=== PATIENT | male | born 2000 | race Caucasian/White ===

== ENCOUNTER 2023-05-03 16:41 | Emergency (ER) | payer SELFPAY ==
[2023-05-03 16:48] VITALS: BP 138/76; PULSE 70; RESP 18; TEMP 37.1; O2SAT 97; BMI 35.7
--- NOTE | 2023-05-03 17:02 | ED.SOB1 ---
HPI - SOB/Dyspnea General Chief Complaint: Shortness of Breath/Dyspnea Stated Complaint: SHORTNESS OF BREATH Time Seen by Provider: 05/03/23 16:45 Source: patient Mode of arrival: walk-in History of Present Illness HPI Narrative: last night the patient was taking a big bong hit at his house when he suddenly felt pain in the central anterior chest. He felt like he could not catch his breath. This sensation continued throughout the night. He was able to vape and smoke a couple of cigarettes but still felt that same set of symptoms. Nothing taken at home for the pain. He is concerned that something bad might have happened. He has not taken any bong hits since last night when the symptoms started. No recent URI symptoms. He has a slight cough. Related Data Previous Rx's Medication Instructions Recorded nabumetone 750 mg tablet 750 mg PO BID PRN pain #20 tabs 05/03/23 Allergies Allergy/AdvReac Type Severity Reaction Status Date / Time No Known Drug Allergies Allergy Verified 05/03/23 16:51 Exam Narrative Exam Narrative: Nurses notes and vital signs reviewed and patient is not hypoxic. afebrile General: Well-appearing and in no apparent distress. Skin: Warm, dry, no pallor noted. No rash. Head: Normocephalic, atraumatic. Neck: Supple, non-tender. no crepitus or subcutaneous emphysema Eye: Pupils are equal, round and EOMI. No scleral icterus. Ears, Nose, Mouth, and Throat: TM are clear, no nasal mucosal hypertrophy. Oral mucosa is moist, no posterior oropharynx erythema, uvula is mid-line Cardiovascular: Regular Rate and Rhythm without murmur, gallop or rub. Respiratory: No accessory muscle use or respiratory distress. Lungs are clear to auscultation, no wheezing, rales or rhonchi Chest Wall: no tenderness, or crepitus or subcutaneous emphysema Back: No midline thoracic or vertebral tenderness. Neurological: A&O x4. No cranial nerve dysfunction observed. No truncal ataxia. Moves all extremities. Sensation intact. Psychiatric: Cooperative and interactive. Normal mood and affect. Constitutional Vital Signs, click to edit/add: Last Vital Signs Temp 98.7 F 05/03/23 16:48 Pulse 70 05/03/23 16:48 Resp 18 05/03/23 16:48 BP 138/76 05/03/23 16:48 Pulse Ox 97 05/03/23 16:48 O2 Del Method Room Air 05/03/23 16:48 Course Vital Signs Vital signs: Vital Signs Temperature 98.7 F 05/03/23 16:48 Pulse Rate 70 05/03/23 16:48 Respiratory Rate 18 05/03/23 16:48 Blood Pressure 138/76 05/03/23 16:48 Pulse Oximetry 97 05/03/23 16:48 Oxygen Delivery Method Room Air 05/03/23 16:48 Temperature 98.7 F 05/03/23 16:48 Pulse Rate 70 05/03/23 16:48 Respiratory Rate 18 05/03/23 16:48 Blood Pressure 138/76 05/03/23 16:48 Pulse Oximetry 97 05/03/23 16:48 Oxygen Delivery Method Room Air 05/03/23 16:48 MDM - SOB/Dyspnea MDM Narrative Medical decision making narrative: patient developed pleuritic pain after using a bomb. I will signs are normal including ninety-seven percent on room air O2 sat He was sent for x-rays of the chest, which were normal. He was informed of results, given prescription for Relafen, cautioned regarding vaping and bong use and discharged home. Imaging Data Chest x-ray: Radiologist's impression: Patient Name: ESMER MUNOZ MRN: [id number] date: 2000 Sex: M Assigned Patient Location: ER Current Patient Location: Accession/Order Number: [id number] Exam Date: 05/03/2023 17:10 Report Date: 05/03/2023 17:27 At the request of: ROSANNA OCTA Procedure: XR chest 2V EXAM: XR chest 2V HISTORY: pleurisy . Acute shortness of breath. Symptoms for 2 days. COMPARISON: None. TECHNIQUE: Upright PA and lateral chest x-ray FINDINGS: The heart is not enlarged and the vasculature is not distended. No acute infiltrate, effusion or pneumothorax is identified. The osseous structures are intact. IMPRESSION: No acute infiltrate or evidence of cardiac decompensation. Direct comparison with a previous study would be helpful in determining the chronicity of these findings. Electronically authenticated by: OBDULIA WALLS Date: 05/03/2023 17:27 Discharge Plan Discharge Chief Complaint: Shortness of Breath/Dyspnea Clinical Impression: Pleurisy Patient Disposition: Home, Self-Care Time of Disposition Decision: 17:37 Prescriptions / Home Meds: New nabumetone 750 mg tablet 750 mg PO BID PRN (Reason: pain) Qty: 20 0RF Instructions: Pleurisy (ED) Stand Alone Forms: Portal Instructions Referrals: Physician,Non-Staff, MD [Primary Care Provider] - 1 week
--- NOTE | 2023-05-03 17:13 | XR_ITS ---
The [address] [address] Patient Name: ESMER MUNOZ MRN: [id number] date: 2000 Sex: M Assigned Patient Location: ER Current Patient Location: ER Accession/Order Number: [id number] Exam Date: 05/03/2023 17:10 Report Date: 05/03/2023 17:27 At the request of: ROSANNA COTA Procedure: XR chest 2V EXAM: XR chest 2V HISTORY: pleurisy . Acute shortness of breath. Symptoms for 2 days. COMPARISON: None. TECHNIQUE: Upright PA and lateral chest x-ray FINDINGS: The heart is not enlarged and the vasculature is not distended. No acute infiltrate, effusion or pneumothorax is identified. The osseous structures are intact. XR/XR chest 2V IMPRESSION: No acute infiltrate or evidence of cardiac decompensation. Direct comparison with a previous study would be helpful in determining the chronicity of these findings. Electronically authenticated by: OBDULIA WALLS Date: 05/03/2023 17:27
== END 2023-05-03 17:55 | disposition home or self-care (01) ==
PROVIDERS: Emergency Provider Emergency Medicine
DX: R09.1 Pleurisy (principal)
CPT/HCPCS: 71046; 99283

== ENCOUNTER 2023-12-21 06:16 | Inpatient (IN) | payer SELFPAY ==
[2023-12-21] VITALS (8 sets, daily range): BP systolic 114–153; BP diastolic 71–94; PULSE 74–107; TEMP 36.5–39; O2SAT 91–98; BMI 34.4; BMI 31.8
[2023-12-21 06:51] LABS: Basophils Absolute Auto 0.1 10^3/uL (0.0-0.1); Basophils Percent Auto 0.4 % (0.2-2.0); Eosinophils Absolute Auto 0.2 10^3/uL (0.0-0.7); Eosinophils Percent Auto 0.9 % (0.9-7.0); Hematocrit 55.6 % (42.0-54.0); Hemoglobin 18.9 g/dL (14.0-18.0); Immature Granulocytes Abs Auto 0.07 10^3/uL (0.00-0.03); Immature Granulocytes Pct Auto 0.4 % (0.0-0.5); Lymphocytes Percent Auto 17.6 % (20.5-60.0); Mean Corpuscular Hemoglobin 31.9 pg (25.9-34.0); Mean Corpuscular Volume 93.9 fL (80.0-94.0); Mean Platelet Volume 11.5 fL (9.5-13.5); Monocytes Absolute Auto 1.5 10^3/uL (0.3-0.8); Monocytes Percent Auto 8.9 % (1.7-12.0); Neutrophils Absolute Auto 12.1 10^3/uL (1.4-6.5); Neutrophils Percent Auto 71.8 % (43.0-75.0); Platelet Count 195 10^3/uL (150-450); Red Blood Count 5.92 10^6/uL (4.70-6.10); Red Cell Distribution Width 11.5 % (11.0-15.0); White Blood Count 16.9 10^3/uL (4.0-11.0)
--- NOTE | 2023-12-21 07:03 | CT_ITS ---
[address] [address] Patient Name: ESMER MUNOZ MRN: [id number] date: 2000 Sex: M Assigned Patient Location: ER Current Patient Location: Accession/Order Number: [id number] Exam Date: 12/21/2023 07:44 Report Date: 12/21/2023 08:19 At the request of: LAWRENCE MARKER Procedure: CT abdomen pelvis w con EXAMINATION: CT abdomen pelvis w con HISTORY: LLQ abd pain ; acute abdominal pain after coughing; diarrhea COMPARISON: No relevant comparison available. TECHNIQUE: Axial, Coronal, and Sagittal images were obtained without and/or with IV contrast as indicated by examination type. Dose reduction techniques were achieved by using automated exposure control and/or adjustment of mA and/or kV according to patient size and/or use of iterative reconstruction technique. FINDINGS: LUNG BASES: No visible pulmonary or pleural disease. LIVER: No enlargement, atrophy, suspicious density, or significant focal lesion. BILIARY: No dilatation or calcification. PANCREAS: No lesion, fluid collection, or abnormal duct dilatation. SPLEEN: No enlargement or focal lesion. ADRENALS: No mass or enlargement. KIDNEYS: No mass, obstruction, or calcification. BOWEL/MESENTERY: Prominent inflammatory changes and small amount of free air within mesentery of low midline pelvis adjacent to appear to be inflamed diverticula of the sigmoid colon. Abnormal wall thickening and inflamed appearance of the distal descending through sigmoid colon suggestive of colitis. Fluid-filled proximal: With borderline wall thickening and slightly edematous appearance of distal small bowel cecum, and proximal ascending colon. No bowel obstruction. No visible mass, obstruction, or bowel wall thickening. AORTA/VASCULAR: No aneurysm or dissection. RETROPERITONEUM: No mass or adenopathy. LYMPH NODES: No adenopathy. URINARY BLADDER: No visible focal wall thickening, lesion, or calculus. PELVIC ORGANS: No visible mass. Pelvic organs appropriate for patient age. ABDOMINAL WALL: No mass or hernia. BONES: No bony lesion or fracture. OTHER: Negative. CT/CT abdomen pelvis w con IMPRESSION: 1. Acute diverticulitis with perforation and prominent inflammatory changes within the pelvis. 2. Abnormal wall thickening and edematous appearance of descending and sigmoid colon, with more mild changes involving the distal small bowel and ascending colon; nonspecific but suggestive of inflammatory bowel disease. No bowel obstruction. Electronically authenticated by: OMER BOSTON Date: 12/21/2023 08:19
--- NOTE | 2023-12-21 07:05 | ED.ABDPAIN1 ---
HPI - Abdominal Pain General Chief Complaint: Abdominal Pain Stated Complaint: abd pelvis pain Time Seen by Provider: 12/21/23 06:43 Source: patient Mode of arrival: Wheelchair History of Present Illness HPI narrative: This 23-year-old male who is status post appendectomy presents for evaluation of left lower quadrant abdominal pain with nausea. The patient has had gastrointestinal symptoms for the past several days with constipation. He has taken some stool softeners and laxatives and has had some diarrhea. He is feeling okay last night and this morning woke up with severe pain in his left lower quadrant. The patient told his sister he felt like something tore in his abdomen. He has not had any urinary symptoms. He has mild low back pain. He has epigastric pain as well. He has not had a fever or chills. He has not had any bloody stools. Related Data Previous Rx's ?Medication ?Instructions ?Recorded nabumetone 750 mg tablet 750 mg PO BID PRN pain #20 tabs 05/03/23 Allergies Allergy/AdvReac Type Severity Reaction Status Date / Time No Known Drug Allergies Allergy Verified 05/03/23 16:51 Review of Systems ROS Status of ROS 10 or more systems reviewed and unremarkable except as noted in history and below Exam Narrative Exam Narrative: Nurses note and vital signs reviewed and patient is not hypoxic. General: Pale overweight uncomfortable appearing male, he is grimacing in pain, no respiratory distress Skin: Warm, dry, no pallor noted. There is no rash noted. Head: Normocephalic, atraumatic Eye: Normal conjunctiva, no drainage, EOMI. PERRL Ears, Nose, Mouth, and Throat: oral mucosa is moist. Nares patent. Mouth without vesicles. Ear canals patent. Tm's without Erythema Cardiovascular: Regular Rate and Rhythm s1S2, no murmurs, rubs or gallops Respiratory: Patient is in no distress, no accessory muscle use, lungs are clear to auscultation, no wheezing, rales or rhonchi Back: non-tender, no CVA tenderness bilaterally to percussion. GI: Decreased bowel sounds, diffusely tender, abdomen is firm with generalized guarding, tenderness is more localized in the left lower quadrant and epigastrium. Musculoskeletal: The patient has no evidence of calf tenderness, no pitting edema, symmetrical pulses noted bilaterally Neurological: A&O x4, normal speech Psychiatric: Cooperative, Anxious, tearful Constitutional Vital Signs, click to edit/add: Last Vital Signs Temp 97.7 F 12/21/23 06:20 Pulse 87 12/21/23 06:20 Resp 22 H 12/21/23 06:20 BP 129/94 H 12/21/23 06:20 Pulse Ox 98 12/21/23 06:20 O2 Del Method Room Air 12/21/23 06:20 Course Vital Signs Vital signs: Vital Signs Temperature 97.7 F 12/21/23 06:20 Pulse Rate 87 12/21/23 06:20 Respiratory Rate 22 H 12/21/23 06:20 Blood Pressure 129/94 H 12/21/23 06:20 Pulse Oximetry 98 12/21/23 06:20 Oxygen Delivery Method Room Air 12/21/23 06:20 Temperature 97.7 F 12/21/23 06:20 Pulse Rate 87 12/21/23 06:20 Respiratory Rate 22 H 12/21/23 06:20 Blood Pressure 129/94 H 12/21/23 06:20 Pulse Oximetry 98 12/21/23 06:20 Oxygen Delivery Method Room Air 12/21/23 06:20 MDM - Abdominal Pain MDM Narrative Medical decision making narrative: Patient signed out to incoming physician at 7 AM Lab Data Labs: Lab Results 12/21/23 Range/Units 06:28 WBC 16.9 H (4.0-11.0) 10^3/uL RBC 5.92 (4.70-6.10) 10^6/uL Hgb 18.9 H (14.0-18.0) g/dL Hct 55.6 H (42.0-54.0) % MCV 93.9 (80.0-94.0) fL MCH 31.9 (25.9-34.0) pg MCHC 34.0 (29.9-35.2) g/dL RDW 11.5 (11.0-15.0) % Plt Count 195 (150-450) 10^3/uL MPV 11.5 (9.5-13.5) fL Neut % (Auto) 71.8 (43.0-75.0) % Lymph % (Auto) 17.6 L (20.5-60.0) % [place] % (Auto) 8.9 (1.7-12.0) % Eos % (Auto) 0.9 (0.9-7.0) % Baso % (Auto) 0.4 (0.2-2.0) % Neut # (Auto) 12.1 H (1.4-6.5) 10^3/uL Lymph # (Auto) 3.0 (1.2-3.8) 10^3/uL [place] # (Auto) 1.5 H (0.3-0.8) 10^3/uL Eos # (Auto) 0.2 (0.0-0.7) 10^3/uL Baso # (Auto) 0.1 (0.0-0.1) 10^3/uL Abs Immat Gran (auto) 0.07 H (0.00-0.03) 10^3/uL Imm/Tot Granulo (auto) 0.4 (0.0-0.5) % Discharge Plan Discharge Chief Complaint: Abdominal Pain Patient Disposition: Still a Patient Time of Disposition Decision: 07:08 Prescriptions / Home Meds: No Action nabumetone 750 mg tablet 750 mg PO BID PRN (Reason: pain) Qty: 20 0RF Print Language: Thai Referrals: Physician,Non-Staff, MD [Primary Care Provider] - 1 week
[2023-12-21 07:06] LABS: Alanine Aminotransferase 18 U/L (16-63); Albumin Globulin Ratio 0.8; Alkaline Phosphatase 92 U/L (46-116); Anion Gap 22.3; Aspartate Amino Transferase 14 U/L (15-37); BUN Creatinine Ratio 9.3; Bilirubin Total 1.9 mg/dL (0.2-1.0); Calcium 10.1 mg/dL (8.5-10.1); Carbon Dioxide 21.9 mmol/L (21.0-32.0); Chloride 96 mmol/L (98-107); Estimated GFR (African America >60 (>=60); Estimated GFR (Non-African Ame >60 (>=60); Globulin 4.8 g/dL; Glucose 144 mg/dL (74-106); Potassium 3.2 mmol/L (3.5-5.1); Sodium 137 mmol/L (136-145); Total Protein 8.8 g/dL (6.4-8.2)
[2023-12-21] MEDS: FAMOTIDINE/PF 20 MG/2 ML VIAL IV (07:06)
[2023-12-21] MEDS: ONDANSETRON PF 4 MG/2 ML VIAL IV (07:06)
[2023-12-21] MEDS: HYDROMORPHONE HCL 1 MG/ML CARTRIDGE IV (07:07)
[2023-12-21] MEDS: 0.9 % SODIUM CHLORIDE 1,000 ML 1000 ML IV (07:07)
[2023-12-21 07:09] LABS: Lactate/Lactic Acid 1.6 mmol/L (0.4-2.0)
[2023-12-21 07:27] LABS: Influenza Virus A Antigen Negative; Influenza Virus B Antigen Negative; Internal Control Within Normal Limits
[2023-12-21] MEDS: CEFTRIAXONE 2,000 MG in 0.9 % SODIUM CHLORIDE 100 ML 200 MG IV (08:57)
--- NOTE | 2023-12-21 09:08 | ED_ITS ---
HPI - Abdominal Pain General Chief Complaint: Abdominal Pain Stated Complaint: abd pelvis pain Time Seen by Provider: 12/21/23 06:43 Source: patient Mode of arrival: Wheelchair History of Present Illness HPI narrative: The patient was initially seen by Dr Greer. Please see her full H&P. Related Data Allergies Allergy/AdvReac Type Severity Reaction Status Date / Time No Known Drug Allergies Allergy Verified 05/03/23 16:51 Exam Constitutional Vital Signs, click to edit/add: Last Vital Signs Temp 97.7 F 12/21/23 06:20 Pulse 87 12/21/23 06:20 Resp 22 H 12/21/23 06:20 BP 129/94 H 12/21/23 06:20 Pulse Ox 98 12/21/23 06:20 O2 Del Method Room Air 12/21/23 06:20 Course Vital Signs Vital signs: Vital Signs Temperature 97.7 F 12/21/23 06:20 Pulse Rate 87 12/21/23 06:20 Respiratory Rate 22 H 12/21/23 06:20 Blood Pressure 129/94 H 12/21/23 06:20 Pulse Oximetry 98 12/21/23 06:20 Oxygen Delivery Method Room Air 12/21/23 06:20 Temperature 97.7 F 12/21/23 06:20 Pulse Rate 87 12/21/23 06:20 Respiratory Rate 22 H 12/21/23 06:20 Blood Pressure 129/94 H 12/21/23 06:20 Pulse Oximetry 98 12/21/23 06:20 Oxygen Delivery Method Room Air 12/21/23 06:20 MDM - Abdominal Pain MDM Narrative Medical decision making narrative: Diverticulitis with perforation is found on CT. Discussed with Dr Flores. We will admit for IV antibiotics. Findings discussed with patient. Differential Diagnosis Differential diagnosis: Likely abdominal pain, constipation, diverticulitis and small bowel obstruction Lab Data Attestation: I reviewed the patient's lab results. Labs: Lab Results 12/21/23 12/21/23 Range/Units 06:28 07:10 WBC 16.9 H (4.0-11.0) 10^3/uL RBC 5.92 (4.70-6.10) 10^6/uL Hgb 18.9 H (14.0-18.0) g/dL Hct 55.6 H (42.0-54.0) % MCV 93.9 (80.0-94.0) fL MCH 31.9 (25.9-34.0) pg MCHC 34.0 (29.9-35.2) g/dL RDW 11.5 (11.0-15.0) % Plt Count 195 (150-450) 10^3/uL MPV 11.5 (9.5-13.5) fL Neut % (Auto) 71.8 (43.0-75.0) % Lymph % (Auto) 17.6 L (20.5-60.0) % [place] % (Auto) 8.9 (1.7-12.0) % Eos % (Auto) 0.9 (0.9-7.0) % Baso % (Auto) 0.4 (0.2-2.0) % Neut # (Auto) 12.1 H (1.4-6.5) 10^3/uL Lymph # (Auto) 3.0 (1.2-3.8) 10^3/uL [place] # (Auto) 1.5 H (0.3-0.8) 10^3/uL Eos # (Auto) 0.2 (0.0-0.7) 10^3/uL Baso # (Auto) 0.1 (0.0-0.1) 10^3/uL Abs Immat Gran (auto) 0.07 H (0.00-0.03) 10^3/uL Imm/Tot Granulo (auto) 0.4 (0.0-0.5) % Sodium 137 (136-145) mmol/L Potassium 3.2 L (3.5-5.1) mmol/L Chloride 96 L (98-107) mmol/L Carbon Dioxide 21.9 (21.0-32.0) mmol/L Anion Gap 22.3 BUN 13.0 (7.0-18.0) mg/dL Creatinine 1.40 H (0.70-1.30) mg/dL Est GFR ( Amer) >60 (>=60) Est GFR (Non-Af Amer) >60 (>=60) BUN/Creatinine Ratio 9.3 Glucose 144 H (74-106) mg/dL Lactate 1.6 (0.4-2.0) mmol/L Calcium 10.1 (8.5-10.1) mg/dL Total Bilirubin 1.9 H (0.2-1.0) mg/dL AST 14 L (15-37) U/L ALT 18 (16-63) U/L Alkaline Phosphatase 92 (46-116) U/L Total Protein 8.8 H (6.4-8.2) g/dL Albumin 4.0 (3.4-5.0) g/dL Globulin 4.8 g/dL Albumin/Globulin Ratio 0.8 Influenza Type A Ag Negative Influenza Type B Ag Negative Imaging Data CT scan - abdomen: Radiologist's impression: ITS Impressions Abdomen/Pelvis CT 12/21/23 07:03 IMPRESSION: 1. Acute diverticulitis with perforation and prominent inflammatory changes within the pelvis. 2. Abnormal wall thickening and edematous appearance of descending and sigmoid colon, with more mild changes involving the distal small bowel and ascending colon; nonspecific but suggestive of inflammatory bowel disease. No bowel obstruction. Electronically authenticated by: OMER BOSTON Date: 12/21/2023 08:19 Discharge Plan Discharge Chief Complaint: Abdominal Pain Clinical Impression: Diverticulitis of colon with perforation Patient Disposition: Admitted As Inpatient Time of Disposition Decision: 08:45 Condition: Good
[2023-12-21] MEDS: METRONIDAZOLE/SODIUM CHLORIDE 500 MG/100 ML PREMIX 100 MG IV ×3 (09:24→21:22)
[2023-12-21] MEDS: MORPHINE SULFATE 4 MG/ML VIAL IV (09:24)
--- NOTE | 2023-12-21 09:57 | PM.GSCN ---
History of Present Illness Consult details Consult date: 12/21/23 Reason for consult: abdominal pain Requesting physician: Marcus Carvajal Narrative: Mr. Corbin is a 23m with hx of alcohol use disorder, HTN, and current smoker with a 2 day hx of abdominal pain. Surgery consulted from ED for diverticulitis with perforation. He is examined in ED with sister at bedside. He states the pain became significantly worse at 5am this morning with a ripping sensation and burning pain that spread through his abdomen. He initially thought he must be very constipated. Became nauseated and vomited before presenting to ED. Pain is currently not well controlled, and he endorses localization to several spots--left and right lateral abdomen and low pain along the waistband of his pants. No pain centrally. Pt has never been told in the past he has diverticula. He hasn't seen a PCP in several years due to lack of insurance. Denies chronic constipation or straining. Endorses poor diet with processed foods and few fibers, which he has been trying to improve recently. Has not had solid food in 2 days. Last liquid intake was water and nate veronika at 5am today. Pt has had surgery in the last year for his wrist and tolerated general anesthesia well. Denies chronic lung conditions besides smoker's cough. Denies cardiac conditions aside from hx of HTN. Pt expresses desire to avoid colostomy if possible. Social Hx: Current every day smoker 4-6 cigarettes plus 1-2 bowls of marijuana daily. Former daily drinker of a fifth of vodka daily. 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[place] [address] CT Scan Report Signed Patient: ESMER CORBIN MR#: [id number] : 2000 Acct:[id number] Age/Sex: 23 / M ADM Date: 12/21/23 Loc: ER Attending Dr: Ordering Physician: Flor Greer Date of Service: 12/21/23 Procedure(s): CT abdomen pelvis w con Accession Number(s): [id number] cc: Physician,Non-Staff M.D.~ The [address] [address] Patient Name: ESMER CORBIN MRN: [id number] date: 2000 Sex: M Assigned Patient Location: ER Current Patient Location: ER Accession/Order Number: [id number] Exam Date: 12/21/2023 07:44 Report Date: 12/21/2023 08:19 At the request of: FLOR MARKER Procedure: CT abdomen pelvis w con EXAMINATION: CT abdomen pelvis w con HISTORY: LLQ abd pain ; acute abdominal pain after coughing; diarrhea COMPARISON: No relevant comparison available. TECHNIQUE: Axial, Coronal, and Sagittal images were obtained without and/or with IV contrast as indicated by examination type. Dose reduction techniques were achieved by using automated exposure control and/or adjustment of mA and/or kV according to patient size and/or use of iterative reconstruction technique. FINDINGS: LUNG BASES: No visible pulmonary or pleural disease. LIVER: No enlargement, atrophy, suspicious density, or significant focal lesion. BILIARY: No dilatation or calcification. PANCREAS: No lesion, fluid collection, or abnormal duct dilatation. SPLEEN: No enlargement or focal lesion. ADRENALS: No mass or enlargement. KIDNEYS: No mass, obstruction, or calcification. BOWEL/MESENTERY: Prominent inflammatory changes and small amount of free air within mesentery of low midline pelvis adjacent to appear to be inflamed diverticula of the sigmoid colon. Abnormal wall thickening and inflamed appearance of the distal descending through sigmoid colon suggestive of colitis. Fluid-filled proximal: With borderline wall thickening and slightly edematous appearance of distal small bowel cecum, and proximal ascending colon. No bowel obstruction. No visible mass, obstruction, or bowel wall thickening. AORTA/VASCULAR: No aneurysm or dissection. RETROPERITONEUM: No mass or adenopathy. LYMPH NODES: No adenopathy. URINARY BLADDER: No visible focal wall thickening, lesion, or calculus. PELVIC ORGANS: No visible mass. Pelvic organs appropriate for patient age. ABDOMINAL WALL: No mass or hernia. BONES: No bony lesion or fracture. OTHER: Negative. CT/CT abdomen pelvis w con IMPRESSION: 1. Acute diverticulitis with perforation and prominent inflammatory changes within the pelvis. 2. Abnormal wall thickening and edematous appearance of descending and sigmoid colon, with more mild changes involving the distal small bowel and ascending colon; nonspecific but suggestive of inflammatory bowel disease. No bowel obstruction. Electronically authenticated by: JIM GAMING Date: 12/21/2023 08:19 Dictated By: Jim Gaming M.D. Signed By: 12/21/23821 DD/ 8 TD/TT: Pantomimist: Review of Systems ROS Status of ROS 10 or more systems reviewed and unremarkable except as noted in history and below [facility] Medical History (Updated 12/21/23 @ 13:26 by Xavier Flores MD) Pleurisy ?R09.1 - Pleurisy (ICD-10) Alcohol use disorder, mild, in early remission ?F10.11 - Alcohol abuse, in remission (ICD-10) HTN (hypertension) ?I10 - Essential (primary) hypertension (ICD-10) Herpes simplex ?B00.9 - Herpesviral infection, unspecified (ICD-10) Surgical History History of surgery on arm ?Z98.890 - Other specified postprocedural states (ICD-10) History of appendectomy ?Z90.49 - Acquired absence of other specified parts of digestive tract (ICD-10) Family History Mother Family history of COPD (chronic obstructive pulmonary disease) Family history of cancer Family history of hypertension Father Family history of hypertension Social History Within the past year, how often did you have a drink containing alcohol: 2-3 times a week Within the past year, how many standard drinks containing alcohol did you have on a typical day: 1 or 2 Within the past year, how often did you have six or more drinks on one occasion: less than monthly Total score: 1 Score interpretation: A score of 4 or more indicates drinking is likely to affect patient's safety. Smoking status: Current every day smoker Non-prescribed substance use: cannabis (any form) Previous occupational history: unemployed Highest level of school completed/degree received: high school graduate Are you now , , , , never or living with a partner: never Little interest or pleasure in doing things: not at all Feeling down, depressed, or hopeless: not at all Feel stressed/tense/nervous/anxious/difficulty sleeping: not at all Meds Home Medications and Allergies Allergies Allergy/AdvReac Type Severity Reaction Status Date / Time No Known Drug Allergies Allergy Verified 05/03/23 16:51 Exam Narrative Exam Narrative: General:appears ill, mild distress from pain, obese HEENT:NC/AT CV:RRR, no rub/gallop/murmur Pulm:CTA Abd:soft, nondistended, obese, normoactive bowel sounds, exquisitely tender to light palpation in LLQ, RUQ, and midline low abdomen, +guarding Ext:normal ROM Neuro:no focal deficits Psych: anxious mood, congruent affect, normal speech Constitutional Vital Signs, click to edit/add: Last Vital Signs Temp 97.7 F 12/21/23 06:20 Pulse 74 12/21/23 09:30 Resp 16 12/21/23 09:30 BP 114/78 12/21/23 09:30 Pulse Ox 98 12/21/23 09:31 O2 Del Method Room Air 12/21/23 09:31 Documenting provider has reviewed patient's vital signs: yes Common normals: average body habitus, oriented x3, healthy appearing, alert and well nourished Results Labs Labs: Abnormal lab results 12/21/23 Range/Units 06:28 WBC 16.9 H (4.0-11.0) 10^3/uL Hgb 18.9 H (14.0-18.0) g/dL Hct 55.6 H (42.0-54.0) % Lymph % (Auto) 17.6 L (20.5-60.0) % Neut # (Auto) 12.1 H (1.4-6.5) 10^3/uL [place] # (Auto) 1.5 H (0.3-0.8) 10^3/uL Abs Immat Gran (auto) 0.07 H (0.00-0.03) 10^3/uL Potassium 3.2 L (3.5-5.1) mmol/L Chloride 96 L (98-107) mmol/L Creatinine 1.40 H (0.70-1.30) mg/dL Glucose 144 H (74-106) mg/dL Total Bilirubin 1.9 H (0.2-1.0) mg/dL AST 14 L (15-37) U/L Total Protein 8.8 H (6.4-8.2) g/dL Diabetes panel 12/21/23 Range/Units 06:28 Sodium 137 (136-145) mmol/L Potassium 3.2 L (3.5-5.1) mmol/L Chloride 96 L (98-107) mmol/L Carbon Dioxide 21.9 (21.0-32.0) mmol/L BUN 13.0 (7.0-18.0) mg/dL Creatinine 1.40 H (0.70-1.30) mg/dL Glucose 144 H (74-106) mg/dL Calcium 10.1 (8.5-10.1) mg/dL AST 14 L (15-37) U/L ALT 18 (16-63) U/L Alkaline Phosphatase 92 (46-116) U/L Total Protein 8.8 H (6.4-8.2) g/dL Albumin 4.0 (3.4-5.0) g/dL Calcium panel 12/21/23 Range/Units 06:28 Calcium 10.1 (8.5-10.1) mg/dL Albumin 4.0 (3.4-5.0) g/dL Pituitary panel 12/21/23 Range/Units 06:28 Sodium 137 (136-145) mmol/L Potassium 3.2 L (3.5-5.1) mmol/L Chloride 96 L (98-107) mmol/L Carbon Dioxide 21.9 (21.0-32.0) mmol/L BUN 13.0 (7.0-18.0) mg/dL Creatinine 1.40 H (0.70-1.30) mg/dL Glucose 144 H (74-106) mg/dL Calcium 10.1 (8.5-10.1) mg/dL Adrenal panel 12/21/23 Range/Units 06:28 Sodium 137 (136-145) mmol/L Potassium 3.2 L (3.5-5.1) mmol/L Chloride 96 L (98-107) mmol/L Carbon Dioxide 21.9 (21.0-32.0) mmol/L BUN 13.0 (7.0-18.0) mg/dL Creatinine 1.40 H (0.70-1.30) mg/dL Glucose 144 H (74-106) mg/dL Calcium 10.1 (8.5-10.1) mg/dL Total Bilirubin 1.9 H (0.2-1.0) mg/dL AST 14 L (15-37) U/L ALT 18 (16-63) U/L Alkaline Phosphatase 92 (46-116) U/L Total Protein 8.8 H (6.4-8.2) g/dL Albumin 4.0 (3.4-5.0) g/dL All other labs normal. Imaging Abdomen CT scan report/results: report reviewed and image reviewed Assessment and Plan Assessment and Plan (1) Diverticulitis of colon with perforation: (2) Smoker: (3) Marijuana smoker: (4) Smokers' cough: (5) Obesity (BMI 35.0-39.9 without comorbidity): Plan Mr. Corbin is a 23[address] evidence of diverticulitis with small free air suggestive of perforation. Will monitor with conservative management before consideration of surgical intervention. Plan - Daily Rocephin and Flagyl - Monitor vitals, CBC for minimum 48 hrs - Blood cultures - Continue dilaudid, morphine PRN pain control - Continue Zofran PRN nausea/vomiting keep npo except for ice chips 1 cup/shift
[2023-12-21] MEDS: LACTATED RINGER'S SOLUTION 1,000 ML 125 ML IV ×2 (11:09→19:22)
--- NOTE | 2023-12-21 11:14 | CM.NOTE ---
Rounds made with Dr. Gerard. CT and labs reviewed with Nile by Dr. Gerard. Verbalizes understanding.
--- NOTE | 2023-12-21 11:42 | P.HP_ITS ---
HPI H&P: HPI History of Present Illness Chief complaint: abd pain, DIVERTICULITIS OF COLON WITH PERFORATION Narrative: 23 y/o male to ER with abdominal pain. No significant PMH and no daily medication. Reports abdominal pain for few days. Started new job and increased lifting, initially thought related to job. Pain diffusely across lower abdomen. Developed nausea and emesis. Started dry heaving and felt like something tore in LLQ. Severe pain after and to ER. WBC elevated at 16.[address] abdomen showed acute diverticulitis with evidence of perforation. Admitted for treatment. Opioid HPI Opioid Management Most Recent Opioid Data: Last Pain Scale 8 12/21/23 09:31 Last Pain Assessment 12/21/23 10:49 Last ED Pain Assessment 12/21/23 09:31 Last MAR Pain Assessment 12/21/23 09:24 Last ORT Total Score 4 12/21/23 09:21 Last ORT Risk Category Moderate Risk 12/21/23 09:21 Review of Systems ROS Constitutional Denies: fever, chills or fatigue Cardiovascular Denies: chest pain, palpitations or edema Respiratory Denies: shortness of breath, cough or wheezing Gastrointestinal Reports: abdominal pain, nausea and vomiting; Denies: diarrhea Genitourinary Denies: painful urination PFSH PFSH Medical History (Updated 12/21/23 @ 11:46 by Bk Gerard MD) Pleurisy ?R09.1 - Pleurisy (ICD-10) Alcohol use disorder, mild, in early remission ?F10.11 - Alcohol abuse, in remission (ICD-10) HTN (hypertension) ?I10 - Essential (primary) hypertension (ICD-10) Herpes simplex ?B00.9 - Herpesviral infection, unspecified (ICD-10) Surgical History (Updated 12/21/23 @ 10:16 by Xavier Flores MD) History of surgery on arm ?Z98.890 - Other specified postprocedural states (ICD-10) History of appendectomy ?Z90.49 - Acquired absence of other specified parts of digestive tract (ICD- 10) Family History (Updated 12/21/23 @ 10:06 by Talisha Polanco) Mother Family history of COPD (chronic obstructive pulmonary disease) Family history of cancer Family history of hypertension Father Family history of hypertension Social History (Updated 12/21/23 @ 10:07 by Talisha Polanco) Within the past year, how often did you have a drink containing alcohol: 2-3 times a week Within the past year, how many standard drinks containing alcohol did you have on a typical day: 1 or 2 Within the past year, how often did you have six or more drinks on one occasion: less than monthly Total score: 1 Score interpretation: A score of 4 or more indicates drinking is likely to affect patient's safety. Smoking status: Current every day smoker Non-prescribed substance use: cannabis (any form) Previous occupational history: unemployed Highest level of school completed/degree received: high school graduate Are you now , , , , never or living with a partner: never Little interest or pleasure in doing things: not at all Feeling down, depressed, or hopeless: not at all Feel stressed/tense/nervous/anxious/difficulty sleeping: not at all Meds Home Medications and Allergies Allergies Allergy/AdvReac Type Severity Reaction Status Date / Time No Known Drug Allergies Allergy Verified 05/03/23 16:51 Exam Constitutional Vital Signs, click to edit/add: Last Vital Signs Temp 99.4 F 12/21/23 09:21 Pulse 74 12/21/23 09:30 Resp 16 12/21/23 09:30 BP 114/78 12/21/23 09:30 Pulse Ox 98 12/21/23 09:31 O2 Del Method Room Air 12/21/23 09:31 Documenting provider has reviewed patient's vital signs: yes Common normals: oriented x3 and alert HENMT Common normals: normocephalic Eye Common normals: PERRL and EOMs intact bilaterally Respiratory Common normals: normal respiratory effort and clear to auscultation bilaterally Cardio Common normals: regular rate, regular rhythm, no gallops, no murmurs and no rub GI Auscultation: normoactive bowel sounds Palpation: soft and tender (Diffuse TTP across lower abdomen, worse LLQ); no guarding Extremity Common normals: no pedal edema Results Labs Labs: Short CBC 12/21/23 Range/Units 06:28 WBC 16.9 H (4.0-11.0) 10^3/uL Hgb 18.9 H (14.0-18.0) g/dL Hct 55.6 H (42.0-54.0) % Plt Count 195 (150-450) 10^3/uL BMP 12/21/23 06:28 Sodium 137 Potassium 3.2 L Chloride 96 L Carbon Dioxide 21.9 BUN 13.0 Creatinine 1.40 H Glucose 144 H Calcium 10.1 Liver Function 12/21/23 Range/Units 06:28 Total Bilirubin 1.9 H (0.2-1.0) mg/dL AST 14 L (15-37) U/L ALT 18 (16-63) U/L Alkaline Phosphatase 92 (46-116) U/L Albumin 4.0 (3.4-5.0) g/dL Imaging CT scan - abdomen: Attestation: I have reviewed the pertinent imaging results. Assessment and Plan Assessment and Plan (1) Diverticulitis of colon with perforation: (2) Smoker: (3) Obesity (BMI 30-39.9): Plan Presented with pain and found acute diverticulitis with perforation. Consult surgery. Start rocephin and flagyl. Give IV fluids. Use morphine PRN for pain and zofran for nausea. Keep NPO until evaluated by surgery.
--- NOTE | 2023-12-21 11:54 | CM.NOTE ---
Financial counselors informed of self pay status.
[2023-12-21] MEDS: MORPHINE SULFATE 2 MG/ML SYRINGE IV ×2 (16:15→20:07)
[2023-12-21] MEDS: ACETAMINOPHEN 325 MG TABLET 650 MG PO (21:22)
[2023-12-22] VITALS (13 sets, daily range): BP systolic 127–146; BP diastolic 81–94; PULSE 82–100; TEMP 36.4–36.8; O2SAT 91–98
[2023-12-22] MEDS: MORPHINE SULFATE 2 MG/ML SYRINGE IV ×2 (00:44→05:00)
[2023-12-22] MEDS: METRONIDAZOLE/SODIUM CHLORIDE 500 MG/100 ML PREMIX 100 MG IV (03:05)
[2023-12-22] MEDS: ONDANSETRON PF 4 MG/2 ML VIAL IV ×2 (03:05→07:20)
[2023-12-22] MEDS: LACTATED RINGER'S SOLUTION 1,000 ML 125 ML IV ×3 (05:13→20:56)
[2023-12-22 05:44] LABS: Basophils Percent Auto 0.3 % (0.2-2.0); Eosinophils Percent Auto 0.3 % (0.9-7.0); Hematocrit 50.6 % (42.0-54.0); Hemoglobin 16.8 g/dL (14.0-18.0); Immature Granulocytes Abs Auto 0.06 10^3/uL (0.00-0.03); Immature Granulocytes Pct Auto 0.4 % (0.0-0.5); Lymphocytes Absolute Auto 0.9 10^3/uL (1.2-3.8); Lymphocytes Percent Auto 6.3 % (20.5-60.0); Mean Corpuscular HGB Conc 33.2 g/dL (29.9-35.2); Mean Corpuscular Hemoglobin 31.6 pg (25.9-34.0); Mean Corpuscular Volume 95.3 fL (80.0-94.0); Mean Platelet Volume 12.3 fL (9.5-13.5); Monocytes Absolute Auto 1.3 10^3/uL (0.3-0.8); Monocytes Percent Auto 8.8 % (1.7-12.0); Neutrophils Absolute Auto 12.4 10^3/uL (1.4-6.5); Neutrophils Percent Auto 83.9 % (43.0-75.0); Platelet Count 174 10^3/uL (150-450); Red Blood Count 5.31 10^6/uL (4.70-6.10); Red Cell Distribution Width 11.9 % (11.0-15.0); White Blood Count 14.7 10^3/uL (4.0-11.0)
[2023-12-22 06:10] LABS: Alanine Aminotransferase 11 U/L (16-63); Albumin Globulin Ratio 0.7; Albumin Level 2.8 g/dL (3.4-5.0); Alkaline Phosphatase 60 U/L (46-116); Anion Gap 16.5; Aspartate Amino Transferase 12 U/L (15-37); BUN Creatinine Ratio 11.2; Bilirubin Total 1.3 mg/dL (0.2-1.0); Calcium 9.3 mg/dL (8.5-10.1); Carbon Dioxide 22.1 mmol/L (21.0-32.0); Chloride 103 mmol/L (98-107); Estimated GFR (African America >60 (>=60); Estimated GFR (Non-African Ame >60 (>=60); Globulin 4.2 g/dL; Glucose 109 mg/dL (74-106); Potassium 3.6 mmol/L (3.5-5.1); Sodium 138 mmol/L (136-145)
[2023-12-22] MEDS: CEFTRIAXONE 1,000 MG in 0.9 % SODIUM CHLORIDE 50 ML 100 MG IV (08:37)
[2023-12-22] MEDS: PROMETHAZINE HCL 12.5 MG in 0.9 % SODIUM CHLORIDE 50 ML 202 MG IV (08:38)
[2023-12-22] MEDS: MORPHINE SULFATE 4 MG/ML VIAL IV (08:38)
[2023-12-22] MEDS: PANTOPRAZOLE SODIUM 40 MG VIAL IV (10:14)
[2023-12-22] MEDS: PIPERACILLIN SODIUM/TAZOBACTAM 3.375 GM in 0.9 % SODIUM CHLORIDE 50 ML IV ×2 (10:18→17:40)
--- NOTE | 2023-12-22 11:23 | P.IMPN_ITS ---
Progress Note: A&P Assessment and Plan (1) Diverticulitis of colon with perforation: Assessment and Plan: Poorly controlled pain. Changed to IV dilauded. IV abx changed to Zosyn so that he has pseudomonal coverage also. Blood cultures were not ordered on admission - ordered blood cultures. Conservative care for now. C/w Bowel rest, IVF, IVF abx and pain/nausea control Surgery on consult, follow their recs. (2) Sepsis: Assessment and Plan: Patient met criteria for sepsis on admission. Fever 102, WBC 16k, HR 107, source of infection is diverticulitis. Patient on IV zosyn now. Switched from Rocephin/flagyl. His hemodynamics are stable now. He is not in sepsis anymore. Leukocytosis is improving, he is afebrile. C/w IVF, IV abx. Blood cultures ordered as they were not done on admission. Qualifiers: Sepsis type: sepsis due to unspecified organism Sepsis acute organ dysfunction status: without acute organ dysfunction Qualified Code(s): A41.9 - Sepsis, unspecified organism (3) HTN (hypertension): Assessment and Plan: Above goal likely due to pain. Monitor for now. Qualifiers: Hypertension type: primary hypertension Qualified Code(s): I10 - Essential (primary) hypertension (4) Nausea and vomiting: Assessment and Plan: Due to diverticulitis. Added promethazine as needed as zofran alone was not quite working for him. He is not retching anymore and feels better than earlier today. Qualifiers: Vomiting type: unspecified Qualified Code(s): R11.2 - Nausea with vomiting, unspecified (5) Smoker: Assessment and Plan: Discussed smoking cessation. Will defer to PCP to discuss treatment for it. (6) Marijuana smoker: Assessment and Plan: Discussed Marijuana use and potential adverse effects of it. (7) Obesity (BMI 35.0-39.9 without comorbidity): Assessment and Plan: Patient would benefit from weight loss, with lifestyle measures and increasing physical activity. Plan C/w bowel rest, conservative management of his diverticulitis. Pain is poorly controlled, however nausea is better. He is anticipated to require inpatient care for > 3 MN to closely monitor his progress as he is at high risk of poor outcome if not treated appropriately. Follow up surgery recommendations on advancing diet. C/w IVF, IV abx. Monitor closely and continue to reassess for clinical progress. Internal Medicine - PN: Subj Subjective Interval history: Seen and examined. Patient reports poorly controlled abdominal pain. He was very nauseous in the morning and dry heaving. Pain is persistent, generalized but worse in left upper quadrant now. No diarrhea or blood in stool. Afebrile. Exam Constitutional Vital Signs, click to edit/add: Last Vital Signs Temp 98.1 F 12/22/23 08:09 Pulse 88 12/22/23 10:24 Resp 18 12/22/23 08:09 BP 146/85 H 12/22/23 08:09 Pulse Ox 98 12/22/23 10:24 O2 Del Method Room Air 12/22/23 08:09 Documenting provider has reviewed patient's vital signs: yes Common normals: oriented x3 Nutritional appearance: obese Other: Appears to be in pain Respiratory Common normals: normal respiratory effort and clear to auscultation bilaterally Effort & inspection: able to speak in complete sentences Auscultation: clear to auscultation bilaterally Cardio Common normals: regular rate, S1 normal heart sound and S2 normal heart sound Rate: regular rate Heart sounds: S1 normal and S2 normal GI Common normals: Normal to inspection, nondistended, normoactive bowel sounds present, soft to palpation and no hepatosplenomegaly Palpation: tender Details: LUQ Internal Medicine - PN: Obj Da Labs Labs: Laboratory Results - last 24 hr 12/22/23 04:14 WBC 14.7 H RBC 5.31 Hgb 16.8 Hct 50.6 MCV 95.3 H MCH 31.6 MCHC 33.2 RDW 11.9 Plt Count 174 MPV 12.3 Neut % (Auto) 83.9 H Lymph % (Auto) 6.3 L [place] % (Auto) 8.8 Eos % (Auto) 0.3 L Baso % (Auto) 0.3 Neut # (Auto) 12.4 H Lymph # (Auto) 0.9 L [place] # (Auto) 1.3 H Eos # (Auto) 0.0 Baso # (Auto) 0.0 Abs Immat Gran (auto) 0.06 H Imm/Tot Granulo (auto) 0.4 Sodium 138 Potassium 3.6 Chloride 103 Carbon Dioxide 22.1 Anion Gap 16.5 BUN 9.0 Creatinine 0.80 Est GFR ( Amer) >60 Est GFR (Non-Af Amer) >60 BUN/Creatinine Ratio 11.2 Glucose 109 H Calcium 9.3 Total Bilirubin 1.3 H AST 12 L ALT 11 L Alkaline Phosphatase 60 Total Protein 7.0 Albumin 2.8 L Globulin 4.2 Albumin/Globulin Ratio 0.7
[2023-12-22] MEDS: HYDROMORPHONE HCL 1 MG/ML CARTRIDGE IV ×3 (12:30→20:56)
--- NOTE | 2023-12-22 20:00 | P.GSPN_ITS ---
Progress Note: A&P Assessment and Plan (1) Diverticulitis of colon with perforation: (2) Sepsis: Qualifiers: Sepsis acute organ dysfunction status: without acute organ dysfunction Sepsis type: sepsis due to unspecified organism Qualified Code(s): A41.9 - Sepsis, unspecified organism (3) HTN (hypertension): Qualifiers: Hypertension type: primary hypertension Qualified Code(s): I10 - Essential (primary) hypertension (4) Nausea and vomiting: Qualifiers: Vomiting type: unspecified Qualified Code(s): R11.2 - Nausea with vomiting, unspecified (5) Smoker: (6) Marijuana smoker: (7) Obesity (BMI 35.0-39.9 without comorbidity): Plan #1. Continue nothing by mouth #2. Continue IV antibiotics which were changed by hospitalist for pseudomonal c overage; white blood count trending downward and patient is afebrile #3. Encourage ambulation #4. Continue conservative care. Subjective Subjective Patient reports: still having pain, pain is less, no flatus and afebrile Interval history: patient able to move without pain and sit up today. Continues to have pain in the right lower quadrant and is having burping with no passage of flatus. Exam Constitutional Vital Signs, click to edit/add: Last Vital Signs Temp 98.3 F 12/22/23 15:14 Pulse 96 H 12/22/23 19:57 Resp 16 12/22/23 15:14 BP 145/94 H 12/22/23 15:14 Pulse Ox 93 L 12/22/23 15:14 O2 Del Method Room Air 12/22/23 15:14 GI Common normals: soft to palpation Palpation: tender Details: RLQ and guarding (obese)
[2023-12-23] VITALS (19 sets, daily range): BP systolic 125–147; BP diastolic 78–86; PULSE 77–104; TEMP 36.7–37; O2SAT 91–95
[2023-12-23] MEDS: PIPERACILLIN SODIUM/TAZOBACTAM 3.375 GM in 0.9 % SODIUM CHLORIDE 50 ML IV ×3 (01:14→16:59)
[2023-12-23] MEDS: HYDROMORPHONE HCL 1 MG/ML CARTRIDGE IV ×3 (01:14→09:26)
[2023-12-23 05:11] LABS: Basophils Absolute Auto 0.1 10^3/uL (0.0-0.1); Basophils Percent Auto 0.3 % (0.2-2.0); Eosinophils Absolute Auto 0.1 10^3/uL (0.0-0.7); Eosinophils Percent Auto 0.6 % (0.9-7.0); Hematocrit 46.8 % (42.0-54.0); Hemoglobin 15.7 g/dL (14.0-18.0); Immature Granulocytes Pct Auto 0.6 % (0.0-0.5); Lymphocytes Absolute Auto 1.2 10^3/uL (1.2-3.8); Lymphocytes Percent Auto 6.7 % (20.5-60.0); Mean Corpuscular HGB Conc 33.5 g/dL (29.9-35.2); Mean Corpuscular Hemoglobin 31.8 pg (25.9-34.0); Mean Corpuscular Volume 94.7 fL (80.0-94.0); Mean Platelet Volume 11.5 fL (9.5-13.5); Monocytes Absolute Auto 1.6 10^3/uL (0.3-0.8); Monocytes Percent Auto 9.2 % (1.7-12.0); Neutrophils Absolute Auto 14.2 10^3/uL (1.4-6.5); Neutrophils Percent Auto 82.6 % (43.0-75.0); Platelet Count 209 10^3/uL (150-450); Red Blood Count 4.94 10^6/uL (4.70-6.10); Red Cell Distribution Width 11.9 % (11.0-15.0); White Blood Count 17.2 10^3/uL (4.0-11.0)
[2023-12-23] MEDS: LACTATED RINGER'S SOLUTION 1,000 ML 125 ML IV ×3 (05:19→21:17)
[2023-12-23 05:34] LABS: Alanine Aminotransferase 8 U/L (16-63); Albumin Globulin Ratio 0.6; Albumin Level 2.5 g/dL (3.4-5.0); Alkaline Phosphatase 54 U/L (46-116); Aspartate Amino Transferase 6 U/L (15-37); BUN Creatinine Ratio 12.2; Bilirubin Total 0.8 mg/dL (0.2-1.0); Calcium 8.8 mg/dL (8.5-10.1); Carbon Dioxide 25.6 mmol/L (21.0-32.0); Chloride 104 mmol/L (98-107); Estimated GFR (African America >60 (>=60); Estimated GFR (Non-African Ame >60 (>=60); Globulin 3.9 g/dL; Glucose 93 mg/dL (74-106); Potassium 3.6 mmol/L (3.5-5.1); Sodium 139 mmol/L (136-145); Total Protein 6.4 g/dL (6.4-8.2)
[2023-12-23] MEDS: PANTOPRAZOLE SODIUM 40 MG VIAL IV (09:26)
--- NOTE | 2023-12-23 10:27 | PM.IMPN1 ---
Progress Note: A&P Assessment and Plan (1) Diverticulitis of colon with perforation: Assessment and Plan: Pain is better with IV dilauded. On IV zosyn. Blood cultures pending. Conservative care for now. C/w Bowel rest, IVF, IVF abx and pain/nausea control Surgery on consult, follow up their recs. Clinically patient is better but his leukocytosis worsened on morning labs. Will reach out to Surgery for their recs. (2) Sepsis: Assessment and Plan: Stable hemodynamics. Leukocytosis worsened but clinically patient is feeling better. C/w IVF, IV abx. Blood cultures pending Qualifiers: Sepsis type: sepsis due to unspecified organism Sepsis acute organ dysfunction status: without acute organ dysfunction Qualified Code(s): A41.9 - Sepsis, unspecified organism (3) HTN (hypertension): Assessment and Plan: Better now. Monitor. Qualifiers: Hypertension type: primary hypertension Qualified Code(s): I10 - Essential (primary) hypertension (4) Nausea and vomiting: Assessment and Plan: Due to diverticulitis. Improved. Denies nausea/vomiting. Qualifiers: Vomiting type: unspecified Qualified Code(s): R11.2 - Nausea with vomiting, unspecified (5) Smoker: Assessment and Plan: Discussed smoking cessation. Will defer to PCP to discuss treatment for it. (6) Marijuana smoker: Assessment and Plan: Discussed Marijuana use and potential adverse effects of it. (7) Obesity (BMI 35.0-39.9 without comorbidity): Assessment and Plan: Patient would benefit from weight loss, with lifestyle measures and increasing physical activity. Plan C/w bowel rest, conservative management of his diverticulitis. Pain and nausea is better. He moved his bowels today and passing gas now. Leukocytosis worsened. Still strict NPO. Follow up Surgery recs. Internal Medicine - PN: Subj Subjective Interval history: Seen and examined. No overnight events. Pain is better with IV dilaudid but now more in RUQ region. Had a BM and now passing gas. Denies nausea/vomiting. leukocytosis worsened from before. Exam Constitutional Vital Signs, click to edit/add: Last Vital Signs Temp 98.5 F 12/23/23 07:53 Pulse 90 12/23/23 09:53 Resp 18 12/23/23 07:53 BP 125/84 12/23/23 07:53 Pulse Ox 94 L 12/23/23 09:53 O2 Del Method Room Air 12/23/23 07:53 Documenting provider has reviewed patient's vital signs: yes Common normals: oriented x3 Nutritional appearance: obese Respiratory Common normals: normal respiratory effort and clear to auscultation bilaterally Effort & inspection: able to speak in complete sentences Auscultation: clear to auscultation bilaterally Cardio Common normals: regular rate, S1 normal heart sound and S2 normal heart sound Rate: regular rate Heart sounds: S1 normal and S2 normal GI Common normals: Normal to inspection, nondistended, normoactive bowel sounds present, soft to palpation and no hepatosplenomegaly Palpation: tender Details: RUQ Internal Medicine - PN: Obj Da Labs Labs: Laboratory Results - last 24 hr 12/23/23 04:23 WBC 17.2 H RBC 4.94 Hgb 15.7 Hct 46.8 MCV 94.7 H MCH 31.8 MCHC 33.5 RDW 11.9 Plt Count 209 MPV 11.5 Neut % (Auto) 82.6 H Lymph % (Auto) 6.7 L [place] % (Auto) 9.2 Eos % (Auto) 0.6 L Baso % (Auto) 0.3 Neut # (Auto) 14.2 H Lymph # (Auto) 1.2 [place] # (Auto) 1.6 H Eos # (Auto) 0.1 Baso # (Auto) 0.1 Abs Immat Gran (auto) 0.10 H Imm/Tot Granulo (auto) 0.6 H Sodium 139 Potassium 3.6 Chloride 104 Carbon Dioxide 25.6 Anion Gap 13.0 BUN 9.0 Creatinine 0.74 Est GFR ( Amer) >60 Est GFR (Non-Af Amer) >60 BUN/Creatinine Ratio 12.2 Glucose 93 Calcium 8.8 Total Bilirubin 0.8 AST 6 L ALT 8 L Alkaline Phosphatase 54 Total Protein 6.4 Albumin 2.5 L Globulin 3.9 Albumin/Globulin Ratio 0.6
--- NOTE | 2023-12-23 10:59 | PM.GSPN ---
Progress Note: A&P Assessment and Plan (1) Diverticulitis of colon with perforation: (2) Sepsis: Qualifiers: Sepsis type: sepsis due to unspecified organism Sepsis acute organ dysfunction status: without acute organ dysfunction Qualified Code(s): A41.9 - Sepsis, unspecified organism (3) HTN (hypertension): Qualifiers: Hypertension type: primary hypertension Qualified Code(s): I10 - Essential (primary) hypertension (4) Nausea and vomiting: Qualifiers: Vomiting type: unspecified Qualified Code(s): R11.2 - Nausea with vomiting, unspecified (5) Smoker: (6) Marijuana smoker: (7) Obesity (BMI 35.0-39.9 without comorbidity): Plan decreased Dilaudid dosage and ibuprofen eight hundred 3 times a day and start clear liquids; patient told not to overdo it and if he feels nauseated or bloated quit drinking. Subjective Subjective Patient reports: no new complaints, feels better, pain is less, flatus and bowel movement Interval history: patient passing flatus and had small bowel movement. Denies as much pain as last evening.taking Dilaudid 1 mg every four hours. We will decrease to Dilaudid dosage in place on ibuprofen eight hundred 3 times a day. Exam Constitutional Vital Signs, click to edit/add: Last Vital Signs Temp 98.5 F 12/23/23 07:53 Pulse 90 12/23/23 09:53 Resp 18 12/23/23 07:53 BP 125/84 12/23/23 07:53 Pulse Ox 94 L 12/23/23 09:53 O2 Del Method Room Air 12/23/23 07:53 GI Common normals: Normal to inspection, nondistended, normoactive bowel sounds present, soft to palpation and non-tender
[2023-12-23] MEDS: IBUPROFEN 400 MG TABLET 800 MG PO ×2 (12:54→21:51)
[2023-12-24] VITALS (18 sets, daily range): BP systolic 119–146; BP diastolic 73–93; PULSE 63–96; TEMP 36.5–37.1; O2SAT 95–97
[2023-12-24] MEDS: PIPERACILLIN SODIUM/TAZOBACTAM 3.375 GM in 0.9 % SODIUM CHLORIDE 50 ML IV ×3 (01:24→17:49)
[2023-12-24] MEDS: IBUPROFEN 400 MG TABLET 800 MG PO ×3 (05:17→20:56)
[2023-12-24] MEDS: LACTATED RINGER'S SOLUTION 1,000 ML 125 ML IV (05:17)
[2023-12-24 05:20] LABS: Basophils Absolute Auto 0.1 10^3/uL (0.0-0.1); Basophils Percent Auto 0.4 % (0.2-2.0); Eosinophils Absolute Auto 0.2 10^3/uL (0.0-0.7); Eosinophils Percent Auto 1.8 % (0.9-7.0); Hematocrit 45.2 % (42.0-54.0); Hemoglobin 15.1 g/dL (14.0-18.0); Immature Granulocytes Abs Auto 0.06 10^3/uL (0.00-0.03); Immature Granulocytes Pct Auto 0.4 % (0.0-0.5); Lymphocytes Absolute Auto 1.4 10^3/uL (1.2-3.8); Lymphocytes Percent Auto 10.2 % (20.5-60.0); Mean Corpuscular HGB Conc 33.4 g/dL (29.9-35.2); Mean Corpuscular Volume 95.8 fL (80.0-94.0); Mean Platelet Volume 11.9 fL (9.5-13.5); Monocytes Absolute Auto 1.3 10^3/uL (0.3-0.8); Monocytes Percent Auto 9.6 % (1.7-12.0); Neutrophils Absolute Auto 10.3 10^3/uL (1.4-6.5); Neutrophils Percent Auto 77.6 % (43.0-75.0); Platelet Count 184 10^3/uL (150-450); Red Blood Count 4.72 10^6/uL (4.70-6.10); Red Cell Distribution Width 11.9 % (11.0-15.0); White Blood Count 13.3 10^3/uL (4.0-11.0)
[2023-12-24 05:43] LABS: Alanine Aminotransferase 9 U/L (16-63); Albumin Globulin Ratio 0.6; Albumin Level 2.4 g/dL (3.4-5.0); Alkaline Phosphatase 54 U/L (46-116); Anion Gap 13.5; Aspartate Amino Transferase 10 U/L (15-37); BUN Creatinine Ratio 11.4; Bilirubin Total 1.1 mg/dL (0.2-1.0); Calcium 8.8 mg/dL (8.5-10.1); Carbon Dioxide 25.6 mmol/L (21.0-32.0); Chloride 102 mmol/L (98-107); Estimated GFR (African America >60 (>=60); Estimated GFR (Non-African Ame >60 (>=60); Globulin 3.8 g/dL; Glucose 77 mg/dL (74-106); Potassium 3.1 mmol/L (3.5-5.1); Sodium 138 mmol/L (136-145); Total Protein 6.2 g/dL (6.4-8.2)
[2023-12-24] MEDS: ACETAMINOPHEN 325 MG TABLET 650 MG PO (07:58)
[2023-12-24] MEDS: ONDANSETRON PF 4 MG/2 ML VIAL IV (07:58)
[2023-12-24] MEDS: POTASSIUM CHLORIDE 40 MEQ in 0.9 % SODIUM CHLORIDE 250 ML 67.5 MEQ IV (08:21)
[2023-12-24] MEDS: PANTOPRAZOLE SODIUM 40 MG VIAL IV (08:21)
--- NOTE | 2023-12-24 08:46 | P.GSPN_ITS ---
Progress Note: A&P Assessment and Plan (1) Diverticulitis of colon with perforation: (2) Sepsis: Qualifiers: Sepsis acute organ dysfunction status: without acute organ dysfunction Sepsis type: sepsis due to unspecified organism Qualified Code(s): A41.9 - Sepsis, unspecified organism (3) HTN (hypertension): Qualifiers: Hypertension type: primary hypertension Qualified Code(s): I10 - Essential (primary) hypertension (4) Nausea and vomiting: Qualifiers: Vomiting type: unspecified Qualified Code(s): R11.2 - Nausea with vomiting, unspecified (5) Smoker: (6) Marijuana smoker: (7) Obesity (BMI 35.0-39.9 without comorbidity): Plan Mr. Corbin is a 23M with diverticulitis with perforation. Overall, he is improving with conservative management on IV antibiotics and antiemetics. His leukocytosis is downtrending. Anticipating homegoing as labs continue to improve. Plan -Continue IV Zosyn (day 1: 12/21) -Continue Motrin, Tylenol for pain -Discontinue Dilaudid Disposition: Remain inpatient Subjective Subjective Patient reports: no new complaints and feels better Interval history: Pt states his abdominal pain is much improved this morning. No pain at rest, some RUQ pain with stretching or standing. Tolerating clear diet without pain or nausea. No N/V. Has had several BMs since admission. Pt is anxious to return home. Exam Narrative Exam Narrative: General:comfortable, no acute distress HENT:NC/AT, EOM CV:RRR, no murmur Pulm:CTA Abd:abdomen is soft, nondistended, normoactive bowel sounds, RUQ pain not rep roducible with palpation Ext:moving all extremities well, normal ROM Neuro:no focal deficit Constitutional Vital Signs, click to edit/add: Last Vital Signs Temp 98.1 F 12/24/23 07:40 Pulse 90 12/24/23 07:59 Resp 16 12/24/23 07:40 BP 144/93 H 12/24/23 07:40 Pulse Ox 96 12/24/23 07:40 O2 Del Method Room Air 12/24/23 07:40
--- NOTE | 2023-12-24 10:36 | PM.IMPN1 ---
Progress Note: A&P Assessment and Plan (1) Diverticulitis of colon with perforation: Assessment and Plan: Tolerating Liquid diet. Advance to full liquid diet. D/c IV narcotics. C/w supportive care, bowel rest, IVF and IV abx. D/w Surgery and if patient does well on full liquid diet, plan on discharging him tomorrow. (2) Sepsis: Assessment and Plan: Stable hemodynamics. Leukocytosis improved. Negative blood cx Qualifiers: Sepsis type: sepsis due to unspecified organism Sepsis acute organ dysfunction status: without acute organ dysfunction Qualified Code(s): A41.9 - Sepsis, unspecified organism (3) HTN (hypertension): Assessment and Plan: Better now. Monitor. Qualifiers: Hypertension type: primary hypertension Qualified Code(s): I10 - Essential (primary) hypertension (4) Nausea and vomiting: Assessment and Plan: Due to diverticulitis. Improved. Qualifiers: Vomiting type: unspecified Qualified Code(s): R11.2 - Nausea with vomiting, unspecified (5) Smoker: Assessment and Plan: Discussed smoking cessation. Will defer to PCP to discuss treatment for it. (6) Marijuana smoker: Assessment and Plan: Discussed Marijuana use and potential adverse effects of it. (7) Obesity (BMI 35.0-39.9 without comorbidity): Assessment and Plan: Patient would benefit from weight loss, with lifestyle measures and increasing physical activity. Plan Advance diet to full liquid. If continues to do better, can possibly discharge him tomorrow. D/c IV narcotics. Decrease IVF to 75/hr, started on PO oxycodone as needed for pain. Case discussed with RN and General Surgery. Patient updated and educated on treatment plan. Internal Medicine - PN: Subj Subjective Interval history: Seen and examined. No overnight events. Patient reports he was doing well except for a few hours where he experienced retching that aggravated his abdominal pain. He is tolerating liquid diet without any complaints or problems otherwise. Exam Constitutional Vital Signs, click to edit/add: Last Vital Signs Temp 98.1 F 12/24/23 07:40 Pulse 89 12/24/23 09:00 Resp 16 12/24/23 07:40 BP 144/93 H 12/24/23 07:40 Pulse Ox 96 12/24/23 07:40 O2 Del Method Room Air 12/24/23 07:40 Documenting provider has reviewed patient's vital signs: yes Common normals: oriented x3 Nutritional appearance: obese Respiratory Common normals: normal respiratory effort and clear to auscultation bilaterally Effort & inspection: able to speak in complete sentences Auscultation: clear to auscultation bilaterally Cardio Common normals: regular rate, S1 normal heart sound and S2 normal heart sound Rate: regular rate Heart sounds: S1 normal and S2 normal GI Common normals: Normal to inspection, nondistended, normoactive bowel sounds present, soft to palpation and no hepatosplenomegaly Palpation: tender (mild/generalized) Internal Medicine - PN: Obj Da Labs Labs: Laboratory Results - last 24 hr 12/24/23 04:28 WBC 13.3 H RBC 4.72 Hgb 15.1 Hct 45.2 MCV 95.8 H MCH 32.0 MCHC 33.4 RDW 11.9 Plt Count 184 MPV 11.9 Neut % (Auto) 77.6 H Lymph % (Auto) 10.2 L [place] % (Auto) 9.6 Eos % (Auto) 1.8 Baso % (Auto) 0.4 Neut # (Auto) 10.3 H Lymph # (Auto) 1.4 [place] # (Auto) 1.3 H Eos # (Auto) 0.2 Baso # (Auto) 0.1 Abs Immat Gran (auto) 0.06 H Imm/Tot Granulo (auto) 0.4 Sodium 138 Potassium 3.1 L Chloride 102 Carbon Dioxide 25.6 Anion Gap 13.5 BUN 8.0 Creatinine 0.70 Est GFR ( Amer) >60 Est GFR (Non-Af Amer) >60 BUN/Creatinine Ratio 11.4 Glucose 77 Calcium 8.8 Total Bilirubin 1.1 H AST 10 L ALT 9 L Alkaline Phosphatase 54 Total Protein 6.2 L Albumin 2.4 L Globulin 3.8 Albumin/Globulin Ratio 0.6
--- NOTE | 2023-12-24 10:55 | CM.NOTE ---
Rounds made with Dr. Glover, discussed with pt about advancing diet to Full liquid today. Pt continues to have some upper abdominal pain and occasional nausea.
[2023-12-24] MEDS: PROMETHAZINE HCL 12.5 MG in 0.9 % SODIUM CHLORIDE 50 ML 202 MG IV (11:49)
[2023-12-24] MEDS: LACTATED RINGER'S SOLUTION 1,000 ML 75 ML IV (13:04)
[2023-12-25] MEDS: PIPERACILLIN SODIUM/TAZOBACTAM 3.375 GM in 0.9 % SODIUM CHLORIDE 50 ML IV (01:20)
[2023-12-25] MEDS: LACTATED RINGER'S SOLUTION 1,000 ML 75 ML IV (01:21)
[2023-12-25 01:45] VITALS: PULSE 90
[2023-12-25 03:58] VITALS: PULSE 81
[2023-12-25] MEDS: IBUPROFEN 400 MG TABLET 800 MG PO (04:07)
[2023-12-25 04:11] VITALS: BP 136/88; PULSE 83; TEMP 36.6; O2SAT 98
[2023-12-25 05:08] LABS: Basophils Absolute Auto 0.1 10^3/uL (0.0-0.1); Basophils Percent Auto 0.5 % (0.2-2.0); Eosinophils Absolute Auto 0.3 10^3/uL (0.0-0.7); Eosinophils Percent Auto 2.9 % (0.9-7.0); Hematocrit 42.7 % (42.0-54.0); Hemoglobin 14.2 g/dL (14.0-18.0); Immature Granulocytes Abs Auto 0.04 10^3/uL (0.00-0.03); Immature Granulocytes Pct Auto 0.4 % (0.0-0.5); Lymphocytes Absolute Auto 1.3 10^3/uL (1.2-3.8); Lymphocytes Percent Auto 13.3 % (20.5-60.0); Mean Corpuscular HGB Conc 33.3 g/dL (29.9-35.2); Mean Corpuscular Hemoglobin 31.8 pg (25.9-34.0); Mean Corpuscular Volume 95.5 fL (80.0-94.0); Mean Platelet Volume 11.5 fL (9.5-13.5); Monocytes Absolute Auto 1.1 10^3/uL (0.3-0.8); Monocytes Percent Auto 11.1 % (1.7-12.0); Neutrophils Absolute Auto 6.9 10^3/uL (1.4-6.5); Neutrophils Percent Auto 71.8 % (43.0-75.0); Platelet Count 198 10^3/uL (150-450); Red Blood Count 4.47 10^6/uL (4.70-6.10); Red Cell Distribution Width 11.9 % (11.0-15.0); White Blood Count 9.6 10^3/uL (4.0-11.0)
[2023-12-25 05:37] LABS: Alanine Aminotransferase 8 U/L (16-63); Albumin Globulin Ratio 0.7; Albumin Level 2.4 g/dL (3.4-5.0); Alkaline Phosphatase 53 U/L (46-116); Anion Gap 15.1; Aspartate Amino Transferase 11 U/L (15-37); BUN Creatinine Ratio 11.1; Calcium 8.7 mg/dL (8.5-10.1); Carbon Dioxide 23.8 mmol/L (21.0-32.0); Chloride 102 mmol/L (98-107); Estimated GFR (African America >60 (>=60); Estimated GFR (Non-African Ame >60 (>=60); Globulin 3.6 g/dL; Glucose 83 mg/dL (74-106); Sodium 138 mmol/L (136-145)
[2023-12-25 06:00] VITALS: PULSE 60
[2023-12-25 06:02] LABS: Potassium 2.9 mmol/L (3.5-5.1)
[2023-12-25 08:00] VITALS: PULSE 89
--- NOTE | 2023-12-25 08:57 | PM.GSPN ---
Progress Note: A&P Assessment and Plan (1) Diverticulitis of colon with perforation: (2) Sepsis: Qualifiers: Sepsis acute organ dysfunction status: without acute organ dysfunction Sepsis type: sepsis due to unspecified organism Qualified Code(s): A41.9 - Sepsis, unspecified organism (3) HTN (hypertension): Qualifiers: Hypertension type: primary hypertension Qualified Code(s): I10 - Essential (primary) hypertension (4) Nausea and vomiting: Qualifiers: Vomiting type: unspecified Qualified Code(s): R11.2 - Nausea with vomiting, unspecified (5) Smoker: (6) Marijuana smoker: (7) Obesity (BMI 35.0-39.9 without comorbidity): Plan Mr. Corbin is a 23M with diverticulitis with perforation. Sepsis risk resolved. Overall, he is improving with conservative management on IV antibiotics and antiemetics. His leukocytosis is resolved today with WBC 9. Blood cultues negative. Appropriate for discharge from surgery perspective. Plan -IV Zosyn today (day 1: 12/21); transition to PO antibiotics for home -Continue Motrin, Tylenol for pain PRN -Resume full diet as tolerated Disposition: Stable for discharge home Subjective Subjective Patient reports: no new complaints, feels better, voiding w/o difficulty and bowel movement Interval history: Pt states he is free from abdominal pain today. Denies nausea with full liquid diet, had several BM overnight without difficulty or pain. Exam Narrative Exam Narrative: Constitutional: awake, alert, no acute distress Abd: soft, nontender to palpation, nondistended Extrem: normal ROM, normal strength Neuro: A&Ox3, no focal deficits Constitutional Vital Signs, click to edit/add: Last Vital Signs Temp 97.8 F 12/25/23 04:11 Pulse 60 12/25/23 06:00 Resp 18 12/25/23 04:11 BP 136/88 12/25/23 04:11 Pulse Ox 98 12/25/23 04:11 O2 Del Method Room Air 12/25/23 04:11
[2023-12-25] MEDS: POTASSIUM CHLORIDE 10 MEQ ER TABLET 40 MEQ PO (09:56)
[2023-12-25] MEDS: POTASSIUM CHLORIDE 40 MEQ in 0.9 % SODIUM CHLORIDE 250 ML 67.5 MEQ IV (09:56)
[2023-12-25] MEDS: PANTOPRAZOLE SODIUM 40 MG VIAL IV (09:56)
--- NOTE | 2023-12-25 10:11 | PM.DS1 ---
DS: Providers Provider Date of admission: 12/21/23 08:49 Primary care physician: Non-Staff Physician, Consults: 12/21/23 10:50 Consult to General Surgeon Routine Consulting Provider: Xavier Flores Reason for consultation: Perforated diverticulitis Has provider been notified: Yes Attending physician on discharge: Shaikh Adalberto Discharging clinician: Shaikh Adalberto Anticipated date of discharge: 12/25/23 DS: Diagnosis Discharge Diagnosis (1) Diverticulitis of colon with perforation: Assessment and plan: Improved. Denies abdominal pain. Managed conservatively with bowel rest. Stable for dc/ on oral abx. Follow up with Surgery in 2 weeks as outpatient. (2) Sepsis: Assessment and plan: Resolved. Qualifiers: Sepsis type: sepsis due to unspecified organism Sepsis acute organ dysfunction status: without acute organ dysfunction Qualified Code(s): A41.9 - Sepsis, unspecified organism (3) HTN (hypertension): Assessment and plan: Monitor. Lifestyle measures for now Qualifiers: Hypertension type: primary hypertension Qualified Code(s): I10 - Essential (primary) hypertension (4) Nausea and vomiting: Assessment and plan: Resolved. Will order zofran as needed Qualifiers: Vomiting type: unspecified Qualified Code(s): R11.2 - Nausea with vomiting, unspecified (5) Smoker: Assessment and plan: Counseled on smoking cessation (6) Marijuana smoker: Assessment and plan: Provided counseling on marijuana abuse. (7) Obesity (BMI 35.0-39.9 without comorbidity): Assessment and plan: Recommended lifestyle measures, improved diet and increased physical activity. DS: Summary Hospital Course Hospital Course: Patient presented with nausea, vomiting, abdominal pain. Work up in ED revealed sepsis sec to diverticulitis with microperforation. Patient was admitted for IV Abx, IVF and close monitoring. Surgery was consulted for diverticulitis with perforation. Patient's symptoms were managed conservatively, with bowel rest, IV abx. His symptoms slowly improved and his diet was gradually advanced. Patient tolerated full liquid diet day before discharge and currently has no symptoms to offer and denies nausea, vomiting and abdominal pain. Discussed with General surgery. Stable for d/c on oral abx. Patient does not have health insurance and a PCP. He was given information on local PCPs accepting new patients and was encouraged to find a PCP for chronic care. He will need to follow up with PCP in 1 week and Surgery in 2 weeks. He was also educated on worrisome signs and symptoms that should prompt him to seek care and was instructed to come to ED if he develops intractable nausea, vomiting, abdominal pain or fever. Status at Discharge Functional status at discharge: independent ambulation Overall status at discharge: patient is back to baseline Time Spent with Patient Time attestation: Total time spent providing and/or coordinating discharge services: Time spent: greater than 30 minutes Exam Constitutional Vital Signs, click to edit/add: Last Vital Signs Temp 97.8 F 12/25/23 04:11 Pulse 89 12/25/23 08:00 Resp 18 12/25/23 04:11 BP 136/88 12/25/23 04:11 Pulse Ox 98 12/25/23 04:11 O2 Del Method Room Air 12/25/23 04:11 Documenting provider has reviewed patient's vital signs: yes Common normals: oriented x3 Nutritional appearance: obese Respiratory Common normals: normal respiratory effort and clear to auscultation bilaterally Effort & inspection: able to speak in complete sentences Auscultation: clear to auscultation bilaterally Cardio Common normals: regular rate, S1 normal heart sound and S2 normal heart sound Rate: regular rate Heart sounds: S1 normal and S2 normal GI Common normals: Normal to inspection, nondistended, normoactive bowel sounds present, soft to palpation, non-tender and no hepatosplenomegaly DS: Data Data Completed and Pending Labs on day of discharge: Labs from last 24 hours 12/25/23 04:34 WBC 9.6 RBC 4.47 L Hgb 14.2 Hct 42.7 MCV 95.5 H MCH 31.8 MCHC 33.3 RDW 11.9 Plt Count 198 MPV 11.5 Neut % (Auto) 71.8 Lymph % (Auto) 13.3 L [place] % (Auto) 11.1 Eos % (Auto) 2.9 Baso % (Auto) 0.5 Neut # (Auto) 6.9 H Lymph # (Auto) 1.3 [place] # (Auto) 1.1 H Eos # (Auto) 0.3 Baso # (Auto) 0.1 Abs Immat Gran (auto) 0.04 H Imm/Tot Granulo (auto) 0.4 Sodium 138 Potassium 2.9 L* Chloride 102 Carbon Dioxide 23.8 Anion Gap 15.1 BUN 7.0 Creatinine 0.63 L Est GFR ( Amer) >60 Est GFR (Non-Af Amer) >60 BUN/Creatinine Ratio 11.1 Glucose 83 Calcium 8.7 Total Bilirubin 1.0 AST 11 L ALT 8 L Alkaline Phosphatase 53 Total Protein 6.0 L Albumin 2.4 L Globulin 3.6 Albumin/Globulin Ratio 0.7 Preliminary micro results at discharge 12/22/23 09:55 - Preliminary Blood NO GROWTH AT 36-48 HOURS. FINAL TO FOLLOW. 12/22/23 09:47 Blood Culture Result 1 - Preliminary Blood NO GROWTH AT 36-48 HOURS. FINAL TO FOLLOW. Discharge Plan Discharge Disposition: Home, Self-Care Condition: Good Discharge Medications: New ciprofloxacin HCl 500 mg tablet 500 mg PO Q12H Qty: 20 0RF metronidazole 500 mg tablet 500 mg PO Q8H 7 Days Qty: 21 0RF ondansetron 4 mg tablet,disintegrating 4 mg PO Q8H 3 Days Qty: 9 0RF Activity: increase activity as tolerated Diet: advance to your usual diet Print Language: [place] Forms: Portal Instructions Follow Up Appointments: Follow up with PCP in 1-2 weeks Follow up with Dr Flores in 2 weeks
[2023-12-25 10:18] VITALS: PULSE 72
--- NOTE | 2023-12-25 10:26 | CM.NOTE ---
Rounds made with Dr. Glover. Plan for discharge today. Follow up with Dr. Flores in the next 1-2 weeks and PCP in 1-2 weeks. List given of Physicians accepting new patients. Nile verbalizes understanding.
--- NOTE | 2023-12-25 11:34 | SWNOTE1 ---
Pt is discharged. Pt does not have a ride home, pt was going to walk. Nursing reached out to SW to see if trips is able to transport. SW called trips and they can transport pt home, they will be here between 12 &12:30. NATHALIA let nursing know.
--- NOTE | 2023-12-25 11:53 | SWNOTE1 ---
Pt called out to med/surge floor and he has a friend coming to pick him up now. SW called and cancelled trips.
--- NOTE | 2023-12-25 12:16 | PC.NURSE ---
pt informed staff that he did not have a ride home and that he was going to walk home. emery wheel worker was notified. She was able to set trips up for 12-12:30 and patient was agreeable. Patient then informed staff that a friend was going to pick him up. RN gave him his dc instructions and told him to let us know when his ride was there. He walked out to the nurses station and informed me that his ride was here and parked at the ER entrance. RN escorted patient to the ER entrance and patient was walking towards the parking lot
--- NOTE | 2023-12-26 13:30 | CM.DCFOLLOWU ---
1st attempt, no answer 12/26/23
--- NOTE | 2023-12-27 14:15 | CM.DCFOLLOWU ---
Person spoke with: patient How are you feeling? making a good recovery How is your pain? none Did you understand your discharge instructions? yes Do you have any questions about your discharge instructions? no Were you given any prescriptions at discharge? yes Were you able to get your prescriptions filled? yes Do you understand how to take your medications as ordered? yes Do you have any questions about your follow up appointment and do you plan to keep your follow up appointment? has f/u with Dr. Flores on January 08, patient is aware. Still reviewing PCP list to make an apt with one Is there anything else that you would like to discuss? no Questions/Comments/Concerns/Other: N/A
== END 2023-12-25 12:24 | disposition home or self-care (01) | DRG 872 ==
LOC: ER 08:45 → MS 09:08
PROVIDERS: Emergency Medicine; Admitting Provider Family Medicine; Emergency Provider Emergency Medicine; Visit Provider Internal Medicine
DX: A41.9 Sepsis, unspecified organism (principal); K57.20 Diverticulitis of large intestine with perforation and abscess without bleeding; I10 Essential (primary) hypertension; R11.2 Nausea with vomiting, unspecified; F17.210 Nicotine dependence, cigarettes, uncomplicated; J41.0 Simple chronic bronchitis; E66.9 Obesity, unspecified; F12.90 Cannabis use, unspecified, uncomplicated; F10.11 Alcohol abuse, in remission; Z98.890 Other specified postprocedural states; Z90.49 Acquired absence of other specified parts of digestive tract; Z68.35 Body mass index [BMI] 35.0-35.9, adult
CPT/HCPCS: 36415; 74177; 80053; 83605; 85025; 87040; 87804; 96361; 96365; 96366; 96367; 96368; 96375; 96376; 99285; J1170; J3480; Q9967

== ENCOUNTER 2024-01-15 16:54 | Emergency (ER) | payer SELFPAY ==
[2024-01-15] VITALS (11 sets, daily range): BP systolic 96–130; BP diastolic 64–83; PULSE 70–93; TEMP 36.8; O2SAT 96–100; BMI 35.2
--- NOTE | 2024-01-15 17:27 | ED.GENADUL1 ---
Documented by User: ABBIE Landrum 01/15/24 21:12 HPI HPI - General Adult General Chief complaint: Abdominal Pain Stated complaint: Abdominal Pain Time Seen by Provider: 01/15/24 17:16 Source: patient Mode of arrival: walk-in History of Present Illness HPI narrative: Patient is a 23-year-old male who presents to the emergency department with concern for right lower quadrant abdominal pain and diarrhea that began yesterday. He reports approximately 6 episodes of dark stool. Patient was seen in this emergency department 3 weeks ago, admitted for perforated diverticulitis and treated with IV antibiotics in the hospital. He was seen by general surgery, there was a microperforation associated with the diverticulitis. He did not have surgery for this. He went home on Cipro and Flagyl, he states he finished the antibiotics 5 days ago. He has had no fevers, chills, nausea, vomiting. He denies urinary symptoms, flank or back pain. He reports point tenderness in the right lower quadrant. He had an appendectomy when he was in high school. He denies any other previous abdominal surgeries or procedures. He has no other major medical problems. Related Data Home Medications ?Medication ?Instructions ?Recorded ?Confirmed No Known Home Medications 01/15/24 01/15/24 Allergies Allergy/AdvReac Type Severity Reaction Status Date / Time No Known Drug Allergies Allergy Verified 05/03/23 16:51 Opioid HPI Opioid Management Most Recent Opioid Data: Last Pain Scale 8 12/25/23 04:11 Last ED Pain Assessment 01/15/24 20:21 Last ORT Total Score 4 12/21/23 09:21 Last ORT Risk Category Moderate Risk 12/21/23 09:21 Review of Systems ROS Constitutional Denies: fever or chills Ears, nose, mouth, and throat Denies: throat pain or nasal congestion Cardiovascular Denies: chest pain Respiratory Denies: shortness of breath or cough Gastrointestinal Reports: abdominal pain and diarrhea; Denies: nausea or vomiting Musculoskeletal Denies: back pain Integumentary/Breast Denies: rash Neurological Denies: headache Hematologic/Lymphatic Denies: easy bruising or easy bleeding [facility] Medical History (Updated 01/15/24 @ 21:12 by ABBIE Landrum) Obesity (BMI 30-39.9) ?E66.9 - Obesity, unspecified (ICD-10) Marijuana smoker ?F12.90 - Cannabis use, unspecified, uncomplicated (ICD-10) Smoker ?F17.200 - Nicotine dependence, unspecified, uncomplicated (ICD-10) Diverticulitis of colon with perforation ?K57.20 - Diverticulitis of large intestine with perforation and abscess without bleeding (ICD-10) Smokers' cough ?J41.0 - Simple chronic bronchitis (ICD-10) Obesity (BMI 35.0-39.9 without comorbidity) ?E66.9 - Obesity, unspecified (ICD-10) Pleurisy ?R09.1 - Pleurisy (ICD-10) Alcohol use disorder, mild, in early remission ?F10.11 - Alcohol abuse, in remission (ICD-10) HTN (hypertension) ?I10 - Essential (primary) hypertension (ICD-10) Herpes simplex ?B00.9 - Herpesviral infection, unspecified (ICD-10) Surgical History History of surgery on arm ?Z98.890 - Other specified postprocedural states (ICD-10) History of appendectomy ?Z90.49 - Acquired absence of other specified parts of digestive tract (ICD-10) Family History Mother Family history of COPD (chronic obstructive pulmonary disease) Family history of cancer Family history of hypertension Father Family history of hypertension Social History Within the past year, how often did you have a drink containing alcohol: 2-3 times a week Within the past year, how many standard drinks containing alcohol did you have on a typical day: 1 or 2 Within the past year, how often did you have six or more drinks on one occasion: less than monthly Total score: 1 Score interpretation: A score of 4 or more indicates drinking is likely to affect patient's safety. Smoking status: Current every day smoker Non-prescribed substance use: cannabis (any form) Previous occupational history: unemployed Highest level of school completed/degree received: high school graduate Are you now , , , , never or living with a partner: never Little interest or pleasure in doing things: not at all Feeling down, depressed, or hopeless: not at all Feel stressed/tense/nervous/anxious/difficulty sleeping: not at all Exam Narrative Exam Narrative: Gen.: Awake, alert, in no distress Head: Normocephalic, atraumatic ENT: Moist mucous membranes Respiratory: No respiratory distress, lungs clear bilaterally Cardio: Regular rate and rhythm Gastrointestinal: Abdomen is soft, nondistended and Tender to palpation in the right lower quadrant with voluntary guarding, no rebound Extremities: Moves extremities equally, no injuries noted Psych: Normal mood and affect Neuro: No focal neuro deficit Skin: Warm, dry, intact Constitutional Vital Signs, click to edit/add: Last Vital Signs Temp 98.3 F 01/15/24 17:14 Pulse 70 01/15/24 19:24 Resp 16 01/15/24 19:24 BP 118/77 01/16/24 00:59 Pulse Ox 100 01/15/24 19:24 O2 Del Method Room Air 01/15/24 19:24 Course Vital Signs Vital signs: Vital Signs Temperature 98.3 F 01/15/24 17:14 Pulse Rate 93 H 01/15/24 17:14 Respiratory Rate 15 01/15/24 17:14 Blood Pressure 129/81 01/15/24 17:14 Pulse Oximetry 96 01/15/24 17:14 Oxygen Delivery Method Room Air 01/15/24 17:14 Temperature 98.3 F 01/15/24 17:14 Pulse Rate 70 01/15/24 19:24 Respiratory Rate 16 01/15/24 19:24 Blood Pressure 118/77 01/16/24 00:59 Pulse Oximetry 100 01/15/24 19:24 Oxygen Delivery Method Room Air 01/15/24 19:24 Medical Decision Making [facility] Narrative Medical decision making narrative: Patient was noted to have improved lab studies, stable vital signs. He was treated with IV fluids, Levsin and Zofran with improvement. He has no pain complaints on reevaluation. CT shows the patient has an abscess of the sigmoid colon measuring 3.1 cm with posterior 2.7 cm phlegmon and questionable colocolonic fistula. I discussed these results with on-call general surgery at this facility, Dr. Ng, And he recommended that the patient be transferred to a tertiary care facility with interventional radiology services. I discussed with the patient the need for transfer to a tertiary care facility with interventional radiology And potentially colorectal/GI services. He is comfortable with tertiary care transfer. IV Zosyn was given in the ER. Patient was accepted at [facility] in [place], I did discuss the case with the on-call colorectal surgeon as well who recommends admission to the hospitalist service for interventional radiology procedure. Patient was accepted by [facility]y nurse practitioner for the hospitalist service. Stable at time of transfer to [facility]. Critical care time 35 minutes. Medical Records Medical records reviewed: Yes I reviewed the patient's medical records Lab Data Lab results reviewed: Yes I reviewed the patient's lab results Labs: Lab Results 01/15/24 01/15/24 Range/Units 17:38 17:40 WBC 9.2 (4.0-11.0) 10^3/uL RBC 5.35 (4.70-6.10) 10^6/uL Hgb 16.6 (14.0-18.0) g/dL Hct 49.1 (42.0-54.0) % MCV 91.8 (80.0-94.0) fL MCH 31.0 (25.9-34.0) pg MCHC 33.8 (29.9-35.2) g/dL RDW 11.9 (11.0-15.0) % Plt Count 225 (150-450) 10^3/uL MPV 11.6 (9.5-13.5) fL Neut % (Auto) 67.4 (43.0-75.0) % Lymph % (Auto) 22.0 (20.5-60.0) % [place] % (Auto) 8.3 (1.7-12.0) % Eos % (Auto) 1.3 (0.9-7.0) % Baso % (Auto) 0.8 (0.2-2.0) % Neut # (Auto) 6.2 (1.4-6.5) 10^3/uL Lymph # (Auto) 2.0 (1.2-3.8) 10^3/uL [place] # (Auto) 0.8 (0.3-0.8) 10^3/uL Eos # (Auto) 0.1 (0.0-0.7) 10^3/uL Baso # (Auto) 0.1 (0.0-0.1) 10^3/uL Abs Immat Gran (auto) 0.02 (0.00-0.03) 10^3/uL Imm/Tot Granulo (auto) 0.2 (0.0-0.5) % Sodium 139 (136-145) mmol/L Potassium 4.0 (3.5-5.1) mmol/L Chloride 104 (98-107) mmol/L Carbon Dioxide 23.0 (21.0-32.0) mmol/L Anion Gap 16.0 BUN 9.0 (7.0-18.0) mg/dL Creatinine 0.72 (0.70-1.30) mg/dL Est GFR ( Amer) >60 (>=60) Est GFR (Non-Af Amer) >60 (>=60) BUN/Creatinine Ratio 12.5 Glucose 97 (74-106) mg/dL Lactate 0.8 (0.4-2.0) mmol/L Calcium 9.6 (8.5-10.1) mg/dL Total Bilirubin 0.5 (0.2-1.0) mg/dL AST 15 (15-37) U/L ALT 17 (16-63) U/L Alkaline Phosphatase 77 (46-116) U/L Total Protein 8.2 (6.4-8.2) g/dL Albumin 3.8 (3.4-5.0) g/dL Globulin 4.4 g/dL Albumin/Globulin Ratio 0.9 Urine Color Yellow (YELLOW) Urine Clarity Clear (CLEAR) Urine pH 5.5 (5.0-9.0) Ur Specific [place] >=1.030 A (1.005-1.025) Urine Protein Trace (NEG/TRACE) mg/dL Urine Glucose (UA) Negative (NEGATIVE) mg/dL Urine Ketones Negative (NEGATIVE) mg/dL Urine Occult Blood Trace-l (NEGATIVE) Urine Nitrite Negative (NEGATIVE) Urine Bilirubin Small A (NEGATIVE) Urine Urobilinogen 0.2 (0.2-1.0) EU/dL Ur Leukocyte Esterase Negative (NEGATIVE) Urine RBC 0-2 (0-2) #/HPF Urine WBC None seen (NONE SEEN) #/HPF Ur Squamous Epith Cells None seen (NONE/RARE) #/LPF Urine Crystals None seen (None Seen) #/HPF Urine Bacteria None seen (NONE SEEN) #/HPF Urine Casts None seen (NONE SEEN) #/LPF Urine Mucus None seen (NONE SEEN) Imaging Data CT scan - abdomen: Attestation: I have reviewed the pertinent imaging results. Radiologist's impression: ITS Impressions Abdomen/Pelvis CT 01/15/24 18:00 IMPRESSION: 1. Extraluminal air and fluid collection adjacent to the sigmoid colon measuring 3.1 x 2.8 x 2.9 cm compatible with an abscess. Phlegmonous change noted posterior to this collection measuring 2.7 x 1.9 cm which appears to communicate with the distal sigmoid colon. Colocolonic fistula is not excluded. 2. Mild to moderate diffuse colitis. 3. No free air noted on this study. Electronically authenticated by: TATA RITCHIE Date: 01/15/2024 19:05 Discharge Plan Discharge Chief Complaint: Abdominal Pain Clinical Impression: Colitis with abscess, Abdominal pain Patient Disposition: [facility] Time of Disposition Decision: 21:12 Discharge Location: [facility] Condition: Good Mode of Transportation: EMS Documented by User: Flor Greer MD 01/16/24 03:44 HPI HPI - General Adult General Chief complaint: Abdominal Pain Stated complaint: Abdominal Pain Time Seen by Provider: 01/15/24 17:16 Related Data Home Medications ?Medication ?Instructions ?Recorded ?Confirmed No Known Home Medications 01/15/24 01/15/24 Allergies Allergy/AdvReac Type Severity Reaction Status Date / Time No Known Drug Allergies Allergy Verified 05/03/23 16:51 Opioid HPI Opioid Management Most Recent Opioid Data: Last Pain Scale 8 12/25/23 04:11 Last ED Pain Assessment 01/15/24 20:21 Last ORT Total Score 4 12/21/23 09:21 Last ORT Risk Category Moderate Risk 12/21/23 09:21 [facility] Medical History (Updated 01/15/24 @ 21:12 by ABBIE Landrum) Obesity (BMI 30-39.9) ?E66.9 - Obesity, unspecified (ICD-10) Marijuana smoker ?F12.90 - Cannabis use, unspecified, uncomplicated (ICD-10) Smoker ?F17.200 - Nicotine dependence, unspecified, uncomplicated (ICD-10) Diverticulitis of colon with perforation ?K57.20 - Diverticulitis of large intestine with perforation and abscess without bleeding (ICD-10) Smokers' cough ?J41.0 - Simple chronic bronchitis (ICD-10) Obesity (BMI 35.0-39.9 without comorbidity) ?E66.9 - Obesity, unspecified (ICD-10) Pleurisy ?R09.1 - Pleurisy (ICD-10) Alcohol use disorder, mild, in early remission ?F10.11 - Alcohol abuse, in remission (ICD-10) HTN (hypertension) ?I10 - Essential (primary) hypertension (ICD-10) Herpes simplex ?B00.9 - Herpesviral infection, unspecified (ICD-10) Surgical History History of surgery on arm ?Z98.890 - Other specified postprocedural states (ICD-10) History of appendectomy ?Z90.49 - Acquired absence of other specified parts of digestive tract (ICD-10) Family History Mother Family history of COPD (chronic obstructive pulmonary disease) Family history of cancer Family history of hypertension Father Family history of hypertension Social History Within the past year, how often did you have a drink containing alcohol: 2-3 times a week Within the past year, how many standard drinks containing alcohol did you have on a typical day: 1 or 2 Within the past year, how often did you have six or more drinks on one occasion: less than monthly Total score: 1 Score interpretation: A score of 4 or more indicates drinking is likely to affect patient's safety. Smoking status: Current every day smoker Non-prescribed substance use: cannabis (any form) Previous occupational history: unemployed Highest level of school completed/degree received: high school graduate Are you now , , , , never or living with a partner: never Little interest or pleasure in doing things: not at all Feeling down, depressed, or hopeless: not at all Feel stressed/tense/nervous/anxious/difficulty sleeping: not at all Exam Constitutional Vital Signs, click to edit/add: Last Vital Signs Temp 98.3 F 01/15/24 17:14 Pulse 70 01/15/24 19:24 Resp 16 01/15/24 19:24 BP 118/77 01/16/24 00:59 Pulse Ox 100 01/15/24 19:24 O2 Del Method Room Air 01/15/24 19:24 Course Vital Signs Vital signs: Vital Signs Temperature 98.3 F 01/15/24 17:14 Pulse Rate 93 H 01/15/24 17:14 Respiratory Rate 15 01/15/24 17:14 Blood Pressure 129/81 01/15/24 17:14 Pulse Oximetry 96 01/15/24 17:14 Oxygen Delivery Method Room Air 01/15/24 17:14 Temperature 98.3 F 01/15/24 17:14 Pulse Rate 70 01/15/24 19:24 Respiratory Rate 16 01/15/24 19:24 Blood Pressure 118/77 01/16/24 00:59 Pulse Oximetry 100 01/15/24 19:24 Oxygen Delivery Method Room Air 01/15/24 19:24 Medical Decision Making MDM Narrative Medical decision making narrative: Patient was noted to have improved lab studies, stable vital signs. He was treated with IV fluids, Levsin and Zofran with improvement. He has no pain complaints on reevaluation. CT shows the patient has an abscess of the sigmoid colon measuring 3.1 cm with posterior 2.7 cm phlegmon and questionable colocolonic fistula. I discussed these results with on-call general surgery at this facility, Dr. Ng, And he recommended that the patient be transferred to a tertiary care facility with interventional radiology services. I discussed with the patient the need for transfer to a tertiary care facility with interventional radiology And potentially colorectal/GI services. He is comfortable with tertiary care transfer. IV Zosyn was given in the ER. Patient was accepted at [facility] in [place], I did discuss the case with the on-call colorectal surgeon as well who recommends admission to the hospitalist service for interventional radiology procedure. Patient was accepted by [facility] nurse practitioner for the hospitalist service. Stable at time of transfer to [facility]. Critical care time 35 minutes. There was a prolonged wait for a bed at [facility] in [place]. He was given a hospital bed for comfort and maintained on IVF and given additional IV Zosyn at the 8 hour vinicio. He has not had any requests for pain medication. Lab Data Labs: Lab Results 01/15/24 01/15/24 Range/Units 17:38 17:40 WBC 9.2 (4.0-11.0) 10^3/uL RBC 5.35 (4.70-6.10) 10^6/uL Hgb 16.6 (14.0-18.0) g/dL Hct 49.1 (42.0-54.0) % MCV 91.8 (80.0-94.0) fL MCH 31.0 (25.9-34.0) pg MCHC 33.8 (29.9-35.2) g/dL RDW 11.9 (11.0-15.0) % Plt Count 225 (150-450) 10^3/uL MPV 11.6 (9.5-13.5) fL Neut % (Auto) 67.4 (43.0-75.0) % Lymph % (Auto) 22.0 (20.5-60.0) % [place] % (Auto) 8.3 (1.7-12.0) % Eos % (Auto) 1.3 (0.9-7.0) % Baso % (Auto) 0.8 (0.2-2.0) % Neut # (Auto) 6.2 (1.4-6.5) 10^3/uL Lymph # (Auto) 2.0 (1.2-3.8) 10^3/uL [place] # (Auto) 0.8 (0.3-0.8) 10^3/uL Eos # (Auto) 0.1 (0.0-0.7) 10^3/uL Baso # (Auto) 0.1 (0.0-0.1) 10^3/uL Abs Immat Gran (auto) 0.02 (0.00-0.03) 10^3/uL Imm/Tot Granulo (auto) 0.2 (0.0-0.5) % Sodium 139 (136-145) mmol/L Potassium 4.0 (3.5-5.1) mmol/L Chloride 104 (98-107) mmol/L Carbon Dioxide 23.0 (21.0-32.0) mmol/L Anion Gap 16.0 BUN 9.0 (7.0-18.0) mg/dL Creatinine 0.72 (0.70-1.30) mg/dL Est GFR ( Amer) >60 (>=60) Est GFR (Non-Af Amer) >60 (>=60) BUN/Creatinine Ratio 12.5 Glucose 97 (74-106) mg/dL Lactate 0.8 (0.4-2.0) mmol/L Calcium 9.6 (8.5-10.1) mg/dL Total Bilirubin 0.5 (0.2-1.0) mg/dL AST 15 (15-37) U/L ALT 17 (16-63) U/L Alkaline Phosphatase 77 (46-116) U/L Total Protein 8.2 (6.4-8.2) g/dL Albumin 3.8 (3.4-5.0) g/dL Globulin 4.4 g/dL Albumin/Globulin Ratio 0.9 Urine Color Yellow (YELLOW) Urine Clarity Clear (CLEAR) Urine pH 5.5 (5.0-9.0) Ur Specific [place] >=1.030 A (1.005-1.025) Urine Protein Trace (NEG/TRACE) mg/dL Urine Glucose (UA) Negative (NEGATIVE) mg/dL Urine Ketones Negative (NEGATIVE) mg/dL Urine Occult Blood Trace-l (NEGATIVE) Urine Nitrite Negative (NEGATIVE) Urine Bilirubin Small A (NEGATIVE) Urine Urobilinogen 0.2 (0.2-1.0) EU/dL Ur Leukocyte Esterase Negative (NEGATIVE) Urine RBC 0-2 (0-2) #/HPF Urine WBC None seen (NONE SEEN) #/HPF Ur Squamous Epith Cells None seen (NONE/RARE) #/LPF Urine Crystals None seen (None Seen) #/HPF Urine Bacteria None seen (NONE SEEN) #/HPF Urine Casts None seen (NONE SEEN) #/LPF Urine Mucus None seen (NONE SEEN) Imaging Data CT scan - abdomen: Radiologist's impression: ITS Impressions Abdomen/Pelvis CT 01/15/24 18:00 IMPRESSION: 1. Extraluminal air and fluid collection adjacent to the sigmoid colon measuring 3.1 x 2.8 x 2.9 cm compatible with an abscess. Phlegmonous change noted posterior to this collection measuring 2.7 x 1.9 cm which appears to communicate with the distal sigmoid colon. Colocolonic fistula is not excluded. 2. Mild to moderate diffuse colitis. 3. No free air noted on this study. Electronically authenticated by: TATA RITCHIE Date: 01/15/2024 19:05 Discharge Plan Discharge Chief Complaint: Abdominal Pain Clinical Impression: Colitis with abscess, Abdominal pain Patient Disposition: [facility] Time of Disposition Decision: 21:12 Discharge Location: [facility] Condition: Good Mode of Transportation: EMS
[2024-01-15] MEDS: HYOSCYAMINE SULFATE 0.125 MG TAB.SUBL SL (17:45)
[2024-01-15] MEDS: 0.9 % SODIUM CHLORIDE 1,000 ML 999 ML IV (17:45)
[2024-01-15] MEDS: ONDANSETRON PF 4 MG/2 ML VIAL IV (17:45)
--- NOTE | 2024-01-15 18:00 | CT_ITS ---
[address] [address] Patient Name: ESMER MUNOZ MRN: [id number] date: 2000 Sex: M Assigned Patient Location: ER Current Patient Location: ER Accession/Order Number: [id number] Exam Date: 01/15/2024 17:50 Report Date: 01/15/2024 19:05 At the request of: ROSAURA CUEVAS Procedure: CT abdomen pelvis w con CT ABDOMEN AND PELVIS WITH CONTRAST: INDICATION: Abdominal pain, right lower quad, hx appendectomy. COMPARISON: 12/21/2023. TECHNIQUE: Helical CT images of the abdomen and pelvis were obtained after the administration of intravenous contrast. Dose reduction techniques were achieved by using automated exposure control and/or adjustment of mA and/or kV according to patient size and/or use of iterative reconstruction technique. FINDINGS: LOWER CHEST: The visualized lung bases are clear. LIVER: Unremarkable. GALLBLADDER AND BILIARY SYSTEM: Unremarkable. SPLEEN: Unremarkable. PANCREAS: Unremarkable. ADRENAL GLANDS: Unremarkable. KIDNEYS AND URETERS: The kidneys enhance symmetrically. There is no hydronephrosis. No focal renal lesions. BLADDER: Unremarkable. GASTROINTESTINAL TRACT: There is an extraluminal air-fluid collection adjacent to the sigmoid colon measuring 3.1 x 2.8 x 2.9 cm likely representing a sequela of recently seen acute diverticulitis. There is an additional area of phlegmonous change posterior to this collection measuring 2.7 x 1.9 cm (series 3, image 108). This appears to communicate with the distal sigmoid colon. The possibility of a colocolonic fistula is not excluded. There is mild to moderate diffuse colonic wall thickening compatible with colitis. Status post appendectomy. VASCULATURE: Unremarkable. RETROPERITONEUM AND LYMPH NODES: No lymphadenopathy or mass. PERITONEUM/MESENTERY: No abdominal ascites. No free air. PELVIS: No pelvic ascites or lymphadenopathy. BODY WALL: Tiny fat-containing umbilical hernia. BONES: No acute abnormality. CT/CT abdomen pelvis w con IMPRESSION: 1. Extraluminal air and fluid collection adjacent to the sigmoid colon measuring 3.1 x 2.8 x 2.9 cm compatible with an abscess. Phlegmonous change noted posterior to this collection measuring 2.7 x 1.9 cm which appears to communicate with the distal sigmoid colon. Colocolonic fistula is not excluded. 2. Mild to moderate diffuse colitis. 3. No free air noted on this study. Electronically authenticated by: TATA RITCHIE Date: 01/15/2024 19:05
[2024-01-15 18:13] LABS: Basophils Absolute Auto 0.1 10^3/uL (0.0-0.1); Basophils Percent Auto 0.8 % (0.2-2.0); Eosinophils Absolute Auto 0.1 10^3/uL (0.0-0.7); Eosinophils Percent Auto 1.3 % (0.9-7.0); Hematocrit 49.1 % (42.0-54.0); Hemoglobin 16.6 g/dL (14.0-18.0); Immature Granulocytes Abs Auto 0.02 10^3/uL (0.00-0.03); Immature Granulocytes Pct Auto 0.2 % (0.0-0.5); Mean Corpuscular HGB Conc 33.8 g/dL (29.9-35.2); Mean Corpuscular Volume 91.8 fL (80.0-94.0); Mean Platelet Volume 11.6 fL (9.5-13.5); Monocytes Absolute Auto 0.8 10^3/uL (0.3-0.8); Monocytes Percent Auto 8.3 % (1.7-12.0); Neutrophils Absolute Auto 6.2 10^3/uL (1.4-6.5); Neutrophils Percent Auto 67.4 % (43.0-75.0); Platelet Count 225 10^3/uL (150-450); Red Blood Count 5.35 10^6/uL (4.70-6.10); Red Cell Distribution Width 11.9 % (11.0-15.0); White Blood Count 9.2 10^3/uL (4.0-11.0)
[2024-01-15 18:21] LABS: Bilirubin Urine SMALL (NEGATIVE); Blood Urine TRACE-L (NEGATIVE); Clarity Urine CLEAR (CLEAR); Color Urine YELLOW (YELLOW); Glucose Urine UA NEGATIVE (NEGATIVE); Ketones Urine NEGATIVE (NEGATIVE); Leukocyte Esterase Urine NEGATIVE (NEGATIVE); Nitrite Urine NEGATIVE (NEGATIVE); Protein Urine TRACE mg/dL (NEG/TRACE); Specific Gravity Urine >=1.030 (1.005-1.025); Urobilinogen Urine 0.2 EU/dL (0.2-1.0); pH Urine 5.5 (5.0-9.0)
[2024-01-15 18:30] LABS: Urine Microscopic Indicated YES
[2024-01-15 18:34] LABS: Bacteria Urine NONE SEEN #/HPF (NONE SEEN); Cast Seen? NONE SEEN #/LPF (NONE SEEN); Crystals Seen? None Seen #/HPF (None Seen); Mucus Urine NONE SEEN (NONE SEEN); RBC Urine 0-2 #/HPF (0-2); Squamous Epithelial Cell Urine NONE SEEN #/LPF (NONE/RARE); WBC Urine NONE SEEN #/HPF (NONE SEEN)
[2024-01-15 18:43] LABS: Lactate/Lactic Acid 0.8 mmol/L (0.4-2.0)
[2024-01-15 18:50] LABS: Alanine Aminotransferase 17 U/L (16-63); Albumin Globulin Ratio 0.9; Albumin Level 3.8 g/dL (3.4-5.0); Alkaline Phosphatase 77 U/L (46-116); Aspartate Amino Transferase 15 U/L (15-37); BUN Creatinine Ratio 12.5; Bilirubin Total 0.5 mg/dL (0.2-1.0); Calcium 9.6 mg/dL (8.5-10.1); Chloride 104 mmol/L (98-107); Estimated GFR (African America >60 (>=60); Estimated GFR (Non-African Ame >60 (>=60); Globulin 4.4 g/dL; Glucose 97 mg/dL (74-106); Sodium 139 mmol/L (136-145); Total Protein 8.2 g/dL (6.4-8.2)
[2024-01-15] MEDS: PIPERACILLIN SODIUM/TAZOBACTAM 3.375 GM in 0.9 % SODIUM CHLORIDE 50 ML IV (20:04)
[2024-01-16] VITALS (10 sets, daily range): BP systolic 98–127; BP diastolic 54–83; PULSE 66–97; TEMP 36.4; O2SAT 98–100
[2024-01-16] MEDS: PIPERACILLIN SODIUM/TAZOBACTAM 3.375 GM in 0.9 % SODIUM CHLORIDE 50 ML IV (03:35)
[2024-01-16] MEDS: 0.9 % SODIUM CHLORIDE 1,000 ML 125 ML IV (03:35)
== END 2024-01-16 10:01 | disposition short-term general hospital (02) ==
PROVIDERS: Physician Assistant; Emergency Provider Emergency Medicine
DX: K63.0 Abscess of intestine (principal); K52.9 Noninfective gastroenteritis and colitis, unspecified; R10.9 Unspecified abdominal pain; Z90.49 Acquired absence of other specified parts of digestive tract; E66.9 Obesity, unspecified; F12.90 Cannabis use, unspecified, uncomplicated; F17.210 Nicotine dependence, cigarettes, uncomplicated; F10.11 Alcohol abuse, in remission; I10 Essential (primary) hypertension; Z98.890 Other specified postprocedural states; Z68.35 Body mass index [BMI] 35.0-35.9, adult
CPT/HCPCS: 36415; 74177; 80053; 81001; 83605; 85025; 96361; 96365; 96366; 96375; 99285; Q9967

== ENCOUNTER 2024-06-19 16:04 | Emergency (ER) | payer OTHER, SELFPAY ==
--- OUTSIDE RECORDS SUMMARY | 2024-06-19 16:11 | XMS_ITS | CCD ---
Author Organization [facility] Team Providers Care Quick Print Operator Name Role Phone Tereso VERONICACandice Primary Care Provider Unavailable Primary Care Provider Federicoabl FLOR Shepherd Attending Unavailable GUANACO, EVAN E Referring Unavailable GUANACO, EVAN E Referring Unavailable GUANACO, EVAN E Admitting Unavailable GUANACO, EVAN E Attending Unavailable MISC, DR LUNA Primary Care Unavailable CHAMP, DR AGUILA Shipley Admitting Unavailabl e QUOCECK, DR AGUILA Shipley Attending Unavailabl e QUOCECK, DR AGUILA Shipley Consulting Unavailabl e Unavailable Primary Care Provider UnavailROSAURA Puri Referring Unavailable LOUKA, CORAZON Admitting Unavailable RADHA, ABED E Consulting Unavailable CONRADO GILL Attending Unavail able BOBO MAS Consulting Unavailable CONRADO GILL Consulting Unavail able Medications Current Medications Medication Drug Class(es) Dates Sig (Normalized) Sig (Original) Acetaminophen (1 source) Start: 01-16-2024 acetaminophen (TYLENOL) tablet 650 mg acetaminophen 325 mg / HYDROcodone bitartrate 5 mg oral tablet (9 sources) Opioid Agonist Start: 04-03-2022 End: 04-10-2022 take 1-2 tablets by mouth every four hours as needed for pain HYDROcodone-acetami nophen (NORCO) 5-325 MG per tablet Indications: Status post open reduction and internal fixation (ORIF) of fracture Take 1-2 tablets by mouth every 4 hours as needed for Pain for up to 7 days. 20 tablet 0 04/03/2022 04/10/2022 Active Start: 03-30-2022 End: 03-30-2022 HYDROcodone-acetaminophen (N ORCO) 5-325 MG per tablet 2 tablet Start: 03-30-2022 hydrocodone-ac etaminophen (NORCO) tablet 5-325 mg (STARTER PACK) Start: 03-30-2022 End: 04-02-2022 HYDROcodone-acetaminophen (N ORCO) 5-325 MG per tablet Indications: Closed fracture of distal end of left radius, unspecified fracture morphology, initial encounter Take 1 tablet by mouth every 6 hours as needed for Pain for up to 3 days. Intended supply: 3 days. Take lowest dose possible to manage pain 12 tablet 0 03/30/2022 04/02/2022 Active ciprofloxacin 500 mg oral tablet (3 sources) Quinolone Antimicrobial Start: 01-18-2024 End: 01-25-2024 take 1 tablet by mouth twice daily ciprofloxacin (CIPRO) 500 MG tablet Take 1 tablet by mouth 2 times daily for 7 days 14 tablet 0 01/18/2024 01/25/2024 Active Start: 01-18-2024 End: 01-25-2024 take 1 tablet by mouth every twelve hours ciprofloxacin (CIPRO) 500 MG tablet Take 1 tablet by mouth every 12 hours for 14 doses 14 tablet 0 01/18/2024 01/18/2024 Discontinued (Stop Taking at Discharge) 0.3 ml enoxaparin sodium 100 mg/ml prefilled syringe (1 source) Low Molecular Weight Heparin Start: 01-17-2024 enoxaparin Sodium (LOVENOX) injection 30 mg 2 ml metoclopramide 5 mg/ml prefilled syringe (1 source) Dopamine-2 Receptor Antagonist Start: 04-03-2022 End: 04-03-2022 10 mg, IntraVENous, ONCE PRN, 1 dose, Starting on Sun04/03/22 at 1124, Until Sun04/03/22 at 2359, Nausea Secondary antiemetic therapy. PACU only metroNIDAZOLE 500 mg oral tablet (3 sources) Nitroimidazole Antimicrobial Start: 01-18-2024 End: 01-25-2024 take 1 tablet by mouth three times daily metroNIDAZOLE (FLAGYL) 500 MG tablet Take 1 tablet by mouth 3 times daily for 7 days 21 tablet 0 01/18/2024 01/25/2024 Active Start: 01-18-2024 End: 01-25-2024 take 1 tablet by mouth every eight hours metroNIDAZOLE (FLAGYL) 500 MG tablet Take 1 tablet by mouth every 8 hours for 21 doses 21 tablet 0 01/18/2024 01/18/2024 Discontinued (Stop Taking at Discharge) 2 ml ondansetron 2 mg/ml injection (2 sources) Serotonin-3 Receptor Antagonist Start: 04-03-2022 End: 04-03-2022 4 mg, IntraVENous, ONCE PRN, 1 dose, Starting on Sun04/03/22 at 1124, Until Sun04/03/22 at 2359, Nausea Initial antiemetic therapy. PACU only Start: 03-30-2022 End: 03-30-2022 ondansetron (ZOFRAN) injecti on 4 mg ondansetron (ZOFRAN-ODT) disintegrating tablet 4 mg (1 source) Start: 01-16-2024 ondansetron (Z OFRAN-ODT) disintegrating tablet 4 mg oxyCODONE (1 source) Opioid Agonist Start: 04-03-2022 End: 04-03-2022 oxyCODONE (ROXICODONE) immediate release tablet 5 mg Potassium Chloride (1 source) Start: 01-16-2024 potassium chlo ride (KLOR-CON M) extended release tablet 40 mEq 1000 ml sodium chloride 9 mg/ml injection (5 sources) Start: 01-16-2024 IntraVENous, a t 5-250 mL/hr, PRN, if patient receiving piggyback infusions and maintenance fluids are not ordered OR KVO fluids to protect IV site / prevent frequent line interruptions/ long duration, Starting on Sun01/16/24 at 1104 For piggyback infusion, administer at same rate as piggyback for a total of 25 mL. Enter 25 mL into dose field and piggyback rate into rate field of order. If piggyback is infusing at a rate less than 100 mL/hr, enter 25 mL into dose field and 100 mL/hr into rate field of order. For KVO fluids, enter rate of 20 mL/hr or less into rate field of order. Start: 01-16-2024 take 5-40 mL intrave nously once as needed 5-40 mL, IntraVENous, PRN, Starting on Sun01/16/24 at 1104, Until Discontinued, Line Care, After every IV line use For Line Patency: Peripheral IV = 5 mL; Midline or Central Line = 10 mL/lumen. If following IV push medication, administer flush at same rate as the IV push. Flush volume is determined by type of infusion therapy being given. For non-viscous solutions use: Peripheral IV = 5 mL Midline or Central Line = 10 mL/lumen For viscous solutions (i.e. blood components, parenteral nutrition, contrast media, or after obtaining blood sample) use: Peripheral IV = 10 mL Midline or Central Line = 20 mL/lumen Start: 04-03-2022 IntraVENous, a t 5-250 mL/hr, PRN, if patient receiving piggyback infusions and maintenance fluids are not ordered OR KVO fluids to protect IV site / prevent frequent line interruptions/ long duration, Starting on Sun04/03/22 at 1124 For piggyback infusion, administer at same rate as piggyback for a total of 25 mL. Enter 25 mL into dose field and piggyback rate into rate field of order. If piggyback is infusing at a rate less than 100 mL/hr, enter 25 mL into dose field and 100 mL/hr into rate field of order. For KVO fluids, enter rate of 20 mL/hr or less into rate field of order. PACU only Start: 04-03-2022 take 1 dose intraven ously twice daily 5-40 mL, IntraVENous, EVERY 12 HOURS SCHEDULED (2 times per day), First dose on Sun04/03/22 at 1145, Until Discontinued For Line Patency: Peripheral IV = 5 mL; Midline or Central Line = 10 mL/lumen. If following IV push medication, administer flush at same rate as the IV push. Flush volume is determined by type of infusion therapy being given. For non-viscous solutions use: Peripheral IV = 5 mL Midline or Central Line = 10 mL/lumen For viscous solutions (i.e. blood components, parenteral nutrition, contrast media, or after obtaining blood sample) use: Peripheral IV = 10 mL Midline or Central Line = 20 mL/lumen PACU only Start: 04-03-2022 take 5-40 mL intrave nously once as needed 5-40 mL, IntraVENous, PRN, Starting on Sun04/03/22 at 1124, Until Discontinued, Line Care, After every IV line use For Line Patency: Peripheral IV = 5 mL; Midline or Central Line = 10 mL/lumen. If following IV push medication, administer flush at same rate as the IV push. Flush volume is determined by type of infusion therapy being given. For non-viscous solutions use: Peripheral IV = 5 mL Midline or Central Line = 10 mL/lumen For viscous solutions (i.e. blood components, parenteral nutrition, contrast media, or after obtaining blood sample) use: Peripheral IV = 10 mL Midline or Central Line = 20 mL/lumen PACU only Completed/Discontinued Medications Medication Drug Class(es) Dates Sig (Normalized) Sig (Original) amoxicillin 500 mg oral tablet (5 sources) Penicillin-class Antibacterial Start: 03-10-2022 End: 07-27-2022 Amoxicillin 500 MG Oral Tablet 03/10/2022 - 07/27/2022 Provider: Candice Rider CNP bisacodyl 10 mg rectal suppository (1 source) Stimulant Laxative Start: 01-16-2024 take 10 mg rectal route once daily as needed 10 mg, Rectal, DAILY PRN, Starting on Sun01/16/24 at 1104, Until Discontinued, Constipation Second line therapy for constipation, After 24 hours, if no result from first line PRN therapy, give second line therapy in combination with first line therapy. calcium chloride 0.0014 meq/ml / potassium chloride 0.004 meq/ml / sodium chloride 0.103 meq/ml / sodium lactate 0.028 meq/ml injectable solution (2 sources) Start: 01-16-2024 End: 01-18-2024 IntraVENous, at 75 mL/hr, CONTINUOUS, Starting on Sun01/16/24 at 1130, For 48 hours Start: 04-03-2022 lactated ringe rs infusion ceFAZolin (ANCEF) 2000 mg in dextrose 5 % 100 mL IVPB (1 source) Start: 04-03-2022 End: 04-03-2022 ceFAZolin (ANCEF) 2000 mg in dextrose 5 % 100 mL IVPB chlorhexidine gluconate 1.2 mg/ml mouthwash (5 sources) Start: 03-10-2022 End: 07-27-2022 Chlorhexidine Gluconate 0.12% Mouth/Throat Solution 03/10/2022 - 07/27/2022 Provider: Candice Rider CNP 2 ml fentaNYL 0.05 mg/ml injection (2 sources) Opioid Agonist Start: 01-17-2024 End: 01-17-2024 fentaNYL (SUBLIMAZE) injection Start: 04-03-2022 50 mcg, IntraV ENous, EVERY 5 MIN PRN, 2 doses, Starting on Sun04/03/22 at 1124, Until Discontinued, Pain Severe (7-10) For Phase I. If Phase II oral narcotics have been administered in the last 60 minutes, do not administer IV narcotics unless specifically approved by provider. PACU only hydroCHLOROthiazide 12.5 mg / lisinopril 20 mg oral tablet (5 sources) Thiazide Diuretic, Angiotensin Converting Enzyme Inhibitor Start: 03-10-2022 End: 07-27-2022 Lisinopril-hydroCHLOROthiazi de 20-12.5 MG Oral Tablet 03/10/2022 - 07/27/2022 Provider: Candice Rider [employer] 1 ml ketorolac tromethamine 15 mg/ml cartridge (1 source) Nonsteroidal Anti-inflammatory Drug, Cyclooxygenase Inhibitor Start: 01-16-2024 15 mg, IntraVENous, EVERY 6 HOURS PRN, 4 doses, Starting on Sun01/16/24 at 1104, Until Discontinued, Pain Moderate (4-6), Pain Severe (7-10) Do not administer for more than 5 days 2 ml midazolam 1 mg/ml injection (1 source) Benzodiazepine Start: 01-17-2024 End: 01-17-2024 midazolam PF (VERSED) inject ion 1 ml morphine sulfate 4 mg/ml cartridge (1 source) Opioid Agonist Start: 03-30-2022 End: 03-30-2022 morphine injection 4 mg Start: 03-30-2022 End: 03-30-2022 morphine injection 4 mg pantoprazole (PROTONIX) 40 mg in sodium chloride (PF) 0.9 % 10 mL injection (1 source) Start: 01-16-2024 End: 01-18-2024 pantoprazole (PROTONIX) 40 mg in sodium chloride (PF) 0.9 % 10 mL injection polyethylene glycol 3350 54615 mg powder for oral solution (1 source) Osmotic Laxative Start: 01-16-2024 17 g, Oral, D AILY PRN, Starting on Sun01/16/24 at 1104, Until Discontinued, Constipation First line therapy for constipation Problems Active Problems Problem Classification Problem Date Documented Date Episodic/Chronic Adjustment disorders (3 sources) Adjustment disorder; Translations: [Adjustment disorder, unspecified] Onset: 07-27-2022 07-29-2022 Chronic Diverticulosis and diverticulitis (2 sources) Abscess of sigmoid colon co-occurrent and due to diverticulitis; Translations: [Diverticulitis of large intestine with perforation and abscess without bleeding] Onset: 01-15-2024 01-15-2024 Chronic Essential hypertension (14 sources) Hypertensive disorder; Translations: [Essential (primary) hypertension] Onset: 03-10-2022 Chronic Fracture of upper limb (1 source) Closed fracture of distal end of left radius; Translations: [Unspecified fracture of the lower end of left radius, initial encounter for closed fracture] Episodic Mood disorders (4 sources) Mood disorders; Translations: [DEPRESSION UNSPECIFIED] Onset: 09-23-2022 Noninfectious gastroenteritis (2 sources) Colitis; Translations: [Noninfective gastroenteritis and colitis, unspecified] Onset: 01-17-2024 01-17-2024 Episodic Other nutritional; endocrine; and metabolic disorders (8 sources) Finding of body mass index; Translations: [Body mass index (observable entity)] Onset: 03-10-2022 Chronic Peritonitis and intestinal abscess (4 sources) Infection causing abscess of colon; Translations: [Abscess of intestine] Onset: 01-16-2024 01-16-2024 Episodic Residual codes; unclassified (1 source) H/O: fracture; Translations: [Other specified postprocedural states] Episodic Residual codes; unclassified (2 sources) History of abdominal abscess; Translations: [Personal history of other specified conditions] Onset: 01-17-2024 01-17-2024 Episodic Substance-related disorders (3 sources) Nicotine dependence; Translations: [Tobacco use disorder] Onset: 07-27-2022 Chronic Substance-related disorders (1 source) Cannabis use, unspecified, uncomplicated; Translations: [CANNABIS USE UNS UNCOMPLICATED] Onset: 09-25-2022 Episodic Past or Other Problems Problem Classification Problem Date Documented Da te Episodic/Chronic Disorders of teeth and jaw (5 sources) Infection of tooth; Translations: [Other specific diseases of hard tissues of teeth] Onset: 03-10-2022 Episodic Immunizations and screening for infectious disease (5 sources) HIV screening; Translations: [Special screening examination for other specified viral diseases] Onset: 03-10-2022 Episodic Other screening for suspected conditions (not mental disorders or infectious disease) (9 sources) Encounter for screening for diabetes mellitus; Translations: [Diabetes Risk Test Score] Onset: 03-10-2022 Episodic Residual codes; unclassified (5 sources) Tobacco dependence syndrome; Translations: [Tobacco use] Onset: 03-10-2022 Episodic Unclassified (8 sources) Intervention & Counseling Cessation of Tobacco Use 3-10 Min.; Translations: [Intervention & Counseling Cessation of Tobacco Use 3-10 Min.] Onset: 03-10-2022 Results Test Name Value Interpretation Reference Range Facil ity IBD sgi Diagnosticon 024 IBD sgi Diagnostic SEE SEPARATE REPORT Normal [facility] Comment on above: Result Comment: (NOT E) Pattern not consistent with IBD Performed By: #### I BDSGI #### [facility] [address] [place] [id number] Guard Entrance Registrar: Willian Dudley MD Basic Metab w/rfx MGon 01-17 Anion gap [Moles/Vol] 18 mmol/L High 05-26 [facility] Comment on above: Performed By: #### C DP, BMPX #### [employer] [address] [place] [address] Guard Entrance Registrar: Willian Dudley MD Calcium [Mass/Vol] 9.5 mg/dL Normal 8.6-10.4 [facility] Comment on above: Performed By: #### C DP, BMPX #### [employer] [facility] [place] [address] Guard Entrance Registrar: Willian Dudley MD Chloride [Moles/Vol] 102 mmol/L Normal 98-107 [facility] Comment on above: Performed By: #### C DP, BMPX #### [facility] [address] [place] [id number] Guard Entrance Registrar: Willian Dudley MD CO2 [Moles/Vol] 19 mmol/L Low 20-31 [facility] Comment on above: Performed By: #### C DP, BMPX #### [facility] [employer] [address] [place] [id number] Guard Entrance Registrar: Willian Dudley MD Creatinine [Mass/Vol] 0.7 mg/dL Normal 0.70-1.20 [facility] Comment on above: Performed By: #### C DP, BMPX #### [address] [address] Guard Entrance Registrar: Willian Dudley MD GFR/1.73 sq M.predicted among non-blacks MDRD (S/P/Bld) [Vol rate/Area] mL/min/{1.73_m2} Normal >60 [facility] Comment on above: Result Comment: These results are not intended for use in patients <18 years of age. eGFR results are calculated without a race factor using the 2020 CKD-EPI equation. Careful clinical correlation is recommended, particularly when comparing to results calculated using previous equations. The CKD-EPI equation is less accurate in patients with extremes of muscle mass, extra-renal metabolism of creatine, excessive creatine ingestion, or following therapy that affects renal tubular secretion. Performed By: #### C DP, BMPX #### [facility] [employer] [address] [place] [id number] Guard Entrance Registrar: Willian Dudley MD Glucose [Mass/Vol] 66 mg/dL Low 74-99 [facility] Comment on above: Performed By: #### C DP, BMPX #### [facility] [employer] [address] [place] [id number] Guard Entrance Registrar: Willian Dudley MD Potassium [Moles/Vol] 3.9 mmol/L Normal 3.7-5.3 [facility] Comment on above: Performed By: #### C DP, BMPX #### [facility] [address] [place], [place] [id number] Guard Entrance Registrar: Willian Dudley MD Sodium [Moles/Vol] 139 mmol/L Normal 136-145 [facility] Comment on above: Performed By: #### C DP, BMPX #### [facility] [address] [place], [place] [id number] Guard Entrance Registrar: Willian Dudley MD Urea nitrogen [Mass/Vol] 5 mg/dL Low 6-20 [facility] Comment on above: Performed By: #### C DP, BMPX #### [employer] [address] [place] [address] [id number] Guard Entrance Registrar: Willian Dudley MD Basic Metabolic Panel w/ Ref fausto to MGon 01-18-2024 Anion gap [Moles/Vol] 18 mmol/L High 9 - 16 mmol/L [facility] [employer] Calcium [Mass/Vol] 9.5 mg/dL 8.6 - 10. 4 mg/dL [facility] [employer] Chloride [Moles/Vol] 102 mmol/L 98 - 107 mmol/L [facility] [employer] CO2 [Moles/Vol] 19 mmol/L Low 20 - 31 mmol/L [facility] Creatinine [Mass/Vol] 0.7 mg/dL 0.70 - 1.20 mg/dL [facility], Glom Filt Rate - PINF [facility] Comment on above: These results are not intended for use in patients <18 years of age. eGFR results are calculated without a race factor using the 2020 CKD-EPI equation. Careful clinical correlation is recommended, particularly when comparing to results calculated using previous equations. The CKD-EPI equation is less accurate in patients with extremes of muscle mass, extra-renal metabolism of creatine, excessive creatine ingestion, or following therapy that affects renal tubular secretion. Glucose [Mass/Vol] 66 mg/dL Low 74 - 99 mg/dL [facility] [employer] Interpretation and review of laboratory results Abnormal [facility] Potassium [Moles/Vol] 3.9 mmol/L 3.7 - 5.3 mmol/L [facility] Sodium [Moles/Vol] 139 mmol/L 136 - 145 mmol/L [facility] Urea nitrogen [Mass/Vol] 5 mg/dL Low 6 - 20 mg/dL [facility] CBC with Auto Differentialon 01-18-2024 Basophils (Bld) [#/Vol] 0.07 10*3/uL [facility] Basophils/100 WBC (Bld) 1 % 0 - 2 % [facility] Eosinophils (Bld) [#/Vol] 0.19 10*3/uL [facility] Eosinophils/100 WBC (Bld) 2 % 1 - 4 % [facility] Erythrocyte distribution width (RBC) [Ratio] 11.9 % 11.8 - 14.4 % [facility] Hematocrit (Bld) [Volume fraction] 51.2 % High 40.7 - 50.3 % [facility] Hemoglobin (Bld) [Mass/Vol] 17.2 g/dL High 13.0 - 17.0 g/dL [facility] Immature granulocytes (Bld) [#/Vol] [facility] Immature granulocytes/100 WBC (Bld) 0 % 0 [facility] Interpretation and review of laboratory results Abnormal [facility] Lymphocytes/100 WBC (Bld) 32 % 24 - 43 % [facility] Lymphocytes/100 WBC (Bld) 2.52 % [facility] MCH (RBC) [Entitic mass] 31.5 pg 25.2 - 33.5 pg [facility] MCHC (RBC) [Mass/Vol] 33.6 g/dL 28.4 - 34.8 g/dL [facility] MCV (RBC) [Entitic vol] 93.8 fL 82.6 - 102.9 fL [facility] Monocytes/100 WBC (Bld) 9 % 3 - 12 % [facility] Monocytes/100 WBC (Bld) 0.75 % [facility] Neutrophils/100 WBC (Bld) 55 % 36 - 65 % [facility] Nucleated RBC/100 WBC (Bld) [Ratio] 0.0 % 0.0 per 100 WBC [facility] Platelet mean volume (Bld) [Entitic vol] 11.2 fL 8.1 - 13.5 fL [facility] Platelets (Bld) [#/Vol] 181 10*3/uL [facility] RBC (Bld) [#/Vol] 5.46 10*6/uL 4.21 - 5.7 7 m/uL [facility] Segmented neutrophils/100 WBC (Bld) 4.40 % [facility] WBC other (Bld) [#/Vol] 8.0 [facility] CBC with Diffon 01-18-2024 Abs. Basophil 0.07 k/uL Normal 0.00-0.20 [facility] Comment on above: Performed By: #### C DP, BMPX #### [place] [address] Guard Entrance Registrar: Willian Dudley MD Abs.Imm.Granulocyte <0.03 Normal 0.00-0.30 [facility] Comment on above: Performed By: #### C DP, BMPX #### [place] [address] Guard Entrance Registrar: Willian Dudley MD Abs.Neutrophil (Seg) 4.40 k/uL Normal 1.50-8.10 [facility] Comment on above: Performed By: #### C DP, BMPX #### [facility] [employer] [address] [place] [address] Guard Entrance Registrar: Willian Dudley MD Basophils/100 WBC (Bld) 1 % Normal 0-2 [facility] Comment on above: Performed By: #### C DP, BMPX #### [facility] [employer] [address] [place] [address] Guard Entrance Registrar: Willian Dudley MD Eosinophils (Bld) [#/Vol] 0.19 10*3/uL Normal 0.00-0.44 [facility] Comment on above: Performed By: #### C DP, BMPX #### [place] [address] Guard Entrance Registrar: iWllian Dudley MD Eosinophils/100 WBC (Bld) 2 % Normal 1-4 [facility] Comment on above: Performed By: #### C DP, BMPX #### [place] [address] Guard Entrance Registrar: Willian Dudley MD Erythrocyte distribution width (RBC) [Ratio] 11.9 % Normal 11.8-14.4 [facility] Comment on above: Performed By: #### C DP, BMPX #### [place] [address] Guard Entrance Registrar: Willian Dudley MD Hematocrit (Bld) [Volume fraction] 51.2 % High 40.7-50.3 [facility] Comment on above: Performed By: #### C DP, BMPX #### [place] [address] Guard Entrance Registrar: Willian Dudley MD Hemoglobin (Bld) [Mass/Vol] 17.2 g/dL High 13.0-17.0 [facility] Comment on above: Performed By: #### C DP, BMPX #### [place] [address] Guard Entrance Registrar: Willian Dudley MD Immature granulocytes/100 WBC (Bld) 0 % Normal 0 [facility] Comment on above: Performed By: #### C DP, BMPX #### [place] [address] Guard Entrance Registrar: Willian Dudley MD Lymphocytes (Bld) [#/Vol] 2.52 10*3/uL Normal 1.10-3.70 [facility] Comment on above: Performed By: #### C DP, BMPX #### [address] [address] Guard Entrance Registrar: Willian Dudley MD Lymphocytes/100 WBC (Bld) 32 % Normal 24-43 [facility] Comment on above: Performed By: #### C DP, BMPX #### [place] [address] Guard Entrance Registrar: Willian Dudley MD MCH (RBC) [Entitic mass] 31.5 pg Normal 25.2-33.5 [facility] Comment on above: Performed By: #### C DP, BMPX #### [place] [address] Guard Entrance Registrar: Willian Dudley MD MCHC (RBC) [Mass/Vol] 33.6 g/dL Normal 28.4-34.8 [facility] Comment on above: Performed By: #### C DP, BMPX #### [place] [address] Guard Entrance Registrar: Willian Dudley MD MCV (RBC) [Entitic vol] 93.8 fL Normal 82.6-102.9 [facility] Comment on above: Performed By: #### C DP, BMPX #### [place] [address] Guard Entrance Registrar: Willian Dudley MD Monocytes (Bld) [#/Vol] 0.75 10*3/uL Normal 0.10-1.20 [facility] Comment on above: Performed By: #### C DP, BMPX #### [address] [address] Guard Entrance Registrar: Willian Dudley MD Monocytes/100 WBC (Bld) 9 % Normal 3-12 [facility] Comment on above: Performed By: #### C DP, BMPX #### [address] [address] Guard Entrance Registrar: Willian Dudley MD Neutrophil (Seg) 55 % Normal 36-65 [facility] Comment on above: Performed By: #### C DP, BMPX #### [address] [address] Guard Entrance Registrar: Willian Dudley MD NRBC Automated 0.0 per 100 WBC Normal 0.0 [facility] Comment on above: Performed By: #### C DP, BMPX #### [address] [address] Guard Entrance Registrar: Willian Dudley MD Platelet mean volume (Bld) [Entitic vol] 11.2 fL Normal 8.1-13.5 [facility] Comment on above: Performed By: #### C DP, BMPX #### [address] [address] Guard Entrance Registrar: Willian Dudley MD Platelets (Bld) [#/Vol] 181 10*3/uL Normal 138-453 [facility] Comment on above: Performed By: #### C DP, BMPX #### [address] [address] Guard Entrance Registrar: Willian Dudley MD RBC (Bld) [#/Vol] 5.46 10*6/uL Normal 4.21-5.77 [facility] Comment on above: Performed By: #### C DP, BMPX #### [address] [address] Guard Entrance Registrar: Willian Dudley MD WBC (Bld) [#/Vol] 8.0 10*3/uL Normal 3.5-11.3 [facility] Comment on above: Performed By: #### C DP, BMPX #### [address] [address] Guard Entrance Registrar: Willian Dudley MD Hepatic Function Panel Albumin [Mass/Vol] 4.1 g/dL 3.5 - 5.2 g/dL [facility] Albumin/Globulin [Mass ratio] 2.0 {ratio} 1.0 - 2.5 [facility] ALP [Catalytic activity/Vol] 64 U/L 40 - 129 U/L [facility] ALT [Catalytic activity/Vol] 5 U/L Low 10 - 50 U/L [facility] AST [Catalytic activity/Vol] 17 U/L 10 - 50 U/L [facility] Bilirubin [Mass/Vol] 0.8 mg/dL 0.00 - 1.20 mg/dL [facility] Bilirubin.direct [Mass/Vol] 0.2 mg/dL 0.00 - 0.30 mg/dL [facility] Bilirubin.indirect [Mass/Vol] 0.6 mg/dL 0.0 - 1.0 mg/dL [facility] Globulin (S) [Mass/Vol] 2.7 g/dL [facility] Interpretation and review of laboratory results Abnormal [facility] Protein [Mass/Vol] 6.8 g/dL 6.6 - 8.7 g/dL [facility] Hepatitis Acute Basil 01-17 Hep A Ab,IgM Non-Reactive Normal [facility] Comment on above: Performed By: #### P HEP, LIVP, PT #### [employer] [address] [place], [place] [phone] Guard Entrance Registrar: Willian Dudley MD Hep B Core Ab,IgM Non-Reactive Normal [facility] Comment on above: Performed By: #### P HEP, LIVP, PT #### [employer] [address] [place] [address] [phone] Guard Entrance Registrar: Willian Dudley MD Hep B Surf Ag Non-Reactive Normal [facility] Comment on above: Performed By: #### P HEP, LIVP, PT #### [employer] [address] [place] [phone] Guard Entrance Registrar: Willian Dudley MD Hep C Ab Non-Reactive Normal NR [facility] Comment on above: Result Comment: The hepatitis C procedure used in our laboratory is a Chemiluminescent test specific for three recombinant HCV antigens. A negative anti-HCV result indicates that the antibodies to hepatitis C virus are not present at this time. Individuals with reactive anti-HCV should be considered infected and infectious until proven otherwise. Confirmation of all equivocal or reactive results is recommended by ordering HCV RNA by PCR. Performed By: #### P HEP, LIVP, PT #### [employer] [address] [place] [id number] Guard Entrance Registrar: Willian Dudley MD Hepatitis Panel, Acuteon HAV IgM IA Ql Non-Reactive NONREACTIVE [facility] HBV core IgM IA Ql Non-Reactive NONREACTIVE [facility] HBV surface Ag IA Ql Non-Reactive NONREACTIVE [facility] HCV Ab IA Ql Non-Reactive NONREACTIVE [facility] Comment on above: The hepatitis C procedure used in our laboratory is a Chemiluminescent test specific for three recombinant HCV antigens. A negative anti-HCV result indicates that the antibodies to hepatitis C virus are not present at this time. Individuals with reactive anti-HCV should be considered infected and infectious until proven otherwise. Confirmation of all equivocal or reactive results is recommended by ordering HCV RNA by PCR. [facility] Liver Profileon 01-18-2024 Albumin [Mass/Vol] 4.1 g/dL Normal 3.5-5.2 [facility] Comment on above: Performed By: #### P HEP, LIVP, PT #### [employer] [address] [place] [phone] Guard Entrance Registrar: Willian Dudley MD Albumin/Glob Ratio 2.0 Normal 1.0-2.5 [facility] Comment on above: Performed By: #### P HEP, LIVP, PT #### [employer] [address] [place] [phone] Guard Entrance Registrar: Willian Dudley MD Alkaline Phos 64 U/L Normal 40-129 [facility] Comment on above: Performed By: #### P HEP, LIVP, PT #### [address] [address] Guard Entrance Registrar: Willian Dudley MD ALT [Catalytic activity/Vol] 5 U/L Low 10-50 [facility] Comment on above: Performed By: #### P HEP, LIVP, PT #### [address] [address] Guard Entrance Registrar: Willian Dudley MD AST [Catalytic activity/Vol] 17 U/L Normal 10-50 [facility] Comment on above: Performed By: #### P HEP, LIVP, PT #### [address] [address] Guard Entrance Registrar: Willian Dudley MD Bilirubin [Mass/Vol] 0.8 mg/dL Normal 0.00-1.20 [facility] Comment on above: Performed By: #### P HEP, LIVP, PT #### [address] [address] Guard Entrance Registrar: Willian Dudley MD Bilirubin, Indirect 0.6 mg/dL Normal 0.0-1.0 [facility] Comment on above: Performed By: #### P HEP, LIVP, PT #### [facility] [employer] [address] [place] [phone] Guard Entrance Registrar: Willian Dudley MD Bilirubin.indirect [Mass/Vol] 0.2 mg/dL Normal 0.00-0.30 [facility] Comment on above: Performed By: #### P HEP, LIVP, PT #### [facility] [employer] [address] [place] [address] Guard Entrance Registrar: Willian Dudley MD Globulin (S) [Mass/Vol] 2.7 g/dL Normal [facility] Comment on above: Performed By: #### P HEP, LIVP, PT #### [facility] [employer] [address] [place] [address] [phone] Guard Entrance Registrar: Willian Dudley MD Protein [Mass/Vol] 6.8 g/dL Normal 6.6-8.7 [facility] Comment on above: Performed By: #### P HEP, LIVP, PT #### [facility] [employer] [address] [place] [address] [phone] Guard Entrance Registrar: Willian Dudley MD PTon 01-18-2024 INR Coag (PPP) [Relative time] 1.2 {INR} Normal [facility] Comment on above: Result Comment: Therapeutic Range: Moderate Anticoagulant Intensity: INR = 2.0-3.0 High Anticoagulant Intensity: INR = 2.5-3.5 Performed By: #### P HEP, LIVP, PT #### [address] [phone] Guard Entrance Registrar: Willian Dudley MD PT Coag (PPP) [Time] 15.2 s High 11.7-14.9 [facility] Comment on above: Performed By: #### P HEP, LIVP, PT #### [address] [phone] Guard Entrance Registrar: Willian Dudley MD Protime-INRon 01-18-2024 INR Coag (PPP) [Relative time] 1.2 {INR} [facility] [employer] Comment on above: Therapeutic Range: Moderate Anticoagulant Intensity: INR = 2.0-3.0 High Anticoagulant Intensity: INR = 2.5-3.5 Interpretation and review of laboratory results Abnormal [employer] [facility] [employer] PT Coag (PPP) [Time] 15.2 s High [employer] [facility] [employer] Basic Metab w/rfx MGon 01-16 Anion gap [Moles/Vol] 14 mmol/L Normal 9-16 [facility] Comment on above: Performed By: #### C DP, BMPX, PT #### [employer] [address] [place] [phone] Guard Entrance Registrar: Willian Dudley MD Calcium [Mass/Vol] 8.9 mg/dL Normal 8.6-10.4 [facility] Comment on above: Performed By: #### C DP, BMPX, PT #### [facility] [employer] [address] [place] [phone] Guard Entrance Registrar: Willian Dudley MD Chloride [Moles/Vol] 105 mmol/L Normal 98-107 [facility] Comment on above: Performed By: #### C DP, BMPX, PT #### [facility] [employer] [address] [place] [phone] Guard Entrance Registrar: Willian Dudley MD CO2 [Moles/Vol] 20 mmol/L Normal 20-31 [facility] Comment on above: Performed By: #### C DP, BMPX, PT #### [facility] [employer] [address] [place] [phone] Guard Entrance Registrar: Willian Dudley MD Creatinine [Mass/Vol] 0.7 mg/dL Normal 0.70-1.20 [facility] Comment on above: Performed By: #### C DP, BMPX, PT #### [facility] [employer] [address] [place] [phone] Guard Entrance Registrar: Willian Dudley MD GFR/1.73 sq M.predicted among non-blacks MDRD (S/P/Bld) [Vol rate/Area] mL/min/{1.73_m2} Normal >60 [facility] Comment on above: Result Comment: These results are not intended for use in patients <18 years of age. eGFR results are calculated without a race factor using the 2020 CKD-EPI equation. Careful clinical correlation is recommended, particularly when comparing to results calculated using previous equations. The CKD-EPI equation is less accurate in patients with extremes of muscle mass, extra-renal metabolism of creatine, excessive creatine ingestion, or following therapy that affects renal tubular secretion. Performed By: #### C DP, BMPX, PT #### [employer] [address] [place] [address] Guard Entrance Registrar: Willian Dudley MD Glucose [Mass/Vol] 80 mg/dL Normal 74-99 [facility] Comment on above: Performed By: #### C ISATU BMPX, PT #### [facility] [employer] [facility] [address] [place] [phone] Guard Entrance Registrar: Willian Dudley MD Potassium [Moles/Vol] 3.7 mmol/L Normal 3.7-5.3 [facility] Comment on above: Performed By: #### C ISATU BMPX, PT #### [employer] [address] [place] [phone] Guard Entrance Registrar: Willian Dudley MD Sodium [Moles/Vol] 139 mmol/L Normal 136-145 [facility] Comment on above: Performed By: #### C ISATU BMPX, PT #### [employer] [address] [place] [address] [phone] Guard Entrance Registrar: Willian Dudley MD Urea nitrogen [Mass/Vol] 5 mg/dL Low 6-20 [facility] Comment on above: Performed By: #### C ISATU BMPX, PT #### [employer] [address] [place] [phone] Guard Entrance Registrar: Willian Dudley MD Basic Metabolic Panel w/ Ref fausto to MGon 01-17-2024 Anion gap [Moles/Vol] 14 mmol/L 9 - 16 mmol/L [facility] Calcium [Mass/Vol] 8.9 mg/dL 8.6 - 10. 4 mg/dL [facility] Chloride [Moles/Vol] 105 mmol/L 98 - 107 mmol/L [facility] CO2 [Moles/Vol] 20 mmol/L 20 - 31 mmol/L [facility] Creatinine [Mass/Vol] 0.7 mg/dL 0.70 - 1.20 mg/dL [facility] Est, Glom Filt Rate - PINF [facility] Comment on above: These results are not intended for use in patients <18 years of age. eGFR results are calculated without a race factor using the 2020 CKD-EPI equation. Careful clinical correlation is recommended, particularly when comparing to results calculated using previous equations. The CKD-EPI equation is less accurate in patients with extremes of muscle mass, extra-renal metabolism of creatine, excessive creatine ingestion, or following therapy that affects renal tubular secretion. Glucose [Mass/Vol] 80 mg/dL 74 - 99 mg/dL [facility] Interpretation and review of laboratory results Abnormal [facility] Potassium [Moles/Vol] 3.7 mmol/L 3.7 - 5.3 mmol/L [facility] Sodium [Moles/Vol] 139 mmol/L 136 - 145 mmol/L [facility] Urea nitrogen [Mass/Vol] 5 mg/dL Low 6 - 20 mg/dL [facility] CBC with Auto Differentialon 01-17-2024 Basophils (Bld) [#/Vol] 0.06 10*3/uL [facility] Basophils/100 WBC (Bld) 1 % 0 - 2 % [facility] Eosinophils (Bld) [#/Vol] 0.21 10*3/uL [facility] Eosinophils/100 WBC (Bld) 3 % 1 - 4 % [facility] Erythrocyte distribution width (RBC) [Ratio] 11.9 % 11.8 - 14.4 % [facility] Hematocrit (Bld) [Volume fraction] 43.1 % 40.7 - 50.3 % [facility] Hemoglobin (Bld) [Mass/Vol] 14.8 g/dL 13.0 - 17.0 g/dL [facility] Immature granulocytes (Bld) [#/Vol] [facility] Immature granulocytes/100 WBC (Bld) 0 % 0 [facility] Lymphocytes/100 WBC (Bld) 33 % 24 - 43 % [facility] Lymphocytes/100 WBC (Bld) 2.42 % [facility] MCH (RBC) [Entitic mass] 31.7 pg 25.2 - 33.5 pg [facility] MCHC (RBC) [Mass/Vol] 34.3 g/dL 28.4 - 34.8 g/dL [facility] MCV (RBC) [Entitic vol] 92.3 fL 82.6 - 102.9 fL [facility] Monocytes/100 WBC (Bld) 10 % 3 - 12 % [facility] Monocytes/100 WBC (Bld) 0.74 % [facility] Neutrophils/100 WBC (Bld) 53 % 36 - 65 % [facility] Nucleated RBC/100 WBC (Bld) [Ratio] 0.0 % 0.0 per 100 WBC [facility] Platelet mean volume (Bld) [Entitic vol] 11.3 fL 8.1 - 13.5 fL [facility] Platelets (Bld) [#/Vol] 173 10*3/uL [facility] RBC (Bld) [#/Vol] 4.67 10*6/uL 4.21 - 5.7 7 m/uL [facility] Segmented neutrophils/100 WBC (Bld) 3.89 % [facility] WBC other (Bld) [#/Vol] 7.3 [facility] CBC with Diffon 01-17-2024 Abs. Basophil 0.06 k/uL Normal 0.00-0.20 [facility] Comment on above: Performed By: #### C DP, BMPX, PT #### [employer] [address] [place], [place] [phone] Guard Entrance Registrar: Willian Dudley MD Abs.Imm.Granulocyte <0.03 Normal 0.00-0.30 [facility] Comment on above: Performed By: #### C DP, BMPX, PT #### [employer] [address] [place], [place] [phone] Guard Entrance Registrar: Willian Dudley MD Abs.Neutrophil (Seg) 3.89 k/uL Normal 1.50-8.10 [facility] Comment on above: Performed By: #### C DP, BMPX, PT #### [address] [phone] Guard Entrance Registrar: Willian Dudley MD Basophils/100 WBC (Bld) 1 % Normal 0-2 [facility] Comment on above: Performed By: #### C DP, BMPX, PT #### [facility] [employer] [address] [place] [phone] Guard Entrance Registrar: Willian Dudley MD Eosinophils (Bld) [#/Vol] 0.21 10*3/uL Normal 0.00-0.44 [facility] Comment on above: Performed By: #### C DP, BMPX, PT #### [facility] [employer] [address] [place] [phone] Guard Entrance Registrar: Willian Dudley MD Eosinophils/100 WBC (Bld) 3 % Normal 1-4 [facility] Comment on above: Performed By: #### C DP, BMPX, PT #### [facility] [employer] [address] [place] [address] Guard Entrance Registrar: Willian Dudley MD Erythrocyte distribution width (RBC) [Ratio] 11.9 % Normal 11.8-14.4 [facility] Comment on above: Performed By: #### C DP, BMPX, PT #### [facility] [employer] [address] [place] [address] Guard Entrance Registrar: Willian Dudley MD Hematocrit (Bld) [Volume fraction] 43.1 % Normal 40.7-50.3 [facility] Comment on above: Performed By: #### C DP, BMPX, PT #### [facility] [employer] [address] [place] [phone] Guard Entrance Registrar: Willian Dudley MD Hemoglobin (Bld) [Mass/Vol] 14.8 g/dL Normal 13.0-17.0 [facility] Comment on above: Performed By: #### C DP, BMPX, PT #### [facility] [employer] [address] [place] [phone] Guard Entrance Registrar: Willian Dudley MD Immature granulocytes/100 WBC (Bld) 0 % Normal 0 [facility] Comment on above: Performed By: #### C DP, BMPX, PT #### [facility] [employer] [address] [place] [phone] Guard Entrance Registrar: Willian Dudley MD Lymphocytes (Bld) [#/Vol] 2.42 10*3/uL Normal 1.10-3.70 [facility] Comment on above: Performed By: #### C DP, BMPX, PT #### [facility] [employer] [address] [place] [phone] Guard Entrance Registrar: Willian Dudley MD Lymphocytes/100 WBC (Bld) 33 % Normal 24-43 [facility] Comment on above: Performed By: #### C DP, BMPX, PT #### [facility] [address] [place] [phone] Guard Entrance Registrar: Willian Dudley MD MCH (RBC) [Entitic mass] 31.7 pg Normal 25.2-33.5 [facility] Comment on above: Performed By: #### C DP, BMPX, PT #### [facility] [address] [place] [phone] Guard Entrance Registrar: Willian Dudley MD MCHC (RBC) [Mass/Vol] 34.3 g/dL Normal 28.4-34.8 [facility] Comment on above: Performed By: #### C DP, BMPX, PT #### [facility] [address] [place] [phone] Guard Entrance Registrar: Willian Dudley MD MCV (RBC) [Entitic vol] 92.3 fL Normal 82.6-102.9 [facility] Comment on above: Performed By: #### C DP, BMPX, PT #### [facility] [employer] [address] [place] [phone] Guard Entrance Registrar: Willian Dudley MD Monocytes (Bld) [#/Vol] 0.74 10*3/uL Normal 0.10-1.20 [facility] Comment on above: Performed By: #### C DP, BMPX, PT #### [facility] [employer] [address] [place] [phone] Guard Entrance Registrar: Willian Dudley MD Monocytes/100 WBC (Bld) 10 % Normal 3-12 [facility] Comment on above: Performed By: #### C DP, BMPX, PT #### [facility] [employer] [address] [place] [phone] Guard Entrance Registrar: Willian Dudley MD Neutrophil (Seg) 53 % Normal 36-65 [facility] Comment on above: Performed By: #### C DP, BMPX, PT #### [address] [phone] Guard Entrance Registrar: Willian Dudley MD NRBC Automated 0.0 per 100 WBC Normal 0.0 [facility] Comment on above: Performed By: #### C DP, BMPX, PT #### [facility] [employer] [address] [place] [phone] Guard Entrance Registrar: Willian Dudley MD Platelet mean volume (Bld) [Entitic vol] 11.3 fL Normal 8.1-13.5 [facility] Comment on above: Performed By: #### C DP, BMPX, PT #### [facility] [employer] [address] [place] [phone] Guard Entrance Registrar: Willian Dudley MD Platelets (Bld) [#/Vol] 173 10*3/uL Normal 138-453 [facility] Comment on above: Performed By: #### C DP, BMPX, PT #### [facility] [employer] [address] [place] [phone] Guard Entrance Registrar: Willian Dudley MD RBC (Bld) [#/Vol] 4.67 10*6/uL Normal 4.21-5.77 [facility] Comment on above: Performed By: #### C ALVARO LUNSFORD, PT #### [facility] [address] [place], [place] [phone] Guard Entrance Registrar: Willian Dudley MD WBC (Bld) [#/Vol] 7.3 10*3/uL Normal 3.5-11.3 [facility] Comment on above: Performed By: #### C YODIT LUNSFORDX, PT #### [employer] [address] [place], [place] [phone] Guard Entrance Registrar: Willian Dudley MD CT PELVIS WO CONTRASTon 05-0 CT PELVIS WO CONTRAST EXAMINATION: CT OF THE PELVIS WITHOUT CONTRAST 01/17/2024 10:21 am TECHNIQUE: CT of the pelvis was performed without the administration of intravenous contrast. Multiplanar reformatted images are provided for review. Adjustment of mA and/or kV according to patient size was utilized. Automated exposure control, iterative reconstruction, and/or weight based adjustment of the mA/kV was utilized to reduce the radiation dose to as low as reasonably achievable. COMPARISON: Outside CT scan of the abdomen and pelvis from 01/15/2024 HISTORY ORDERING SYSTEM PROVIDED HISTORY: intraabdominal central pelvic abscess; drainage catheter placement requested. TECHNOLOGIST PROVIDED HISTORY: intraabdominal abscess FINDINGS: AP and oblique images of the pelvis were obtained, again demonstrating localized air containing abscess in the mid-lower central pelvis, contiguous with mid and distal sigmoid with adjacent soft tissue changes. No safe window to access the mostly air containing collection was demonstrated in the supine or oblique positions. No drainage catheter placement attempted. IMPRESSION: No safe window to access known mid-lower central pelvic abscess, as above. No drainage catheter placement attempted. Interpreted by: Brannon Whittaker MD Signed by: Brannon Whittaker MD 01/17/24 Final result Normal [facility] CT Pelvis WO contraston 05-0 No safe window to access known mid-lower central pelvic abscess, as above. No drainage catheter placement attempted. [facility] RIS CONSOLIDATED EXAMINATION: CT OF THE PELVIS WITHOUT CONTRAST 01/17/2024 10:21 am TECHNIQUE: CT of the pelvis was performed without the administration of intravenous contrast. Multiplanar reformatted images are provided for review. Adjustment of mA and/or kV according to patient size was utilized. Automated exposure control, iterative reconstruction, and/or weight based adjustment of the mA/kV was utilized to reduce the radiation dose to as low as reasonably achievable. COMPARISON: Outside CT scan of the abdomen and pelvis from 01/15/2024 HISTORY ORDERING SYSTEM PROVIDED HISTORY: intraabdominal central pelvic abscess; drainage catheter placement requested. TECHNOLOGIST PROVIDED HISTORY: intraabdominal abscess FINDINGS: AP and oblique images of the pelvis were obtained, again demonstrating localized air containing abscess in the mid-lower central pelvis, contiguous with mid and distal sigmoid with adjacent soft tissue changes. No safe window to access the mostly air containing collection was demonstrated in the supine or oblique positions. No drainage catheter placement attempted. [facility] Brannon Coombs MD - 01/17/2024 EXAMINATION: CT OF THE PELVIS WITHOUT CONTRAST 01/17/2024 10:21 am TECHNIQUE: CT of the pelvis was performed without the administration of intravenous contrast. Multiplanar reformatted images are provided for review. Adjustment of mA and/or kV according to patient size was utilized. Automated exposure control, iterative reconstruction, and/or weight based adjustment of the mA/kV was utilized to reduce the radiation dose to as low as reasonably achievable. COMPARISON: Outside CT scan of the abdomen and pelvis from 01/15/2024 HISTORY ORDERING SYSTEM PROVIDED HISTORY: intraabdominal central pelvic abscess; drainage catheter placement requested. TECHNOLOGIST PROVIDED HISTORY: intraabdominal abscess FINDINGS: AP and oblique images of the pelvis were obtained, again demonstrating localized air containing abscess in the mid-lower central pelvis, contiguous with mid and distal sigmoid with adjacent soft tissue changes. No safe window to access the mostly air containing collection was demonstrated in the supine or oblique positions. No drainage catheter placement attempted. IMPRESSION: No safe window to access known mid-lower central pelvic abscess, as above. No drainage catheter placement attempted. [facility] Radiology Study observation (narrative) [facility] CT Pelvis WO contrastOrdered By: Brannon Whittaker on 01-17-2024 [facility] Work Phone: PTon 01-17-2024 INR Coag (PPP) [Relative time] 1.2 {INR} Normal [facility] Comment on above: Result Comment: Therapeutic Range: Moderate Anticoagulant Intensity: INR = 2.0-3.0 High Anticoagulant Intensity: INR = 2.5-3.5 Performed By: #### C DP, BMPX, PT #### [employer] [facility] [place], [place] [id number] Guard Entrance Registrar: Willian Dudley MD PT Coag (PPP) [Time] 15.3 s High 11.7-14.9 [facility] Comment on above: Performed By: #### C DP, BMPX, PT #### [employer] [address] [place] [id number] Guard Entrance Registrar: Willian Dudley MD Protime-INRon 01-17-2024 INR Coag (PPP) [Relative time] 1.2 {INR} [facility] Comment on above: Therapeutic Range: Moderate Anticoagulant Intensity: INR = 2.0-3.0 High Anticoagulant Intensity: INR = 2.5-3.5 Interpretation and review of laboratory results Abnormal [employer] PT Coag (PPP) [Time] 15.3 s High [employer] [facility] [employer] ACETAMINOPHENon 09-23-2022 Acetaminophen [Mass/Vol] ug/mL Critically low 10.0-30.0 [facility] Comment on above: Result Comment: Prev iously reported as: <2.8 On 09/23/2022 15:54 By [email or web address] Performed By: #### C MPLETICIA, ACET #### [facility] [address] [address] [address] Isabel Hudson CBC AUTO DIFFon 09-23-2022 BASO # 0.1 103/ul Normal 0.0-0.1 [facility] Comment on above: Performed By: #### C BC #### [facility] [address] [address] [address] Isabel Hudson Basophils/100 WBC (Bld) 1.0 % Normal 0.2-2.0 [facility] Comment on above: Performed By: #### C BC #### [facility] [address] [place] [address] Dr. Isabel Hudson EO # 0.2 103/ul Normal 0.0-0.7 [facility] Comment on above: Performed By: #### C BC #### [facility] [address] [place] [address] Dr. Isabel Hudson Eosinophils/100 WBC (Bld) 2.9 % Normal 0.9-7.0 [facility] Comment on above: Performed By: #### C BC #### [facility] [address] [place] [address] Dr. Isabel Hudson Erythrocyte distribution width (RBC) [Ratio] 12.1 % Normal 11.0-15.0 [facility] Comment on above: Performed By: #### C BC #### [facility] [address] [place] [address] Dr. Isabel Hudson Hematocrit (Bld) [Volume fraction] 50.1 % Normal 42.0-54.0 [facility] Comment on above: Performed By: #### C BC #### [facility] [address] [place] [address] Dr. Isabel Hudson Hemoglobin (Bld) [Mass/Vol] 17.6 g/dL Normal 14.0-18.0 [facility] Comment on above: Performed By: #### C BC #### [facility] [address] [place] [address] Dr. Isabel Hudson IG # 0.04 10e3/ul Critically high 0.00-0.03 [facility] Comment on above: Performed By: #### C BC #### [facility] [address] [place] [address] Dr. Isabel Hudson IG % 0.5 % Normal 0.0-0.5 [facility] [place] [facility] Comment on above: Performed By: #### C BC #### [facility] [address] [place] [address] Dr. Isabel Hudson LYMPH # 2.8 103/ul Normal 1.2-3.8 [facility] [place] [facility] Comment on above: Performed By: #### C BC #### [facility] [address] [place] [address] Dr. Isabel Hudson Lymphocytes/100 WBC (Bld) 32.7 % Normal 20.5-60.0 [facility] [place] [facility] Comment on above: Performed By: #### C BC #### [facility] [address] [place] [address] Dr. Isabel Hudson MANUAL DIFF REQ NO Normal [facility] Comment on above: Performed By: #### C BC #### [facility] [address] [place] [address] Dr. Isabel Hudson MCH (RBC) [Entitic mass] 32.3 pg Normal 25.9-34.0 [facility] [place] [facility] Comment on above: Performed By: #### C BC #### [facility] [address] [place] [address] Dr. Isabel Hudson MCHC (RBC) [Mass/Vol] 35.1 g/dL Normal 29.9-35.2 [facility] [place] [facility] Comment on above: Performed By: #### C BC #### [facility] [address] [place] [address] Dr. Isabel Hudson MCV (RBC) [Entitic vol] 91.9 fL Normal 80.0-94.0 [facility] [place] [facility] Comment on above: Performed By: #### C BC #### [facility] [address] [place] [address] Dr. Isabel Hudson MONO # 0.8 103/ul Normal 0.3-0.8 [facility] [place] [facility] Comment on above: Performed By: #### C BC #### [facility] [address] [place] [address] Dr. Isabel Hudson Monocytes/100 WBC (Bld) 9.5 % Normal 1.7-12.0 [facility] [place] [facility] Comment on above: Performed By: #### C BC #### [facility] [address] [place] [address] Dr. Isabel Hudson NEUT # 4.5 103/ul Normal 1.4-6.5 [facility] [place] [facility] Comment on above: Performed By: #### C BC #### [facility] [address] [place] [address] Dr. Isabel Hudson Neutrophils/100 WBC (Bld) 53.4 % Normal 43.0-75.0 [facility] Comment on above: Performed By: #### C BC #### [facility] [address] [place] [address] Dr. Isabel Hudson Platelet mean volume (Bld) [Entitic vol] 10.5 fL Normal 9.5-13.5 [facility] Comment on above: Performed By: #### C BC #### [facility] [address] [place] [address] Dr. Isabel Hudson PLT 202 103/ul Normal 150-450 [facility] Comment on above: Performed By: #### C BC #### [facility] [address] [place] [address] Dr. Isabel Hudson RBC 5.45 106/ul Normal 4.70-6.10 [facility] Comment on above: Performed By: #### C BC #### [facility] [address] [place] [address] Dr. Isabel Hudson WBC 8.4 103/ul Normal 4.0-11.0 [facility] Comment on above: Performed By: #### C BC #### [facility] [address] [place] [address] Dr. Isabel Hudson DRUG SCREEN RAPID (URINE)on 09-23-2022 AMP Negative Normal NEGATIVE [facility] Comment on above: Performed By: #### D RUGRPD #### [facility] [address] [place] [address] Dr. Isabel Hudson BAR Negative Normal NEGATIVE [facility] Comment on above: Performed By: #### D RUGRPD #### [facility] [address] [place] [address] Dr. Isabel Hudson BUP Negative Normal NEGATIVE [facility] Comment on above: Performed By: #### D RUGRPD #### [facility] [address] [place] [address] Dr. Isabel Hudson BZO Negative Normal NEGATIVE [facility] Comment on above: Performed By: #### D RUGRPD #### [facility] [address] [place] [address] Dr. Isabel Hudson RICK Negative Normal NEGATIVE [facility] Comment on above: Performed By: #### D RUGRPD #### [facility] [address] [place] [address] Dr. Isabel Hudson CUT-OFFS SEE BELOW Normal [facility] [place] [facility] Comment on above: Result Comment: AMP (Amphetamine): 500ng/mL, BAR (Barbituates): 200 ng/mL, BZO (Benzodiazepines): 150 ng/mL, BUP (Buprenorphine): 10 ng/mL, RICK (Cocaine): 150 ng/mL, mAMP (Methamphetamine): 500 ng/mL, MTD (Methadone): 200 ng/mL, OPI (Opiates): 100 ng/mL, OXY (Oxycodone): 100 ng/mL, PCP (Phencyclidine): 25 ng/mL, PPX (Propoxyphene): 300 ng/mL, THC (Cannabinoids): 50 ng/mL, TCA (Trycyclic Antidepressants): 300 ng/mL Performed By: #### D RUGRPD #### [facility] [address] [place] [address] Dr. Isabel Hudson DRUG CUT HEADER DRUG CLASS TEST SYSTEM CUT-OFF CONCENTRATIONS ARE FOLLOWS: Normal [facility] Comment on above: Performed By: #### D RUGRPD #### [facility] [address] [place] [address] Dr. Isabel Hudson mAMP Negative Normal NEGATIVE [facility] Comment on above: Performed By: #### D RUGRPD #### [facility] [address] [place] [address] Dr. Isabel Hudson MTD Negative Normal NEGATIVE [facility] Comment on above: Performed By: #### D RUGRPD #### [facility] [address] [place] [address] Dr. Isabel Hudson OPI Negative Normal NEGATIVE [facility] Comment on above: Performed By: #### D RUGRPD #### [facility] [address] [place] [address] Dr. Isabel Hudson OXY Negative Normal NEGATIVE [facility] Comment on above: Performed By: #### D RUGRPD #### [facility] [address] [place] [address] Dr. Isabel Hudson PCP Negative Normal NEGATIVE [facility] Comment on above: Performed By: #### D RUGRPD #### [facility] [address] [place] [address] Dr. Isabel Hudson PPX Negative Normal NEGATIVE [facility] [place] [facility] Comment on above: Performed By: #### D RUGRPD #### [facility] [address] [place] [address] Dr. Isabel Hudson TCA Negative Normal NEGATIVE [facility] Comment on above: Performed By: #### D RUGRPD #### [facility] [address] [place] [address] Dr. Isabel Hudson THC Positive Abnormal NEGATIVE [facility] Comment on above: Performed By: #### D RUGRPD #### [facility] [address] [place] [address] Dr. Isabel Hudson ETHANOL (BLD ALC)on 09-23-19 23 ALC NOTE NOTE: 80 mg/dl is the legal limit for a blood alcohol level Normal [facility] Comment on above: Performed By: #### E TH #### [facility] [address] [place] [address] Dr. Isabel Hudson Ethanol [Mass/Vol] mg/dL Normal [facility] Comment on above: Performed By: #### E TH #### [facility] [address] [place] [address] Dr. Isabel Hudson PROF 14(COMP METB)on 023 Albumin [Mass/Vol] 4.0 g/dL Normal 3.4-5.0 [facility] Comment on above: Performed By: #### C LETICIA YOUNG, ACET #### [facility] [address] [place] [address] Dr. Isabel Hudson Albumin/Globulin [Mass ratio] 1.1 {ratio} Normal [facility] Comment on above: Performed By: #### C LETICIA YOUNG, ACET #### [facility] [address] [place] [address] Dr. Isabel Hudson ALP [Catalytic activity/Vol] 114 U/L Normal 46-116 [facility] Comment on above: Performed By: #### C LETICIA YOUNG, ACET #### [facility] [address] [place] [address] Dr. Isabel Hudson ALT [Catalytic activity/Vol] 34 U/L Normal 16-63 [facility] Comment on above: Performed By: #### C LETICIA YOUNG, ACET #### [facility] [address] [place] [address] Dr. Isabel Hudson Anion gap [Moles/Vol] 12.1 mmol/L Normal [facility] Comment on above: Performed By: #### C LETICIA YOUNG, ACET #### [facility] [address] [place] [address] Dr. Isabel Hudson AST [Catalytic activity/Vol] 22 U/L Normal 15-37 [facility] Comment on above: Performed By: #### C LETICIA YOUNG, ACET #### [facility] [address] [place] [address] Dr. Isabel Hudson Bilirubin [Mass/Vol] 0.3 mg/dL Normal 0.2-1.0 [facility] Comment on above: Performed By: #### C LETICIA YOUNG, ACET #### [facility] [address] [place] [address] Dr. Isabel Hudson Calcium [Mass/Vol] 9.3 mg/dL Normal 8.5-10.1 [facility] Comment on above: Performed By: #### C DANY YOUNGYC, ACET #### [facility] [address] [place] [address] Dr. Isabel Hudson Chloride [Moles/Vol] 103 mmol/L Normal 98-107 [facility] Comment on above: Performed By: #### C DANY YOUNGYC, ACET #### [facility] [address] [place] [address] Dr. Isabel Hudson CO2 [Moles/Vol] 28.0 mmol/L Normal 21.0-32.0 [facility] Comment on above: Performed By: #### C DANY YOUNGYC, ACET #### [facility] [address] [address] [address] Isabel Hudson Creatinine [Mass/Vol] 0.90 mg/dL Normal 0.70-1.30 [facility] Comment on above: Performed By: #### C LETICIA YOUNG, ACET #### [facility] [address] [address] [address] Isabel Hudson EGFR-AF SCOTTISH >60 Normal >=60 [facility] Comment on above: Performed By: #### C LETICIA YOUNG, ACET #### [facility] [address] [address] [address] Isabel Hudson EGFR-NON AF SCOTTISH >60 Normal >=60 [facility] Comment on above: Performed By: #### C LETICIA YOUNG, ACET #### [facility] [address] [address] [address] Isabel Hudson Globulin (S) [Mass/Vol] 3.5 g/dL Normal [facility] Comment on above: Performed By: #### C LETICIA YOUNG, ACET #### [facility] [address] [address] [address] Isabel Hudson Glucose [Mass/Vol] 89 mg/dL Normal 74-106 [facility] Comment on above: Performed By: #### C LETICIA YOUNG, ACET #### [facility] [address] [address] [address] Isabel Hudson Potassium [Moles/Vol] 4.1 mmol/L Normal 3.5-5.1 [facility] Comment on above: Performed By: #### C LETICIA YOUNG, ACET #### [facility] [address] [address] [address] Isabel Hudson Protein [Mass/Vol] 7.5 g/dL Normal 6.4-8.2 [facility] Comment on above: Performed By: #### C LETICIA YOUNG, ACET #### [facility] [address] [address] [address] Isabel Hudson Sodium [Moles/Vol] 139 mmol/L Normal 136-145 [facility] Comment on above: Performed By: #### C LETICIA YOUNG, ACET #### [facility] [address] [place], [place] [address] Dr. Isabel Hudson Urea nitrogen [Mass/Vol] 15.0 mg/dL Normal 7.0-18.0 [facility] Comment on above: Performed By: #### C MP, SALYC, ACET #### [facility] [address] [place], [place] [address] Dr. Isabel Hudson Urea nitrogen/Creatinine [Mass ratio] 16.7 mg/mg Normal [facility] Comment on above: Performed By: #### C MP, SALYC, ACET #### [facility] [address] [address] [address] Isabel Hudson SALICYLATEon 09-23-2022 SALICYLATE <2.8 Normal <=19.9 [facility] Comment on above: Performed By: #### C MP, SALYC, ACET #### [facility] [address] [address] [address] Isabel Hudson FLUORO FOR SURGICAL PROCEDUR ESon 04-03-2022 FLUORO FOR SURGICAL PROCEDURES Radiology exam is complete. No Radiologist dictation. Please follow up with ordering provider. Final result Normal [facility] Radiology exam is complete. No Radiologist dictation. Please follow up with ordering provider. [facility] CONSOLIDATED OPERATIVE REPORTon 2 OPERATIVE REPORT [address] [id number] OPERATIVE REPORT PATIENT NAME: ESMER CORBIN : 2000 MED REC NO: [id number] ROOM: ACCOUNT NO: [id number] ADMIT DATE: 04/03/2022 PROVIDER: Evan Frost DATE OF PROCEDURE: 04/03/2022 PREOPERATIVE DIAGNOSES: 1. Extra-articular fracture, left distal radius and ulnar styloid. 2. Acute left carpal tunnel syndrome. POSTOPERATIVE DIAGNOSES: 1. Extra-articular fracture, left distal radius and ulnar styloid. 2. Acute left carpal tunnel syndrome. PROCEDURE PERFORMED: 1. ORIF of the left distal radius fracture with volar locking plate. 2. Left carpal tunnel release. SURGEON: Dr. Evan Frost. ANESTHESIA: General. DESCRIPTION OF PROCEDURE: The patient was brought into the operating room and placed in the supine position on the operating table. General anesthetic was administered. The patient received Ancef. The left upper extremity was prepped with ChloraPrep and draped in a sterile fashion. The distal radius fracture was first approached. A volar skin incision was made along the radial border of the flexor carpi radialis. This was taken down through the skin and subcutaneous tissue. The radial artery was identified and was safely retracted. Dissection was taken down to bone and the fracture site was noted. Open reduction was obtained and this was verified with the image intensifier. A [employer] volar locking plate was then placed. It was initially K-wired in place and position was checked and found to be satisfactory both in the AP and lateral planes. A cortical screw was then placed in the middle of the plate and then three locking screws were placed distally and an additional locking screw was placed proximally. The fracture was brought through a range of motion visually. It was visualized with the image intensifier both in the AP and lateral planes. Excellent reduction of fracture site and placement of the hardware was noted. The tourniquet was then released, which was up to 250 mmHg and no significant bleeding was noted. The left carpal tunnel was then approached. A 2-cm mini classic carpal tunnel approached incision was made. This was taken down through the skin and subcutaneous tissue. Transverse carpal ligament was identified. This was sharply transected to its distal margin. Blunt dissection was then carried out under the wrist flexion crease and the ligament was transected proximally under direct visualization. The median nerve was inspected. It was contused, but no lacerations were noted and it was not caught in the fracture site. The wound was then irrigated out and it was closed with a 4-0 Monocryl subcuticular stitch followed by whipstitch in the skin. The ORIF incision was closed with the 4-0 Monocryl subcuticular stitch followed by Steri-Strips in the skin. The wounds were dressed with an Adaptic, fluffs, sterile Webril, and a volar fiberglass splint was applied. General anesthetic was discontinued. The patient was transferred to Recovery in stable condition. Estimated blood loss was minimal. Will be discharged home. Prescription for Menard. To be seen in the office in two weeks. EVAN FROST [id number] Doc#: [id number] CC: [facility] Basic Metabolic Panelon 03-11 Anion gap [Moles/Vol] 15 mmol/L 9 - 17 mmol/L [facility] Calcium [Mass/Vol] 9.4 mg/dL 8.6 - 10. 4 mg/dL [facility] Chloride [Moles/Vol] 100 mmol/L 98 - 107 mmol/L [facility] CO2 [Moles/Vol] 23 mmol/L 20 - 31 mmol/L [facility] Creatinine [Mass/Vol] 0.83 mg/dL 0.7 - 1.2 mg/dL [facility] GFR >60 60 - PINF mL/min [facility] GFR Non- >60 60 - PINF mL/min [facility] Glucose [Mass/Vol] 124 mg/dL High 70 - 99 mg/dL [facility] Interpretation and review of laboratory results Abnormal [facility] Potassium [Moles/Vol] 3.7 mmol/L 3.7 - 5.3 mmol/L [facility] Sodium [Moles/Vol] 138 mmol/L 135 - 144 mmol/L [facility] Urea nitrogen (BldV) [Mass/Vol] 7 mg/dL 6 - 20 mg/dL [facility] Urea nitrogen/Creatinine (Bld) [Mass ratio] 8 Low 9 - 20 [facility] Basic Metabolic Profon 03-31 (cont.) [facility] Comment on above: Result Comment: Aver age GFR for 20-29 years old: 116 mL/min/1.73sq m Chronic Kidney Disease: <60 mL/min/1.73sq m Kidney failure: <15 mL/min/1.73sq m eGFR calculated using average adult body mass. Additional eGFR calculator available at: http://www.[employer]/multiple_crcl_2012.htm Performed By: #### C BC, BMP #### [facility] [address] [place], [place] [id number] Guard Entrance Registrar: Jose A Victor MD Anion gap [Moles/Vol] 15 mmol/L Normal 9-17 [facility] Comment on above: Performed By: #### C BC, BMP #### [facility] [address] [place], [place] [id number] Guard Entrance Registrar: Jose A Victor MD BUN/CRE Ratio 8 Low 9-20 [facility] Comment on above: Performed By: #### C BC, BMP #### [facility] [address] [place] [address] Dr. [place], [place] [id number] Guard Entrance Registrar: Jose A Victor MD Calcium [Mass/Vol] 9.4 mg/dL Normal 8.6-10.4 [facility] Comment on above: Performed By: #### C BC, BMP #### [facility] [address] [place] [address] Dr. [place], [place] [id number] Guard Entrance Registrar: Jose A Victor MD Chloride [Moles/Vol] 100 mmol/L Normal 98-107 [facility] Comment on above: Performed By: #### C BC, BMP #### [address] [place], [place] [id number] Guard Entrance Registrar: Jose A Victor MD CO2 [Moles/Vol] 23 mmol/L Normal 20-31 [facility] Comment on above: Performed By: #### C BC, BMP #### [facility] [address] [place] [address] Dr. [place], [place] [id number] Guard Entrance Registrar: Jose A Victor MD Creatinine [Mass/Vol] 0.83 mg/dL Normal 0.70-1.20 [facility] Comment on above: Performed By: #### C BC, BMP #### [facility] [address] [place] [address] Guard Entrance Registrar: Jose A Victor MD GFR, Amer >60 Normal >60 [facility] Comment on above: Performed By: #### C BC, BMP #### [facility] [address] [place], [place] [id number] Guard Entrance Registrar: Jose A Victor MD GFR,non Amer >60 Normal >60 [facility] Comment on above: Performed By: #### C BC, BMP #### [facility] [address] [place], [place] [phone] Guard Entrance Registrar: Jose A Victor MD Glucose [Mass/Vol] 124 mg/dL High 70-99 [facility] Comment on above: Performed By: #### C BC, BMP #### [facility] [address] [place], [place] [phone] Guard Entrance Registrar: Jose A Victor MD Potassium [Moles/Vol] 3.7 mmol/L Normal 3.7-5.3 [facility] Comment on above: Performed By: #### C BC, BMP #### [facility] [address] [place], [place] [phone] Guard Entrance Registrar: Jose A Victor MD Sodium [Moles/Vol] 138 mmol/L Normal 135-144 [facility] Comment on above: Performed By: #### C BC, BMP #### [facility] [address] [place], [place] [phone] Guard Entrance Registrar: Jose A Victor MD Staging: Normal [facility] Comment on above: Result Comment: Stag e 1: Some kidney damage normal GFR Stage 2: Mild kidney damage GFR 60-89 Stage 3: Moderate kidney damage GFR 30-59 Stage 4: Severe kidney damage GFR 15-29 Stage 5: Severe kidney damage GFR <15 ESRD - chronic treatment by dialysis or transplant Performed By: #### C BC, BMP #### [facility] [address] [place], [place] [id number] Guard Entrance Registrar: Jose A Victor MD Urea nitrogen [Mass/Vol] 7 mg/dL Normal 6-20 [facility] Comment on above: Performed By: #### C BC, BMP #### [address] [place] [address] Guard Entrance Registrar: Jose A Victor MD CBCon 03-31-2022 Erythrocyte distribution width (RBC) [Ratio] 11.8 % Normal 11.8-14.4 [facility] Comment on above: Performed By: #### C BC, BMP #### [address] [place], [place] [id number] Guard Entrance Registrar: Jose A Victor MD Hematocrit (Bld) [Volume fraction] 44.9 % Normal 40.7-50.3 [facility] Comment on above: Performed By: #### C BC, BMP #### [address] [place], [place] [id number] Guard Entrance Registrar: Jose A Victor MD Hemoglobin (Bld) [Mass/Vol] 15.7 g/dL Normal 13.0-17.0 [facility] Comment on above: Performed By: #### C BC, BMP #### [address] [place], [place] [id number] Guard Entrance Registrar: Jose A Victor MD MCH (RBC) [Entitic mass] 33.1 pg Normal 25.2-33.5 [facility] Comment on above: Performed By: #### C BC, BMP #### [address] [place], [place] [id number] Guard Entrance Registrar: Jose A Victor MD MCHC (RBC) [Mass/Vol] 35.0 g/dL High 28.4-34.8 [facility] Comment on above: Performed By: #### C BC, BMP #### [address] [place] [address] Guard Entrance Registrar: Jose A Victor MD MCV (RBC) [Entitic vol] 94.5 fL Normal 82.6-102.9 [facility] Comment on above: Performed By: #### C BC, BMP #### [place] [address] [place], [place] [id number] Guard Entrance Registrar: Jose A Victor MD NRBC Automated 0.0 per 100 WBC Normal 0.0 [facility] Comment on above: Performed By: #### C BC, BMP #### [facility] [address] [place], [place] [id number] Guard Entrance Registrar: Jose A Victor MD Platelet mean volume (Bld) [Entitic vol] 10.6 fL Normal 8.1-13.5 [facility] Comment on above: Performed By: #### C BC, BMP #### [facility] [address] [place], [place] [id number] Guard Entrance Registrar: Jose A Victor MD Platelets (Bld) [#/Vol] 233 10*3/uL Normal 138-453 [facility] Comment on above: Performed By: #### C MICHAEL, BMP #### [facility] [address] [place], [facility] Guard Entrance Registrar: Jose A Victor MD RBC (Bld) [#/Vol] 4.75 10*6/uL Normal 4.21-5.77 [facility] Comment on above: Performed By: #### C BC, BMP #### [facility] [address] [place], [place] [id number] Guard Entrance Registrar: Jose A Victor MD WBC (Bld) [#/Vol] 15.3 10*3/uL High 3.5-11.3 [facility] Comment on above: Performed By: #### C BC, BMP #### [facility] [address] [place] [address] Guard Entrance Registrar: Jose A Victor MD Hematocrit (Bld) [Volume fraction] 44.9 % 40.7 - 50.3 % [facility] Hemoglobin (Bld) [Mass/Vol] 15.7 g/dL 13 - 17 g/dL [facility] Interpretation and review of laboratory results Abnormal [facility] MCH (RBC) [Entitic mass] 33.1 pg 25.2 - 33.5 pg [facility] MCHC (RBC) [Mass/Vol] 35.0 g/dL High 28.4 - 34.8 g/dL [facility] [employer] MCV (RBC) [Entitic vol] 94.5 fL 82.6 - 102.9 fL [facility] [employer] NRBC Automated 0.0 0.0 per 100 WBC [facility] Platelet distribution width (Bld) [Ratio] 11.8 % 11.8 - 14.4 % [facility] [employer] Platelet mean volume (Bld) [Entitic vol] 10.6 fL 8.1 - 13.5 fL [facility] Platelets (Bld) [#/Vol] 233 10*3/uL [facility] [employer] RBC (Bld) [#/Vol] 4.75 10*6/uL 4.21 - 5.7 7 m/uL [facility] [employer] WBC (Bld) [#/Vol] 15.3 10*3/uL High [facility] [employer] [facility] [employer] EKG 12 LeadOrdered By: Lex browning on 03-31-2022 Atrial Rate 74 BPM [facility] [employer] Work Phone: P [place] 66 degrees [facility] [employer] Work Phone: P-R Interval 144 ms [facility] [employer] Work Phone: Q-T Interval 376 ms [facility] [employer] Work Phone: QRS Duration 106 ms [facility] [employer] Work Phone: QTc Calculation (Bazett) 417 ms [facility] [employer] Work Phone: R [place] 76 degrees [facility] [employer] Work Phone: T [place] 43 degrees [facility] [employer] Work Phone: Ventricular Rate 74 BPM [facility] [employer] Work Phone: [facility] [employer] Work Phone: EKG 12 Leadon 03-31-2022 Normal sinus rhythm with sinus arrhythmia Normal ECG No previous ECGs available Confirmed by Lex Kwan MD ([id number]) on 03/31/2022 10:09:31 PM [facility] RADIOLOGY Lex Kwan MD - 03/31/2022 Normal sinus rhythm with sinus arrhythmia Normal ECG No previous ECGs available Confirmed by Lex Kwan MD ([id number]) on 03/31/2022 10:09:31 PM [facility] Work Phone: Laboratory - Chemistry and C hemistry - challengeon 03-31-2022 GFR/1.73 sq M.predicted MDRD (S/P/Bld) [Vol rate/Area] [facility] Comment on above: Average GFR for 20-2 9 years old: 116 mL/min/1.73sq m Chronic Kidney Disease: <60 mL/min/1.73sq m Kidney failure: <15 mL/min/1.73sq m eGFR calculated using average adult body mass. Additional eGFR calculator available at: http://www.[employer]/multiple_crcl_2012.htm Stage 1: Some kidney damage normal GFR Stage 2: Mild kidney damage GFR 60-89 Stage 3: Moderate kidney damage GFR 30-59 Stage 4: Severe kidney damage GFR 15-29 Stage 5: Severe kidney damage GFR <15 ESRD - chronic treatment by dialysis or transplant XR RADIUS ULNA LEFT (2 VIEWS )on 03-30-2022 XR RADIUS ULNA LEFT (2 VIEWS) EXAMINATION: TWO XRAY VIEWS OF THE LEFT FOREARM 03/30/2022 5:38 pm COMPARISON: None. HISTORY: ORDERING SYSTEM PROVIDED HISTORY: pain TECHNOLOGIST PROVIDED HISTORY: pain FINDINGS: There is an acute comminuted, mildly impacted and dorsally angulated fracture of the distal left radius there is an acute nondisplaced fracture of the ulnar styloid. There is artifact from a sheet or clothing. IMPRESSION: Acute comminuted, mildly impacted and dorsally angulated fracture of the distal left radius. Acute nondisplaced ulnar styloid avulsion fracture. Interpreted by: Jean Carlos Odell MD Signed by: Jean Carlos Odell MD 03/30/22 Final result Normal [facility] Acute comminuted, mildly impacted and dorsally angulated fracture of the distal left radius. Acute nondisplaced ulnar styloid avulsion fracture. [facility] EXAMINATION: TWO XRAY VIEWS OF THE LEFT FOREARM 03/30/2022 5:38 pm COMPARISON: None. HISTORY: ORDERING SYSTEM PROVIDED HISTORY: pain TECHNOLOGIST PROVIDED HISTORY: pain FINDINGS: There is an acute comminuted, mildly impacted and dorsally angulated fracture of the distal left radius there is an acute nondisplaced fracture of the ulnar styloid. There is artifact from a sheet or clothing. [facility] Jean Carlos Odell MD - 03/30/2022 EXAMINATION: TWO XRAY VIEWS OF THE LEFT FOREARM 03/30/2022 5:38 pm COMPARISON: None. HISTORY: ORDERING SYSTEM PROVIDED HISTORY: pain TECHNOLOGIST PROVIDED HISTORY: pain FINDINGS: There is an acute comminuted, mildly impacted and dorsally angulated fracture of the distal left radius there is an acute nondisplaced fracture of the ulnar styloid. There is artifact from a sheet or clothing. IMPRESSION: Acute comminuted, mildly impacted and dorsally angulated fracture of the distal left radius. Acute nondisplaced ulnar styloid avulsion fracture. [employer] Phone: Radiology Study observation (narrative) [employer] Phone: XR RADIUS ULNA LEFT (2 VIEWS )Ordered By: Jean Carlos Odell on 03-30-2022 [employer] Phone: Vital Signs Date Time Vital Sign Value Performing Clinician Nikai devorah 01-18-2024 07:45-0400 Body temperature 97.81 [degF] Xavier Negron DO Work Phone: [employer] 01-18-2024 07:45-0400 Respiratory rate 16 /min Xavier Negron DO Work Phone: [employer] 01-18-2024 04:11-0400 Diastolic blood pressure 84 mm[Hg] Xavier Negron DO Work Phone: [employer] 01-18-2024 04:11-0400 Heart rate 54 /min Xavier Negron DO Work Phone: [employer] 01-18-2024 04:11-0400 SaO2% (BldA) [Mass fraction] 99 % Xavier Negron DO Work Phone: [employer] 01-18-2024 04:11-0400 Systolic blood pressure 139 mm[Hg] Xavier Negron DO Work Phone: [employer] 01-16-2024 10:53-0400 Body height 177.8 cm Xavier Negron DO Work Phone: [employer] 01-16-2024 10:53-0400 Body mass index (BMI) [Ratio] 32.83 kg/m2 Xavier Negron DO Work Phone: [employer] 01-16-2024 10:53-0400 Body weight 103.8 kg Xavier Negron DO Work Phone: [employer] 07-27-2022 15:00-0500 Diastolic blood pressure 90 mm[Hg] Candice Rider F[employer] Work Phone: [facility] Work Phone: 07-27-2022 15:00-0500 Systolic blood pressure 140 mm[Hg] Candice Rider FINE ART[employer] CHAIR Work Phone: [facility] Work Phone: 07-27-2022 14:34-0500 Body height 177.8 cm Candice Rider [employer] Work Phone: [facility] Work Phone: 07-27-2022 14:34-0500 Body mass index (BMI) [Ratio] 36.7 kg/m2 Candice Rider CNP Work Phone: [facility] Work Phone: 07-27-2022 14:34-0500 Body surface area Derived from formula 2.3 m2 Candice Rider CNP Work Phone: [facility] Work Phone: 07-27-2022 14:34-0500 Body temperature 96.8 [degF] Candice Tereso [employer]AIR Work Phone: [facility] Work Phone: 07-27-2022 14:34-0500 Body weight 116.12 kg Candice Tereso [employer] Work Phone: [facility] Work Phone: 07-27-2022 14:34-0500 Diastolic blood pressure 94 mm[Hg] Candice Rider [employer]AIR Work Phone: [facility] Work Phone: 07-27-2022 14:34-0500 Heart rate 97 /min Candice Tereso [employer] Work Phone: [facility] Work Phone: 07-27-2022 14:34-0500 Heart Rate Rhythm 1 1 Candice Rider [employer] Work Phone: [facility] Work Phone: 07-27-2022 14:34-0500 SaO2% (BldA) [Mass fraction] 99 % Candice Rider [employer] Work Phone: [facility] Work Phone: 07-27-2022 14:34-0500 Systolic blood pressure 152 mm[Hg] Candice Rider F[employer] CHAIR Work Phone: [facility] Work Phone: 04-03-2022 12:00-0400 Diastolic blood pressure 89 mm[Hg] Evan Frost MD Work Phone: [facility] 04-03-2022 12:00-0400 Heart rate 90 /min Evan Frost MD Work Phone: [facility] [employer] 04-03-2022 12:00-0400 Respiratory rate 16 /min Evan Frost MD Work Phone: [employer] 04-03-2022 12:00-0400 SaO2% (BldA) [Mass fraction] 96 % Evan Frost MD Work Phone: [facility] [employer] 04-03-2022 12:00-0400 Systolic blood pressure 143 mm[Hg] Evan Frost MD Work Phone: [facility] [employer] 04-03-2022 11:00-0400 Body temperature 97.2 [degF] Evan Frost MD Work Phone: [facility] [employer] 04-03-2022 08:43-0400 Body height 180.3 cm Evan Frost MD Work Phone: [facility] [employer] 04-03-2022 08:43-0400 Body mass index (BMI) [Ratio] 32.64 kg/m2 Evan Frost MD Work Phone: [facility] [employer] 04-03-2022 08:43-0400 Body weight 106.14 kg Evan Frost MD Work Phone: [facility] [employer] 03-30-2022 17:28-0400 Body height 180.3 cm Flor Goyal MD Work Phone: [facility] [employer] 03-30-2022 17:28-0400 Body mass index (BMI) [Ratio] 30.68 kg/m2 Flor Goyal MD Work Phone: [facility] [employer] 03-30-2022 17:28-0400 Body weight 99.79 kg Flor Goyal MD Work Phone: [facility] [employer] 03-30-2022 17:13-0400 Body temperature 97.81 [degF] Flor Goyal MD Work Phone: [facility] [employer] 03-30-2022 17:13-0400 Diastolic blood pressure 94 mm[Hg] Flor Goyal MD Work Phone: [employer] 03-30-2022 17:13-0400 Heart rate 93 /min Flor Goyal MD Work Phone: [facility] 03-30-2022 17:13-0400 Respiratory rate 18 /min Flor Goyal MD Work Phone: [facility] [employer] [facility] 03-30-2022 17:13-0400 SaO2% (BldA) [Mass fraction] 99 % Flor Goyal MD Work Phone: [facility] 03-30-2022 17:13-0400 Systolic blood pressure 141 mm[Hg] Flor Goyal MD Work Phone: [facility] 03-10-2022 15:55-0400 Diastolic blood pressure 100 mm[Hg] Candice Rider [employer] Work Phone: [facility] Work Phone: 03-10-2022 15:55-0400 Systolic blood pressure 160 mm[Hg] Candice Rider [employer] CHA[employer] Work Phone: [facility] Work Phone: 03-10-2022 15:06-0400 Body height 177.8 cm Candice Rider [employer] Work Phone: [facility] Work Phone: 03-10-2022 15:06-0400 Body mass index (BMI) [Ratio] 33.7 kg/m2 Candice Rider CNP Work Phone: [facility] Work Phone: 03-10-2022 15:06-0400 Body surface area Derived from formula 2.24 m2 Candice Rider CNP Work Phone: [facility] Work Phone: 03-10-2022 15:06-0400 Body surface area Derived from formula 2.2 m2 Candice Rider CNP Work Phone: [facility] Work Phone: 03-10-2022 15:06-0400 Body temperature 99.3 [degF] Candice Rider F[employer] CHAIR Work Phone: [facility] Work Phone: 03-10-2022 15:06-0400 Body weight 106.6 kg Candice Rider [employer] Work Phone: [facility] Work Phone: 03-10-2022 15:06-0400 Diastolic blood pressure 120 mm[Hg] Candice Rider [employer] CHAIR Work Phone: [facility] Work Phone: 03-10-2022 15:06-0400 Heart rate 123 /min Candice Rider [employer] CHA[employer] Work Phone: [facility] Work Phone: 03-10-2022 15:06-0400 SaO2% (BldA) [Mass fraction] 97 % Candice Rider [employer] CHAIR Work Phone: [facility] Work Phone: 03-10-2022 15:06-0400 Systolic blood pressure 160 mm[Hg] Candice Rider F[employer] CHAIR Work Phone: [facility] Work Phone: 06-20-2021 19:23-0400 Diastolic blood pressure 82 mm[Hg] Candice Tereso [employer] CHAIR Work Phone: [facility] Work Phone: 06-20-2021 19:23-0400 Systolic blood pressure 122 mm[Hg] Candiceoj Rider [employer] CHAIR Work Phone: [facility] Work Phone: Encounters Encounter Date Encounter Type Care Provider Facility Start: 01-16-2024 End: 01-18-2024 Evaluation and management of inpatient ROSAURA CUEVAS [facility] Start: 01-16-2024 End: 01-18-2024 Evaluation and management of inpatient Xavier Angeltz DO Work Phone: [facility] Start: 09-23-2022 End: 09-23-[address] [facility] Facility:[facility] Start: 07-27-2022 End: 07-27-2022 FQHC visit, estab pt Denisha Gupta [facility] Work Phone: [facility] Work Phone: Start: 07-27-2022 End: 07-27-2022 FQHC visit, estab pt Patricia Meza [employer] Work Phone: [facility] Work Phone: Start: 04-03-2022 End: 04-03-2022 ambulatory EVAN FROST [facility] Start: 04-03-2022 End: 04-03-2022 Subsequent hospital visit by physician Evan Frost MD Work Phone: [facility] Comment on above: Status post open red uction and internal fixation (ORIF) of fracture (Primary Dx) Start: 03-31-2022 End: 04-01-2022 ambulatory EVAN FROST [facility] Start: 03-31-2022 End: 03-31-2022 Subsequent hospital visit by physician [facility] Start: 03-30-2022 End: 03-30-2022 Emergency department patient visit FLOR GOYAL [facility] Start: 03-30-2022 End: 03-30-2022 Emergency department patient visit Flor Goyal MD Work Phone: [facility] ED Comment on above: Closed fracture of d istal end of left radius, unspecified fracture morphology, initial encounter (Primary Dx) Start: 03-10-2022 End: 03-10-2022 Adult health examination Candice Rider [employer] Work Phone: [facility] Work Phone: Start: 03-10-2022 End: 03-10-2022 FQ visit new patient Candice Tereso [employer] Work Phone: [facility] Work Phone: Start: 03-09-2022 End: 03-09-2022 Emergency department patient visit FLOR Alfaro [facility] Start: 02-07-2022 End: 02-07-2022 Simple extraction of tooth Mirella Allen DDS Work Phone: [facility] Work Phone: Start: 02-07-2022 limited oral evaluat ion - problem focused Mirella Allen DDS Work Phone: [facility] Start: 06-20-2021 End: 06-20-2021 Emergency department patient visit Mirella Allen DDS Work Phone: [facility] Work Phone: Start: 06-20-2021 limited oral evaluat ion - problem focused Mirella Allen DDS Work Phone: [facility] Work Phone: Procedures Date Procedure Procedure Detail Performing Clinician Start: 01-18-2024 Hepatic function panel Jewel Oj Mas INTERVIEWING CLERK - [employer] Work Phone: Start: 01-18-2024 Prothrombin time Bobo Mas INTERVIEWING CLERK - [employer] Work Phone: Start: 01-18-2024 BASIC METABOLIC PANE L W/ REFLEX TO MG FOR LOW K Anahi Lujna MD Work Phone: Start: 01-18-2024 Blood count complete auto&auto difrntl wbc Anahi Lujan MD Work Phone: Start: 01-17-2024 Ct pelvis w/o contra st material Anahi Lujan MD Work Phone: Start: 01-17-2024 BASIC METABOLIC PANE L W/ REFLEX TO MG FOR LOW K Anahi Lujan MD Work Phone: Start: 01-17-2024 Prothrombin time Anahi Lujan MD Work Phone: Start: 07-27-2022 Current tobacco smoker Patricia Meza [employer] Work Phone: Start: 07-27-2022 Decompression of med sunitha nerve Candice Rider [employer] Work Phone: Start: 07-27-2022 Most recent diastol blood pres >/equal 90 mm hg Patricia Meza [employer] Work Phone: Start: 07-27-2022 Most recent systolic blood pres>/equal 140 mm hg Patricia Meza [employer] Work Phone: Start: 07-27-2022 Psychotherapy w/estela ent 30 minutes Denisha Alonso [facility] Work Phone: Start: 07-27-2022 Surgical procedure Ligia Busby [employer] Work Phone: Start: 04-03-2022 Fluoroscopy during operation Evan Frost MD Work Phone: Start: 03-31-2022 Ecg routine ecg w/le ast 12 lds w/i&r Evan Frost MD Work Phone: Start: 03-31-2022 Basic metabolic pane l calcium total Evan Frost MD Work Phone: Start: 03-30-2022 Radex forearm 2 views M sam Goyal MD Work Phone: Start: 03-10-2022 Antibody hiv-1&hiv-2 single result Candice Rider [employer] Work Phone: Start: 03-10-2022 Appendectomy Candice Law machado [employer] Work Phone: Start: 03-10-2022 Hemoglobin glycosylated a1c Candice Rider [employer] Work Phone: Start: 03-10-2022 Pt scrnd tobacco use rcvd tobacco cessation talk Candice Rider [employer] Work Phone: Start: 03-10-2022 Pt-focused hlth risk assmt score doc stnd instrm Candice Rider [employer] Work Phone: Start: 02-07-2022 intraoral - periapic al first radiographic image Mirella Allen DDS Work Phone: Start: 06-20-2021 bitewing - single radiographic image Mirella Allen DDS Work Phone: Start: 06-20-2021 intraoral - periapic al first radiographic image Mirella Allen DDS Work Phone: Plan of Treatment Date Care Activity Detail Author Start: 04-10-2024 Influenza vaccination Flu vacc ine (Season Ended) [facility] Start: 05-17-2022 Dental Comp Exam [facility] Work Phone: Start: 05-11-2022 Influenza vaccination Flu vaccine (# 1) [facility] Start: 04-03-2022 End: 04-03-2022 Admission to same day surgery center 04/03/2022 Surgery IP Unit Evan Frost MD [address] [place] [id number] RADIUS OPEN REDUCTION INTERNAL FIXATION-DISTAL, CTR [facility] Comment on above: RADIUS OPEN REDUCTIO N INTERNAL FIXATION-DISTAL, CTR Start: 04-03-2022 End: 04-03-2022 Optx dstl radl x-artic fx/epiphysl sep RADIUS OPEN REDUCTION INTERNAL FIXATION Type III open nondisplaced oblique fracture of shaft of radius, unspecified laterality, initial encounter 04/03/2022 11:20 AM [facility] Start: 04-03-2022 Subsequent hospital visit by physician 04/03/2022 Hospital Encounter IP Unit Evan Frost MD [address] [place] [phone] [facility] Start: 04-03-2022 End: 04-03-2022 Optx dstl radl x-artic fx/epiphysl sep RADIUS OPEN REDUCTION INTERNAL FIXATION Type III open nondisplaced oblique fracture of shaft of radius, unspecified laterality, initial encounter 04/03/2022 9:21 AM [facility] Start: 03-24-2022 [facility] Work Phone: Start: 2017 DTaP/Tdap/Td vaccine (1 - Tdap) DTaP/Tdap/Td vaccine (1 - Tdap) [facility] Start: 2016 Hepatitis C screening Hepatitis C sc reen [facility] Start: 2013 HIV screening HIV screen [facility] Start: 2010 Depression Screen Depression Screen [facility] Start: 2009 HPV vaccine (1 - Mal e 2-dose series) HPV vaccine (1 - Male 2-dose series) [facility] Start: 2004 Pneumococcal 0-64 ye ars Vaccine (1 - PCV) Pneumococcal 0-64 years Vaccine (1 - PCV) [facility] Start: 2004 Pneumococcal 0-64 ye ars Vaccine (1 of 2 - PCV) Pneumococcal 0-64 years Vaccine (1 of 2 - PCV) [facility] Start: 1999 Varicella vaccine (1 of 2 - 2-dose childhood series) Varicella vaccine (1 of 2 - 2-dose childhood series) [facility] Start: 1998 COVID-19 Vaccine (#1) COVID-19 Vacci ne (#1) [facility] Start: 1998 Hepatitis B vaccine (1 of 3 - 3-dose series) Hepatitis B vaccine (1 of 3 - 3-dose series) [facility] End: 01-19-2024 Basic Metabolic Panel w/ Reflex to MG Basic Metabolic Panel w/ Reflex to MG Lab Routine Daily for 3 Days starting 01/17/2024 until 01/19/2024, 2 completed [facility] Comment on above: Daily for 3 Days sta rting 01/17/2024 until 01/19/2024, 2 completed End: 01-17-2024 Calprotectin Stool Calprotectin Stool Lab STAT One Time for 1 Occurrences starting 01/17/2024 until 01/17/2024 [facility] Comment on above: One Time for 1 Occur rences starting 01/17/2024 until 01/17/2024 End: 01-19-2024 CBC W Auto Differential panel - Blood CBC with Auto Differential Lab Routine Daily for 3 Days starting 01/17/2024 until 01/19/2024, 2 completed [employer] Comment on above: Daily for 3 Days sta rting 01/17/2024 until 01/19/2024, 2 completed End: 01-16-2024 Culture, Anaerobic and Aerobic Culture, Anaerobic and Aerobic Microbiology Routine One Time for 1 Occurrences starting 01/16/2024 until 01/16/2024 [employer] Comment on above: One Time for 1 Occur rences starting 01/16/2024 until 01/16/2024 End: 01-17-2024 IBD Panel [facility] Phone: Comment on above: One Time for 1 Occur rences starting 01/17/2024 until 01/17/2024 End: 04-03-2022 INITIATE PACU OXYGEN THERAPY PROTOCOL Initiate PACU Oxygen Therapy Protocol Respiratory Care Routine Continuous until discontinued starting 04/03/2022 [employer] Comment on above: Continuous until dis continued starting 04/03/2022 Oxygen therapy [[facility] Data Set] Initiate Oxygen Therapy Protocol Respiratory Care Routine As Needed until discontinued starting 01/16/2024 [employer] Comment on above: As Needed until disc ontinued starting 01/16/2024 End: 03-30-2022 Splint application Splint application Procedures Routine One Time for 1 Occurrences starting 03/30/2022 until 03/30/2022 [employer] Phone: Comment on above: One Time for 1 Occur rences starting 03/30/2022 until 03/30/2022 Payers Date Payer Category Payer Medicaid [id number] 2000 Unknown [id number] 2000 Unknown [id number] 2000 Unknown [id number] [id number] 1998 Unknown [id number] [id number] 2000 Unknown [id number] 2.16. [id number] 1961 Medicaid [id number] Self-pay [id number] Social History Date Type Detail Facility Assertion Social drinker (finding) [facility] Work Phone: Assertion Sexually active (finding) [facility] Work Phone: Assertion [facility] Work Phone: Assertion Cigarette smoker (finding) [facility] Work Phone: Assertion Smoker (finding) [facility] Work Phone: Assertion Gender identity finding (finding) [facility] Work Phone: Assertion Light cigarette smoker (1-9 cigs/day) (finding) [facility] Work Phone: Assertion Finding of sexua l orientation (finding) [facility] Work Phone: Tobacco smoking status Unknown if ever smoked [facility] Work Phone: Start: 03-09-2022 End: 01-16-2024 Tobacco smoking status NHIS Smokes tobacco daily [employer] Work Phone: Start: 03-09-2022 End: 01-16-2024 Cigarettes smoked current (pack per day) - Reported 0.3 [employer] Start: 03-09-2022 End: 01-16-2024 Tobacco use and exposure Smokeless tobacco non-user [employer] Work Phone: Start: 2000 Sex Assigned At Not on file B ON [employer] Work Phone: Start: 03-20-2022 End: 04-03-2022 Exposure to SARS-CoV-2 (event) Not sure [employer] Start: 03-31-2022 End: 04-03-2022 Alcohol intake Current drinker of alcohol (finding) [employer] Work Phone: Start: 03-31-2022 History SDOH Alcohol Comment socially [employer] Work Phone: Assertion Exposure to poll ution (event) [facility] Work Phone: Start: 01-16-2024 Alcohol intake Ex-drinker (finding) [employer] Start: 01-16-2024 [facility] Utilities [facility] [employer] Has the [employer], gas, oil, or water [employer] threatened to shut off services in your home in past 12Mo No Lights[employer]ed [facility] How often to you hav e a drink containing alcohol? Monthly or less [facility] How many standard drinks containing alcohol do you have on a typical day? 3 or 4 [employer] [facility] How often do you hav e 6 or more drinks on 1 occasion? Less than monthly [facility] (I/We) worried whether (my/our) food would run out before (I/we) got money to buy more. Never true [employer] In the past 12 months, was there a time when you were not able to pay the mortgage or rent on time? Yes [employer] Start: 01-16-2024 Alcohol Comment stopped drinki ng 2 months ago- reports h/o ETOH abuse [facility] NEGATED: Highlighted row Assertion Exposure to pollution (event) [facility] Work Phone: NEGATED: Highlighted row Assertion Not using electronic cigarettes/vaping [facility] Work Phone: Medical Equipment Procedure Code Equipment Code Equipment Origin al Text Equipment Identifier Dates Plate Distl Rad Kenia Lt 2.4x54mm - [id number] Start: 04-03-2022 Screw Bne L18mm Dia2.7mm Neymar S Stl St T8 Stardrv Recess - [id number] Start: 04-03-2022 Screw Bne L14mm Dia2.4mm Dst Rad Volar S Stl St Kenia Ang Michelle - [id number] Start: 04-03-2022 Screw Bne L18mm Dia2.4mm Dst Rad Volar S Stl St Kenia Ang Michelle - [id number] Start: 04-03-2022 Screw Bne L22mm Dia2.4mm Dst Rad Volar S Stl St Kenia Ang Michelle - [id number] Start: 04-03-2022 Mental Status Date Assessment Result Facility Cognitive function Oriented to t anabelle, place, and person Oriented to person, time and place (finding) [facility] Work Phone: Clinical Notes 03-10-2022 to 01-18-2024 Conrado Gill MD - 01/18/2024 10:32 AM EDTDischarge InstructionsAttascci hospital limaAl-Conrado Xiong MD - 01/17/2024 11:46 AM EDTGeorge Martinez - 01/16/2024 1:23 PM EDT Note Date & Type Note Facility 01-18-2024 Hospital course Narrative Images from the original note were not included. [facility] Office: [phone] Benigno Negron DO, Teddy Yadav DO, Regulo Cisneros DO, Anam Olmstead DO, Radha Keita MD, Petrona Heath MD, Abhay Kwan MD, Corazon Boykin MD, Hernando Garcia MD, Ko Park MD, Ruy Negrete MD, Mello Phipps DO, Lore Mohr MD, Rd Johnson MD, Xavier Negron DO, Leatha Rae MD, Brent Antony DO, Sakina Bean MD, Flora Fish MD, Dayna Nielsen MD, Dona Chavez MD, Johny Knight MD, Jhoana Talley MD, Gurwinder Thomas MD, Conrado Gill MD, Hugo Castellon MD, Anali Dooley MD, Jack Rai DO, Bravo Nieto DO, Jerome Echeverria MD, Nino Ramos MD, Mai Kate, [employer], Mitali Graham, [employer], Rojelio Bowen, [facility], Cecilia Mcgrath, [place], Dorene Barnhart, [employer], Juli Frederick, [employer], Miryam Lord, [employer], Leslie Bean, [employer], Amirah Delgado PA-C, RORY GreyC, Patricia Johnson, [employer], Marifer Mireles, [facility], Alber Blake, [facility], Samia Reyes, [facility], Lindy Parra, [facility], Willa Nieves, [facility], Paulina Koenig, [facility], Silvia Arguello, [facility], Iliana Hong, [facility] IN-PATIENT SERVICE [facility] Discharge Summary Patient ID: Esmer Corbin : 2000 ACCOUNT: [id number] Patient's PCP: No primary care provider on file. Admit Date: 01/16/2024 Discharge Date: 01/18/2024 Length of Stay: 2 Code Status: Full Code Admitting Physician: No admitting provider for patient encounter. Discharge Physician: Conrado Gill MD Active Discharge Diagnoses: Hospital Problem Lists: Principal Problem: Infection as cause of abscess of colon Active Problems: Abscess of sigmoid colon due to diverticulitis Colitis H/O abdominal abscess Resolved Problems: * No resolved hospital problems. * Admission Condition: fair Discharged Condition: good Hospital Stay: Hospital Course: HPI 23 y.o. male who had a recent 5-day hospitalization for diverticulitis who presented to [facility] ED yesterday with complaints of right-sided lower abdominal pain and decreased appetite. After recent hospitalization, patient discharged on Cipro and Flagyl which were completed approximately 6 days ago . ER work up /abdominal imaging concerning for sigmoid abscess with possible fistula/colitis. [facility] ED provider spoke with Dr. Radha --> MD suggested transfer to [place] for possible IR drainage of abscess. Patient started on Zosyn. During hospital course patient continued to receive IV Zosyn, IR was consulted to drain the abscess however not able to drain due to location, patient was started on diet and was advanced as tolerated and he tolerated his diet very well, his symptom improved, medical technical writer discussed with the GI team today who cleared the patient to be discharged and outpatient follow-up to follow-up lab result and for further evaluation, and patient will be discharged on oral antibiotic for total of 7 days, was advised to continue take his medication as prescribed and follow-up with primary doctor or GI as an outpatient Significant therapeutic interventions: as above Significant Diagnostic Studies: Labs / Micro: CBC: Lab Results Component Value Date/Time WBC 8.0 01/18/2024 07:44 AM RBC 5.46 01/18/2024 07:44 AM HGB 17.2 01/18/2024 07:44 AM HCT 51.2 01/18/2024 07:44 AM MCV 93.8 01/18/2024 07:44 AM MCH 31.5 01/18/2024 07:44 AM MCHC 33.6 01/18/2024 07:44 AM RDW 11.9 01/18/2024 07:44 AM PLT 181 01/18/2024 07:44 AM BMP: Lab Results Component Value Date/Time GLUCOSE 66 01/18/2024 07:44 AM NA 139 01/18/2024 07:44 AM K 3.9 01/18/2024 07:44 AM CL 102 01/18/2024 07:44 AM CO2 19 01/18/2024 07:44 AM ANIONGAP 18 01/18/2024 07:44 AM BUN 5 01/18/2024 07:44 AM CREATININE 0.7 01/18/2024 07:44 AM BUNCRER 8 03/31/2022 01:10 PM CALCIUM 9.5 01/18/2024 07:44 AM LABGLOM >90 01/18/2024 07:44 AM GFRAA >60 03/31/2022 01:10 PM GFR 03/31/2022 01:10 PM GFR 03/31/2022 01:10 PM Radiology: CT PELVIS WO CONTRAST Additional Contrast? None Result Date: 01/17/2024 No safe window to access known mid-lower central pelvic abscess, as above. No drainage catheter placement attempted. Consultations: Consults: Final Specialist Recommendations/Findings: IP CONSULT TO GENERAL SURGERY IP CONSULT TO GI IP CONSULT TO SPIRITUAL SERVICES The patient was seen and examined on day of discharge and this discharge summary is in conjunction with any daily progress note from day of discharge. Discharge plan: Disposition: Home Physician Follow Up: Yarelis Worley MD [facility], [facility] [address] [facility] [address] Schedule an appointment as soon as possible for a visit Francesca Garcia MD [address] [facility] [address] Follow up in 2 week(s) diverticulitis with abscess Requiring Further Evaluation/Follow Up POST HOSPITALIZATION/Incidental Findings: Need to follow-up CT abdomen pelvis finding with the GI and Dr. Garcia after discharge Diet: regular diet Activity: As tolerated Instructions to Patient: Please continue to take your medication as prescribed and follow-up with your primary doctor and nay GARCIA within 1 to 2 weeks of discharge Discharge Medications: Medication List START taking these medications ciprofloxacin 500 MG tablet Commonly known as: CIPRO Take 1 tablet by mouth every 12 hours for 14 doses metroNIDAZOLE 500 MG tablet Commonly known as: FLAGYL Take 1 tablet by mouth every 8 hours for 21 doses CONTINUE taking these medications HYDROcodone-acetaminophen 5-325 MG per tablet Commonly known as: NORCO Where to Get Your Medications These medications were sent to [address] - [phone] - F [phone] [place] [id number] ciprofloxacin 500 MG tablet metroNIDAZOLE 500 MG tablet No discharge procedures on file. Time Spent on discharge is 36 mins in patient examination, evaluation, counseling as well as medication reconciliation, prescriptions for required medications, discharge plan and follow up. Electronically signed by Conrado Gill MD 01/18/2024 10:[address] Perez primary care provider on file. for the opportunity to be involved in this patient's care. documented in this encounter [facility] 01-18-2024 Hospital Discharg e instructions Conrado Gill MD - 01/18/2024 10:32 AM EDT Please continue to take your medication as prescribed and follow-up with your primary doctor and nay GARCIA within 1 to 2 weeks of discharge The following attachments cannot be sent through Care Everywhere.Diverticulitis (Gibraltarian)documented in this encounter [facility] 01-17-2024 History of Presen t illness Narrative Images from the original note were not included. [facility] Office: [phone] Benigno Negron DO, Teddy Yadav DO, Regulo Cisneros DO, Anam Olmstead DO, Radha Keita MD, Petrona Heath MD, Abhay Kwan MD, Corazon Boykin MD, Hernando Garcia MD, Ko Park MD, Ruy Negrete MD, Mello Phipps DO, Lore Mohr MD, Rd Johnson MD, Xavier Negron DO, Leatha Rae MD, Brent Antony DO, Sakina Bean MD, Flora Fish MD, Dayna Nielsen MD, Dona Chavez MD, Johny Knight MD, Jhoana Talley MD, Gurwinder Thomas MD, Conrado Gill MD, Hugo Castellon MD, Anali Dooley MD, Jack Rai DO, Bravo Nieto DO, Jerome Echeverria MD, Nino Ramos MD, Mai Kate CNP, Mitali Graham CNP, Rojelio Bowen CNP, Cecilia Mcgrath DNP, Dorene Barnhart, VERONICA, Juli Frederick CNP, Miryam Lord CNP, Leslie Bean CNP, Amirah Delgado PA-C, Sary Trejo PA-C, Patricia Johnson, VERONICA, Marifer Mireles, [employer], Alber Blake, [employer], Samia Reyes, [employer], Lindy Parra, [employer], Willa Nieves, JAKE, Paulina Koenig, VERONICA, Silvia Arguello, VERONICA, Iliana Hong, [employer] [facility] IN-PATIENT SERVICE [facility] Progress Note 01/17/2024 11:46 AM Name: Esmer Corbin Acct: [id number] Room: [address] [place] [address] Day: 1 Admit Date: 01/16/2024 10:51 AM PCP: No primary care provider on file. Code Status: Full Code Subjective: Interval History Status: improved. Seen and examined reports that his abdominal pain is slightly improved compared with yesterday Denies nausea vomiting IR to drain the abscess today Continue IV antibiotic Discussed with RN at bedside Review of Systems: Review of Systems Constitutional: Negative. Respiratory: Negative. Cardiovascular: Negative. Gastrointestinal: Positive for abdominal pain. Genitourinary: Negative. Musculoskeletal: Negative. Hematological: Negative. Psychiatric/Behavioral: Negative. Medications: Allergies: No Known Allergies Current Meds: Scheduled Meds: piperacillin-tazobactam 3,375 mg IntraVENous Q8H enoxaparin 30 mg SubCUTAneous BID pantoprazole (PROTONIX) 40 mg in sodium chloride (PF) 0.9 % 10 mL injection 40 mg IntraVENous Daily Continuous Infusions: sodium chloride lactated ringers IV soln 75 mL/hr at 01/16/241945 PRN Meds: sodium chloride flush, sodium chloride, potassium chloride OR potassium alternative oral replacement OR potassium chloride, ondansetron OR ondansetron, polyethylene glycol, bisacodyl, acetaminophen OR acetaminophen, ketorolac Data: Past Medical History: has a past medical history of Diverticulitis and Herpes. Social History: reports that he has been smoking cigarettes. He has never used smokeless tobacco. He reports that he does not currently use alcohol. He reports current drug use. Frequency: 12.00 times per week. Drug: Marijuana (Susan). Family History: Family History Problem Relation Age of Onset Alcohol Abuse Father Drug Abuse Brother drug overdose Vitals: BP (!) 128/90 Pulse 97 Temp 98.1 F (36.7 C) (Oral) Resp 26 Ht 1.778 m (5' 10 ) Wt 103.8 kg (228 lb 13.4 oz) SpO2 93% BMI 32.83 kg/m Temp (24hrs), Av.2 F (36.8 C), Min:98.1 F (36.7 C), Max:98.6 F (37 C) No results for input(s): POCGLU in the last 72 hours. I/O (24Hr): Intake/Output Summary (Last 24 hours) at 01/17/2024 1146 Last data filed at 01/16/2024 2330 Gross per 24 hour Intake 0 ml Output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 last modification) on Sun01/17/24 at 0900, Until Discontinued, Indication of Use: Prophylaxis-DVT/PE, Administer by deep subCUTAneous injection with pt lying down. Alternate injection sites on abdominal wall. Do not rub site after injection. Check with provider prior to any invasive procedure. 122 (Not Given - Provider: Gale Petty RN - Reason: Contraindicated - Comment: IR)2128 (Given - Provider: Jesica Naranjo RN - Comment: Patient doesnt want to take it if its not related to his abdominal issues) 1013 (Not Given - Provider: Colin Pretty RN - Reason: Patient/family refused)2100 (Due) metroNIDAZOLE (FLAGYL) tablet 500 mg 500 mg, Oral, EVERY 8 HOURS SCHEDULED (3 times per day), 21 doses, First dose on Sun01/18/24 at 0845, Last dose on Sun01/24/24 at 2200, Antimicrobial Indications: Intra-Abdominal Infection 0922 (Given - Provider: Colin Pretty RN)1400 (Due)2200 (Due) pantoprazole (PROTONIX) 40 mg in sodium chloride (PF) 0.9 % 10 mL injection (CANCELED) 40 mg, IntraVENous, DAILY, First dose on Sun01/16/24 at 1445, Reconstitute each 40 mg vial with 10 mL of 0.9% sodium chloride and administer each 40 mg vial over at least 2 minutes. 1607 (Given - Provider: Gale Petty RN) 1305 (Given - Provider: Gale Petty RN) piperacillin-tazobactam (ZOSYN) 3,375 mg in sodium chloride 0.9 % 50 mL IVPB (mini-bag) (CANCELED)(Linked Group 1) 3,375 mg, IntraVENous, EVERY 8 HOURS, First dose on Sun01/16/24 at 1800, Until Discontinued, Antimicrobial Indications: Intra-Abdominal Infection 1805 (New Bag - Provider: Gale Petty RN)2244 (Stopped - Provider: Jesica Naranjo RN) 0209 (New Bag - Provider: Jesica Naranjo RN)0609 (Stopped - Provider: Jesica Naranjo RN)1008 (New Bag - Provider: Gale Petty RN)1441 (Stopped - Provider: Gale Petty RN)1900 (New Bag - Provider: Gale Petty RN)2308 (Stopped - Provider: Jesica Naranjo RN) 0244 (New Bag - Provider: Jesica Naranjo RN)0752 (Stopped - Provider: Colin Pretty RN) piperacillin-tazobactam (ZOSYN) 4,500 mg in sodium chloride 0.9 % 100 mL IVPB ([id number]) (COMPLETED)(Linked Group 1) 4,500 mg, IntraVENous, ONCE, 1 dose, On Sun01/16/24 at 1200, Antimicrobial Indications: Intra-Abdominal Infection 1238 (New Bag - Provider: Gale Petty RN)1624 (Stopped - Provider: Gale Petty RN) Continuous Medication Order 01/16/2024 01/17/2024 01/18/2024 lactated ringers IV soln infusion (CANCELED) IntraVENous, at 75 mL/hr, CONTINUOUS, Starting on Sun01/16/24 at 1130, For 48 hours 1616 (New Bag - Provider: Gale Petty RN)1946 (Restarted - Provider: Jesica Naranjo RN) 0930 (Stopped - Provider: Gale Petty RN - Comment: bag was completed and stopped at 0930am LR was connected with 0.9 NS / Zosyn at the [facility] from overnight nurse and I called pharmacy to see if it was compatabile it wasn't comptaible at the [facility] patient was schedule to go down to IR for drainage of abscess. Zosyn was due at 1000am so I hung Zosyn.)1445 (Restarted - Provider: Gale Petty RN - Comment: Pt. has one IV left forearm, asked pt. if he would like another IV pt. stated no I had to run the LR at 1445pm after antibotic Zosyn was done at 1441pm. Restarted 1445pm 01/17/2024. DOCK OPERATOR Patricia stated verberlly at bedside 01/16/2024 that it was okay to do it that way.)1850 (Stopped - Provider: Gale Petty RN - Comment: Stopped due to 6pm antibotic Zosyn due. Handoff report to night nurse in regards to stopping LR at 1850 to give Zosyn and night nurse should continue with LR once Zosyn is completed.)230 (Restarted - Provider: Jesica Naranjo RN) 0230 (Stopped - Provider: Jesica Naranjo RN - Comment: IV used for zosyn, incompatible with LR, as per day shift nurse, OK for DOCK OPERATOR to stop LR drip when zosyn is ongoing)0731 (Restarted - Provider: Jesica Naranjo RN) PRN Medication Order 01/16/2024 01/17/2024 01/18/2024 0.9 % sodium chloride infusion IntraVENous, at 5-250 mL/hr, PRN, if patient receiving piggyback infusions and maintenance fluids are not ordered OR KVO fluids to protect IV site / prevent frequent line interruptions/ long duration, Starting on Sun01/16/24 at 1104, For piggyback infusion, administer at same rate as piggyback for a total of 25 mL. Enter 25 mL into dose field and piggyback rate into rate field of order. If piggyback is infusing at a rate less than 100 mL/hr, enter 25 mL into dose field and 100 mL/hr into rate field of order. For KVO fluids, enter rate of 20 mL/hr or less into rate field of order. acetaminophen (TYLENOL) suppository 650 mg(Linked Group 2) 650 mg, Rectal, EVERY 6 HOURS PRN, Starting on Sun01/16/24 at 1104, Until Discontinued, Pain Mild (1-3), Fever, For temp greater than 100.4 F (38 C), Administer if oral route cannot be used. 2157 (See Alternative - Provider: Jesica Naranjo RN) acetaminophen (TYLENOL) tablet 650 mg(Linked Group 2) 650 mg, Oral, EVERY 6 HOURS PRN, Starting on Sun01/16/24 at 1104, Until Discontinued, Pain Mild (1-3), Fever, For temp greater than 100.4 F (38 C), Maximum dose of acetaminophen is 4000 mg from all sources in 24 hours. 2157 (Given - Provider: Yi Naranjo RN) bisacodyl (DULCOLAX) suppository 10 mg 10 mg, Rectal, DAILY PRN, Starting on Sun01/16/24 at 1104, Until Discontinued, Constipation, Second line therapy for constipation, After 24 hours, if no result from first line PRN therapy, give second line therapy in combination with first line therapy. fentaNYL (SUBLIMAZE) injection (COMPLETED) PRN, Starting on Ana Rosa 01/17/24 at 1052, Until Discontinued, Intra-op 1052 (Given - Provider: Scot Fry RN - Comment: for procedural discomfort) ketorolac (TORADOL) injection 15 mg 15 mg, IntraVENous, EVERY 6 HOURS PRN, 4 doses, Starting on Sun01/16/24 at 1104, Until Discontinued, Pain Moderate (4-6), Pain Severe (7-10), Do not administer for more than 5 days midazolam PF (VERSED) injection (COMPLETED) PRN, Starting on Ana Rosa 01/17/24 at 1052, Until Discontinued, Intra-op 1052 (Given - Provider: Scot Fry RN - Comment: for procedural anxiety) ondansetron (ZOFRAN) injection 4 mg(Linked Group 3) 4 mg, IntraVENous, EVERY 6 HOURS PRN, Starting on Sun01/16/24 at 1104, Until Discontinued, Nausea, Vomiting, Administer if oral route cannot be used. ondansetron (ZOFRAN-ODT) disintegrating tablet 4 mg(Linked Group 3) 4 mg, Oral, EVERY 8 HOURS PRN, Starting on Sun01/16/24 at 1104, Until Discontinued, Nausea, Vomiting polyethylene glycol (GLYCOLAX) packet 17 g 17 g, Oral, DAILY PRN, Starting on Sun01/16/24 at 1104, Until Discontinued, Constipation, First line therapy for constipation potassium bicarb-citric acid (EFFER-K) effervescent tablet 40 mEq(Linked Group 4) 40 mEq, Oral, PRN, Starting on Sun01/16/24 at 1104, Until Discontinued, Per Potassium Replacement Protocol, Administer as alternative if patient unable to tolerate oral tablet. K Lab Replacement Action 3.1 to 3.5 40 mEq ORAL x 1 Under 3.1 Refer to IV replacement protocol Recheck K level in AM. Protocol not for use in patients with CrCl less than 30 mL/min. Do not chew or crush. Dissolve flavored tablets completely in 3 to 4 ounces of cold water; unflavored tablets may be dissolved in 3 to 4 ounces of cold juice. Patient to sip slowly over a 5 to 10 minute period. May further dilute if GI adverse effects occur. potassium chloride (KLOR-CON M) extended release tablet 40 mEq(Linked Group 4) 40 mEq, Oral, PRN, Starting on Sun01/16/24 at 1104, Until Discontinued, Potassium Replacement, May give alternative linked oral order (ordered as effervescent, packet, or liquid solution) if patient unable to tolerate tablet. K Lab Replacement Action 3.1 to 3.5 40 mEq ORAL x 1 Under 3.1 Refer to IV replacement protocol Recheck K level in AM. Protocol not for use in patients with CrCl less than 30 mL/min. Do not crush, chew, or suck on tablet. Tablet may also be broken in half and each half swallowed separately. potassium chloride 10 mEq/100 mL IVPB (Peripheral Line)(Linked Group 4) 10 mEq, IntraVENous, PRN, Starting on Sun01/16/24 at 1104, Until Discontinued, at 100 mL/hr, Potassium Replacement, K Lab Replacement Action 2.7 to 3.0 10 mEq IVPB x 6 doses (60 mEq Total) Under 2.7 CALL PROVIDER and administer 10 mEq IVPB x 6 doses (60 mEq Total) Infuse at 10 mEq/hr. Repeat Potassium lab 1 hour after final administration. Protocol not for use in patients with CrCl less than 30 mL/min. sodium chloride flush 0.9 % injection 5-40 mL 5-40 mL, IntraVENous, PRN, Starting on Sun01/16/24 at 1104, Until Discontinued, Line Care, After every IV line use, For Line Patency: Peripheral IV = 5 mL; Midline or Central Line = 10 mL/lumen. If following IV push medication, administer flush at same rate as the IV push. Flush volume is determined by type of infusion therapy being given. For non-viscous solutions use: Peripheral IV = 5 mL Midline or Central Line = 10 mL/lumen For viscous solutions (i.e. blood components, parenteral nutrition, contrast media, or after obtaining blood sample) use: Peripheral IV = 10 mL Midline or Central Line = 20 mL/lumen Linked Groups Order Group 1: piperacillin-tazobactam (ZOSYN) 4,500 mg in sodium chloride 0.9 % 100 mL IVPB ([id number]) (COMPLETED)Jump to med 4,500 mg, IntraVENous, ONCE, 1 dose, On Sun01/16/24 at 1200
Antimicrobial Indications: Intra-Abdominal Infection Followed by piperacillin-tazobactam (ZOSYN) 3,375 mg in sodium chloride 0.9 % 50 mL IVPB (mini-bag) (CANCELED)Jump to med 3,375 mg, IntraVENous, EVERY 8 HOURS, First dose on Sun01/16/24 at 1800, Until Discontinued
Antimicrobial Indications: Intra-Abdominal Infection Group 2: acetaminophen (TYLENOL) tablet 650 mgJump to med 650 mg, Oral, EVERY 6 HOURS PRN, Starting on Sun01/16/24 at 1104, Until Discontinued, Pain Mild (1-3), Fever, For temp greater than 100.4 F (38 C)
Maximum dose of acetaminophen is 4000 mg from all sources in 24 hours.
Or acetaminophen (TYLENOL) suppository 650 mgJump to med 650 mg, Rectal, EVERY 6 HOURS PRN, Starting on Sun01/16/24 at 1104, Until Discontinued, Pain Mild (1-3), Fever, For temp greater than 100.4 F (38 C)
Administer if oral route cannot be used.
Group 3: ondansetron (ZOFRAN-ODT) disintegrating tablet 4 mgJump to med 4 mg, Oral, EVERY 8 HOURS PRN, Starting on Sun01/16/24 at 1104, Until Discontinued, Nausea, Vomiting Or ondansetron (ZOFRAN) injection 4 mgJump to med 4 mg, IntraVENous, EVERY 6 HOURS PRN, Starting on Sun01/16/24 at 1104, Until Discontinued, Nausea, Vomiting
Administer if oral route cannot be used.
Group 4: potassium chloride (KLOR-CON M) extended release tablet 40 mEqJump to med 40 mEq, Oral, PRN, Starting on Sun01/16/24 at 1104, Until Discontinued, Potassium Replacement
May give alternative linked oral order (ordered as effervescent, packet, or liquid solution) if patient unable to tolerate tablet. K Lab Repla cemen t Action 3.1 to 3.5 40 mEq ORAL x 1 Under 3.1 Refer to IV replacement protocol Recheck K level in AM. Protocol not for use in patients with CrCl less than 30 mL/min. Do not crush, chew, or suck on tablet. Tablet may also be broken in half and each half swallowed separately.
Or potassium bicarb-citric acid (EFFER-K) effervescent tablet 40 mEqJump to med 40 mEq, Oral, PRN, Starting on Sun01/16/24 at 1104, Until Discontinued, Per Potassium Replacement Protocol
Administer as alternative if patient unable to tolerate oral tablet. K Lab Repla cemen t Action 3.1 to 3.5 40 mEq ORAL x 1 Under 3.1 Refer to IV replacement protocol Recheck K level in AM. Protocol not for use in patients with CrCl less than 30 mL/min. Do not chew or crush. Dissolve flavored tablets completely in 3 to 4 ounces of cold water; unflavored tablets may be dissolved in 3 to 4 ounces of cold juice. Patient to sip slowly over a 5 to 10 minute period. May further dilute if GI adverse effects occur.
Or potassium chloride 10 mEq/100 mL IVPB (Peripheral Line)Jump to med 10 mEq, IntraVENous, PRN, Starting on Sun01/16/24 at 1104, Until Discontinued, at 100 mL/hr, Potassium Replacement
K Lab Replacement Action 2.7 to 3.0 10 mEq IVPB x 6 doses (60 mEq Total) Under 2.7 CALL PROVIDER and administer 10 mEq IVPB x 6 doses (60 mEq Total) Infuse at 10 mEq/hr. Repeat Potassium lab 1 hour after final administration. Protocol not for use in patients with CrCl less than 30 mL/min.
(unrecognized sect ion and content) No Status Records FoundNo Status Records FoundNo Status Records Found INFORMATION SOURCE (unrecogn ized section and content) DATE CREATED AUTHOR 04/05/2022 [facility] DATE CREATED AUTHOR AUTHOR'S ORGANIZ ATION 09/25/2022 [facility] DATE CREATED AUTHOR AUTHOR'S ORGANIZ ATION 01/28/2024 [facility] FOR RECORDS PERTAINING TO PATIENTS WHO ARE OR HAVE BEEN ENROLLED IN A CHEMICAL DEPENDENCY/SUBSTANCEABUSE PROGRAM, SOME INFORMATION MAY BE OMITTED. This clinical summary was aggregated from multiple sources. Caution should be exercised in using it in the provision of clinical care. This summary normalizes information from multiple sources, and as a consequence, information in this document may materially change the coding, format and clinical context of patient data. In addition, data may be omitted in some cases. CLINICAL DECISIONS SHOULD BE BASED ON THE PRIMARY CLINICAL RECORDS. [employer] provides no warranty or guarantee of the accuracy or completeness of information in this document.
[2024-06-19 16:15] VITALS: BP 128/87; PULSE 89; TEMP 37.1; O2SAT 97; BMI 33.0
--- NOTE | 2024-06-19 16:39 | ED_ITS ---
HPI - Ear Problem General Chief complaint: Ear Stated complaint: EAR INFECTION Time Seen by Provider: 06/19/24 16:28 Source: patient Mode of arrival: walk-in Limitations: no limitations History of Present Illness HPI Narrative: The patient presented to us with a left ear pain that started almost few days ago he mentioned that initially it all started with him feeling that there is a bug in his ear when he was riding his motorcycle, but then after that he put some hydrogen peroxide in his ear and he noticed today that he has been having this muffled voice in his left ear with the pain The patient denies any other complaint of runny nose coughing sneezing or any other concern Related Data Previous Rx's ?Medication ?Instructions ?Recorded amoxicillin 500 mg tablet 500 mg PO TID 10 days #30 tabs 06/19/24 ciprofloxacin HCl 0.2 % ear drops 5 drp otic (ear) BID 7 days #14 ea 06/19/24 in a dropperette Allergies Allergy/AdvReac Type Severity Reaction Status Date / Time No Known Drug Allergies Allergy Verified 06/19/24 16:14 Review of Systems ROS Status of ROS 10 or more systems reviewed and unremark able except as noted in history and below [facility] Medical History (Updated 06/19/24 @ 16:35 by Bridgett Khan MD) Obesity (BMI 30-39.9) ?E66.9 - Obesity, unspecified (ICD-10) Marijuana smoker ?F12.90 - Cannabis use, unspecified, uncomplicated (ICD-10) Smoker ?F17.200 - Nicotine dependence, unspecified, uncomplicated (ICD-10) Diverticulitis of colon with perforation ?K57.20 - Diverticulitis of large intestine with perforation and abscess without bleeding (ICD-10) Smokers' cough ?J41.0 - Simple chronic bronchitis (ICD-10) Obesity (BMI 35.0-39.9 without comorbidity) ?E66.9 - Obesity, unspecified (ICD-10) Pleurisy ?R09.1 - Pleurisy (ICD-10) Alcohol use disorder, mild, in early remission ?F10.11 - Alcohol abuse, in remission (ICD-10) HTN (hypertension) ?I10 - Essential (primary) hypertension (ICD-10) Herpes simplex ?B00.9 - Herpesviral infection, unspecified (ICD-10) Surgical History History of surgery on arm ?Z98.890 - Other specified postprocedural states (ICD-10) History of appendectomy ?Z90.49 - Acquired absence of other specified parts of digestive tract (ICD- 10) Family History Mother Family history of COPD (chronic obstructive pulmonary disease) Family history of cancer Family history of hypertension Father Family history of hypertension Social History Within the past year, how often did you have a drink containing alcohol: 2-3 times a week Within the past year, how many standard drinks containing alcohol did you have on a typical day: 1 or 2 Within the past year, how often did you have six or more drinks on one occasion: less than monthly Total score: 1 Score interpretation: A score of 4 or more indicates drinking is likely to affect patient's safety. Smoking status: Current every day smoker Non-prescribed substance use: cannabis (any form) Previous occupational history: unemployed Highest level of school completed/degree received: high school graduate Are you now , , , , never or living with a partner: never Little interest or pleasure in doing things: not at all Feeling down, depressed, or hopeless: not at all Feel stressed/tense/nervous/anxious/difficulty sleeping: not at all Exam Narrative Exam Narrative: Nurses notes and vital signs reviewed and patient is not hypoxic. Right ear examination is benign left ear examination showed that the patient have erythema of the external auditory canal there is no drainage and there is no tenderness upon palpation of the left auricle the patient have erythema that is significant over the tympanic membrane which is intact General: Well-appearing and in no apparent distress. Skin: Warm, dry, no pallor noted. No rash. Head: Normocephalic, atraumatic. Neck: Supple, non-tender. Eye: Pupils are equal, round and EOMI. No scleral icterus. Cardiovascular: Regular Rate and Rhythm without murmur, gallop or rub. Respiratory: No accessory muscle use or respiratory distress. Lungs are clear to auscultation, no wheezing, rales or rhonchi Chest Wall: no tenderness Back: No midline thoracic or lumbar vertebral tenderness. No CVA tenderness Musculoskeletal: normal ROM, no calf or popliteal tenderness, no lower extremity edema/swelling GI: Abdomen is soft, non-distended. Normal bowel sounds. No masses appreciated. No tenderness to palpation. No rebound, guarding, or rigidity noted. Neurological: A&O x4. No cranial nerve dysfunction observed. No truncal ataxia. Moves all extremities. Sensation intact. Psychiatric: Cooperative and interactive. Normal mood and affect. Constitutional Vital Signs, click to edit/add: Last Vital Signs Temp 98.8 F 06/19/24 16:15 Pulse 89 06/19/24 16:15 Resp 20 06/19/24 16:15 BP 128/87 06/19/24 16:15 Pulse Ox 97 06/19/24 16:15 O2 Del Method Room Air 06/19/24 16:15 Course Vital Signs Vital signs: Vital Signs Temperature 98.8 F 06/19/24 16:15 Pulse Rate 89 06/19/24 16:15 Respiratory Rate 20 06/19/24 16:15 Blood Pressure 128/87 06/19/24 16:15 Pulse Oximetry 97 06/19/24 16:15 Oxygen Delivery Method Room Air 06/19/24 16:15 Temperature 98.8 F 06/19/24 16:15 Pulse Rate 89 06/19/24 16:15 Respiratory Rate 20 06/19/24 16:15 Blood Pressure 128/87 06/19/24 16:15 Pulse Oximetry 97 06/19/24 16:15 Oxygen Delivery Method Room Air 06/19/24 16:15 Medical Decision Making [facility] Narrative Medical decision making narrative: Right now the patient presenting to us with a possible otitis externa although I cannot rule out otitis media as well with the patient feeling difficulty hearing The patient will be covered for both otitis externa with a ciprofloxacin eardrops in addition to amoxicillin and referred to ENT as outpatient The patient is to follow up with primary care physician in next 2-3 days or to return to the emergency department should any of the signs or symptoms worsen or new symptoms develop. The patient agrees with the following Diagnosis and Treatment plan and the patient will be discharged home. Discharge Plan Discharge Chief Complaint: Ear Clinical Impression: Otitis externa, Otitis media Patient Disposition: Home, Self-Care Time of Disposition Decision: 16:35 Condition: Good Prescriptions / Home Meds: New amoxicillin 500 mg tablet 500 mg PO TID 10 Days Qty: 30 0RF ciprofloxacin HCl 0.2 % dropperette 5 drp otic (ear) BID 7 Days Qty: 14 0RF Rx Instructions: for the left ear it can be replaced with 0.3 % ophthalmic drop if not available Print Language: Syrian Instructions: Ear Infection (ED) Referrals: Leatha Gonzalez [Other] - 1 week Physician,Non-Staff, [Primary Care Provider] - 1 week
== END 2024-06-19 16:53 | disposition home or self-care (01) ==
PROVIDERS: Emergency Provider Emergency Medicine
DX: H60.92 Unspecified otitis externa, left ear (principal); H66.92 Otitis media, unspecified, left ear; F17.200 Nicotine dependence, unspecified, uncomplicated
CPT/HCPCS: 99283

== ENCOUNTER 2024-09-13 22:03 | Emergency (ER) | payer SELFPAY ==
[2024-09-13 22:09] VITALS: BP 127/85; PULSE 114; TEMP 38.2; O2SAT 99; BMI 32.1
--- NOTE | 2024-09-13 22:28 | CT_ITS ---
[address] [address] Patient Name: ESMER MUNOZ MRN: [id number] date: 2000 Sex: M Assigned Patient Location: ER Current Patient Location: ER Accession/Order Number: [id number] Exam Date: 09/13/2024 22:51 Report Date: 09/13/2024 23:40 At the request of: GEMINI PRICE Procedure: CT abdomen pelvis w con EXAMINATION: CT abdomen pelvis w con HISTORY: abd pain COMPARISON: CT abdomen pelvis 01/15/2024 TECHNIQUE: Axial, Coronal, and Sagittal images were obtained without and/or with IV contrast as indicated by examination type. Dose reduction techniques were achieved by using automated exposure control and/or adjustment of mA and/or kV according to patient size and/or use of iterative reconstruction technique. FINDINGS: LUNG BASES: No visible pulmonary or pleural disease. LIVER: No enlargement, atrophy, suspicious density, or significant focal lesion. BILIARY: No dilatation or calcification. PANCREAS: No lesion, fluid collection, or abnormal duct dilatation. SPLEEN: No enlargement or focal lesion. ADRENALS: No mass or enlargement. KIDNEYS: No mass, obstruction, or calcification. BOWEL/MESENTERY: Marked diverticulosis of sigmoid colon with mild pericolic inflammatory changes involving the distal sigmoid colon. Suspect fistulous communication between the proximal and distal sigmoid colon at site of prior inflammatory changes. No free air or free fluid. AORTA/VASCULAR: No aneurysm or dissection. RETROPERITONEUM: No mass or adenopathy. LYMPH NODES: No adenopathy. URINARY BLADDER: No visible focal wall thickening, lesion, or calculus. PELVIC ORGANS: No visible mass. Pelvic organs appropriate for patient age. ABDOMINAL WALL: No mass or hernia. BONES: No bony lesion or fracture. OTHER: Negative. CT/CT abdomen pelvis w con IMPRESSION: 1. Mild acute diverticulitis of the distal sigmoid colon. 2. Suspect fistulous communication between the proximal and distal sigmoid colon at site of prior diverticulitis/abscess. Electronically authenticated by: OMER BOSTON Date: 09/13/2024 23:40
--- NOTE | 2024-09-13 22:31 | ED_ITS ---
HPI - Abdominal Pain General Chief Complaint: Abdominal Pain Stated Complaint: ABDOMINAL PAIN Time Seen by Provider: 09/13/24 22:19 Mode of arrival: walk-in History of Present Illness HPI narrative: 24-year-old male presents to the emergency department for abdominal pain. It began today and he is most concerned about diverticulitis. He states that about 6 months ago he had diverticulitis with perforation and then subsequently had an abscess and had to be hospitalized both times. He did not want it to get to that point. He has not had a bowel movement today. No trauma or fever or blood in his stool. Related Data Previous Rx's ?Medication ?Instructions ?Recorded ciprofloxacin HCl 500 mg tablet 500 mg PO Q12H #20 tabs 09/13/24 (Cipro) metronidazole 500 mg tablet 500 mg PO TID #30 tabs 09/13/24 Allergies Allergy/AdvReac Type Severity Reaction Status Date / Time No Known Drug Allergies Allergy Verified 09/13/24 22:07 Review of Systems ROS Narrative A ten point review of systems is negative except as noted above. [facility] Medical History (Updated 09/13/24 @ 23:55 by Marcus Carvajal MD) Perforation bowel ?K63.1 - Perforation of intestine (nontraumatic) (ICD-10) Obesity (BMI 30-39.9) ?E66.9 - Obesity, unspecified (ICD-10) Marijuana smoker ?F12.90 - Cannabis use, unspecified, uncomplicated (ICD-10) Smoker ?F17.200 - Nicotine dependence, unspecified, uncomplicated (ICD-10) Diverticulitis of colon with perforation ?K57.20 - Diverticulitis of large intestine with perforation and abscess without bleeding (ICD-10) Smokers' cough ?J41.0 - Simple chronic bronchitis (ICD-10) Obesity (BMI 35.0-39.9 without comorbidity) ?E66.9 - Obesity, unspecified (ICD-10) Pleurisy ?R09.1 - Pleurisy (ICD-10) Alcohol use disorder, mild, in early remission ?F10.11 - Alcohol abuse, in remission (ICD-10) HTN (hypertension) ?I10 - Essential (primary) hypertension (ICD-10) Herpes simplex ?B00.9 - Herpesviral infection, unspecified (ICD-10) Surgical History History of surgery on arm ?Z98.890 - Other specified postprocedural states (ICD-10) History of appendectomy ?Z90.49 - Acquired absence of other specified parts of digestive tract (ICD- 10) Family History Mother Family history of COPD (chronic obstructive pulmonary disease) Family history of cancer Family history of hypertension Father Family history of hypertension Social History Within the past year, how often did you have a drink containing alcohol: 2-3 times a week Within the past year, how many standard drinks containing alcohol did you have on a typical day: 1 or 2 Within the past year, how often did you have six or more drinks on one occasion: less than monthly Total score: 1 Score interpretation: A score of 4 or more indicates drinking is likely to affect patient's safety. Smoking status: Current every day smoker Non-prescribed substance use: cannabis (any form) Previous occupational history: unemployed Highest level of school completed/degree received: high school graduate Are you now , , , , never or living with a partner: never Little interest or pleasure in doing things: several days Feeling down, depressed, or hopeless: not at all Feel stressed/tense/nervous/anxious/difficulty sleeping: not at all Exam Narrative Exam Narrative: Nurses note and vital signs reviewed and patient is not hypoxic. General: The patient appears well and in no apparent distress. Patient is resting comfortably on cart. Skin: Warm, dry, no pallor noted. There is no rash noted. Head: Normocephalic, atraumatic Eye: Normal conjunctiva, no drainage Ears, Nose, Mouth, and Throat: oral mucosa is moist. Nares patent. Cardiovascular: Regular Rate and Rhythm Respiratory: Patient is in no distress, no accessory muscle use, lungs are clear to auscultation, no wheezing, rales or rhonchi Back: non-tender GI: Soft and nondistended. No masses appreciated. Minimal tenderness in the mid abdomen present. Musculoskeletal: The patient has no evidence of calf tenderness, no pitting edema, symmetrical pulses noted bilaterally Neurological: A&O, normal speech Psychiatric: Cooperative Constitutional Vital Signs, click to edit/add: Last Vital Signs Temp 99.8 F 09/13/24 22:48 Pulse 114 H 09/13/24 22:09 Resp 16 09/13/24 22:09 BP 136/84 09/13/24 22:37 Pulse Ox 100 09/13/24 22:40 O2 Del Method Room Air 09/13/24 22:09 Course Vital Signs Vital signs: Vital Signs Temperature 100.7 F H 09/13/24 22:09 Pulse Rate 114 H 09/13/24 22:09 Respiratory Rate 16 09/13/24 22:09 Blood Pressure 127/85 09/13/24 22:09 Pulse Oximetry 99 09/13/24 22:09 Oxygen Delivery Method Room Air 09/13/24 22:09 Temperature 99.8 F 09/13/24 22:48 Pulse Rate 114 H 09/13/24 22:09 Respiratory Rate 16 09/13/24 22:09 Blood Pressure 136/84 09/13/24 22:37 Pulse Oximetry 100 09/13/24 22:40 Oxygen Delivery Method Room Air 09/13/24 22:09 MDM - Abdominal Pain MDM Narrative Medical decision making narrative: Mild acute diverticulitis is identified and he was given IV Cipro and Flagyl here. He is prescribed oral Cipro and Flagyl for home and will follow-up with his doctor. At this point he does not require admission to the hospital. Treatment diagnosis and disposition were discussed with the patient. Differential Diagnosis Differential diagnosis: Likely abdominal pain, constipation, diverticulitis, gastroenteritis and small bowel obstruction Lab Data Attestation: I reviewed the patient's lab results. Labs: Lab Results 09/13/24 Range/Units 22:34 WBC 13.2 H (4.0-11.0) 10^3/uL RBC 5.59 (4.70-6.10) 10^6/uL Hgb 19.0 H (14.0-18.0) g/dL Hct 54.6 H (42.0-54.0) % MCV 97.7 H (80.0-94.0) fL MCH 34.0 (25.9-34.0) pg MCHC 34.8 (29.9-35.2) g/dL RDW 11.5 (11.0-15.0) % Plt Count 156 (150-450) 10^3/uL MPV 10.8 (9.5-13.5) fL Neut % (Auto) 89.6 H (43.0-75.0) % Lymph % (Auto) 5.4 L (20.5-60.0) % [place] % (Auto) 3.6 (1.7-12.0) % Eos % (Auto) 0.5 L (0.9-7.0) % Baso % (Auto) 0.4 (0.2-2.0) % Neut # (Auto) 11.9 H (1.4-6.5) 10^3/uL Lymph # (Auto) 0.7 L (1.2-3.8) 10^3/uL [place] # (Auto) 0.5 (0.3-0.8) 10^3/uL Eos # (Auto) 0.1 (0.0-0.7) 10^3/uL Baso # (Auto) 0.1 (0.0-0.1) 10^3/uL Abs Immat Gran (auto) 0.07 H (0.00-0.03) 10^3/uL Imm/Tot Granulo (auto) 0.5 (0.0-0.5) % Sodium 140 (136-145) mmol/L Potassium 4.2 (3.5-5.1) mmol/L Chloride 103 (98-107) mmol/L Carbon Dioxide 27.8 (21.0-32.0) mmol/L Anion Gap 13.4 BUN 10.0 (7.0-18.0) mg/dL Creatinine 0.91 (0.70-1.30) mg/dL Est GFR ( Amer) >60 (>=60 mL/min/1.73m^2) Est GFR (Non-Af Amer) >60 (>=60 mL/min/1.73m^2) BUN/Creatinine Ratio 11.0 Glucose 93 (74-106) mg/dL Calcium 9.2 (8.5-10.1) mg/dL Imaging Data CT scan - abdomen: Radiologist's impression: ITS Impressions Abdomen/Pelvis CT 09/13/24 22:28 IMPRESSION: 1. Mild acute diverticulitis of the distal sigmoid colon. 2. Suspect fistulous communication between the proximal and distal sigmoid colon at site of prior diverticulitis/abscess. Electronically authenticated by: OMER BOSTON Date: 09/13/2024 23:40 Discharge Plan Discharge Chief Complaint: Abdominal Pain Clinical Impression: Diverticulitis Patient Disposition: Home, Self-Care Time of Disposition Decision: 23:55 Condition: Good Mode of Transportation: Private Vehicle Prescriptions / Home Meds: New metronidazole 500 mg tablet 500 mg PO TID Qty: 30 0RF ciprofloxacin HCl [Cipro] 500 mg tablet 500 mg PO Q12H Qty: 20 0RF Print Language: [place] Citizen Instructions: Diverticulitis (ED) Referrals: Physician,Non-Staff, MD [Primary Care Provider] - 1 week
[2024-09-13 22:37] VITALS: BP 136/84; O2SAT 99
[2024-09-13 22:40] VITALS: O2SAT 100
[2024-09-13 22:46] LABS: Basophils Absolute Auto 0.1 10^3/uL (0.0-0.1); Basophils Percent Auto 0.4 % (0.2-2.0); Eosinophils Absolute Auto 0.1 10^3/uL (0.0-0.7); Eosinophils Percent Auto 0.5 % (0.9-7.0); Hematocrit 54.6 % (42.0-54.0); Immature Granulocytes Abs Auto 0.07 10^3/uL (0.00-0.03); Immature Granulocytes Pct Auto 0.5 % (0.0-0.5); Lymphocytes Absolute Auto 0.7 10^3/uL (1.2-3.8); Lymphocytes Percent Auto 5.4 % (20.5-60.0); Mean Corpuscular HGB Conc 34.8 g/dL (29.9-35.2); Mean Corpuscular Volume 97.7 fL (80.0-94.0); Mean Platelet Volume 10.8 fL (9.5-13.5); Monocytes Absolute Auto 0.5 10^3/uL (0.3-0.8); Monocytes Percent Auto 3.6 % (1.7-12.0); Neutrophils Absolute Auto 11.9 10^3/uL (1.4-6.5); Neutrophils Percent Auto 89.6 % (43.0-75.0); Platelet Count 156 10^3/uL (150-450); Red Blood Count 5.59 10^6/uL (4.70-6.10); Red Cell Distribution Width 11.5 % (11.0-15.0); White Blood Count 13.2 10^3/uL (4.0-11.0)
[2024-09-13 22:48] VITALS: TEMP 37.7
[2024-09-13 22:54] LABS: Anion Gap 13.4; Calcium 9.2 mg/dL (8.5-10.1); Carbon Dioxide 27.8 mmol/L (21.0-32.0); Chloride 103 mmol/L (98-107); Estimated GFR (African America >60 (>=60 mL/min/1.73m^2); Estimated GFR (Non-African Ame >60 (>=60 mL/min/1.73m^2); Glucose 93 mg/dL (74-106); Potassium 4.2 mmol/L (3.5-5.1); Sodium 140 mmol/L (136-145)
[2024-09-13 23:04] VITALS: O2SAT 99
[2024-09-13 23:30] VITALS: BP 127/84; O2SAT 98
[2024-09-14] VITALS: BP 130/87; O2SAT 96
[2024-09-14] MEDS: CIPROFLOXACIN IN 5 % DEXTROSE 400 MG/200 ML PREMIX 200 MG IV (00:03)
[2024-09-14 00:30] VITALS: BP 115/83; O2SAT 98
[2024-09-14] MEDS: METRONIDAZOLE/SODIUM CHLORIDE 500 MG/100 ML PREMIX 100 MG IV (01:05)
[2024-09-14 02:13] VITALS: PULSE 78
== END 2024-09-14 02:13 | disposition home or self-care (01) ==
PROVIDERS: Emergency Provider Emergency Medicine
DX: K57.32 Diverticulitis of large intestine without perforation or abscess without bleeding (principal); Z90.49 Acquired absence of other specified parts of digestive tract; F17.200 Nicotine dependence, unspecified, uncomplicated; R50.9 Fever, unspecified
CPT/HCPCS: 36415; 74177; 80048; 85025; 96365; 96366; 96368; 99284; J0744; J1836; Q9967

== ENCOUNTER 2024-09-25 12:25 | Emergency (ER) | payer SELFPAY ==
[2024-09-25] VITALS (18 sets, daily range): BP systolic 112–162; BP diastolic 62–100; PULSE 103; TEMP 36.9; O2SAT 95–100; BMI 32.1
--- NOTE | 2024-09-25 12:59 | CT_ITS ---
[address] [address] Patient Name: ESMER MUNOZ MRN: [id number] date: 2000 Sex: M Assigned Patient Location: ER Current Patient Location: ER Accession/Order Number: [id number] Exam Date: 09/25/2024 13:28 Report Date: 09/25/2024 15:15 At the request of: VAL GARZA Procedure: CT abdomen pelvis wo con EXAM: CT abdomen pelvis wo con HISTORY: hx of diverticulitis COMPARISON: 09/13/2024 TECHNIQUE: Dose reduction techniques were achieved by using automated exposure control and/or adjustment of mA and/or kV according to patient size and/or use of iterative reconstruction technique. Noncontrast CT of the abdomen/pelvis. FINDINGS: Lung bases are clear. Heart size is normal. Liver, gallbladder, spleen, pancreas, kidneys, distal esophagus, stomach, duodenum and adrenal glands are normal. Fluid collection of the posterior pelvis measuring approximately 5.6 x 3.8 cm, concerning for abscess (3/120). (Evaluation is limited due to lack of intravenous contrast and lack of oral contrast.) Fat stranding about the sigmoid colon, consistent with diverticulitis. Air and fluid-filled collection adjacent to the sigmoid colon measuring 1.9 x 2.4 cm, concerning for abscess (3/101). There was suspicion for fistulous communication between the proximal and distal aspects of the sigmoid colon on the prior examination. That suspicion remains on this examination. Postcontrast examination could evaluate more accurately. No colonic dilation. No pericolonic fat stranding. No inflammation of the right lower quadrant. No inguinal, pelvic, or retroperitoneal adenopathy. No acute osseous abnormality. No bladder wall thickening. CT/CT abdomen pelvis wo con IMPRESSION: 1. Fluid collection of the posterior pelvis measuring approximately 5.6 x 3.8 cm, concerning for abscess (3/120). (Evaluation is limited due to lack of intravenous contrast and lack of oral contrast.) 2. Air and fluid-filled collection adjacent to the sigmoid colon measuring 1.9 x 2.4 cm, concerning for abscess (3/101). 3. There was suspicion for fistulous communication between the proximal and distal aspects of the sigmoid colon on the prior examination. That suspicion remains on this examination. Postcontrast examination could evaluate more accurately. 4. Fat stranding about the sigmoid colon, consistent with diverticulitis. 5. No acute osseous abnormality. Electronically authenticated by: ARIELLE CROW Date: 09/25/2024 15:15
[2024-09-25 13:04] LABS: Hematocrit 49.4 % (42.0-54.0); Hemoglobin 17.4 g/dL (14.0-18.0); Mean Corpuscular HGB Conc 35.2 g/dL (29.9-35.2); Mean Corpuscular Hemoglobin 32.7 pg (25.9-34.0); Mean Corpuscular Volume 92.9 fL (80.0-94.0); Mean Platelet Volume 10.5 fL (9.5-13.5); Platelet Count 372 10^3/uL (150-450); Red Blood Count 5.32 10^6/uL (4.70-6.10); Red Cell Distribution Width 11.3 % (11.0-15.0); White Blood Count 27.1 10^3/uL (4.0-11.0)
[2024-09-25 13:18] LABS: Lymphocytes Absolute Manual 2.98 10^3/uL (1.20-3.80); Monocytes Absolute Manual 1.08 10^3/uL (0.30-0.80); Segmented Neut Absolute Manual 23.03 10^3/uL (1.4-6.5)
[2024-09-25] MEDS: ONDANSETRON PF 4 MG/2 ML VIAL IV (13:19)
[2024-09-25] MEDS: MORPHINE SULFATE 2 MG/ML SYRINGE IV (13:20)
[2024-09-25] MEDS: FAMOTIDINE/PF 20 MG/2 ML VIAL IV (13:20)
[2024-09-25] MEDS: 0.9 % SODIUM CHLORIDE 1,000 ML 1000 ML IV (13:21)
[2024-09-25 13:22] LABS: Alanine Aminotransferase 11 U/L (16-63); Albumin Globulin Ratio 0.6; Albumin Level 3.2 g/dL (3.4-5.0); Alkaline Phosphatase 77 U/L (46-116); Anion Gap 18.4; Aspartate Amino Transferase 10 U/L (15-37); BUN Creatinine Ratio 7.1; Bilirubin Total 0.8 mg/dL (0.2-1.0); Calcium 9.2 mg/dL (8.5-10.1); Carbon Dioxide 23.5 mmol/L (21.0-32.0); Chloride 98 mmol/L (98-107); Estimated GFR (African America >60 (>=60 mL/min/1.73m^2); Estimated GFR (Non-African Ame >60 (>=60 mL/min/1.73m^2); Globulin 5.1 g/dL; Glucose 129 mg/dL (74-106); Sodium 137 mmol/L (136-145); Total Protein 8.3 g/dL (6.4-8.2)
[2024-09-25 13:26] LABS: Lactate/Lactic Acid 1.4 mmol/L (0.4-2.0)
[2024-09-25 13:30] LABS: Potassium 2.9 mmol/L (3.5-5.1)
[2024-09-25] MEDS: HYDROMORPHONE HCL 0.5 MG/0.5 ML SYRINGE IV (14:22)
[2024-09-25] MEDS: METRONIDAZOLE/SODIUM CHLORIDE 500 MG/100 ML PREMIX 100 MG IV (15:25)
[2024-09-25] MEDS: PIPERACILLIN SODIUM/TAZOBACTAM 4.5 GM in 0.9 % SODIUM CHLORIDE 50 ML IV (16:32)
--- NOTE | 2024-09-25 17:26 | ED.ABDPAIN1 ---
HPI - Abdominal Pain General Chief Complaint: Abdominal Pain Stated Complaint: VOMITTING DIARRHEA Time Seen by Provider: 09/25/24 12:52 Source: patient Mode of arrival: walk-in Limitations: no limitations History of Present Illness HPI narrative: The patient is a 24-year-old male coming to us with abdominal pain as well as nausea and vomiting, according to him he was diagnosed with diverticulitis earlier this month but he got better but started getting worse over the last few days, he mentioned that he vomited some blood over the last few hours to but at the end of his vomiting. The patient is complaining of generalized abdominal pain as well as lower abdominal pain Has not been tolerating anything p.o. as he has been vomiting Related Data Previous Rx's ?Medication ?Instructions ?Recorded ciprofloxacin HCl 500 mg tablet 500 mg PO Q12H #20 tabs 09/13/24 (Cipro) metronidazole 500 mg tablet 500 mg PO TID #30 tabs 09/13/24 Allergies Allergy/AdvReac Type Severity Reaction Status Date / Time No Known Drug Allergies Allergy Verified 09/25/24 12:33 Review of Systems ROS Status of ROS 10 or more systems reviewed and unremarkable except as noted in history and below [facility] Medical History (Updated 09/25/24 @ 17:29 by Bridgett Khan MD) Perforation bowel ?K63.1 - Perforation of intestine (nontraumatic) (ICD-10) Obesity (BMI 30-39.9) ?E66.9 - Obesity, unspecified (ICD-10) Marijuana smoker ?F12.90 - Cannabis use, unspecified, uncomplicated (ICD-10) Smoker ?F17.200 - Nicotine dependence, unspecified, uncomplicated (ICD-10) Diverticulitis of colon with perforation ?K57.20 - Diverticulitis of large intestine with perforation and abscess without bleeding (ICD-10) Smokers' cough ?J41.0 - Simple chronic bronchitis (ICD-10) Obesity (BMI 35.0-39.9 without comorbidity) ?E66.9 - Obesity, unspecified (ICD-10) Pleurisy ?R09.1 - Pleurisy (ICD-10) Alcohol use disorder, mild, in early remission ?F10.11 - Alcohol abuse, in remission (ICD-10) HTN (hypertension) ?I10 - Essential (primary) hypertension (ICD-10) Herpes simplex ?B00.9 - Herpesviral infection, unspecified (ICD-10) Surgical History History of surgery on arm ?Z98.890 - Other specified postprocedural states (ICD-10) History of appendectomy ?Z90.49 - Acquired absence of other specified parts of digestive tract (ICD-10) Family History Mother Family history of COPD (chronic obstructive pulmonary disease) Family history of cancer Family history of hypertension Father Family history of hypertension Social History Within the past year, how often did you have a drink containing alcohol: 2-3 times a week Within the past year, how many standard drinks containing alcohol did you have on a typical day: 1 or 2 Within the past year, how often did you have six or more drinks on one occasion: less than monthly Total score: 1 Score interpretation: A score of 4 or more indicates drinking is likely to affect patient's safety. Smoking status: Current every day smoker Non-prescribed substance use: cannabis (any form) Previous occupational history: unemployed Highest level of school completed/degree received: high school graduate Are you now , , , , never or living with a partner: never Little interest or pleasure in doing things: not at all Feeling down, depressed, or hopeless: not at all Feel stressed/tense/nervous/anxious/difficulty sleeping: not at all Exam Narrative Exam Narrative: Nurses notes and vital signs reviewed and patient is not hypoxic. General: Well-appearing and in no apparent distress. Skin: Warm, dry, no pallor noted. No rash. Head: Normocephalic, atraumatic. Neck: Supple, non-tender. Eye: Pupils are equal, round and EOMI. No scleral icterus. Ears, Nose, Mouth, and Throat: TM are clear, no nasal mucosal hypertrophy. Oral mucosa is moist, no posterior oropharynx erythema, uvula is mid-line Cardiovascular: Regular Rate and Rhythm without murmur, gallop or rub. Respiratory: No accessory muscle use or respiratory distress. Lungs are clear to auscultation, no wheezing, rales or rhonchi Chest Wall: no tenderness Back: No midline thoracic or lumbar vertebral tenderness. No CVA tenderness Musculoskeletal: normal ROM, no calf or popliteal tenderness, no lower extremity edema/swelling GI: Abdomen is soft, non-distended. Normal bowel sounds. No masses appreciated. Generalized abdominal tenderness Constitutional Vital Signs, click to edit/add: Last Vital Signs Temp 98.4 F 09/25/24 12:31 Pulse 103 H 09/25/24 12:31 Resp 18 09/25/24 12:31 BP 137/77 09/25/24 16:00 Pulse Ox 98 09/25/24 16:20 O2 Del Method Room Air 09/25/24 12:31 Course Vital Signs Vital signs: Vital Signs Temperature 98.4 F 09/25/24 12:31 Pulse Rate 103 H 09/25/24 12:31 Respiratory Rate 18 09/25/24 12:31 Blood Pressure 162/100 H 09/25/24 12:31 Pulse Oximetry 99 09/25/24 12:31 Oxygen Delivery Method Room Air 09/25/24 12:31 Temperature 98.4 F 09/25/24 12:31 Pulse Rate 103 H 09/25/24 12:31 Respiratory Rate 18 09/25/24 12:31 Blood Pressure 137/77 09/25/24 16:00 Pulse Oximetry 98 09/25/24 16:20 Oxygen Delivery Method Room Air 09/25/24 12:31 MDM - Abdominal Pain MDM Narrative Medical decision making narrative: The patient CBC shows a elevated white blood cell above 26 The patient lactic acid was not elevated Chemistry showing some hypokalemia with potassium 2.9 The patient CAT scan was obtained without contrast initially as the patient recently had contrast study and I did not want to give him contrast if it not needed CT of the abdomen pelvis showed that the patient have 2 collection of fluid mostly abscesses Blood culture was obtained and the patient was covered with Vanco Zosyn and Flagyl IV potassium started too Patient case was discussed with the general surgery doctor and [facility] who accepted the patient to be transferred to the ER with accepted him Lab Data Labs: Lab Results 09/25/24 Range/Units 12:45 WBC 27.1 H (4.0-11.0) 10^3/uL RBC 5.32 (4.70-6.10) 10^6/uL Hgb 17.4 (14.0-18.0) g/dL Hct 49.4 (42.0-54.0) % MCV 92.9 (80.0-94.0) fL MCH 32.7 (25.9-34.0) pg MCHC 35.2 (29.9-35.2) g/dL RDW 11.3 (11.0-15.0) % Plt Count 372 (150-450) 10^3/uL MPV 10.5 (9.5-13.5) fL Seg Neuts % (Manual) 85.0 H (43.0-75.0) Lymphocytes % (Manual) 11.0 L (20.5-60.0) % Monocytes % (Manual) 4.0 (1.7-12.0) % Eosinophils % (Manual) 0.0 L (0.9-7.0) % Basophils % (Manual) 0.0 L (0.2-2.0) % Neutrophils # (Manual) 23.03 H (1.4-6.5) 10^3/uL Lymphocytes # (Manual) 2.98 (1.20-3.80) 10^3/uL Monocytes # (Manual) 1.08 H (0.30-0.80) 10^3/uL Eosinophils # (Manual) 0.00 (0.00-0.70) 10^3/uL Basophils # (Manual) 0.00 (0.00-0.10) 10^3/uL Sodium 137 (136-145) mmol/L Potassium 2.9 L* (3.5-5.1) mmol/L Chloride 98 (98-107) mmol/L Carbon Dioxide 23.5 (21.0-32.0) mmol/L Anion Gap 18.4 BUN 7.0 (7.0-18.0) mg/dL Creatinine 0.98 (0.70-1.30) mg/dL Est GFR ( Amer) >60 (>=60 mL/min/1.73m^2) Est GFR (Non-Af Amer) >60 (>=60 mL/min/1.73m^2) BUN/Creatinine Ratio 7.1 Glucose 129 H (74-106) mg/dL Lactate 1.4 (0.4-2.0) mmol/L Calcium 9.2 (8.5-10.1) mg/dL Total Bilirubin 0.8 (0.2-1.0) mg/dL AST 10 L (15-37) U/L ALT 11 L (16-63) U/L Alkaline Phosphatase 77 (46-116) U/L Total Protein 8.3 H (6.4-8.2) g/dL Albumin 3.2 L (3.4-5.0) g/dL Globulin 5.1 g/dL Albumin/Globulin Ratio 0.6 Discharge Plan Discharge Chief Complaint: Abdominal Pain Clinical Impression: Abdominal abscess Patient Disposition: [facility] Time of Disposition Decision: 17:29
[2024-09-25] MEDS: VANCOMYCIN HCL 1,000 MG in 0.9 % SODIUM CHLORIDE 250 ML 250 MG IV (17:30)
--- NOTE | 2024-09-25 18:21 | PC.NURSE ---
1820 - REPORT GIVEN TO CHANCE ZACARIAS AT [facility]
== END 2024-09-25 18:10 | disposition short-term general hospital (02) ==
PROVIDERS: Emergency Provider Emergency Medicine
DX: K57.20 Diverticulitis of large intestine with perforation and abscess without bleeding (principal); E87.6 Hypokalemia; Z90.49 Acquired absence of other specified parts of digestive tract; F17.200 Nicotine dependence, unspecified, uncomplicated
CPT/HCPCS: 36415; 74176; 80053; 83605; 85007; 85027; 87040; 96361; 96365; 96367; 96375; 99285; J1171; J1836; J2270; J2405; J2543; J3370

== ENCOUNTER 2024-10-12 21:26 | Emergency (ER) | payer SELFPAY ==
[2024-10-12 21:30] VITALS: BP 128/84; PULSE 112; TEMP 37.1; O2SAT 97; BMI 31.4
--- OUTSIDE RECORDS SUMMARY | 2024-10-12 21:34 | XMS_ITS | CCD ---
Author Organization [facility] Care Team Providers Care Oil Heaterman Name Role Phone Tereso VERONICACandice Primary Care Provider [phone] Unavailable Primary Care Provider Federicoabl FLOR Shepherd Attending Unavailable GUANACO, EVAN E Referring Unavailable GUANACO, EVAN E Referring Unavailable GUANACO, EVAN E Admitting Unavailable GUANACO, EVAN E Attending Unavailable MISC, DR LUNA Primary Care Unavailable REINECK, DR AGUILA Shipley Admitting Unavailabl e REINECK, DR AGUILA Shipley Attending Unavailabl e REINECK, DR AGUILA Shipley Consulting Unavailabl e Unavailable Primary Care Provider UnavailELLA Torres Consulting Unavailable BRIE MEHTA Attending Unavailabl e LOUKACORAZON Admitting Unavailable LESLIE JURADO Consulting Unavailable RADHA, ABED E Consulting Unavailable JULIET NICOLE Consulting Unavaila ROSAURA Lemus Referring Unavailable AL-CONRADO MARCUS Attending Unavail able LOUKA CORAZON Admitting Unavailable RADHA, ABED E Consulting Unavailable BOBO MAS Consulting Unavailable AL-CONRADO MARCUS Consulting Unavail able Medications Current Medications Medication Drug Class(es) Dates Sig (Normalized) Sig (Original) acetaminophen 325 mg / HYDROcodone bitartrate 5 mg oral tablet (11 sources) Opioid Agonist Start: 10-01-2024 End: 10-04-2024 HYDROcodone-acetam inophen (NORCO) 5-325 MG per tablet Indications: Intra-abdominal abscess (HCC) Take 1 tablet by mouth every 6 hours as needed for Pain for up to 3 days. Max Daily Amount: 4 tablets 12 tablet 10/01/2024 10/04/2024 Active Start: 04-03-2022 End: 04-10-2022 take 1-2 tablets by mouth every four hours as needed for pain HYDROcodone-acetaminophen (NORCO) 5-325 MG per tablet Indications: Status [...] 5-325 mg (STARTER PACK) Start: 03-30-2022 End: 10-01-2024 HYDROcodone-acetaminophen (N ORCO) 5-325 MG per tablet Indications: Closed fracture of distal end of left radius, unspecified fracture morphology, initial encounter Take 1 tablet by mouth every 6 hours as needed for Pain for up to 3 days. Intended supply: 3 days. Take lowest dose possible to manage pain 12 tablet 0 03/30/2022 04/02/2022 Active cefdinir 300 mg oral capsule (1 source) Cephalosporin Antibacterial Start: 10-01-2024 End: 10-11-2024 take 1 capsule by mouth twice daily cefdinir (OMNICEF) 300 MG capsule Take 1 capsule by mouth 2 times daily for 10 days 20 capsule 10/01/2024 10/11/2024 Active ciprofloxacin 500 mg oral tablet (3 [...] 01/18/2024 01/18/2024 Discontinued (Stop Taking at Discharge) 1 ml HYDROmorphone hydrochloride 1 mg/ml cartridge (3 sources) Opioid Agonist Start: 09-26-2024 take 1 mg by mouth every four hours as needed 1 mg, IntraVENous, EVERY 4 HOURS PRN, Starting on Sun09/26/24 at 0614, Until Discontinued, Pain Severe (7-10), If oral and IV narcotics ordered, use oral first and only use IV if oral is ineffective or cannot take oral. Do Not give oral and IV within 1 hour of each other unless specifically ordered. Start: 09-25-2024 End: 09-26-2024 take 0.5 mg by mouth once 0.5 mg, IntraVENous, ONCE, 1 dose, On Sun09/26/24 at 0315, If oral and IV narcotics ordered, use oral first and only use IV if oral is ineffective or cannot take oral. Do Not give oral and IV within 1 hour of each other unless specifically ordered. 50 ml magnesium sulfate 40 mg/ml injection (1 source) Start: 09-25-2024 2 ml metoclopramide 5 mg/ml prefilled syringe (1 source) Dopamine-2 Receptor Antagonist Start: 04-03-2022 End: 04-03-2022 10 mg, IntraVENous, ONCE PRN, 1 dose, Starting on Sun04/03/22 at 1124, Until Sun04/03/22 at 2359, Nausea Secondary antiemetic therapy. PACU only metroNIDAZOLE 500 mg oral tablet (5 sources) Nitroimidazole Antimicrobial Start: 10-01-2024 End: 10-11-2024 take 1 tablet by mouth three times daily metroNIDAZOLE (FLAGYL) 500 MG tablet Take 1 tablet by mouth 3 times daily for 10 days 30 tablet 10/01/2024 10/11/2024 Active Start: 09-26-2024 End: 09-26-2024 500 mg, IntraVENous, EVERY 8 HOURS, First dose on Sun09/26/24 at 0330, Until Discontinued, Antimicrobial Indications: Intra-Abdominal Infection Start: 01-18-2024 End: 01-25-2024 take 1 tablet [...] 01/18/2024 01/18/2024 Discontinued (Stop Taking at Discharge) ondansetron (ZOFRAN-ODT) disintegrating tablet 4 mg (2 sources) Start: 09-25-2024 ondansetron (Z OFRAN-ODT) disintegrating tablet 4 mg Start: 01-16-2024 ondansetron (Z OFRAN-ODT) disintegrating tablet 4 mg polyethylene glycol 3350 170 00 mg powder for oral solution (2 sources) Osmotic Laxative Start: 09-25-2024 Start: 01-16-2024 17 g, Oral, DA TONYA PRN, Starting on Sun01/16/24 at 1104, Until Discontinued, Constipation First line therapy for constipation Completed/Discontinued Medications Medication Drug Class(es) Dates Sig (Normalized) Sig (Original) acetaminophen 500 mg oral tablet (2 sources) Start: 09-26-2024 take 1 dose by mouth three times daily, then take 4000 mg by mouth every twenty-four hours 1,000 mg, Oral, EVERY 8 HOURS SCHEDULED (3 times per day), First dose on Sun09/26/24 at 2200, Until Discontinued, Maximum dose of acetaminophen is 4000 mg from all sources in 24 hours. Start: 01-16-2024 acetaminophen (TYLENOL) tablet 650 mg amoxicillin 500 mg oral tablet (5 sources) [...] / sodium lactate 0.028 meq/ml injectable solution (4 sources) Start: 09-26-2024 End: 09-26-2024 1,000 mL, IntraVENous, at 495.9 mL/hr, Administer over 121 Minutes, ONCE, On Sun09/26/24 at 1700, For 1 dose Start: 09-25-2024 IntraVENous, a t 100 mL/hr, CONTINUOUS, Starting on Sun09/25/24 at 2130 Start: 01-16-2024 End: 01-18-2024 IntraVENous, at 75 mL/hr, CO NTINUOUS, Starting on Sun01/16/24 at 1130, For 48 hours Start: 04-03-2022 lactated ringe rs infusion 50 ml calcium gluconate 20 mg/ml injection (1 source) Start: 09-25-2024 End: 09-25-2024 1,000 mg, IntraVENous, at 50 mL/hr, Administer over 60 Minutes, ONCE, On Ana Rosa 09/25/24 at 2145, For 1 dose ceFAZolin (ANCEF) 2000 mg in dextrose 5 % 100 mL IVPB (1 source) Start: 04-03-2022 End: 04-03-2022 ceFAZolin (ANCEF) 2000 mg in dextrose 5 % 100 mL IVPB chlorhexidine gluconate 1.2 mg/ml mouthwash (5 sources) Start: 03-10-2022 End: 07-27-2022 Chlorhexidine Gluconate 0.12% Mouth/Throat Solution 03/10/2022 - 07/27/2022 Provider: Candice Rider CNP 0.3 ml enoxaparin sodium 100 mg/ml prefilled syringe (2 sources) Low Molecular Weight Heparin Start: 09-25-2024 inject 30 mg by subcutaneous injection twice daily 30 mg, SubCUTAneous, 2 TIMES DAILY, First dose on Ana Rosa 09/25/24 at 2315, Until Discontinued, Indication of Use: Prophylaxis-DVT/PE , Administer by deep subCUTAneous injection with pt lying down. Alternate injection sites on abdominal wall. Do not rub site after injection. Check with provider prior to any invasive procedure. Start: 01-17-2024 enoxaparin Sod ium (LOVENOX) injection 30 mg 2 ml fentaNYL 0.05 mg/ml injection (3 sources) Opioid Agonist Start: 09-26-2024 End: 09-26-2024 PRN, Starting on Sun09/26/24 at 1214, Until Sun09/26/24 at 1228, Intra-op Start: 01-17-2024 End: 01-17-2024 fentaNYL (SUBLIMAZE) injecti on Start: 04-03-2022 50 mcg, IntraV ENous, EVERY 5 MIN PRN, 2 doses, Starting on Sun04/03/22 at 1124, Until Discontinued, Pain Severe (7-10) For Phase I. If Phase II oral narcotics have been administered in the last 60 minutes, do not administer IV narcotics unless specifically approved by provider. PACU only 500 ml glucose 50 mg/ml / potassium chloride 0.02 meq/ml / sodium chloride 4.5 mg/ml injection (1 source) Start: 09-25-2024 End: 09-26-2024 IntraVENous, at 125 mL/hr, CONTINUOUS, Starting on Ana Rosa 09/25/24 at 2315 hydroCHLOROthiazide 12.5 mg / lisinopril 20 mg oral tablet (5 sources) Thiazide Diuretic, Angiotensin Converting Enzyme Inhibitor Start: 03-10-2022 End: 07-27-2022 Lisinopril-hydroCHL OROthiazide 20-12.5 MG Oral Tablet 03/10/2022 - 07/27/2022 Provider: Candice Rider CNP 1 ml ketorolac tromethamine 15 mg/ml cartridge (1 source) Nonsteroidal Anti-inflammatory Drug, Cyclooxygenase Inhibitor Start: 01-16-2024 15 mg, IntraVENous, EVERY 6 HOURS PRN, 4 doses, Starting on Sun01/16/24 at 1104, Until Discontinued, Pain Moderate (4-6), Pain Severe (7-10) Do not administer for more than 5 days 2 ml midazolam 1 mg/ml injection (2 sources) Benzodiazepine Start: 09-26-2024 End: 09-26-2024 PRN, Starting on Sun09/26/24 at 1214, Until Sun09/26/24 at 1222, Intra-op Start: 01-17-2024 End: 01-17-2024 midazolam PF (VERSED) inject ion 1 ml morphine sulfate 10 mg/ml cartridge (2 sources) Opioid Agonist Start: 09-25-2024 End: 09-25-2024 8 mg, IntraVENous, ONCE, 1 dose, On Ana Rosa 09/25/24 at 1930 Start: 03-30-2022 End: 03-30-2022 morphine injection 4 mg 2 ml ondansetron 2 mg/ml injection (3 sources) Serotonin-3 Receptor Antagonist Start: 09-25-2024 End: 09-25-2024 4 mg, IntraVENous, ONCE, 1 dose, On Ana Rosa 09/25/24 at 1930 Start: 04-03-2022 End: 04-03-2022 4 mg, IntraVENous, ONCE PRN, 1 dose, Starting on 04/03/22 at 1124, Until Sun04/03/22 at 2359, Nausea Initial antiemetic therapy. PACU only Start: 03-30-2022 End: 03-30-2022 ondansetron (ZOFRAN) injecti on 4 mg oxyCODONE hydrochloride 5 mg oral tablet (2 sources) Opioid Agonist Start: 09-28-2024 take 5 mg by mouth every four hours as needed 5 mg, Oral, EVERY 4 HOURS PRN, Starting on Sun09/28/24 at 1037, Until Discontinued, Pain Severe (7-10), Pain Moderate (4-6) Start: 04-03-2022 End: 04-03-2022 oxyCODONE (ROXICODONE) immed iate release tablet 5 mg pantoprazole (PROTONIX) 40 m g in sodium chloride (PF) 0.9 % 10 mL injection (1 source) Start: 01-16-2024 End: 01-18-2024 pantoprazole (PROTONIX) 40 m g in sodium chloride (PF) 0.9 % 10 mL injection piperacillin-tazobactam (ZOS YN) 3,375 mg in sodium chloride 0.9 % 50 mL IVPB (mini-bag) (2 sources) Start: 09-26-2024 End: 09-26-2024 3,375 mg, IntraVENous, EVERY 8 HOURS, First dose (after last reorder) on Sun09/26/24 at 0130, Until Discontinued, Antimicrobial Indications: Intra-Abdominal Infection Start: 09-25-2024 3,375 mg, Intr aVENous, EVERY 8 HOURS, First dose on Ana Rosa 09/25/24 at 2315, Until Discontinued, Antimicrobial Indications: Intra-Abdominal Infection microencapsulated potassium chloride 20 meq extended release oral tablet (4 sources) Start: 09-29-2024 End: 09-29-2024 20 mEq, Oral, ONCE, 1 dose, On Sun09/29/24 at 0530, Do not crush, chew, or suck on tablet. Tablet may also be broken in half and each half swallowed separately. Start: 09-25-2024 potassium chlo ride (KLOR-CON M) extended release tablet 40 mEq Start: 09-25-2024 End: 09-26-2024 10 mEq, IntraVENous, EVERY H OUR, 6 doses, First dose on Sun09/25/24 at 2200, Last dose on Sun09/26/24 at 0300, at 100 mL/hr, Potassium chloride doses are limited to a maximum of six consecutive doses before reassessment of laboratory values is needed. Start: 01-16-2024 potassium chlo ride (KLOR-CON M) extended release tablet 40 mEq 5 ml sodium chloride 9 mg/ml injection (9 sources) Start: 09-26-2024 5-10 mL, Intra CATHeter, 2 TIMES DAILY, First dose on Sun09/26/24 at 1315, Until Discontinued, Please flush diverticular abscess drain with 5-10 mL of saline BID and record I&O's Start: 09-25-2024 IntraVENous, a t 5-250 mL/hr, PRN, if patient receiving piggyback infusions and maintenance fluids are not ordered, Starting on Sun09/25/24 at 2249, For piggyback infusion, administer at same rate as piggyback for a total of 25 mL. Enter 25 mL into dose field and piggyback rate into rate field of order. If piggyback is infusing at a rate less than 100 mL/hr, enter 25 mL into dose field and 100 mL/hr into rate field of order. Start: 09-25-2024 5-40 mL, Intra VENous, EVERY 12 HOURS SCHEDULED (2 times per day), First dose on Sun09/25/24 at 2315, Until Discontinued, For Line Patency: Peripheral IV [...] or Central Line = 20 mL/lumen Start: 09-25-2024 Start: 01-16-2024 IntraVENous, a t 5-250 mL/hr, [...] Central Line = 20 mL/lumen PACU only vancomycin (VANCOCIN) 1750 m g in sodium chloride 0.9 % 500 mL IVPB (1 source) Start: 09-26-2024 End: 09-26-2024 1,750 mg (17.4 mg/kg), IntraVENous, at 250 mL/hr, Administer over 120 Minutes, EVERY 12 HOURS, First dose on Sun09/26/24 at 0430 Problems Active Problems Problem Classification Problem Date Documented Date Episodic/Chronic Adjustment disorders (3 sources) Adjustment disorder; Translations: [Adjustment disorder, unspecified] Onset: 07-27-2022 07-29-2022 Chronic Diseases of white blood cells (2 sources) Leukocytosis; Translations: [Elevated white blood cell count, unspecified] Onset: 09-25-2024 09-25-2024 Chronic Diverticulosis and diverticulitis (5 sources) Abscess of sigmoid colon co-occurrent and due to diverticulitis; Translations: [Diverticulitis of large intestine with perforation and abscess without bleeding] Onset: 01-15-2024 01-15-2024 Chronic Essential hypertension (14 sources) Hypertensive disorder; Translations: [Essential (primary) hypertension] Onset: 03-10-2022 Chronic Fluid and electrolyte disorders (2 sources) Hypokalemia; Translations: [Hypokalemia] Onset: 09-25-2024 09-25-2024 Episodic Fracture of upper limb (1 source) Closed fracture of distal end of left radius; Translations: [Unspecified fracture of the lower end of left radius, initial encounter for closed fracture] Episodic Mood disorders (4 sources) Mood disorders; Translations: [DEPRESSION UNSPECIFIED] Onset: 09-23-2022 Other nutritional; endocrine; and metabolic disorders (8 sources) Finding of body mass index; Translations: [Body mass index (observable entity)] Onset: 03-10-2022 Chronic Peritonitis and intestinal abscess (9 sources) Infection causing abscess of colon; Translations: [Abscess of intestine] Onset: 01-16-2024 01-16-2024 Episodic Residual codes; unclassified (1 source) H/O: fracture; Translations: [Other specified postprocedural states] Episodic Residual codes; unclassified (2 sources) Tobacco use and exposure - finding; Translations: [Tobacco use] Onset: 09-26-2024 09-26-2024 Episodic Substance-related disorders (3 sources) Nicotine dependence; Translations: [Tobacco use disorder] Onset: 07-27-2022 Chronic Substance-related disorders (1 source) Cannabis use, unspecified, uncomplicated; Translations: [CANNABIS USE UNS UNCOMPLICATED] Onset: 09-25-2022 Episodic Past or Other Problems Problem Classification Problem Date Documented Date Episodic/Chronic Disorders of teeth and jaw (5 sources) Infection of tooth; Translations: [Other specific diseases of hard tissues of teeth] Onset: 03-10-2022 Episodic Immunizations and screening for infectious disease (5 sources) HIV screening; Translations: [Special screening examination for other specified viral diseases] Onset: 03-10-2022 Episodic Noninfectious gastroenteritis (3 sources) Colitis; Translations: [Noninfective gastroenteritis and colitis, unspecified] Onset: 01-17-2024 01-17-2024 Episodic Other screening for suspected conditions (not mental disorders or infectious disease) (9 sources) Encounter for screening for diabetes mellitus; Translations: [Diabetes Risk Test Score] Onset: 03-10-2022 Episodic Residual codes; unclassified (5 sources) Tobacco dependence syndrome; Translations: [Tobacco use] Onset: 03-10-2022 Episodic Residual codes; unclassified (3 sources) History of abdominal abscess; Translations: [Personal history of other specified conditions] Onset: 01-17-2024 01-17-2024 Episodic Unclassified (8 sources) Intervention & Counseling Cessation of Tobacco Use 3-10 Min.; Translations: [Intervention & Counseling Cessation of Tobacco Use 3-10 Min.] Onset: 03-10-2022 Results Test Name Value Interpretation Reference Range Facility Basic Metabolic Panel 09-11 Anion gap [Moles/Vol] 11 mmol/L 9 - 16 mmol/L [facility] Calcium [Mass/Vol] 8.5 mg/dL Low 8.6 - 10. 4 mg/dL [facility] Chloride [Moles/Vol] 104 mmol/L 98 - 10 7 mmol/L [facility] CO2 [Moles/Vol] 24 mmol/L 20 - 31 mmol/L [facility] [employer] Creatinine [Mass/Vol] 0.8 mg/dL 0.7 - 1.2 mg/dL [facility] Est, Glom Filt Rate - PINF [facility] Comment on above: These results are not [...] that affects renal tubular secretion. Glucose [Mass/Vol] 88 mg/dL 74 - 99 mg/dL [facility] Interpretation and review of laboratory results Abnormal [facility] Potassium [Moles/Vol] 3.2 mmol/L Low 3.7 - 5.3 mmol/L [facility] Comment on above: Specimen hemolysis h as exceeded the interference as defined by Kaitlyn. Value may be falsely increased. Suggest recollection if clinically indicated. Sodium [Moles/Vol] 139 mmol/L 136 - 145 mmol/L [facility] Urea nitrogen [Mass/Vol] 3 mg/dL Low 6 - 20 mg/dL [facility] Basic Metabolic Profon 10-01 Anion gap [Moles/Vol] 11 mmol/L Normal 9-16 [facility] Comment on above: Performed By: #### P T, BMPX, CDP #### [facility] [address] [place] [address] [id number] [employer] Helper: Willian Dudley MD Calcium [Mass/Vol] 8.5 mg/dL Low 8.6-10.4 [facility] Comment on above: Performed By: #### P T, BMPX, CDP #### [employer] [address] [place] [id number] [employer] Helper: Willian Dudley MD Chloride [Moles/Vol] 104 mmol/L Normal 98-107 [facility] Comment on above: Performed By: #### P T, BMPX, CDP #### [facility] [address] [place] [id number] [employer] Helper: Willian Dudley MD CO2 [Moles/Vol] 24 mmol/L Normal 20-31 [facility] Comment on above: Performed By: #### P T, BMPX, CDP #### [employer] [address] [place] [address] [id number] [employer] Helper: Willian Dudley MD Creatinine [Mass/Vol] 0.8 mg/dL Normal 0.7-1.2 [facility] Comment on above: Performed By: #### P T, BMPX, CDP #### [employer] [address] [place] [address] [id number] [employer] Helper: Willian Dudley MD GFR/1.73 sq M.predicted among non-blacks MDRD (S/P/Bld) [Vol rate/Area] mL/min/{1.73_m2} Normal >60 [facility] Comment on above: Result Comment: These [...] affects renal tubular secretion. Performed By: #### P T, BMPX, CDP #### [employer] [address] [place] [address] [id number] [employer] Helper: Willian Dudley MD Glucose [Mass/Vol] 88 mg/dL Normal 74-99 [facility] Comment on above: Performed By: #### P T, BMPX, CDP #### [employer] [address] [place] [address] [id number] [employer] Helper: Willian Dudley MD Potassium [Moles/Vol] 3.2 mmol/L Low 3.7-5.3 [facility] Comment on above: Result Comment: Spec imen hemolysis has exceeded the interference as defined by Kaitlyn. Value may be falsely increased. Suggest recollection if clinically indicated. Performed By: #### P T, BMPX, CDP #### [employer] [address] [place] [address] [id number] [employer] Helper: Willian Dudley MD Sodium [Moles/Vol] 139 mmol/L Normal 136-145 [facility] Comment on above: Performed By: #### P T, BMPX, CDP #### [employer] [address] [place] [address] [id number] [employer] Helper: Willian Dudley MD Urea nitrogen [Mass/Vol] 3 mg/dL Low 6-20 [facility] Comment on above: Performed By: #### P T, BMPX, CDP #### [facility] [email or web address] [address] [place] [address] [employer] Helper: Willian Dudley MD CBC with Auto Differentialon 10-01-2024 Basophils (Bld) [#/Vol] 0.07 10*3/uL [facility] Basophils/100 WBC (Bld) 1 % 0 - 2 % [facility] Eosinophils (Bld) [#/Vol] 0.21 10*3/uL [facility] Eosinophils/100 WBC (Bld) 3 % 1 - 4 % [facility] Erythrocyte distribution width (RBC) [Ratio] 11.5 % Low 11.8 - 14.4 % [facility] Hematocrit (Bld) [Volume fraction] 45.7 % 40.7 - 50.3 % [facility] Hemoglobin (Bld) [Mass/Vol] 15.1 g/dL 13.0 - 17.0 g/dL [facility] Immature granulocytes (Bld) [#/Vol] 0.08 10*3/uL [facility] Immature granulocytes/100 WBC (Bld) 1 % High 0 [facility] Interpretation and review of laboratory results Abnormal [facility] Lymphocytes/100 WBC (Bld) 30 % 24 - 43 % [facility] Lymphocytes/100 WBC (Bld) 2.25 % [facility] MCH (RBC) [Entitic mass] 32.1 pg 25.2 - 33.5 pg [facility] MCHC (RBC) [Mass/Vol] 33.0 g/dL 28.4 - 34.8 g/dL [facility] MCV (RBC) [Entitic vol] 97.2 fL 82.6 - 102.9 fL [facility] Monocytes/100 WBC (Bld) 10 % 3 - 12 % [facility] Monocytes/100 WBC (Bld) 0.74 % [facility] Neutrophils/100 WBC (Bld) 55 % 36 - 65 % [facility] Nucleated RBC/100 WBC (Bld) [Ratio] 0.0 % 0.0 per 100 WBC [facility] Platelet mean volume (Bld) [Entitic vol] 10.9 fL 8.1 - 13.5 fL [facility] Platelets (Bld) [#/Vol] 304 10*3/uL [facility] RBC (Bld) [#/Vol] 4.70 10*6/uL 4.21 - 5.7 7 m/uL [facility] Segmented neutrophils/100 WBC (Bld) 4.06 % [facility] WBC other (Bld) [#/Vol] 7.4 [facility] CBC with Diffon 10-01-2024 Abs. Basophil 0.07 k/uL Normal 0.00-0.20 [facility] Comment on above: Performed By: #### P T, BMPX, CDP #### [place] [address] [employer]per: Willian Dudley MD Abs.Imm.Granulocyte 0.08 k/uL Normal 0.00-0.30 [facility] Comment on above: Performed By: #### P T, BMPX, CDP #### [facility] [email or web address] [address] [place] [address] [employer] Helper: Willian Dudley MD Abs.Neutrophil (Seg) 4.06 k/uL Normal 1.50-8.10 [facility] Comment on above: Performed By: #### P T, BMPX, CDP #### [facility] [email or web address] [address] [place] [address] [employer] Helper: Willian Dudley MD Basophils/100 WBC (Bld) 1 % Normal 0-2 [facility] Comment on above: Performed By: #### P T, BMPX, CDP #### [facility] [email or web address] [address] [place] [address] [employer] Helper: Willian Dudley MD Eosinophils (Bld) [#/Vol] 0.21 10*3/uL Normal 0.00-0.44 [facility] Comment on above: Performed By: #### P T, BMPX, CDP #### [facility] [email or web address] [address] [place] [id number] [employer] Helper: Willian Dudley MD Eosinophils/100 WBC (Bld) 3 % Normal 1-4 [facility] Comment on above: Performed By: #### P T, BMPX, CDP #### [facility] [email or web address] [address] [place] [address] [employer] Helper: Willian Dudley MD Erythrocyte distribution width (RBC) [Ratio] 11.5 % Low 11.8-14.4 [facility] Comment on above: Performed By: #### P T, BMPX, CDP #### [place] [address] [employer]per: Willian Dudley MD Hematocrit (Bld) [Volume fraction] 45.7 % Normal 40.7-50.3 [facility] Comment on above: Performed By: #### P T, BMPX, CDP #### [place] [address] [employer]per: Willian Dudley MD Hemoglobin (Bld) [Mass/Vol] 15.1 g/dL Normal 13.0-17.0 [facility] Comment on above: Performed By: #### P T, BMPX, CDP #### [facility] [email or web address] [address] [place] [address] [employer] Helper: Willian Dudley MD Immature granulocytes/100 WBC (Bld) 1 % High 0 [facility] Comment on above: Performed By: #### P T, BMPX, CDP #### [facility] [email or web address] [address] [place] [id number] [employer] Helper: Willian Dudley MD Lymphocytes (Bld) [#/Vol] 2.25 10*3/uL Normal 1.10-3.70 [facility] Comment on above: Performed By: #### P T, BMPX, CDP #### [address] [address] [employer]: Willian Dudley MD Lymphocytes/100 WBC (Bld) 30 % Normal 24-43 [facility] Comment on above: Performed By: #### P T, BMPX, CDP #### [address] [address] [employer]: Willian Dudley MD MCH (RBC) [Entitic mass] 32.1 pg Normal 25.2-33.5 [facility] Comment on above: Performed By: #### P T, BMPX, CDP #### [address] [address] [employer]: Willian Dudley MD MCHC (RBC) [Mass/Vol] 33.0 g/dL Normal 28.4-34.8 [facility] Comment on above: Performed By: #### P T, BMPX, CDP #### [address] [address] [employer]: Willian Dudley MD MCV (RBC) [Entitic vol] 97.2 fL Normal 82.6-102.9 [facility] Comment on above: Performed By: #### P T, BMPX, CDP #### [place] [address] [employer]: Willian Dudley MD Monocytes (Bld) [#/Vol] 0.74 10*3/uL Normal 0.10-1.20 [facility] Comment on above: Performed By: #### P T, BMPX, CDP #### [address] [address] [employer]: Willian Dudley MD Monocytes/100 WBC (Bld) 10 % Normal 3-12 [facility] Comment on above: Performed By: #### P T, BMPX, CDP #### [address] [address] [employer]: Willian Dudley MD Neutrophil (Seg) 55 % Normal 36-65 [facility] Comment on above: Performed By: #### P T, BMPX, CDP #### [address] [address] [employer]: Willian Dudley MD NRBC Automated 0.0 per 100 WBC Normal 0.0 [facility] Comment on above: Performed By: #### P T, BMPX, CDP #### [address] [address] [employer]: Willian Dudley MD Platelet mean volume (Bld) [Entitic vol] 10.9 fL Normal 8.1-13.5 [facility] Comment on above: Performed By: #### P T, BMPX, CDP #### [address] [address] [employer]: Willian Dudley MD Platelets (Bld) [#/Vol] 304 10*3/uL Normal 138-453 [facility] Comment on above: Performed By: #### P T, BMPX, CDP #### [address] [address] [employer]: Willian Dudley MD RBC (Bld) [#/Vol] 4.70 10*6/uL Normal 4.21-5.77 [facility] Comment on above: Performed By: #### P T, BMPX, CDP #### [address] [address] [employer]: Willian Dudley MD WBC (Bld) [#/Vol] 7.4 10*3/uL Normal 3.5-11.3 [facility] Comment on above: Performed By: #### P T, BMPX, CDP #### [facility] [address] [place], [place] [phone] [employer]: Willian Dudley MD Cult,Aerobe/Anaerobeon 10-01 Cult,Aerobe/Anaerobe Specimen Descriptio n .ASPIRATE PELVIC FLUID COLLECTION Direct Exam MANY NEUTROPHILS MANY GRAM POSITIVE COCCI IN PAIRS FEW GRAM POSITIVE RODS RARE YEAST Culture NORMAL SKIN AB NEGATIVE FOR NEISSERIA GONORRHOEAE No anaerobic organisms isolated at 5 days. Report Status FINAL 10/01/2024 Abnormal [facility] Comment on above: Performed By: #### B MP, CRP, CDP #### [facility] [address] [place] [address] [employer]: Willian Dudley MD Culture, Anaerobic and Aerob icon 10-01-2024 Interpretation and review of laboratory results Abnormal [facility] Microorganism identified Cx Nom (Unsp spec) NORMAL SKIN AB [facility] Microorganism identified Cx Nom (Unsp spec) Negative [facility] Microorganism identified Cx Nom (Unsp spec) No anaerobic organisms isolated at 5 days. [facility] Microorganism or agent identified Nom (Unsp spec) MANY NEUTROPHILS [facility] Microorganism or agent identified Nom (Unsp spec) RARE YEAST Abnormal [facility] Specimen Description .ASPIRATE PELVIC FLUID COLLECTION [facility] - Microbiology an d Antimicrobial susceptibilityon 10-01-2024 Microorganism or agent identified Nom (Unsp spec) Positive Abnormal [facility] Basic Metabolic Panelon 09-11 Anion gap [Moles/Vol] 11 mmol/L 9 - 16 mmol/L [facility] Calcium [Mass/Vol] 8.6 mg/dL 8.6 - 10. 4 mg/dL [facility] Chloride [Moles/Vol] 104 mmol/L 98 - 10 7 mmol/L [facility] CO2 [Moles/Vol] 23 mmol/L 20 - 31 mmol/L [facility] Creatinine [Mass/Vol] 0.8 mg/dL 0.7 - 1.2 mg/dL [facility] Comment on above: These results are not [...] that affects renal tubular secretion. Glucose [Mass/Vol] 104 mg/dL High 74 - 99 mg/dL [facility] Potassium [Moles/Vol] 3.3 mmol/L Low 3.7 - 5.3 mmol/L [facility] Sodium [Moles/Vol] 138 mmol/L 136 - 145 mmol/L [facility] Urea nitrogen [Mass/Vol] 2 mg/dL Low 6 - 20 mg/dL [facility] Basic Metabolic Profon 09-30 Anion gap [Moles/Vol] 11 mmol/L Normal 9-16 [facility] Comment on above: Performed By: #### B THIEN YOUNG, CDP #### [facility] [email or web address] [address] [place] [address] [employer]: Willian Dudley MD Calcium [Mass/Vol] 8.6 mg/dL Normal 8.6-10.4 [facility] Comment on above: Performed By: #### B THIEN YOUNG, CDP #### [facility] [email or web address] [address] [place] [address] [employer]: Willian Dudley MD Chloride [Moles/Vol] 104 mmol/L Normal 98-107 [facility] Comment on above: Performed By: #### B THIEN YOUNG, CDP #### [facility] [email or web address] [address] [place] [address] [employer]: Willian Dudley MD CO2 [Moles/Vol] 23 mmol/L Normal 20-31 [facility] Comment on above: Performed By: #### B HECTOR CRP, CDP #### [facility] [address] [place] [address] [employer]: Willian Dudley MD Creatinine [Mass/Vol] 0.8 mg/dL Normal 0.7-1.2 [facility] Comment on above: Performed By: #### B THIEN YOUNG, CDP #### [facility] [address] [place] [address] [employer]: Willian Dudley MD GFR/1.73 sq M.predicted among non-blacks MDRD (S/P/Bld) [Vol rate/Area] mL/min/{1.73_m2} Normal >60 [facility] Comment on above: Result Comment: These [...] affects renal tubular secretion. Performed By: #### B THIEN YOUNG, CDP #### [employer] [address] [place] [address] [employer]: Willian Dudley MD Glucose [Mass/Vol] 104 mg/dL High 74-99 [facility] Comment on above: Performed By: #### B THIEN YOUNG, CDP #### [facility] [address] [place] [address] [employer]: Willian Dudley MD Potassium [Moles/Vol] 3.3 mmol/L Low 3.7-5.3 [facility] Comment on above: Performed By: #### B THIEN YOUNG, CDP #### [facility] [address] [place] [address] [employer]: Willian Dudley MD Sodium [Moles/Vol] 138 mmol/L Normal 136-145 [facility] Comment on above: Performed By: #### B HECTOR CRP, CDP #### [facility] [address] [place], [place] [phone] [employer]: Willian Dudley MD Urea nitrogen [Mass/Vol] 2 mg/dL Low 6-20 [facility] Comment on above: Performed By: #### B MP, CRP, CDP #### [email or web address] [address] [place], [place] [phone] [employer]: Willian Dudley MD C-Reactive Proteinon 025 CRP High sensitivity method [Mass/Vol] 73.5 mg/L High 0.0 - 5.0 mg/L [facility] CRP [Mass/Vol] 73.5 mg/L High 0.0-5.0 [facility] Comment on above: Performed By: #### B MP, CRP, CDP #### [facility] [place], [place] [phone] [employer]: Willian Dudley MD CBC with Auto Differentialon 09-30-2024 Basophils (Bld) [#/Vol] 0.07 10*3/uL [facility] Basophils/100 WBC (Bld) 1 % 0 - 2 % [facility] Eosinophils (Bld) [#/Vol] 0.20 10*3/uL [facility] Eosinophils/100 WBC (Bld) 3 % 1 - 4 % [facility] Erythrocyte distribution width (RBC) [Ratio] 11.4 % Low 11.8 - 14.4 % [facility] Hematocrit (Bld) [Volume fraction] 44.9 % 40.7 - 50.3 % [facility] Hemoglobin (Bld) [Mass/Vol] 15.0 g/dL 13.0 - 17.0 g/dL [facility] Immature granulocytes (Bld) [#/Vol] 0.07 10*3/uL [facility] Immature granulocytes/100 WBC (Bld) 1 % High 0 [facility] Interpretation and review of laboratory results Abnormal [facility] Lymphocytes/100 WBC (Bld) 25 % 24 - 43 % [facility] Lymphocytes/100 WBC (Bld) 1.98 % [facility] MCH (RBC) [Entitic mass] 32.4 pg 25.2 - 33.5 pg [facility] MCHC (RBC) [Mass/Vol] 33.4 g/dL 28.4 - 34.8 g/dL [facility] MCV (RBC) [Entitic vol] 97.0 fL 82.6 - 102.9 fL [facility] Monocytes/100 WBC (Bld) 9 % 3 - 12 % [facility] Monocytes/100 WBC (Bld) 0.74 % [facility] Neutrophils/100 WBC (Bld) 61 % 36 - 65 % [facility] Nucleated RBC/100 WBC (Bld) [Ratio] 0.0 % 0.0 per 100 WBC [facility] Platelet mean volume (Bld) [Entitic vol] 11.1 fL 8.1 - 13.5 fL [facility] Platelets (Bld) [#/Vol] 261 10*3/uL [facility] RBC (Bld) [#/Vol] 4.63 10*6/uL 4.21 - 5.7 7 m/uL [facility] Segmented neutrophils/100 WBC (Bld) 5.00 % [facility] WBC other (Bld) [#/Vol] 8.1 [facility] CBC with Diffon 09-30-2024 Abs. Basophil 0.07 k/uL Normal 0.00-0.20 [facility] Comment on above: Performed By: #### B MP, CRP, CDP #### [facility] [address] [place] [phone] [employer]: Willian Dudley MD Abs.Imm.Granulocyte 0.07 k/uL Normal 0.00-0.30 [facility] Comment on above: Performed By: #### B MP, CRP, CDP #### [facility] [address] [place] [address] [phone] [employer]: Willian Dudley MD Abs.Neutrophil (Seg) 5.00 k/uL Normal 1.50-8.10 [facility] Comment on above: Performed By: #### B MP, CRP, CDP #### [facility] [email or web address] [address] [place] [address] [employer]: Willian Dudley MD Basophils/100 WBC (Bld) 1 % Normal 0-2 [facility] Comment on above: Performed By: #### B MP, CRP, CDP #### [facility] [email or web address] [address] [place] [phone] [employer]: Willian Dudley MD Eosinophils (Bld) [#/Vol] 0.20 10*3/uL Normal 0.00-0.44 [facility] Comment on above: Performed By: #### B MP, CRP, CDP #### [facility] [email or web address] [address] [place] [phone] [employer]: Willian Dudley MD Eosinophils/100 WBC (Bld) 3 % Normal 1-4 [facility] Comment on above: Performed By: #### B MP, CRP, CDP #### [facility] [email or web address] [address] [place] [phone] [employer]: Willian Dudley MD Erythrocyte distribution width (RBC) [Ratio] 11.4 % Low 11.8-14.4 [facility] Comment on above: Performed By: #### B MP, CRP, CDP #### [facility] [email or web address] [address] [place] [address] [employer]: Willian Dudley MD Hematocrit (Bld) [Volume fraction] 44.9 % Normal 40.7-50.3 [facility] Comment on above: Performed By: #### B MP, CRP, CDP #### [facility] [email or web address] [address] [place] [address] [employer]: Willian Dudley MD Hemoglobin (Bld) [Mass/Vol] 15.0 g/dL Normal 13.0-17.0 [facility] Comment on above: Performed By: #### B MP, CRP, CDP #### [facility] [address] [place] [address] [employer]per: Willian Dudley MD Immature granulocytes/100 WBC (Bld) 1 % High 0 [facility] Comment on above: Performed By: #### B MP, CRP, CDP #### [facility] [email or web address] [address] [place] [phone] [employer]: Willian Dudley MD Lymphocytes (Bld) [#/Vol] 1.98 10*3/uL Normal 1.10-3.70 [facility] Comment on above: Performed By: #### B MP, CRP, CDP #### [facility] [email or web address] [address] [place] [address] [employer]: Willian Dudley MD Lymphocytes/100 WBC (Bld) 25 % Normal 24-43 [facility] Comment on above: Performed By: #### B MP, CRP, CDP #### [facility] [email or web address] [address] [place] [phone] [employer]: Willian Dudley MD MCH (RBC) [Entitic mass] 32.4 pg Normal 25.2-33.5 [facility] Comment on above: Performed By: #### B MP, CRP, CDP #### [facility] [email or web address] [address] [place] [address] [employer]per: Willian Dudley MD MCHC (RBC) [Mass/Vol] 33.4 g/dL Normal 28.4-34.8 [facility] Comment on above: Performed By: #### B MP, CRP, CDP #### [facility] [email or web address] [address] [place] [address] [employer]: Willian Dudley MD MCV (RBC) [Entitic vol] 97.0 fL Normal 82.6-102.9 [facility] Comment on above: Performed By: #### B MP, CRP, CDP #### [address] [address] [employer]: Willian Dudley MD Monocytes (Bld) [#/Vol] 0.74 10*3/uL Normal 0.10-1.20 [facility] Comment on above: Performed By: #### B MP, CRP, CDP #### [address] [address] [employer]: Willian Dudley MD Monocytes/100 WBC (Bld) 9 % Normal 3-12 [facility] Comment on above: Performed By: #### B MP, CRP, CDP #### [address] [address] [employer]: Willian Dudley MD Neutrophil (Seg) 61 % Normal 36-65 [facility] Comment on above: Performed By: #### B MP, CRP, CDP #### [address] [address] [employer]: Willian Dudley MD NRBC Automated 0.0 per 100 WBC Normal 0.0 [facility] Comment on above: Performed By: #### B MP, CRP, CDP #### [address] [address] [employer]: Willian Dudley MD Platelet mean volume (Bld) [Entitic vol] 11.1 fL Normal 8.1-13.5 [facility] Comment on above: Performed By: #### B MP, CRP, CDP #### [address] [address] [employer]: Willian Dudley MD Platelets (Bld) [#/Vol] 261 10*3/uL Normal 138-453 [facility] Comment on above: Performed By: #### B MP, CRP, CDP #### [address] [address] [employer]: Willian Dudley MD RBC (Bld) [#/Vol] 4.63 10*6/uL Normal 4.21-5.77 [facility] Comment on above: Performed By: #### B THIEN YOUNG, CDP #### [facility] [address] [place], [place] [phone] [employer]: Willian Dudley MD WBC (Bld) [#/Vol] 8.1 10*3/uL Normal 3.5-11.3 [facility] Comment on above: Performed By: #### B THIEN YOUNG, CDP #### [facility] [address] [place], [place] [phone] [employer]: Willian Dudley MD No Panel Informationon 09-30 Interpretation and review of laboratory results Abnormal [facility] [employer] Basic Metabolic Panelon 09-11 Anion gap [Moles/Vol] 15 mmol/L 9 - 16 mmol/L [facility] Calcium [Mass/Vol] 8.6 mg/dL 8.6 - 10. 4 mg/dL [facility] [employer] Chloride [Moles/Vol] 103 mmol/L 98 - 10 7 mmol/L [facility] CO2 [Moles/Vol] 20 mmol/L 20 - 31 mmol/L [facility] Creatinine [Mass/Vol] 0.8 mg/dL 0.7 - 1.2 mg/dL [facility] Est, Glom Filt Rate - PINF [facility] Comment on above: These results are not [...] that affects renal tubular secretion. Glucose [Mass/Vol] 75 mg/dL 74 - 99 mg/dL [facility] Potassium [Moles/Vol] 3.2 mmol/L Low 3.7 - 5.3 mmol/L [facility] Comment on above: Specimen hemolysis h as exceeded the interference as defined by Kaitlyn. Value may be falsely increased. Suggest recollection if clinically indicated. Sodium [Moles/Vol] 138 mmol/L 136 - 145 mmol/L [facility] Urea nitrogen [Mass/Vol] 3 mg/dL Low 6 - 20 mg/dL [facility] Basic Metabolic Profon 09-29 Anion gap [Moles/Vol] 15 mmol/L Normal 9-16 [facility] Comment on above: Performed By: #### B HECTOR CRP, CDP #### [facility] [address] [place] [address] [employer]: Willian Dudley MD Calcium [Mass/Vol] 8.6 mg/dL Normal 8.6-10.4 [facility] Comment on above: Performed By: #### B HECTOR CRP, CDP #### [facility] [address] [place] [phone] [employer]: Willian Dudley MD Chloride [Moles/Vol] 103 mmol/L Normal 98-107 [facility] Comment on above: Performed By: #### B THIEN YOUNG, CDP #### [facility] [address] [place] [address] [employer]: Willian Dudley MD CO2 [Moles/Vol] 20 mmol/L Normal 20-31 [facility] Comment on above: Performed By: #### B HECTOR CRP, CDP #### [facility] [address] [place] [address] [employer]: Willian Dudley MD Creatinine [Mass/Vol] 0.8 mg/dL Normal 0.7-1.2 [facility] Comment on above: Performed By: #### B HECTOR CRP, CDP #### [facility] [address] [place] [address] [employer]: Willian Dudley MD GFR/1.73 sq M.predicted among non-blacks MDRD (S/P/Bld) [Vol rate/Area] mL/min/{1.73_m2} Normal >60 [facility] Comment on above: Result Comment: These [...] affects renal tubular secretion. Performed By: #### B MP, CRP, CDP #### [facility] [address] [place] [address] [employer]: Willian Dudley MD Glucose [Mass/Vol] 75 mg/dL Normal 74-99 [facility] Comment on above: Performed By: #### B MP, CRP, CDP #### [facility] [address] [place] [address] [employer]: Willian Dudley MD Potassium [Moles/Vol] 3.2 mmol/L Low 3.7-5.3 [facility] Comment on above: Result Comment: Spec imen hemolysis has exceeded the interference as defined by Kaitlyn. Value may be falsely increased. Suggest recollection if clinically indicated. Performed By: #### B MP, CRP, CDP #### [facility] [address] [place] [address] [employer]: Willian Dudley MD Sodium [Moles/Vol] 138 mmol/L Normal 136-145 [facility] Comment on above: Performed By: #### B MP, CRP, CDP #### [employer] [address] [place] [address] [employer]: Willian Dudley MD Urea nitrogen [Mass/Vol] 3 mg/dL Low 6-20 [facility] Comment on above: Performed By: #### B MP, CRP, CDP #### [facility] [address] [place] [address] [phone] [employer]: Willian Dudley MD C-Reactive Proteinon 025 CRP High sensitivity method [Mass/Vol] 149.0 mg/L High 0.0 - 5.0 mg/L [facility] CRP [Mass/Vol] 149.0 mg/L High 0.0-5.0 [facility] Comment on above: Performed By: #### B MP, CRP, CDP #### [facility] [address] [place], [place] [phone] [employer]: Willian Dudley MD CBC with Auto Differentialon 09-29-2024 Basophils (Bld) [#/Vol] 0.07 10*3/uL [facility] Basophils/100 WBC (Bld) 1 % 0 - 2 % [facility] Eosinophils (Bld) [#/Vol] 0.11 10*3/uL [facility] Eosinophils/100 WBC (Bld) 1 % 1 - 4 % [facility] Erythrocyte distribution width (RBC) [Ratio] 11.6 % Low 11.8 - 14.4 % [facility] Hematocrit (Bld) [Volume fraction] 47.4 % 40.7 - 50.3 % [facility] Hemoglobin (Bld) [Mass/Vol] 15.3 g/dL 13.0 - 17.0 g/dL [facility] Immature granulocytes (Bld) [#/Vol] 0.07 10*3/uL [facility] Immature granulocytes/100 WBC (Bld) 1 % High 0 [facility] Interpretation and review of laboratory results Abnormal [facility] Lymphocytes/100 WBC (Bld) 18 % Low 24 - 43 % [facility] Lymphocytes/100 WBC (Bld) 1.95 % [facility] MCH (RBC) [Entitic mass] 32.4 pg 25.2 - 33.5 pg [facility] MCHC (RBC) [Mass/Vol] 32.3 g/dL 28.4 - 34.8 g/dL [facility] MCV (RBC) [Entitic vol] 100.4 fL 82.6 - 102.9 fL [facility] Monocytes/100 WBC (Bld) 10 % 3 - 12 % [facility] Monocytes/100 WBC (Bld) 1.04 % [facility] Neutrophils/100 WBC (Bld) 69 % High 36 - 65 % [facility] Nucleated RBC/100 WBC (Bld) [Ratio] 0.0 % 0.0 per 100 WBC [facility] Platelet mean volume (Bld) [Entitic vol] 11.5 fL 8.1 - 13.5 fL [facility] Platelets (Bld) [#/Vol] 228 10*3/uL [facility] RBC (Bld) [#/Vol] 4.72 10*6/uL 4.21 - 5.7 7 m/uL [facility] Segmented neutrophils/100 WBC (Bld) 7.43 % [facility] WBC other (Bld) [#/Vol] 10.7 [facility] CBC with Diffon 09-29-2024 Abs. Basophil 0.07 k/uL Normal 0.00-0.20 [facility] Comment on above: Performed By: #### B MP, CRP, CDP #### [facility] [email or web address] [address] [place] [address] [employer]: Willian Dudley MD Abs.Imm.Granulocyte 0.07 k/uL Normal 0.00-0.30 [facility] Comment on above: Performed By: #### B MP, CRP, CDP #### [facility] [address] [place] [address] [employer]: Willian Dudley MD Abs.Neutrophil (Seg) 7.43 k/uL Normal 1.50-8.10 [facility] Comment on above: Performed By: #### B MP, CRP, CDP #### [facility] [email or web address] [address] [place], [place] [phone] [employer]: Willian Dudley MD Basophils/100 WBC (Bld) 1 % Normal 0-2 [facility] Comment on above: Performed By: #### B MP, CRP, CDP #### [facility] [address] [place] [address] [employer]: Willian Dudley MD Eosinophils (Bld) [#/Vol] 0.11 10*3/uL Normal 0.00-0.44 [facility] Comment on above: Performed By: #### B MP, CRP, CDP #### [facility] [address] [place] [address]67 [employer]: Willian Dudley MD Eosinophils/100 WBC (Bld) 1 % Normal 1-4 [facility] Comment on above: Performed By: #### B MP, CRP, CDP #### [facility] [address] [place] [phone] [employer]: Willian Dudley MD Erythrocyte distribution width (RBC) [Ratio] 11.6 % Low 11.8-14.4 [facility] Comment on above: Performed By: #### B MP, CRP, CDP #### [facility] [address] [place] [phone] [employer]: Willian Dudley MD Hematocrit (Bld) [Volume fraction] 47.4 % Normal 40.7-50.3 [facility] Comment on above: Performed By: #### B MP, CRP, CDP #### [facility] [address] [place] [phone] [employer]: Willian Dudley MD Hemoglobin (Bld) [Mass/Vol] 15.3 g/dL Normal 13.0-17.0 [facility] Comment on above: Performed By: #### B MP, CRP, CDP #### [facility] [employer] [address] [place] [address] [employer]: Willian Dudley MD Immature granulocytes/100 WBC (Bld) 1 % High 0 [facility] Comment on above: Performed By: #### B MP, CRP, CDP #### [employer] [facility] [place] [address] [employer]: Willian Dudley MD Lymphocytes (Bld) [#/Vol] 1.95 10*3/uL Normal 1.10-3.70 [facility] Comment on above: Performed By: #### B MP, CRP, CDP #### [address] [address] [employer]: Willian Dudley MD Lymphocytes/100 WBC (Bld) 18 % Low 24-43 [facility] Comment on above: Performed By: #### B MP, CRP, CDP #### [facility] [email or web address] [address] [place] [address]124 [employer]: Willian Dudley MD MCH (RBC) [Entitic mass] 32.4 pg Normal 25.2-33.5 [facility] Comment on above: Performed By: #### B MP, CRP, CDP #### [facility] [email or web address] [address] [place] [address] 44682 [employer]: Willian Dudley MD MCHC (RBC) [Mass/Vol] 32.3 g/dL Normal 28.4-34.8 [facility] Comment on above: Performed By: #### B MP, CRP, CDP #### [facility] [email or web address] [address] [place] [address] 513[address] [employer]: Willian Dudley MD MCV (RBC) [Entitic vol] 100.4 fL Normal 82.6-102.9 [facility] Comment on above: Performed By: #### B MP, CRP, CDP #### [facility] [email or web address] [address] [place] [address] 13928 [employer]: Willian Dudley MD Monocytes (Bld) [#/Vol] 1.04 10*3/uL Normal 0.10-1.20 [facility] Comment on above: Performed By: #### B MP, CRP, CDP #### [address] [address] [employer]: Willian Dudley MD Monocytes/100 WBC (Bld) 10 % Normal 3-12 [facility] Comment on above: Performed By: #### B MP, CRP, CDP #### [address] [address] [employer]: Willian Dudley MD Neutrophil (Seg) 69 % High 36-65 [facility] Comment on above: Performed By: #### B MP, CRP, CDP #### [address] [address] [employer]: Willian Dudley MD NRBC Automated 0.0 per 100 WBC Normal 0.0 [facility] Comment on above: Performed By: #### B MP, CRP, CDP #### [address] [address] [employer]: Willian Dudley MD Platelet mean volume (Bld) [Entitic vol] 11.5 fL Normal 8.1-13.5 [facility] Comment on above: Performed By: #### B MP, CRP, CDP #### [address] [address] [employer]: Willian Dudley MD Platelets (Bld) [#/Vol] 228 10*3/uL Normal 138-453 [facility] Comment on above: Performed By: #### B MP, CRP, CDP #### [facility] [address] [place] [address] [employer]: Willian Dudley MD RBC (Bld) [#/Vol] 4.72 10*6/uL Normal 4.21-5.77 [facility] Comment on above: Performed By: #### B MP, CRP, CDP #### [address] [address] [employer]: Willian Dudley MD WBC (Bld) [#/Vol] 10.7 10*3/uL Normal 3.5-11.3 [facility] Comment on above: Performed By: #### B THIEN YOUNG CDP #### [facility] [email or web address] [address] [place] [address] [phone] [employer]: Willian Dudley MD No Panel Informationon 09-29 Interpretation and review of laboratory results Abnormal [facility] Basic Metabolic Panelon 09-10 Est, Glom Filt Rate - PINF [facility] Comment on above: These results are not [...] following therapy that affects renal tubular secretion. Interpretation and review of laboratory results Abnormal [facility] Basic Metabolic Profon 09-28 Anion gap [Moles/Vol] 11 mmol/L Normal 9-16 [facility] Comment on above: Performed By: #### B THIEN YOUNG, CDP #### [facility] [email or web address] [address] [place] [address] [phone] [employer]: Willian Dudley MD Calcium [Mass/Vol] 8.7 mg/dL Normal 8.6-10.4 [facility] Comment on above: Performed By: #### B THIEN YOUNG, CDP #### [facility] [place] [address] [employer]: Willian Dudley MD Chloride [Moles/Vol] 102 mmol/L Normal 98-107 [facility] Comment on above: Performed By: #### B THIEN YOUNG, CDP #### [facility] [place], [place] [phone] [employer]: Willian Dudley MD CO2 [Moles/Vol] 26 mmol/L Normal 20-31 [facility] Comment on above: Performed By: #### B THIEN YOUNG, CDP #### [facility] [email or web address] [address] [place] [address]14 [employer]: Willian Dudley MD Creatinine [Mass/Vol] 0.7 mg/dL Normal 0.7-1.2 [facility] Comment on above: Performed By: #### B THIEN YOUNG, CDP #### [facility] [email or web address] [address] [place] [address] 87745 [employer]: Willian Dudley MD GFR/1.73 sq M.predicted among non-blacks MDRD (S/P/Bld) [Vol rate/Area] mL/min/{1.73_m2} Normal >60 [facility] Comment on above: Result Comment: These [...] affects renal tubular secretion. Performed By: #### B THIEN YOUNG, CDP #### [facility] [email or web address] [address] [place] [address] [phone] [employer]: Willian Dudley MD Glucose [Mass/Vol] 82 mg/dL Normal 74-99 [facility] Comment on above: Performed By: #### B THIEN YOUNG, CDP #### [facility] [email or web address] [address] [place] [address] 33050 [employer]: Willian Dudley MD Potassium [Moles/Vol] 3.6 mmol/L Low 3.7-5.3 [facility] Comment on above: Performed By: #### B THIEN YOUNG, CDP #### [facility] [email or web address] [address] [place] [address] 24646 [employer]: Willian Dudley MD Sodium [Moles/Vol] 139 mmol/L Normal 136-145 [facility] Comment on above: Performed By: #### B MP, CRP, CDP #### [facility] [address] [place], [place] [phone] [employer]: Willian Dudley MD Urea nitrogen [Mass/Vol] 4 mg/dL Low 6-20 [facility] Comment on above: Performed By: #### B MP, CRP, CDP #### [facility] [address] [place], [place] [phone] [employer]: Willian Dudley MD CBC with Auto Differentialon 09-28-2024 Basophils (Bld) [#/Vol] 0.05 10*3/uL [facility] Basophils/100 WBC (Bld) 0 % 0 - 2 % [facility] Eosinophils (Bld) [#/Vol] 0.06 10*3/uL [facility] Eosinophils/100 WBC (Bld) 0 % Low 1 - 4 % [facility] Erythrocyte distribution width (RBC) [Ratio] 11.8 % 11.8 - 14.4 % [facility] Hematocrit (Bld) [Volume fraction] 46.2 % 40.7 - 50.3 % [facility] Hemoglobin (Bld) [Mass/Vol] 15.5 g/dL 13.0 - 17.0 g/dL [facility] Immature granulocytes (Bld) [#/Vol] 0.09 10*3/uL [facility] Immature granulocytes/100 WBC (Bld) 1 % High 0 [facility] Interpretation and review of laboratory results Abnormal [facility] Lymphocytes/100 WBC (Bld) 13 % Low 24 - 43 % [facility] Lymphocytes/100 WBC (Bld) 1.83 % [facility] MCH (RBC) [Entitic mass] 32.6 pg 25.2 - 33.5 pg [facility] MCHC (RBC) [Mass/Vol] 33.5 g/dL 28.4 - 34.8 g/dL [facility] MCV (RBC) [Entitic vol] 97.3 fL 82.6 - 102.9 fL [facility] Monocytes/100 WBC (Bld) 7 % 3 - 12 % [facility] Monocytes/100 WBC (Bld) 1.06 % [facility] Neutrophils/100 WBC (Bld) 79 % High 36 - 65 % [facility] Nucleated RBC/100 WBC (Bld) [Ratio] 0.0 % 0.0 per 100 WBC [facility] Platelet mean volume (Bld) [Entitic vol] 10.8 fL 8.1 - 13.5 fL [facility] Platelets (Bld) [#/Vol] 257 10*3/uL [facility] RBC (Bld) [#/Vol] 4.75 10*6/uL 4.21 - 5.7 7 m/uL [facility] Segmented neutrophils/100 WBC (Bld) 11.48 % High [facility] WBC other (Bld) [#/Vol] 14.6 High [facility] CBC with Diffon 09-28-2024 Abs. Basophil 0.05 k/uL Normal 0.00-0.20 [facility] Comment on above: Performed By: #### B MP CRP, CDP #### [facility] [email or web address] [address] [place] [address] [employer]: Willian Dudley MD Abs.Imm.Granulocyte 0.09 k/uL Normal 0.00-0.30 [facility] Comment on above: Performed By: #### B MP, CRP, CDP #### [employer] [address] [place] [address] [employer]: Willian Dudley MD Abs.Neutrophil (Seg) 11.48 k/uL High 1.50-8.10 [facility] Comment on above: Performed By: #### B MP, CRP, CDP #### [facility] [address] [place], [place] [phone] [employer]: Willian Dudley MD Basophils/100 WBC (Bld) 0 % Normal 0-2 [facility] Comment on above: Performed By: #### B MP, CRP, CDP #### [address] [address] [employer]: Willian Dudley MD Eosinophils (Bld) [#/Vol] 0.06 10*3/uL Normal 0.00-0.44 [facility] Comment on above: Performed By: #### B MP, CRP, CDP #### [facility] [email or web address] [address] [place] [address] 86878 [employer]: Willian Dudley MD Eosinophils/100 WBC (Bld) 0 % Low 1-4 [facility] Comment on above: Performed By: #### B MP, CRP, CDP #### [facility] [email or web address] [address] [place] [address] 666[address] [employer]: Willian Dudley MD Erythrocyte distribution width (RBC) [Ratio] 11.8 % Normal 11.8-14.4 [facility] Comment on above: Performed By: #### B MP, CRP, CDP #### [address] [address] [employer]: Willian Dudley MD Hematocrit (Bld) [Volume fraction] 46.2 % Normal 40.7-50.3 [facility] Comment on above: Performed By: #### B MP, CRP, CDP #### [facility] [email or web address] [address] [place] [address] [employer]: Willian Dudley MD Hemoglobin (Bld) [Mass/Vol] 15.5 g/dL Normal 13.0-17.0 [facility] Comment on above: Performed By: #### B MP, CRP, CDP #### [facility] [email or web address] [address] [place] [address] 849[address] [employer]: Willian Dudley MD Immature granulocytes/100 WBC (Bld) 1 % High 0 [facility] Comment on above: Performed By: #### B MP, CRP, CDP #### [address] [address] [employer]: Willian Dudley MD Lymphocytes (Bld) [#/Vol] 1.83 10*3/uL Normal 1.10-3.70 [facility] Comment on above: Performed By: #### B MP, CRP, CDP #### [address] [address] [employer]: Willian Dudley MD Lymphocytes/100 WBC (Bld) 13 % Low 24-43 [facility] Comment on above: Performed By: #### B MP, CRP, CDP #### [address] [address] [employer]: Willian Dudley MD MCH (RBC) [Entitic mass] 32.6 pg Normal 25.2-33.5 [facility] Comment on above: Performed By: #### B MP, CRP, CDP #### [address] [address] [employer]: Willian Dudley MD MCHC (RBC) [Mass/Vol] 33.5 g/dL Normal 28.4-34.8 [facility] Comment on above: Performed By: #### B MP, CRP, CDP #### [address] [address] [employer]: Willian Dudley MD MCV (RBC) [Entitic vol] 97.3 fL Normal 82.6-102.9 [facility] Comment on above: Performed By: #### B MP, CRP, CDP #### [facility] [email or web address] [address] [place] [address] [employer]: Willian Dudley MD Monocytes (Bld) [#/Vol] 1.06 10*3/uL Normal 0.10-1.20 [facility] Comment on above: Performed By: #### B MP, CRP, CDP #### [address] [address] [employer]: Willian Dudley MD Monocytes/100 WBC (Bld) 7 % Normal 3-12 [facility] Comment on above: Performed By: #### B MP, CRP, CDP #### [address] [address] [employer]: Willian Dudley MD Neutrophil (Seg) 79 % High 36-65 [facility] Comment on above: Performed By: #### B MP, CRP, CDP #### [address] [address] [employer]: Willian Dudley MD NRBC Automated 0.0 per 100 WBC Normal 0.0 [facility] Comment on above: Performed By: #### B MP, CRP, CDP #### [address] [address] [employer]: Willian Dudley MD Platelet mean volume (Bld) [Entitic vol] 10.8 fL Normal 8.1-13.5 [facility] Comment on above: Performed By: #### B MP, CRP, CDP #### [address] [address] [employer]: Willian Dudley MD Platelets (Bld) [#/Vol] 257 10*3/uL Normal 138-453 [facility] Comment on above: Performed By: #### B MP, CRP, CDP #### [facility] [address] [place] [address] [employer]: Willian Dudley MD RBC (Bld) [#/Vol] 4.75 10*6/uL Normal 4.21-5.77 [facility] Comment on above: Performed By: #### B MP, CRP, CDP #### [address] [address] [employer]: Willian Dudley MD WBC (Bld) [#/Vol] 14.6 10*3/uL High 3.5-11.3 [facility] Comment on above: Performed By: #### B THIEN YOUNG, GARCÍA #### [facility] [address] [place] [address] [employer]: Willian Dudley MD Basic Metabolic Panelon 09-10 Anion gap [Moles/Vol] 12 mmol/L 9 - 16 mmol/L [facility] Calcium [Mass/Vol] 8.5 mg/dL Low 8.6 - 10. 4 mg/dL [facility] Chloride [Moles/Vol] 104 mmol/L 98 - 10 7 mmol/L [facility] CO2 [Moles/Vol] 24 mmol/L 20 - 31 mmol/L [facility] Creatinine [Mass/Vol] 0.7 mg/dL 0.7 - 1.2 mg/dL [facility] Supponor Est, Glom Filt Rate - PINF [facility] Comment on above: These results are not [...] that affects renal tubular secretion. Glucose [Mass/Vol] 82 mg/dL 74 - 99 mg/dL [facility] Interpretation and review of laboratory results Abnormal [facility] Potassium [Moles/Vol] 3.4 mmol/L Low 3.7 - 5.3 mmol/L [facility] Sodium [Moles/Vol] 140 mmol/L 136 - 145 mmol/L [facility] Urea nitrogen [Mass/Vol] 5 mg/dL Low 6 - 20 mg/dL [facility] Basic Metabolic Profon 09-27 Anion gap [Moles/Vol] 12 mmol/L Normal -16 [facility] Comment on above: Performed By: #### B MP, CRP, CDP #### [facility] [email or web address] [facility] [place] [address] [employer]: Willian Dudley MD Calcium [Mass/Vol] 8.5 mg/dL Low 8.6-10.4 [facility] Comment on above: Performed By: #### B MP, CRP, CDP #### [facility] [email or web address] [address] [place] [address] [employer]: Willian Dudley MD Chloride [Moles/Vol] 104 mmol/L Normal 98-107 [facility] Comment on above: Performed By: #### B MP CRP, CDP #### [facility] [email or web address] [address] [place] [address] [employer]: Willian Dudley MD CO2 [Moles/Vol] 24 mmol/L Normal 20-31 [facility] Comment on above: Performed By: #### B HECTOR CRP, CDP #### [facility] [email or web address] [address] [place] [address] [employer]: Willian Dudley MD Creatinine [Mass/Vol] 0.7 mg/dL Normal 0.7-1.2 [facility] Comment on above: Performed By: #### B MP CRP, CDP #### [address] [address] [employer]: Willian Dudley MD GFR/1.73 sq M.predicted among non-blacks MDRD (S/P/Bld) [Vol rate/Area] mL/min/{1.73_m2} Normal >60 [facility] Comment on above: Result Comment: These [...] affects renal tubular secretion. Performed By: #### B MP, CRP, CDP #### [facility] [address] [place] [address] [employer]: Willian Dudley MD Glucose [Mass/Vol] 82 mg/dL Normal 74-99 [facility] Comment on above: Performed By: #### B MP, CRP, CDP #### [facility] [address] [place] [address] [employer]: Willian Dudley MD Potassium [Moles/Vol] 3.4 mmol/L Low 3.7-5.3 [facility] Comment on above: Performed By: #### B HECTOR CRP, CDP #### [facility] [address] [place] [address] [employer]: Willian Dudley MD Sodium [Moles/Vol] 140 mmol/L Normal 136-145 [facility] Comment on above: Performed By: #### B HECTOR CRP, CDP #### [facility] [address] [place] [address] [employer]: Willian Dudley MD Urea nitrogen [Mass/Vol] 5 mg/dL Low 6-20 [facility] Comment on above: Performed By: #### B HECTOR CRP, CDP #### [facility] [address] [place] [address] [employer]: Willian Dudley MD CBC with Auto Differentialon 09-27-2024 Basophils (Bld) [#/Vol] 0.05 10*3/uL [facility] Basophils/100 WBC (Bld) 0 % 0 - 2 % [facility] Eosinophils (Bld) [#/Vol] 0.10 10*3/uL [facility] Eosinophils/100 WBC (Bld) 1 % 1 - 4 % [facility] Erythrocyte distribution width (RBC) [Ratio] 11.9 % 11.8 - 14.4 % [facility] Hematocrit (Bld) [Volume fraction] 42.6 % 40.7 - 50.3 % [facility] Hemoglobin (Bld) [Mass/Vol] 14.3 g/dL 13.0 - 17.0 g/dL [facility] Immature granulocytes (Bld) [#/Vol] 0.07 10*3/uL [facility] Immature granulocytes/100 WBC (Bld) 1 % High 0 [facility] Interpretation and review of laboratory results Abnormal [facility] Lymphocytes/100 WBC (Bld) 15 % Low 24 - 43 % [facility] Lymphocytes/100 WBC (Bld) 1.92 % [facility] MCH (RBC) [Entitic mass] 32.8 pg 25.2 - 33.5 pg [facility] MCHC (RBC) [Mass/Vol] 33.6 g/dL 28.4 - 34.8 g/dL [facility] MCV (RBC) [Entitic vol] 97.7 fL 82.6 - 102.9 fL [facility] Monocytes/100 WBC (Bld) 9 % 3 - 12 % [facility] Monocytes/100 WBC (Bld) 1.16 % [facility] Neutrophils/100 WBC (Bld) 75 % High 36 - 65 % [facility] Nucleated RBC/100 WBC (Bld) [Ratio] 0.0 % 0.0 per 100 WBC [facility] Platelet mean volume (Bld) [Entitic vol] 11.0 fL 8.1 - 13.5 fL [facility] Platelets (Bld) [#/Vol] 242 10*3/uL [facility] RBC (Bld) [#/Vol] 4.36 10*6/uL 4.21 - 5.7 7 m/uL [facility] Segmented neutrophils/100 WBC (Bld) 9.87 % High [facility] WBC other (Bld) [#/Vol] 13.2 High [facility] CBC with Diffon 09-27-2024 Abs. Basophil 0.05 k/uL Normal 0.00-0.20 [facility] Comment on above: Performed By: #### B MP, CRP, CDP #### [address] [address] [employer]: Willian Dudley MD Abs.Imm.Granulocyte 0.07 k/uL Normal 0.00-0.30 [facility] Comment on above: Performed By: #### B MP, CRP, CDP #### [address] [address] [employer]: Willian Dudley MD Abs.Neutrophil (Seg) 9.87 k/uL High 1.50-8.10 [facility] Comment on above: Performed By: #### B MP, CRP, CDP #### [address] [address] [employer]: Willian Dudley MD Basophils/100 WBC (Bld) 0 % Normal 0-2 [facility] Comment on above: Performed By: #### B MP, CRP, CDP #### [address] [address] [employer]: Willian Dudley MD Eosinophils (Bld) [#/Vol] 0.10 10*3/uL Normal 0.00-0.44 [facility] Comment on above: Performed By: #### B MP, CRP, CDP #### [facility] [email or web address] [address] [place] [address] [employer]: Willian Dudley MD Eosinophils/100 WBC (Bld) 1 % Normal 1-4 [facility] Comment on above: Performed By: #### B MP, CRP, CDP #### [facility] [email or web address] [address] [place] [address] [employer]: Willian Dudley MD Erythrocyte distribution width (RBC) [Ratio] 11.9 % Normal 11.8-14.4 [facility] Comment on above: Performed By: #### B MP, CRP, CDP #### [facility] [email or web address] [address] [place] [address] [employer]: Willian Dudley MD Hematocrit (Bld) [Volume fraction] 42.6 % Normal 40.7-50.3 [facility] Comment on above: Performed By: #### B MP, CRP, CDP #### [facility] [email or web address] [address] [place] [address] [employer]: Willian Dudley MD Hemoglobin (Bld) [Mass/Vol] 14.3 g/dL Normal 13.0-17.0 [facility] Comment on above: Performed By: #### B MP, CRP, CDP #### [facility] [email or web address] [address] [place] [address] [employer]: Willian Dudley MD Immature granulocytes/100 WBC (Bld) 1 % High 0 [facility] Comment on above: Performed By: #### B MP, CRP, CDP #### [facility] [email or web address] [address] [place] [phone] [employer]: Willian Dudley MD Lymphocytes (Bld) [#/Vol] 1.92 10*3/uL Normal 1.10-3.70 [facility] Comment on above: Performed By: #### B MP, CRP, CDP #### [facility] [email or web address] [address] [place] [address] [employer]: Willian Dudley MD Lymphocytes/100 WBC (Bld) 15 % Low 24-43 [facility] Comment on above: Performed By: #### B MP, CRP, CDP #### [facility] [email or web address] [address] [place] [address] [employer]: Willian Dudley MD MCH (RBC) [Entitic mass] 32.8 pg Normal 25.2-33.5 [facility] Comment on above: Performed By: #### B MP, CRP, CDP #### [facility] [email or web address] [address] [place] [address] [employer]: Willian Dudley MD MCHC (RBC) [Mass/Vol] 33.6 g/dL Normal 28.4-34.8 [facility] Comment on above: Performed By: #### B MP, CRP, CDP #### [address] [address] [employer]: Willian Dudley MD MCV (RBC) [Entitic vol] 97.7 fL Normal 82.6-102.9 [facility] Comment on above: Performed By: #### B MP, CRP, CDP #### [address] [address] [employer]: Willian Dudley MD Monocytes (Bld) [#/Vol] 1.16 10*3/uL Normal 0.10-1.20 [facility] Comment on above: Performed By: #### B MP, CRP, CDP #### [address] [address] [employer]: Willian Dudley MD Monocytes/100 WBC (Bld) 9 % Normal 3-12 [facility] Comment on above: Performed By: #### B MP, CRP, CDP #### [address] [address] [employer]: Willian Dudley MD Neutrophil (Seg) 75 % High 36-65 [facility] Comment on above: Performed By: #### B MP, CRP, CDP #### [address] [address] [employer]: Willian Dudley MD NRBC Automated 0.0 per 100 WBC Normal 0.0 [facility] Comment on above: Performed By: #### B MP, CRP, CDP #### [address] [address] [employer]: Willian Dudley MD Platelet mean volume (Bld) [Entitic vol] 11.0 fL Normal 8.1-13.5 [facility] Comment on above: Performed By: #### B MP, CRP, CDP #### [facility] [address] [place] [address] [employer]: Willian Dudley MD Platelets (Bld) [#/Vol] 242 10*3/uL Normal 138-453 [facility] Comment on above: Performed By: #### B MP, CRP, CDP #### [facility] [address] [place] [address] [employer]: Willian Dudley MD RBC (Bld) [#/Vol] 4.36 10*6/uL Normal 4.21-5.77 [facility] Comment on above: Performed By: #### B HECTOR CRP, CDP #### [facility] [email or web address] [address] [place] [address] [employer]: Willian Dudley MD WBC (Bld) [#/Vol] 13.2 10*3/uL High 3.5-11.3 [facility] Comment on above: Performed By: #### B HECTOR CRP, CDP #### [facility] [email or web address] [address] [place] [address] [employer]per: Willian Dudley MD Lactic Acidon 09-27-2024 Lactic Acid, Whole Blood 1.2 mmol/L 0.7 - 2.1 mmol/L [facility] Lactic Acid,Whole Bl 1.2 mmol/L Normal 0.7-2.1 [facility] Comment on above: Performed By: #### L ACTIC #### [facility] [address] [place] [address] [employer]per: Willian Dudley MD Lipaseon 09-27-2024 Lipase [Catalytic activity/Vol] 34 U/L 13 - 60 U/L [facility] Lipase [Catalytic activity/Vol] 34 U/L Normal 13-60 [facility] Comment on above: Performed By: #### B MP, CRP, CDP #### [facility] [address] [place] [address] [employer]per: Willian Dudley MD No Panel Informationon 09-27 [facility] BLOOD BANK SPECIMENon [address] [facility] [address] Guidance for drainage of abscess and placement of drainage catheter of Unspecified body regionon 09-26-[address] guided placement of right transgluteal 10 Finnish pelvic abscess drainage catheter. [facility] Nicole Benjamin MD - 09/26/2024 PROCEDURE: CT GUIDEDright transgluteal pelvicABSCESS DRAINAGE CATHETER PLACEMENT MODERATE CONSCIOUS SEDATION 09/26/2024 HISTORY: ORDERING SYSTEM PROVIDED HISTORY: diverticulitis with abscess TECHNOLOGIST PROVIDED HISTORY: diverticulitis with abscess SEDATION: Moderate sedation was ordered and supervised by the attending with physician [id number] monitoring. Medications were provided and recorded by Radiology nurses. TECHNIQUE: Informed consent was obtained after a detailed explanation of the procedure including risks, benefits, and alternatives. [place] protocol was followed. Sterile gowns, masks, hats, and gloves utilized for maximal sterile barrier. A suitable skin site was prepped and draped in sterile fashion following CT localization. An 18 gauge needle was advanced under CT guidance via right transgluteal fashion into the pelvic fluid collection. CT images confirmed satisfactory needle tip position. 0.035 guidewire was used to place a 10 Finnish abscess drainage catheter after the fashion tract was dilated. The catheter was sutured to the skin and the patient tolerated the procedure well. The catheter was attached to ROLANDO suction drainage. 100 cc of thick green purulent fluid was drained while the patient was in IR. A sample was sent. Dose modulation, iterative reconstruction, and/or weight based adjustment of the mA/kV was utilized to reduce the radiation dose to as low as reasonably achievable. FINDINGS: A total of 100 mL of thick green purulent fluid was removed and sent for diagnostic tests. IMPRESSION: Successful CT guided placement of right transgluteal 10 Finnish pelvic abscess drainage catheter. [facility] Radiology Study observation (narrative) [facility] CT Guidance for drainage of abscess and placement of drainage catheter of Unspecified body regionOrdered By: Nicole Hutchison on 09-26-2024 Elissa Zelaya [facility] Work Phone: Comp Metabolic Pr/rfx MGon 0 09-26-2024 Albumin [Mass/Vol] 3.3 g/dL Low 3.5-5.2 [facility] Comment on above: Performed By: #### B MP CRP, CDP #### [facility] [email or web address] [address] [place] [phone] [employer]per: Willian Dudley MD Albumin/Glob Ratio 0.9 Low 1.0-2.5 [facility] Comment on above: Performed By: #### B MP, CRP, CDP #### [facility] [email or web address] [address] [place] [address] [employer] Helper: Willian Dudley MD Alkaline Phos 61 U/L Normal 40-129 [facility] Comment on above: Performed By: #### B HECTOR CRP, CDP #### [facility] [email or web address] [address] [place] [address] [phone] [employer] Helper: Willian Dudley MD ALT [Catalytic activity/Vol] 5 U/L Low 10-50 [facility] Comment on above: Performed By: #### B HECTOR CRP, CDP #### [facility] [email or web address] [address] [place] [address] 15731 [employer]per: Willian Dudley MD Anion gap [Moles/Vol] 11 mmol/L Normal 9-16 [facility] Comment on above: Performed By: #### B MP, CRP, CDP #### [facility] [address] [place] [address] [employer] Helper: Willian Dudley MD AST [Catalytic activity/Vol] 13 U/L Normal 10-50 [facility] Comment on above: Performed By: #### B MP CRP, CDP #### [facility] [email or web address] [address] [place] [address] 26045 [employer]per: Willian Dudley MD Bilirubin [Mass/Vol] 0.4 mg/dL Normal 0.0-1.2 [facility] Comment on above: Performed By: #### B HECTOR CRP, CDP #### [facility] [email or web address] [address] [place] [address] 57310 [employer]per: Willian Dudley MD Calcium [Mass/Vol] 8.8 mg/dL Normal 8.6-10.4 [facility] Comment on above: Performed By: #### B HECTOR CRP, CDP #### [facility] [address] [place] [address]120 [employer]per: Willian Dudley MD Chloride [Moles/Vol] 105 mmol/L Normal 98-107 [facility] Comment on above: Performed By: #### B HECTOR CRP, CDP #### [facility] [email or web address] [address] [place] [address] 98408 [employer] Helper: Willian Dudley MD CO2 [Moles/Vol] 22 mmol/L Normal 20-31 [facility] Comment on above: Performed By: #### B HECTOR CRP, CDP #### [facility] [email or web address] [address] [place] [address] 12117 [employer]per: Willian Dudley MD Creatinine [Mass/Vol] 0.7 mg/dL Normal 0.7-1.2 [facility] Comment on above: Performed By: #### B HECTOR CRP, CDP #### [address] [address] [employer] Mach[employer] Helper: Willian Duldey MD GFR/1.73 sq M.predicted among non-blacks MDRD (S/P/Bld) [Vol rate/Area] mL/min/{1.73_m2} Normal >60 [facility] Comment on above: Result Comment: These [...] affects renal tubular secretion. Performed By: #### B THIEN YOUNG, CDP #### [facility] [email or web address] [address] [place] [address] 58544 [employer] Helper: Willian Dudley MD Glucose [Mass/Vol] 118 mg/dL High 74-99 [facility] Comment on above: Performed By: #### B HECTOR CRP, CDP #### [facility] [address] [place] [address] 95989 [employer]per: Willian Dudley MD Potassium [Moles/Vol] 4.1 mmol/L Normal 3.7-5.3 [facility] Comment on above: Performed By: #### B THIEN YOUNG, CDP #### [facility] [email or web address] [address] [place] [address] 46285 [employer] Helper: Willian Dudley MD Protein [Mass/Vol] 6.8 g/dL Normal 6.6-8.7 [facility] Comment on above: Performed By: #### B THIEN YOUNG, CDP #### [facility] [address] [place] [address] 49937 [employer]per: Willian Dudley MD Sodium [Moles/Vol] 138 mmol/L Normal 136-145 [facility] Comment on above: Performed By: #### B HECTOR CRP, CDP #### [facility] [address] [place] [address] 01127 [employer]per: Willian Dudley MD Urea nitrogen [Mass/Vol] 7 mg/dL Normal 6-20 [facility] Comment on above: Performed By: #### B HECTOR CRP, CDP #### [facility] [address] [place] [address] 51378 [employer] Helper: Willian Dudley MD Comprehensive Metabolic Pane l w/ Reflex to MGon 09-26-2024 Albumin [Mass/Vol] 3.3 g/dL Low 3.5 - 5.2 g/dL [facility] Albumin/Globulin [Mass ratio] 0.9 {ratio} Low 1.0 - 2.5 [facility] ALP [Catalytic activity/Vol] 61 U/L 40 - 129 U/L [facility] ALT [Catalytic activity/Vol] 5 U/L Low 10 - 50 U/L [facility] Anion gap [Moles/Vol] 11 mmol/L 9 - 16 mmol/L [facility] AST [Catalytic activity/Vol] 13 U/L 10 - 50 U/L [facility] Bilirubin [Mass/Vol] 0.4 mg/dL 0.0 - 1 .2 mg/dL [facility] Calcium [Mass/Vol] 8.8 mg/dL 8.6 - 10. 4 mg/dL [facility] Chloride [Moles/Vol] 105 mmol/L 98 - 10 7 mmol/L [facility] CO2 [Moles/Vol] 22 mmol/L 20 - 31 mmol/L [facility] Creatinine [Mass/Vol] 0.7 mg/dL 0.7 - 1.2 mg/dL [facility] Est, Glom Filt Rate - PINF [facility] Comment on above: These results are not [...] that affects renal tubular secretion. Glucose [Mass/Vol] 118 mg/dL High 74 - 99 mg/dL [facility] Potassium [Moles/Vol] 4.1 mmol/L 3.7 - 5.3 mmol/L [facility] Protein [Mass/Vol] 6.8 g/dL 6.6 - 8.7 g/dL [facility] Sodium [Moles/Vol] 138 mmol/L 136 - 145 mmol/L [facility] Urea nitrogen [Mass/Vol] 7 mg/dL 6 - 20 mg/dL [facility] Lactic Acidon 09-26-2024 Lactic Acid, Whole Blood 1.2 mmol/L 0.7 - 2.1 mmol/L [facility] Lactic Acid,Whole Bl 1.2 mmol/L Normal 0.7-2.1 [facility] Comment on above: Performed By: #### L ACTIC #### [facility] [address] [place] [address] [phone] [employer] Helper: Willian Dudley MD Interpretation and review of laboratory results Abnormal [facility] Lactic Acid, Whole Blood 3.0 mmol/L High 0.7 - 2.1 mmol/L [facility] Lactic Acid,Whole Bl 3.0 mmol/L High 0.7-2.1 [facility] Comment on above: Performed By: #### B THIEN YOUNG, CDP #### [facility] [address] [place] [address] [phone] [employer] Helper: Willian Dudley MD Lactic Acid, Whole Blood 1.4 mmol/L 0.7 - 2.1 mmol/L [facility] Lactic Acid,Whole Bl 1.4 mmol/L Normal 0.7-2.1 [facility] Comment on above: Performed By: #### B THIEN YOUNG, CDP #### [facility] [address] [place] [address] [phone] [employer] Helper: Willian Dudley MD Lipaseon 09-26-2024 Lipase [Catalytic activity/Vol] 221 U/L High 13 - 60 U/L [facility] Lipase [Catalytic activity/Vol] 221 U/L High 13-60 [facility] Comment on above: Performed By: #### B HECTOR CRP, CDP #### [facility] [address] [place] [address] [phone] [employer] Helper: Willian Dudley MD Magnesiumon 09-26-2024 Magnesium [Mass/Vol] 2.2 mg/dL 1.6 - 2 .6 mg/dL [facility] Magnesium [Mass/Vol] 2.2 mg/dL Normal 1.6-2.6 [facility] Comment on above: Performed By: #### B THIEN YOUNG, GARCÍA #### [facility] [address] [place], [place] [phone] [employer] Helper: Willian Dudley MD No Panel Informationon 09-26 Interpretation and review of laboratory results Abnormal [facility] Phosphoruson 09-26-2024 Phosphate [Mass/Vol] 2.6 mg/dL 2.5 - 4 .5 mg/dL [facility] Phosphorus, Inorg.on Phosphorus, Inorg. 2.6 mg/dL Normal 2.5-4.5 [facility] Comment on above: Performed By: #### B THIEN YOUNG, GARCÍA #### [employer] [address] [place], [place] [phone] [employer] Machin[employer] Helper: Willian Dudley MD TYPE AND SCREENon 09-26-2024 ABO and Rh group Nom (Bld) Blood group B Rh(D) positive [facility] Arm Band Number BE [id number] [facility] Blood Bank Sample Expiration 09/29/2024,2359 [facility] Blood group antibodies identified Nom Negative [facility] Type + Screenon 09-26-2024 Type + Screen Sample Expiration 09/29/2024,2359 Arm Band Number BE [id number] ABO/Rh(D) B POSITIVE Antibody Screen NEGATIVE Normal [facility] Comment on above: Performed By: #### T YS #### [employer] [address] [place], [place] [phone] [employer] Helper: Willian Dudley MD Basic Metabolic Panelon 09-10 Anion gap [Moles/Vol] 15 mmol/L 9 - 16 mmol/L [facility] Calcium [Mass/Vol] 8.5 mg/dL Low 8.6 - 10. 4 mg/dL [facility] Chloride [Moles/Vol] 101 mmol/L 98 - 10 7 mmol/L [facility] CO2 [Moles/Vol] 23 mmol/L 20 - 31 mmol/L [facility] Creatinine [Mass/Vol] 0.8 mg/dL 0.7 - 1.2 mg/dL [facility] Aiden Mueller Rate - PINF [facility] Comment on above: These results are not [...] that affects renal tubular secretion. Glucose [Mass/Vol] 103 mg/dL High 74 - 99 mg/dL [facility] Interpretation and review of laboratory results Abnormal [facility] Potassium [Moles/Vol] 3.2 mmol/L Low 3.7 - 5.3 mmol/L [facility] Sodium [Moles/Vol] 139 mmol/L 136 - 145 mmol/L [facility] Urea nitrogen [Mass/Vol] 7 mg/dL 6 - 20 mg/dL [facility] Basic Metabolic Profon 09-25 Anion gap [Moles/Vol] 15 mmol/L Normal 9-16 [facility] Comment on above: Performed By: #### P T BMPX, CDP #### [employer] [address] [place], [place] [phone] [employer]per: Willian Dudley MD Calcium [Mass/Vol] 8.5 mg/dL Low 8.6-10.4 [facility] Comment on above: Performed By: #### P T BMPX, CDP #### [employer] [address] [place], [place] [phone] [employer] Helper: Willian Dudley MD Chloride [Moles/Vol] 101 mmol/L Normal 98-107 [facility] Comment on above: Performed By: #### P T, BMPX, CDP #### [employer] [facility] [place] [address] [employer] Machinist Helper: Willian Dudley MD CO2 [Moles/Vol] 23 mmol/L Normal 20-31 [facility] Comment on above: Performed By: #### P TALVARO, CDP #### [facility] [email or web address] [address] [place] [address] [phone] [employer] Helper: Willian Dudley MD Creatinine [Mass/Vol] 0.8 mg/dL Normal 0.7-1.2 [facility] Comment on above: Performed By: #### P TALVARO CDP #### [facility] [email or web address] [address] [place] [address] 30850 [employer] Helper: Willian Dudley MD GFR/1.73 sq M.predicted among non-blacks MDRD (S/P/Bld) [Vol rate/Area] mL/min/{1.73_m2} Normal >60 [facility] Comment on above: Result Comment: These [...] affects renal tubular secretion. Performed By: #### P TALVARO CDP #### [facility] [address] [place] [address] 03087 [employer] Helper: Willian Dudley MD Glucose [Mass/Vol] 103 mg/dL High 74-99 [facility] Comment on above: Performed By: #### P TALVARO CDP #### [facility] [address] [place] [address] 56105 [employer] Helper: Willian Dudley MD Potassium [Moles/Vol] 3.2 mmol/L Low 3.7-5.3 [facility] Comment on above: Performed By: #### P T, BMPX, CDP #### [facility] [address] [place], [place] [phone] [employer] Helper: Willian Dudley MD Sodium [Moles/Vol] 139 mmol/L Normal 136-145 [facility] Comment on above: Performed By: #### P T, BMPX, CDP #### [facility] [address] [place], [place] [phone] [employer] Helper: Willian Dudley MD Urea nitrogen [Mass/Vol] 7 mg/dL Normal 6-20 [facility] Comment on above: Performed By: #### P T, BMPX, CDP #### [facility] [address] [place], [place] [phone] [employer]: Willian Dudley MD CBC with Auto Differentialon 09-25-2024 Atypical Lymphocytes 1 % [facility] Atypical Lymphocytes Absolute 0.24 k/uL [facility] Basophils (Bld) [#/Vol] 0.00 10*3/uL [facility] Basophils/100 WBC (Bld) 0 % 0 - 2 % [facility] Eosinophils (Bld) [#/Vol] 0.00 10*3/uL [facility] Eosinophils/100 WBC (Bld) 0 % Low 1 - 4 % [facility] Erythrocyte distribution width (RBC) [Ratio] 11.6 % Low 11.8 - 14.4 % [facility] Hematocrit (Bld) [Volume fraction] 44.0 % 40.7 - 50.3 % [facility] Hemoglobin (Bld) [Mass/Vol] 15.5 g/dL 13.0 - 17.0 g/dL [facility] Immature granulocytes (Bld) [#/Vol] 0.00 10*3/uL [facility] Immature granulocytes/100 WBC (Bld) 0 % 0 [facility] Interpretation and review of laboratory results Abnormal [facility] Lymphocytes/100 WBC (Bld) 13 % Low 24 - 44 % [facility] Lymphocytes/100 WBC (Bld) 3.15 % [facility] MCH (RBC) [Entitic mass] 32.9 pg 25.2 - 33.5 pg [facility] MCHC (RBC) [Mass/Vol] 35.2 g/dL High 28.4 - 34.8 g/dL [facility] MCV (RBC) [Entitic vol] 93.4 fL 82.6 - 102.9 fL [facility] Monocytes/100 WBC (Bld) 4 % 1 - 7 % [facility] Monocytes/100 WBC (Bld) 0.97 % High [facility] Morphology Dez (Bld) [Interp] Normal [facility] Neutrophils/100 WBC (Bld) 82 % High 36 - 66 % [facility] Nucleated RBC/100 WBC (Bld) [Ratio] 0.0 % 0.0 per 100 WBC [facility] Platelet mean volume (Bld) [Entitic vol] 11.0 fL 8.1 - 13.5 fL [facility] Platelets (Bld) [#/Vol] 309 10*3/uL [facility] RBC (Bld) [#/Vol] 4.71 10*6/uL 4.21 - 5.7 7 m/uL [facility] Segmented neutrophils/100 WBC (Bld) 19.84 % High [facility] WBC other (Bld) [#/Vol] 24.2 High [facility] CBC with Diffon 09-25-2024 Abs. Atypical Lymphs 0.24 k/uL Normal [facility] Comment on above: Performed By: #### P T, BMPX, CDP #### [employer] [address] [place], [place] [phone] [employer]: Willian Dudley MD Abs. Basophil 0.00 k/uL Normal 0.0-0.2 [facility] Comment on above: Performed By: #### P T, BMPX, CDP #### [facility] [address] [place], [place] [phone] [employer]: Willian Dudley MD Abs.Imm.Granulocyte 0.00 k/uL Normal 0.00-0.30 [facility] Comment on above: Performed By: #### P T, BMPX, CDP #### [address] [address] [employer]per: Willian Dudley MD Abs.Neutrophil (Seg) 19.84 k/uL High 1.8-7.7 [facility] Comment on above: Performed By: #### P T, BMPX, CDP #### [facility] [email or web address] [address] [place] [address] [phone] [employer]per: Willian Dudley MD Atypical Lymphs 1 % Normal [facility] Comment on above: Performed By: #### P T, BMPX, CDP #### [facility] [email or web address] [address] [place] [address] [phone] [employer]per: Willian Dudley MD Basophils/100 WBC (Bld) 0 % Normal 0-2 [facility] Comment on above: Performed By: #### P T, BMPX, CDP #### [place] [address] [employer]: Willian Dudley MD Eosinophils (Bld) [#/Vol] 0.00 10*3/uL Normal 0.0-0.4 [facility] Comment on above: Performed By: #### P T, BMPX, CDP #### [facility] [email or web address] [address] [place] [address] 14541 [employer] Helper: Willian Dudley MD Eosinophils/100 WBC (Bld) 0 % Low 1-4 [facility] Comment on above: Performed By: #### P T, BMPX, CDP #### [facility] [email or web address] [address] [place] [address] [phone] [employer] Helper: Willian Dudley MD Immature granulocytes/100 WBC (Bld) 0 % Normal 0 [facility] Comment on above: Performed By: #### P T, BMPX, CDP #### [facility] [address] [place] [address] [phone] [employer]per: Willina Dudley MD Lymphocytes (Bld) [#/Vol] 3.15 10*3/uL Normal 1.0-4.8 [facility] Comment on above: Performed By: #### P T, BMPX, CDP #### [facility] [address] [place] [address] [phone] [employer]per: Willian Dudley MD Lymphocytes/100 WBC (Bld) 13 % Low 24-44 [facility] Comment on above: Performed By: #### P T, BMPX, CDP #### [address] [address] [employer]: Willian Dudley MD Monocytes (Bld) [#/Vol] 0.97 10*3/uL High 0.1-0.8 [facility] Comment on above: Performed By: #### P T, BMPX, CDP #### [address] [address] [employer]: Willian Dudley MD Monocytes/100 WBC (Bld) 4 % Normal 1-7 [facility] Comment on above: Performed By: #### P T, BMPX, CDP #### [address] [address] [employer]: Willian Dudley MD Morphology Dez (Bld) [Interp] Normal Normal [facility] Comment on above: Performed By: #### P T, BMPX, CDP #### [address] [address] [employer]: Willian Dudlye MD Neutrophil (Seg) 82 % High 36-66 [facility] Comment on above: Performed By: #### P T, BMPX, CDP #### [facility] [email or web address] [address] [place] [address] [phone] [employer]: Willian Dudley MD Erythrocyte distribution width (RBC) [Ratio] 11.6 % Low 11.8-14.4 [facility] Comment on above: Performed By: #### P T, BMPX, CDP #### [facility] [email or web address] [address] [place] [address] [phone] [employer]: Willian Dudley MD Hematocrit (Bld) [Volume fraction] 44.0 % Normal 40.7-50.3 [facility] Comment on above: Performed By: #### P T, BMPX, CDP #### [facility] [email or web address] [address] [place] [address] [employer]: Willian Dudley MD Hemoglobin (Bld) [Mass/Vol] 15.5 g/dL Normal 13.0-17.0 [facility] Comment on above: Performed By: #### P T, BMPX, CDP #### [facility] [email or web address] [address] [place] [address] [employer]: Willian Dudley MD MCH (RBC) [Entitic mass] 32.9 pg Normal 25.2-33.5 [facility] Comment on above: Performed By: #### P T, BMPX, CDP #### [facility] [email or web address] [address] [place] [address] 19924 [employer]per: Willian Dudley MD MCHC (RBC) [Mass/Vol] 35.2 g/dL High 28.4-34.8 [facility] Comment on above: Performed By: #### P T, BMPX, CDP #### [facility] [email or web address] [address] [place] [address] 60950 [employer]per: Willian Dudley MD MCV (RBC) [Entitic vol] 93.4 fL Normal 82.6-102.9 [facility] Comment on above: Performed By: #### P T, BMPX, CDP #### [facility] [email or web address] [address] [place] [address] [employer]: Willian Dudley MD NRBC Automated 0.0 per 100 WBC Normal 0.0 [facility] Comment on above: Performed By: #### P T, BMPX, CDP #### [facility] [email or web address] [address] [place] [address] [phone] [employer]: Willian Dudley MD Platelet mean volume (Bld) [Entitic vol] 11.0 fL Normal 8.1-13.5 [facility] Comment on above: Performed By: #### P T, BMPX, CDP #### [facility] [email or web address] [address] [place] [address] [phone] [employer]: Willian Dudley MD Platelets (Bld) [#/Vol] 309 10*3/uL Normal 138-453 [facility] Comment on above: Performed By: #### P T, BMPX, CDP #### [facility] [email or web address] [address] [place] [address] [phone] [employer]: Willian Dudley MD RBC (Bld) [#/Vol] 4.71 10*6/uL Normal 4.21-5.77 [facility] Comment on above: Performed By: #### P T, BMPX, CDP #### [facility] [email or web address] [address] [place] [address] 46869 [employer]: Willian Dudley MD WBC (Bld) [#/Vol] 24.2 10*3/uL High 3.5-11.3 [facility] Comment on above: Performed By: #### P T, BMPX, CDP #### [facility] [email or web address] [address] [place] [address] [phone] [employer]: Willian Dudley MD Calcium, [employer] 09-25-2024 Calcium [Moles/Vol] 1.05 mmol/L Low 1.13-1.33 [facility] Comment on above: Performed By: #### B MP, CRP, CDP #### [employer] [address] [place] [address] [phone] [employer]per: Willian Dudley MD Calcium, Ionizedon Calcium.ionized (Bld) [Moles/Vol] 1.05 mmol/L Low 1.13 - 1.33 mmol/L [facility] Interpretation and review of laboratory results Abnormal [facility] Lactic Acidon 09-25-2024 Lactic Acid, Whole Blood 1.8 mmol/L 0.7 - 2.1 mmol/L [facility] Lactic Acid,Whole Bl 1.8 mmol/L Normal 0.7-2.1 [facility] Comment on above: Performed By: #### ALVARO Vega, CDP #### [facility] [address] [place] [address] [phone] [employer]: Willian Dudley MD Magnesiumon 09-25-2024 Magnesium [Mass/Vol] 2.3 mg/dL 1.6 - 2 .6 mg/dL [facility] Magnesium [Mass/Vol] 2.3 mg/dL Normal 1.6-2.6 [facility] Comment on above: Performed By: #### ALVARO Vega, CDP #### [facility] [address] [place] [address] [phone] [employer]: Willian Dudley MD No Panel Informationon 09-25 [facility] PTon 09-25-2024 INR Coag (PPP) [Relative time] 1.4 {INR} Normal [facility] Comment on above: Result Comment: Therapeutic Range: Moderate Anticoagulant Intensity: INR = 2.0-3.0 High Anticoagulant Intensity: INR = 2.5-3.5 Performed By: #### Magda TALVARO, CDP #### [facility] [address] [place] [address] [phone] [employer]: Willian Dudley MD PT Coag (PPP) [Time] 17.2 s High 11.7-14.9 [facility] Comment on above: Performed By: #### P T, BMPX, CDP #### [employer] [address] [place], [place] [phone] [employer]per: Willian Dudley MD Phosphoruson 09-25-2024 Phosphate [Mass/Vol] 3.6 mg/dL 2.5 - 4 .5 mg/dL [facility] Supponor Phosphorus, Inorg.on 025 Phosphorus, Inorg. 3.6 mg/dL Normal 2.5-4.5 [facility] Comment on above: Performed By: #### P T, BMPX, CDP #### [employer] [facility] [place], [place] [phone] [employer]per: Willian Dudley MD Protime-INRon 09-25-2024 INR Coag (PPP) [Relative time] 1.4 {INR} [facility] Comment on above: Therapeutic Range: Moderate Anticoagulant Intensity: INR = 2.0-3.0 High Anticoagulant Intensity: INR = 2.5-3.5 Interpretation and review of laboratory results Abnormal [facility] [employer] PT Coag (PPP) [Time] 17.2 s High [facility] Supponor [facility] IBD sgi Diagnosticon 024 IBD sgi Diagnostic SEE SEPARATE REPORT Normal [facility] Comment on above: Result Comment: (NOT E) Pattern not consistent with IBD Performed By: #### B MP, CRP, CDP #### [employer] [address] [place], [place] [phone] [employer]: Willian Dudley MD Basic Metab w/rfx MGon 01-17 Anion gap [Moles/Vol] 18 mmol/L High 05-26 [facility] Comment on above: Performed By: #### B MPX, CDP #### [facility] [address] [place] [address] [employer]: Willian Dudley MD Calcium [Mass/Vol] 9.5 mg/dL Normal 8.6-10.4 [facility] Comment on above: Performed By: #### B MPX, CDP #### [facility] [address] [place] [address] [phone] [employer]per: Willian Dudley MD Chloride [Moles/Vol] 102 mmol/L Normal 98-107 [facility] Comment on above: Performed By: #### B MPX, CDP #### [facility] [address] [place] [address] 60132 [employer] Helper: Willian Dudley MD CO2 [Moles/Vol] 19 mmol/L Low 20-31 [facility] Comment on above: Performed By: #### B MPX, CDP #### [facility] [address] [place] [address] 32653 [employer]per: Willian Dudley MD Creatinine [Mass/Vol] 0.7 mg/dL Normal 0.70-1.20 [facility] Comment on above: Performed By: #### B MPX, CDP #### [address] [address] [employer]per: Willian Dudley MD GFR/1.73 sq M.predicted among non-blacks MDRD (S/P/Bld) [Vol rate/Area] mL/min/{1.73_m2} Normal >60 [facility] Comment on above: Result Comment: These [...] affects renal tubular secretion. Performed By: #### B MPX, CDP #### [address] [address] [employer] Helper: Willian Dudley MD Glucose [Mass/Vol] 66 mg/dL Low 74-99 [facility] Comment on above: Performed By: #### B MPX, CDP #### [facility] [address] [place] [address] [employer]per: Willian Dudley MD Potassium [Moles/Vol] 3.9 mmol/L Normal 3.7-5.3 [facility] Comment on above: Performed By: #### B MPX, CDP #### [facility] [address] [place] [address] [employer]per: Willian Dudley MD Sodium [Moles/Vol] 139 mmol/L Normal 136-145 [facility] Comment on above: Performed By: #### B MPX, CDP #### [facility] [address] [place] [address] [employer]per: Willian Dudley MD Urea nitrogen [Mass/Vol] 5 mg/dL Low 6-20 [facility] Comment on above: Performed By: #### B MPX, CDP #### [facility] [address] [place] [address] [employer]per: Willian Dudley MD Basic Metabolic Panel w/ Ref fausto to MGon 01-18-2024 Anion gap [Moles/Vol] 18 mmol/L High 9 - 16 mmol/L [facility] [employer] Calcium [Mass/Vol] 9.5 mg/dL 8.6 - 10. 4 mg/dL [facility] [employer] Chloride [Moles/Vol] 102 mmol/L 98 - 10 7 mmol/L [facility] [employer] CO2 [Moles/Vol] 19 mmol/L Low 20 - 31 mmol/L [facility] Creatinine [Mass/Vol] 0.7 mg/dL 0.70 - 1.20 mg/dL [facility], Glom Filt Rate - PINF [facility] Comment on above: These results are not [...] 66 mg/dL Low 74 - 99 mg/dL [facility] Interpretation and review of laboratory results Abnormal [facility] Potassium [Moles/Vol] 3.9 mmol/L 3.7 - 5.3 mmol/L [facility] Sodium [Moles/Vol] 139 mmol/L 136 - 145 mmol/L [facility] Urea nitrogen [Mass/Vol] 5 mg/dL Low 6 - 20 mg/dL [facility] CBC with Auto Differentialon 01-18-2024 Basophils (Bld) [#/Vol] 0.07 10*3/uL [facility] Basophils/100 WBC (Bld) 1 % 0 - 2 % [facility] Eosinophils (Bld) [#/Vol] 0.19 10*3/uL [facility] Eosinophils/100 WBC (Bld) 2 % 1 - 4 % [facility] Erythrocyte distribution width (RBC) [Ratio] 11.9 % 11.8 - 14.4 % [facility] Hematocrit (Bld) [Volume fraction] 51.2 % High 40.7 - 50.3 % [facility] Hemoglobin (Bld) [Mass/Vol] 17.2 g/dL High 13.0 - 17.0 g/dL [facility] Immature granulocytes (Bld) [#/Vol] [facility] Immature granulocytes/100 WBC (Bld) 0 % 0 [facility] Interpretation and review of laboratory results Abnormal [facility] Lymphocytes/100 WBC (Bld) 32 % 24 - 43 % [facility] Lymphocytes/100 WBC (Bld) 2.52 % [facility] MCH (RBC) [Entitic mass] 31.5 pg 25.2 - 33.5 pg [facility] MCHC (RBC) [Mass/Vol] 33.6 g/dL 28.4 - 34.8 g/dL [facility] MCV (RBC) [Entitic vol] 93.8 fL 82.6 - 102.9 fL [facility] Monocytes/100 WBC (Bld) 9 % 3 - 12 % [facility] Monocytes/100 WBC (Bld) 0.75 % [facility] Neutrophils/100 WBC (Bld) 55 % 36 - 65 % [facility] Nucleated RBC/100 WBC (Bld) [Ratio] 0.0 % 0.0 per 100 WBC [facility] Platelet mean volume (Bld) [Entitic vol] 11.2 fL 8.1 - 13.5 fL [facility] Platelets (Bld) [#/Vol] 181 10*3/uL [facility] RBC (Bld) [#/Vol] 5.46 10*6/uL 4.21 - 5.7 7 m/uL [facility] Segmented neutrophils/100 WBC (Bld) 4.40 % [facility] WBC other (Bld) [#/Vol] 8.0 [facility] CBC with Diffon 01-18-2024 Abs. Basophil 0.07 k/uL Normal 0.00-0.20 [facility] Comment on above: Performed By: #### B MP, CRP, CDP #### [facility] [email or web address] [address] [place] [address] [employer] Helper: Willian Dudley MD Abs.Imm.Granulocyte <0.03 Normal 0.00-0.30 [facility] Comment on above: Performed By: #### B MP, CRP, CDP #### [facility] [address] [place] [address] [employer] Helper: Willian uDdley MD Abs.Neutrophil (Seg) 4.40 k/uL Normal 1.50-8.10 [facility] Comment on above: Performed By: #### B MP, CRP, CDP #### [facility] [address] [place] [address] [employer]per: Willian Dudley MD Basophils/100 WBC (Bld) 1 % Normal 0-2 [facility] Comment on above: Performed By: #### B MP, CRP, CDP #### [address] [address] [employer]per: Willian Dudley MD Eosinophils (Bld) [#/Vol] 0.19 10*3/uL Normal 0.00-0.44 [facility] Comment on above: Performed By: #### B MP, CRP, CDP #### [address] [address] [employer]: Willian Dudley MD Eosinophils/100 WBC (Bld) 2 % Normal 1-4 [facility] Comment on above: Performed By: #### B MP, CRP, CDP #### [address] [address] [employer]: Willian Dudley MD Erythrocyte distribution width (RBC) [Ratio] 11.9 % Normal 11.8-14.4 [facility] Comment on above: Performed By: #### B MP, CRP, CDP #### [address] [address] [employer]: Willian Dudley MD Hematocrit (Bld) [Volume fraction] 51.2 % High 40.7-50.3 [facility] Comment on above: Performed By: #### B MP, CRP, CDP #### [address] [address] [employer]: Willian Dudley MD Hemoglobin (Bld) [Mass/Vol] 17.2 g/dL High 13.0-17.0 [facility] Comment on above: Performed By: #### B MP, CRP, CDP #### [address] [address] [employer]per: Willian Dudley MD Immature granulocytes/100 WBC (Bld) 0 % Normal 0 [facility] Comment on above: Performed By: #### B MP, CRP, CDP #### [facility] [email or web address] [address] [place] [address] [place] [address] [employer]: Willian Dudley MD Lymphocytes (Bld) [#/Vol] 2.52 10*3/uL Normal 1.10-3.70 [facility] Comment on above: Performed By: #### B MP, CRP, CDP #### [address] [address] [employer]: Willian Dudley MD Lymphocytes/100 WBC (Bld) 32 % Normal 24-43 [facility] Comment on above: Performed By: #### B MP, CRP, CDP #### [address] [address] [employer]: Willian Dudley MD MCH (RBC) [Entitic mass] 31.5 pg Normal 25.2-33.5 [facility] Comment on above: Performed By: #### B MP, CRP, CDP #### [address] [address] [employer]per: Willian Dudley MD MCHC (RBC) [Mass/Vol] 33.6 g/dL Normal 28.4-34.8 [facility] Comment on above: Performed By: #### B MP, CRP, CDP #### [address] [address] [employer]: Willian Dudley MD MCV (RBC) [Entitic vol] 93.8 fL Normal 82.6-102.9 [facility] Comment on above: Performed By: #### B MP, CRP, CDP #### [address] [address] [employer]per: Willian Dudley MD Monocytes (Bld) [#/Vol] 0.75 10*3/uL Normal 0.10-1.20 [facility] Comment on above: Performed By: #### B MP, CRP, CDP #### [address] [address] [employer]per: Willian Dudley MD Monocytes/100 WBC (Bld) 9 % Normal 3-12 [facility] Comment on above: Performed By: #### B MP, CRP, CDP #### [facility] [address] [place] [address] [employer]per: Willian Dudley MD Neutrophil (Seg) 55 % Normal 36-65 [facility] Comment on above: Performed By: #### B MP, CRP, CDP #### [facility] [email or web address] [address] [place] [address] [employer] Helper: Willian Dudley MD NRBC Automated 0.0 per 100 WBC Normal 0.0 [facility] Comment on above: Performed By: #### B MP, CRP, CDP #### [address] [address] [employer]: Willian Dudley MD Platelet mean volume (Bld) [Entitic vol] 11.2 fL Normal 8.1-13.5 [facility] Comment on above: Performed By: #### B MP, CRP, CDP #### [address] [address] [employer]per: Willian Dudley MD Platelets (Bld) [#/Vol] 181 10*3/uL Normal 138-453 [facility] Comment on above: Performed By: #### B MP, CRP, CDP #### [facility] [email or web address] [address] [place] [address] [employer]per: Willian Dudley MD RBC (Bld) [#/Vol] 5.46 10*6/uL Normal 4.21-5.77 [facility] Comment on above: Performed By: #### B MP, CRP, CDP #### [facility] [email or web address] [address] [place] [address] [employer] Helper: Willian Dudley MD WBC (Bld) [#/Vol] 8.0 10*3/uL Normal 3.5-11.3 [facility] Comment on above: Performed By: #### B MP, CRP, CDP #### [employer] [facility] [place] [address] [employer]per: Willian Dudley MD Hepatic Function Panel Albumin [Mass/Vol] 4.1 g/dL 3.5 - 5.2 g/dL [facility] Albumin/Globulin [Mass ratio] 2.0 {ratio} 1.0 - 2.5 [facility] ALP [Catalytic activity/Vol] 64 U/L 40 - 129 U/L [facility] ALT [Catalytic activity/Vol] 5 U/L Low 10 - 50 U/L [facility] AST [Catalytic activity/Vol] 17 U/L 10 - 50 U/L [facility] Bilirubin [Mass/Vol] 0.8 mg/dL 0.00 - 1.20 mg/dL [facility] Bilirubin.direct [Mass/Vol] 0.2 mg/dL 0.00 - 0.30 mg/dL [facility] Bilirubin.indirect [Mass/Vol] 0.6 mg/dL 0.0 - 1.0 mg/dL [facility] Globulin (S) [Mass/Vol] 2.7 g/dL [facility] Interpretation and review of laboratory results Abnormal [facility] Protein [Mass/Vol] 6.8 g/dL 6.6 - 8.7 g/dL [facility] Hepatitis Acute [facility] 01-17 Hep A Ab,IgM Non-Reactive Normal NR [facility] Comment on above: Performed By: #### P T, BMPX, CDP #### [employer] [address] [place], [place] [phone] [employer]: Willian Dudley MD Hep B Core Ab,IgM Non-Reactive Normal NR [facility] Comment on above: Performed By: #### P T, BMPX, CDP #### [employer] [address] [place] [address] [employer]: Willian Dudley MD Hep B Surf Ag Non-Reactive Normal NR [facility] Comment on above: Performed By: #### P TALVARO, CDP #### [facility] [address] [place] [address] [employer]: Willian Dudley MD Hep C Ab Non-Reactive Normal NR [facility] Comment on above: Result Comment: The [...] RNA by PCR. Performed By: #### P TALVARO, CDP #### [address] [phone] [employer]: Willian Dudley MD Hepatitis Panel, Acuteon HAV IgM IA Ql Non-Reactive NONREACTIVE [facility] HBV core IgM IA Ql Non-Reactive NONREACTIVE [facility] HBV surface Ag IA Ql Non-Reactive NONREACTIVE B [facility] HCV Ab IA Ql Non-Reactive NONREACTIVE [facility] Comment on above: The hepatitis C procedure [...] recommended by ordering HCV RNA by PCR. [facility] Liver Profileon 01-18-2024 Albumin [Mass/Vol] 4.1 g/dL Normal 3.5-5.2 [facility] Comment on above: Performed By: #### P T BMPEnrique, CDP #### [facility] [email or web address] [address] [place] [address] [phone] [employer]per: Willian Dudley MD Albumin/Glob Ratio 2.0 Normal 1.0-2.5 [facility] Comment on above: Performed By: #### P T, BMPX, CDP #### [facility] [email or web address] [address] [place] [phone] [employer]per: Willian Dudley MD Alkaline Phos 64 U/L Normal 40-129 [facility] Comment on above: Performed By: #### P T, BMPX, CDP #### [facility] [email or web address] [address] [place] [address] [employer]: Willian Dudley MD ALT [Catalytic activity/Vol] 5 U/L Low 10-50 [facility] Comment on above: Performed By: #### P T, BMPX, CDP #### [facility] [email or web address] [address] [place] [phone] [employer]: Willian Dudley MD AST [Catalytic activity/Vol] 17 U/L Normal 10-50 [facility] Comment on above: Performed By: #### P T, BMPX, CDP #### [facility] [email or web address] [address] [place] [address] [employer]: Willian Dudley MD Bilirubin [Mass/Vol] 0.8 mg/dL Normal 0.00-1.20 [facility] Comment on above: Performed By: #### P T, BMPX, CDP #### [facility] [email or web address] [address] [place] [address] [employer]: Willian Dudley MD Bilirubin, Indirect 0.6 mg/dL Normal 0.0-1.0 [facility] Comment on above: Performed By: #### P T, BMPX, CDP #### [facility] [email or web address] [address] [place] [address] [employer]: Willian Dudley MD Bilirubin.indirect [Mass/Vol] 0.2 mg/dL Normal 0.00-0.30 [facility] Comment on above: Performed By: #### P T, BMPX, CDP #### [employer] [address] [place] [address] [employer]per: Willian Dudley MD Globulin (S) [Mass/Vol] 2.7 g/dL Normal [facility] Comment on above: Performed By: #### P T, BMPX, CDP #### [employer] [address] [place] [address] [employer]: Willian Dudley MD Protein [Mass/Vol] 6.8 g/dL Normal 6.6-8.7 [facility] Comment on above: Performed By: #### P T, BMPX, CDP #### [employer] [address] [place] [address] [employer]: Willian Dudley MD PTon 01-18-2024 INR Coag (PPP) [Relative time] 1.2 {INR} Normal [facility] Comment on above: Result Comment: Therapeutic Range: Moderate Anticoagulant Intensity: INR = 2.0-3.0 High Anticoagulant Intensity: INR = 2.5-3.5 Performed By: #### P T, BMPX, CDP #### [employer] [address] [place] [address] [employer]: Willian Dudley MD PT Coag (PPP) [Time] 15.2 s High 11.7-14.9 [facility] Comment on above: Performed By: #### P T, BMPX, CDP #### [employer] [address] [place] [address] [employer]: Willian Dudley MD Protime-INRon 01-18-2024 INR Coag (PPP) [Relative time] 1.2 {INR} [facility] Comment on above: Therapeutic Range: Moderate Anticoagulant Intensity: INR = 2.0-3.0 High Anticoagulant Intensity: INR = 2.5-3.5 Interpretation and review of laboratory results Abnormal [facility] PT Coag (PPP) [Time] 15.2 s High [facility] Basic Metab w/rfx MGon 01-16 Anion gap [Moles/Vol] 14 mmol/L Normal 9-16 [facility] Comment on above: Performed By: #### P T, BMPX, CDP #### [facility] [email or web address] [address] [place] [address] [employer]: Willian Dudley MD Calcium [Mass/Vol] 8.9 mg/dL Normal 8.6-10.4 [facility] Comment on above: Performed By: #### P T, BMPX, CDP #### [facility] [email or web address] [address] [place] [address] [employer]: Willian Dudley MD Chloride [Moles/Vol] 105 mmol/L Normal 98-107 [facility] Comment on above: Performed By: #### P T, BMPX, CDP #### [facility] [email or web address] [address] [place] [address] [employer]: Willian Dudley MD CO2 [Moles/Vol] 20 mmol/L Normal 20-31 [facility] Comment on above: Performed By: #### P T, BMPX, CDP #### [facility] [address] [place] [address] [employer]: Willian Dudley MD Creatinine [Mass/Vol] 0.7 mg/dL Normal 0.70-1.20 [facility] Comment on above: Performed By: #### P T, BMPX, CDP #### [facility] [address] [place] [address] [employer]: Willian Dudley MD GFR/1.73 sq M.predicted among non-blacks MDRD (S/P/Bld) [Vol rate/Area] mL/min/{1.73_m2} Normal >60 [facility] Comment on above: Result Comment: These [...] affects renal tubular secretion. Performed By: #### P ALVARO Womack, CDP #### [facility] [address] [place] [address] [employer]: Willian Dudley MD Glucose [Mass/Vol] 80 mg/dL Normal 74-99 [facility] Comment on above: Performed By: #### P TYODITX, CDP #### [facility] [email or web address] [address] [place] [address] [employer]: Willian Dudley MD Potassium [Moles/Vol] 3.7 mmol/L Normal 3.7-5.3 [facility] Comment on above: Performed By: #### P T BMPX, CDP #### [facility] [address] [place] [address] [employer]: Willian Dudley MD Sodium [Moles/Vol] 139 mmol/L Normal 136-145 [facility] Comment on above: Performed By: #### P T BMPX, CDP #### [facility] [address] [place] [address] [employer]: Willian Dudley MD Urea nitrogen [Mass/Vol] 5 mg/dL Low 6-20 [facility] Comment on above: Performed By: #### P T BMPX, CDP #### [facility] [address] [place] [address] [employer]: Willian Dudley MD Basic Metabolic Panel w/ Ref fausto to MGon 01-17-2024 Anion gap [Moles/Vol] 14 mmol/L 9 - 16 mmol/L [facility] Calcium [Mass/Vol] 8.9 mg/dL 8.6 - 10. 4 mg/dL [facility] Chloride [Moles/Vol] 105 mmol/L 98 - 10 7 mmol/L [facility] CO2 [Moles/Vol] 20 mmol/L 20 - 31 mmol/L [facility] Creatinine [Mass/Vol] 0.7 mg/dL 0.70 - 1.20 mg/dL [facility] Aiden Mueller Rate - PINF [facility] Comment on above: These results are not [...] [Mass/Vol] 80 mg/dL 74 - 99 mg/dL [facility] Interpretation and review of laboratory results Abnormal [facility] Potassium [Moles/Vol] 3.7 mmol/L 3.7 - 5.3 mmol/L [facility] Sodium [Moles/Vol] 139 mmol/L 136 - 145 mmol/L [facility] Urea nitrogen [Mass/Vol] 5 mg/dL Low 6 - 20 mg/dL [facility] CBC with Auto Differentialon 01-17-2024 Basophils (Bld) [#/Vol] 0.06 10*3/uL [facility] Basophils/100 WBC (Bld) 1 % 0 - 2 % [facility] Eosinophils (Bld) [#/Vol] 0.21 10*3/uL [facility] Eosinophils/100 WBC (Bld) 3 % 1 - 4 % [facility] Erythrocyte distribution width (RBC) [Ratio] 11.9 % 11.8 - 14.4 % [facility] Hematocrit (Bld) [Volume fraction] 43.1 % 40.7 - 50.3 % [facility] Hemoglobin (Bld) [Mass/Vol] 14.8 g/dL 13.0 - 17.0 g/dL [facility] Immature granulocytes (Bld) [#/Vol] [facility] Immature granulocytes/100 WBC (Bld) 0 % 0 [facility] Lymphocytes/100 WBC (Bld) 33 % 24 - 43 % [facility] Lymphocytes/100 WBC (Bld) 2.42 % [facility] MCH (RBC) [Entitic mass] 31.7 pg 25.2 - 33.5 pg [facility] MCHC (RBC) [Mass/Vol] 34.3 g/dL 28.4 - 34.8 g/dL [facility] MCV (RBC) [Entitic vol] 92.3 fL 82.6 - 102.9 fL [facility] Monocytes/100 WBC (Bld) 10 % 3 - 12 % [facility] Monocytes/100 WBC (Bld) 0.74 % [facility] Neutrophils/100 WBC (Bld) 53 % 36 - 65 % [facility] Nucleated RBC/100 WBC (Bld) [Ratio] 0.0 % 0.0 per 100 WBC [facility] Platelet mean volume (Bld) [Entitic vol] 11.3 fL 8.1 - 13.5 fL [facility] Platelets (Bld) [#/Vol] 173 10*3/uL [facility] RBC (Bld) [#/Vol] 4.67 10*6/uL 4.21 - 5.7 7 m/uL [facility] Segmented neutrophils/100 WBC (Bld) 3.89 % [facility] WBC other (Bld) [#/Vol] 7.3 [facility] CBC with Diffon 01-17-2024 Abs. Basophil 0.06 k/uL Normal 0.00-0.20 [facility] Comment on above: Performed By: #### P T, BMPX, CDP #### [employer] [address] [place] [id number] [employer]per: Willian Dudley MD Abs.Imm.Granulocyte <0.03 Normal 0.00-0.30 [facility] Comment on above: Performed By: #### P T, BMPX, CDP #### [facility] [address] [place] [address] [employer]per: Willian Dudley MD Abs.Neutrophil (Seg) 3.89 k/uL Normal 1.50-8.10 [facility] Comment on above: Performed By: #### P T, BMPX, CDP #### [facility] [email or web address] [address] [place] [address] [employer]per: Willian Dudley MD Basophils/100 WBC (Bld) 1 % Normal 0-2 [facility] Comment on above: Performed By: #### P T, BMPX, CDP #### [address] [address] [employer]: Willian Dudley MD Eosinophils (Bld) [#/Vol] 0.21 10*3/uL Normal 0.00-0.44 [facility] Comment on above: Performed By: #### P T, BMPX, CDP #### [facility] [email or web address] [address] [place] [address] [employer]per: Willian Dudley MD Eosinophils/100 WBC (Bld) 3 % Normal 1-4 [facility] Comment on above: Performed By: #### P T, BMPX, CDP #### [facility] [email or web address] [address] [place] [address] [employer]: Willian Dudley MD Erythrocyte distribution width (RBC) [Ratio] 11.9 % Normal 11.8-14.4 [facility] Comment on above: Performed By: #### P T, BMPX, CDP #### [facility] [email or web address] [address] [place] [address] [employer]per: Willian Dudley MD Hematocrit (Bld) [Volume fraction] 43.1 % Normal 40.7-50.3 [facility] Comment on above: Performed By: #### P T, BMPX, CDP #### [facility] [email or web address] [address] [place] [address] [employer]per: Willian Dudley MD Hemoglobin (Bld) [Mass/Vol] 14.8 g/dL Normal 13.0-17.0 [facility] Comment on above: Performed By: #### P T, BMPX, CDP #### [facility] [email or web address] [address] [place] [address] [employer]per: Willian Dudley MD Immature granulocytes/100 WBC (Bld) 0 % Normal 0 [facility] Comment on above: Performed By: #### P T, BMPX, CDP #### [facility] [email or web address] [address] [place] [id number] [employer]per: Willian Dudley MD Lymphocytes (Bld) [#/Vol] 2.42 10*3/uL Normal 1.10-3.70 [facility] Comment on above: Performed By: #### P T, BMPX, CDP #### [address] [address] [employer]per: Willian Dudley MD Lymphocytes/100 WBC (Bld) 33 % Normal 24-43 [facility] Comment on above: Performed By: #### P T, BMPX, CDP #### [facility] [email or web address] [address] [place] [address] [employer]per: Willian Dudley MD MCH (RBC) [Entitic mass] 31.7 pg Normal 25.2-33.5 [facility] Comment on above: Performed By: #### P T, BMPX, CDP #### [facility] [email or web address] [address] [place] [address] [employer]per: Willian Dudley MD MCHC (RBC) [Mass/Vol] 34.3 g/dL Normal 28.4-34.8 [facility] Comment on above: Performed By: #### P T, BMPX, CDP #### [facility] [email or web address] [address] [place] [address] [employer]per: Willian Dudley MD MCV (RBC) [Entitic vol] 92.3 fL Normal 82.6-102.9 [facility] Comment on above: Performed By: #### P T, BMPX, CDP #### [address] [address] [employer]per: Willian Dudley MD Monocytes (Bld) [#/Vol] 0.74 10*3/uL Normal 0.10-1.20 [facility] Comment on above: Performed By: #### P T, BMPX, CDP #### [place] [address] [employer]: Willian Dudley MD Monocytes/100 WBC (Bld) 10 % Normal 3-12 [facility] Comment on above: Performed By: #### P T, BMPX, CDP #### [place] [address] [employer]per: Willian Dudley MD Neutrophil (Seg) 53 % Normal 36-65 [facility] Comment on above: Performed By: #### P T, BMPX, CDP #### [place] [address] [employer]per: Willian Dudley MD NRBC Automated 0.0 per 100 WBC Normal 0.0 [facility] Comment on above: Performed By: #### P T, BMPX, CDP #### [place] [address] [employer]per: Willian Dudley MD Platelet mean volume (Bld) [Entitic vol] 11.3 fL Normal 8.1-13.5 [facility] Comment on above: Performed By: #### P T, BMPX, CDP #### [address] [address] [employer]per: Willian Dudley MD Platelets (Bld) [#/Vol] 173 10*3/uL Normal 138-453 [facility] Comment on above: Performed By: #### P T, BMPX, CDP #### [email or web address] [address] [place] [address] [employer]per: Willian Dudley MD RBC (Bld) [#/Vol] 4.67 10*6/uL Normal 4.21-5.77 [facility] Comment on above: Performed By: #### P T, BMPX, CDP #### [facility] [address] [place] [address] [employer]per: Willian Dudley MD WBC (Bld) [#/Vol] 7.3 10*3/uL Normal 3.5-11.3 [facility] Comment on above: Performed By: #### P T, BMPX, CDP #### [facility] [email or web address] [address] [place] [address] [employer] Helper: Willian Dudley MD CT PELVIS WO CONTRASTon [...] Brannon Whittaker MD 01/17/24 Final result Normal [facility] CT Pelvis WO contraston 05-0 No safe window to access known mid-lower central pelvic abscess, as above. No drainage catheter placement attempted. [facility] EXAMINATION: CT OF THE PELVIS WITHOUT [...] oblique positions. No drainage catheter placement attempted. [facility] Brannon Whittaker MD - 01/17/2024 EXAMINATION: CT OF THE [...] as above. No drainage catheter placement attempted. [facility] Radiology Study observation (narrative) [facility] CT Pelvis WO contrastOrdered By: Brannon Whittaker on 01-17-2024 [facility] Work Phone: PTon 01-17-2024 INR Coag (PPP) [Relative time] 1.2 {INR} Normal [facility] Comment on above: Result Comment: Therapeutic Range: Moderate Anticoagulant Intensity: INR = 2.0-3.0 High Anticoagulant Intensity: INR = 2.5-3.5 Performed By: #### P TALVARO, CDP #### [facility] [place] [address] [employer]per: Willian Dudley MD PT Coag (PPP) [Time] 15.3 s High 11.7-14.9 [facility] Comment on above: Performed By: #### P TALVARO, CDP #### [employer] [address] [place] [id number] [employer]per: Willian Dudley MD Protime-INRon 01-17-2024 INR Coag (PPP) [Relative time] 1.2 {INR} [facility] Comment on above: Therapeutic Range: Moderate Anticoagulant Intensity: INR = 2.0-3.0 High Anticoagulant Intensity: INR = 2.5-3.5 Interpretation and review of laboratory results Abnormal [facility] PT Coag (PPP) [Time] 15.3 s High [facility] ACETAMINOPHENon 09-23-2022 Acetaminophen [Mass/Vol] ug/mL Critically low 10.0-30.0 [facility] Comment on above: Result Comment: Prev iously reported as: <2.8 On 09/23/2022 15:54 By [email or web address] Performed By: #### C MPLETICIA, ACET #### [facility] [address] [place] [address] Dr. Isabel Hudson CBC AUTO DIFFon 09-23-2022 BASO # 0.1 103/ul Normal 0.0-0.1 [facility] Comment on above: Performed By: #### C BC #### [facility] [address] [address] [address] Isabel Hudson Basophils/100 WBC (Bld) 1.0 % Normal 0.2-2.0 [facility] Comment on above: Performed By: #### C BC #### [facility] [address] [address] [address] Isabel Hudson EO # 0.2 103/ul Normal 0.0-0.7 [facility] Comment on above: Performed By: #### C BC #### [facility] [address] [address] [address] Isabel Hudson Eosinophils/100 WBC (Bld) 2.9 % Normal 0.9-7.0 [facility] Comment on above: Performed By: #### C BC #### [facility] [address] [place] [address] Dr. Isabel Hudson Erythrocyte distribution width (RBC) [Ratio] 12.1 % Normal 11.0-15.0 [facility] Comment on above: Performed By: #### C BC #### [facility] [address] [address] [address] Isabel Hudson Hematocrit (Bld) [Volume fraction] 50.1 % Normal 42.0-54.0 [facility] Comment on above: Performed By: #### C BC #### [facility] [address] [address] [address] Isabel Hudson Hemoglobin (Bld) [Mass/Vol] 17.6 g/dL Normal 14.0-18.0 [facility] Comment on above: Performed By: #### C BC #### [facility] [address] [address] [address] Isabel Hudson IG # 0.04 10e3/ul Critically high 0.00-0.03 [facility] Comment on above: Performed By: #### C BC #### [facility] [address] [address] [address] Isabel Hudson IG % 0.5 % Normal 0.0-0.5 [facility] Comment on above: Performed By: #### C BC #### [facility] [address] [place] [address] Dr. Isabel Hudson LYMPH # 2.8 103/ul Normal 1.2-3.8 [facility] Comment on above: Performed By: #### C BC #### [facility] [address] [place] [address] Dr. Isabel Hudson Lymphocytes/100 WBC (Bld) 32.7 % Normal 20.5-60.0 [facility] Comment on above: Performed By: #### C BC #### [facility] [address] [place] [address] Dr. Isabel Hudson MANUAL DIFF REQ NO Normal [facility] Comment on above: Performed By: #### C BC #### [facility] [address] [place] [address] Dr. Isabel Hudson MCH (RBC) [Entitic mass] 32.3 pg Normal 25.9-34.0 [facility] Comment on above: Performed By: #### C BC #### [facility] [address] [place] [address] Dr. Isabel Hudson MCHC (RBC) [Mass/Vol] 35.1 g/dL Normal 29.9-35.2 [facility] Comment on above: Performed By: #### C BC #### [facility] [address] [place] [address] Dr. Isabel Hudson MCV (RBC) [Entitic vol] 91.9 fL Normal 80.0-94.0 [facility] Comment on above: Performed By: #### C BC #### [facility] [address] [place] [address] Dr. Isabel Hudson MONO # 0.8 103/ul Normal 0.3-0.8 [facility] Comment on above: Performed By: #### C BC #### [facility] [address] [place] [address] Dr. Isabel Hudson Monocytes/100 WBC (Bld) 9.5 % Normal 1.7-12.0 [facility] Comment on above: Performed By: #### C BC #### [facility] [address] [place] [address] Dr. Isabel Hudson NEUT # 4.5 103/ul Normal 1.4-6.5 [facility] Comment on above: Performed By: #### C BC #### [facility] [address] [place] [address] Dr. Isabel Hudson Neutrophils/100 WBC (Bld) 53.4 % Normal 43.0-75.0 [facility] Comment on above: Performed By: #### C BC #### [facility] [address] [place] [address] Dr. Isabel Hudson Platelet mean volume (Bld) [Entitic vol] 10.5 fL Normal 9.5-13.5 [facility] Comment on above: Performed By: #### C BC #### [facility] [address] [place] [address] Dr. Isabel Hudson PLT 202 103/ul Normal 150-450 [facility] Comment on above: Performed By: #### C BC #### [facility] [address] [place] [address] Dr. Isabel Hudson RBC 5.45 106/ul Normal 4.70-6.10 [facility] Comment on above: Performed By: #### C BC #### [facility] [address] [place] [address] Dr. Isabel Hudson WBC 8.4 103/ul Normal 4.0-11.0 [facility] Comment on above: Performed By: #### C BC #### [facility] [address] [place] [address] Dr. Isabel Hudson DRUG SCREEN RAPID (URINE)on 09-23-2022 AMP Negative Normal NEGATIVE [facility] Comment on above: Performed By: #### D RUGRPD #### [facility] [address] [place] [address] Dr. Isabel Hudson BAR Negative Normal NEGATIVE [facility] Comment on above: Performed By: #### D RUGRPD #### [facility] [address] [place] [address] Dr. Isabel Hudson BUP Negative Normal NEGATIVE [facility] Comment on above: Performed By: #### D RUGRPD #### [facility] [address] [place] [address] Dr. Isabel Hudson BZO Negative Normal NEGATIVE [facility] Comment on above: Performed By: #### D RUGRPD #### [facility] [address] [place] [address] Dr. Isabel Hudson RICK Negative Normal NEGATIVE [facility] Comment on above: Performed By: #### D RUGRPD #### [facility] [address] [place] [address] Dr. Isabel Hudson CUT-OFFS SEE BELOW Normal [facility] Comment on above: Result Comment: AMP [...] ng/mL Performed By: #### D RUGRPD #### [facility] [address] [place] [address] Dr. Isabel Hudson DRUG CUT HEADER DRUG CLASS TEST SYSTEM CUT-OFF CONCENTRATIONS ARE FOLLOWS: Normal [facility] Comment on above: Performed By: #### D RUGRPD #### [facility] [address] [place] [address] Dr. Isabel Hudson mAMP Negative Normal NEGATIVE [facility] Comment on above: Performed By: #### D RUGRPD #### [facility] [address] [place] [address] Dr. Isabel Hudson MTD Negative Normal NEGATIVE [facility] Comment on above: Performed By: #### D RUGRPD #### [facility] [address] [place] [address] Dr. Isabel Hudson OPI Negative Normal NEGATIVE [facility] Comment on above: Performed By: #### D RUGRPD #### [facility] [address] [place] [address] Dr. Isabel Hudson OXY Negative Normal NEGATIVE [facility] Comment on above: Performed By: #### D RUGRPD #### [facility] [address] [place] [address] Dr. Isabel Hudson PCP Negative Normal NEGATIVE [facility] Comment on above: Performed By: #### D RUGRPD #### [facility] [address] [place] [address] Dr. Isabel Hudson PPX Negative Normal NEGATIVE [facility] Comment on above: Performed By: #### D RUGRPD #### [facility] [address] [place] [address] Dr. Isabel Hudson TCA Negative Normal NEGATIVE [facility] Comment on above: Performed By: #### D RUGRPD #### [facility] [address] [place] [address] Dr. Isabel Hudson THC Positive Abnormal NEGATIVE [facility] Comment on above: Performed By: #### D RUGRPD #### [facility] [address] [place] [address] Dr. Isabel Hudson ETHANOL (BLD ALC)on 09-23-19 23 ALC NOTE NOTE: 80 mg/dl is the legal limit for a blood alcohol level Normal [facility] Comment on above: Performed By: #### E TH #### [facility] [address] [place] [address] Dr. Isabel Hudson Ethanol [Mass/Vol] mg/dL Normal [facility] Comment on above: Performed By: #### E TH #### [facility] [address] [place] [address] Dr. Isabel Hudson PROF 14(COMP METB)on 023 Albumin [Mass/Vol] 4.0 g/dL Normal 3.4-5.0 [facility] Comment on above: Performed By: #### C MP, SALYC, ACET #### [facility] [address] [place] [address] Dr. Isabel Hudson Albumin/Globulin [Mass ratio] 1.1 {ratio} Normal [facility] Comment on above: Performed By: #### C LETICIA YOUNG, ACET #### [facility] [address] [address] [address] Isabel Hudson ALP [Catalytic activity/Vol] 114 U/L Normal 46-116 [facility] Comment on above: Performed By: #### C LETICIA YOUNG, ACET #### [facility] [address] [address] [address] Isabel Hudson ALT [Catalytic activity/Vol] 34 U/L Normal 16-63 [facility] Comment on above: Performed By: #### C LETICIA YOUNG, ACET #### [facility] [address] [place] [address] Dr. Isabel Hudson Anion gap [Moles/Vol] 12.1 mmol/L Normal [facility] Comment on above: Performed By: #### C LETICIA YUONG, ACET #### [facility] [address] [address] [address] Isabel Hudson AST [Catalytic activity/Vol] 22 U/L Normal 15-37 [facility] Comment on above: Performed By: #### C LETICIA YOUNG, ACET #### [facility] [address] [place] [address] Dr. Isabel Hudson Bilirubin [Mass/Vol] 0.3 mg/dL Normal 0.2-1.0 [facility] Comment on above: Performed By: #### C LETICIA YOUNG, ACET #### [facility] [address] [place] [address] Dr. Isabel Hudson Calcium [Mass/Vol] 9.3 mg/dL Normal 8.5-10.1 [facility] Comment on above: Performed By: #### C LETICIA YOUNG, ACET #### [facility] [address] [address] [address] Isabel Hudson Chloride [Moles/Vol] 103 mmol/L Normal 98-107 [facility] Comment on above: Performed By: #### C MP, SALYC, ACET #### [facility] [address] [address] [address] Isabel Hudson CO2 [Moles/Vol] 28.0 mmol/L Normal 21.0-32.0 [facility] Comment on above: Performed By: #### C MP, SALYC, ACET #### [facility] [address] [address] [address] Isabel Hudson Creatinine [Mass/Vol] 0.90 mg/dL Normal 0.70-1.30 [facility] Comment on above: Performed By: #### C MP, SALYC, ACET #### [facility] [address] [address] [address] Iasbel Hudson EGFR-AF CANADIAN >60 Normal >=60 [facility] Comment on above: Performed By: #### C MP, SALYC, ACET #### [facility] [address] [place] [address] Dr. Isabel Hudson EGFR-NON AF CANADIAN >60 Normal >=60 [facility] Comment on above: Performed By: #### C MP, SALYC, ACET #### [facility] [address] [address] [address] Isabel Hudson Globulin (S) [Mass/Vol] 3.5 g/dL Normal [facility] Comment on above: Performed By: #### C MP, SALYC, ACET #### [facility] [address] [address] [address] Isabel Hudson Glucose [Mass/Vol] 89 mg/dL Normal 74-106 [facility] Comment on above: Performed By: #### C MP, SALYC, ACET #### [facility] [address] [address] [address] Isabel Hudson Potassium [Moles/Vol] 4.1 mmol/L Normal 3.5-5.1 [facility] Comment on above: Performed By: #### C MP, SALYC, ACET #### [facility] [address] [address] [address] Isabel Hudson Protein [Mass/Vol] 7.5 g/dL Normal 6.4-8.2 [facility] Comment on above: Performed By: #### C MP, SALYC, ACET #### [facility] [address] [address] [address] Isabel Hudson Sodium [Moles/Vol] 139 mmol/L Normal 136-145 [facility] Comment on above: Performed By: #### C MP, SALYC, ACET #### [facility] [address] [address] [address] Isabel Hudson Urea nitrogen [Mass/Vol] 15.0 mg/dL Normal 7.0-18.0 [facility] Comment on above: Performed By: #### C MP, SALYC, ACET #### [facility] [address] [address] [address] Isabel Hudson Urea nitrogen/Creatinine [Mass ratio] 16.7 mg/mg Normal [facility] Comment on above: Performed By: #### C MP, SALYC, ACET #### [facility] [address] [address] [address] Isabel Hudson SALICYLATEon 09-23-2022 SALICYLATE <2.8 Normal <=19.9 [facility] Comment on above: Performed By: #### C MP, SALYC, ACET #### [facility] [address] [place] [address] Dr. Isabel Hudson FLUORO FOR SURGICAL PROCEDUR ESon 04-03-2022 FLUORO FOR SURGICAL PROCEDURES Radiology exam is complete. No Radiologist dictation. Please follow up with ordering provider. Final result Normal [facility] Radiology exam is complete. No Radiologist dictation. Please follow up with ordering provider. [facility] OPERATIVE REPORTon 2 OPERATIVE REPORT [address] [id number] OPERATIVE REPORT PATIENT NAME: ESMER CORBIN : 2000 MED REC NO: [id number] ROOM: ACCOUNT NO: [id number] ADMIT DATE: 04/03/2022 PROVIDER: Evan Frost DATE [...] minimal. Will be discharged home. Prescription for [place]. To be seen in the office in two weeks. EVAN HuangKingston FROST [id number] Doc#: [id number] CC: [facility] Basic Metabolic Panelon 03-11 Anion gap [Moles/Vol] 15 mmol/L 9 - 17 mmol/L [facility] Calcium [Mass/Vol] 9.4 mg/dL 8.6 - 10. 4 mg/dL [facility] Chloride [Moles/Vol] 100 mmol/L 98 - 10 7 mmol/L [facility] CO2 [Moles/Vol] 23 mmol/L 20 - 31 mmol/L [facility] Creatinine [Mass/Vol] 0.83 mg/dL 0.7 - 1.2 mg/dL [facility] GFR >60 60 - PI NF mL/min [facility] GFR Non- >60 60 - PINF mL/min [facility] Glucose [Mass/Vol] 124 mg/dL High 70 - 99 mg/dL [facility] Interpretation and review of laboratory results Abnormal [facility] Potassium [Moles/Vol] 3.7 mmol/L 3.7 - 5.3 mmol/L [facility] Sodium [Moles/Vol] 138 mmol/L 135 - 144 mmol/L [facility] Urea nitrogen (BldV) [Mass/Vol] 7 mg/dL 6 - 20 mg/dL [facility] Urea nitrogen/Creatinine (Bld) [Mass ratio] 8 Low 9 - 20 [facility] Basic Metabolic Profon 03-31 (cont.) [facility] Comment on above: Result Comment: Aver age GFR for 20-29 years old: 116 mL/min/1.73sq m Chronic Kidney Disease: <60 mL/min/1.73sq m Kidney failure: <15 mL/min/1.73sq m eGFR calculated using average adult body mass. Additional eGFR calculator available at: http://www.[employer]/multiple_crcl_2012.htm Performed By: #### C BC, BMP #### [facility] [address] [place], [place] [id number] [employer] Helper: Jose A Victor MD Anion gap [Moles/Vol] 15 mmol/L Normal 9-17 [facility] Comment on above: Performed By: #### C BC, BMP #### [facility] [address] [place], [place] [id number] [employer] Helper: Jose A Victor MD BUN/CRE Ratio 8 Low 9-20 [facility] Comment on above: Performed By: #### C BC, BMP #### [facility] [address] [place], [place] [phone] [employer] Helper: Jose A Victor MD Calcium [Mass/Vol] 9.4 mg/dL Normal 8.6-10.4 [facility] Comment on above: Performed By: #### C BC, BMP #### [facility] [address] [address] [address] [employer] Machin[employer] Helper: Jose A Victor MD Chloride [Moles/Vol] 100 mmol/L Normal 98-107 [facility] Comment on above: Performed By: #### C BC, BMP #### [facility] [address] [place], [place] [id number] [employer] Mach[employer] Helper: Jose A Victor MD CO2 [Moles/Vol] 23 mmol/L Normal 20-31 [facility] Comment on above: Performed By: #### C BC, BMP #### [facility] [address] [place], [place] [id number] [employer] Helper: Jose A Victor MD Creatinine [Mass/Vol] 0.83 mg/dL Normal 0.70-1.20 [facility] Comment on above: Performed By: #### C BC, BMP #### [facility] [address] [place], [place] [id number] [employer] Helper: Jose A Victor MD GFR, Amer >60 Normal >60 [facility] Comment on above: Performed By: #### C BC, BMP #### [facility] [address] [place], [place] [address] [employer] Mach[employer] Helper: Jose A Victor MD GFR,non Amer >60 Normal >60 [facility] Comment on above: Performed By: #### C BC, BMP #### [facility] [address] [place], [place] [id number] [employer] Mach[employer] Helper: Jose A Victor MD Glucose [Mass/Vol] 124 mg/dL High 70-99 [facility] Comment on above: Performed By: #### C BC, BMP #### [facility] [address] [place], [place] [id number] [employer] Mach[employer] Helper: Jose A Victor MD Potassium [Moles/Vol] 3.7 mmol/L Normal 3.7-5.3 [facility] Comment on above: Performed By: #### C BC, BMP #### [facility] [address] [place], [place] [address] [employer] Mach[employer] Helper: Jose A Victor MD Sodium [Moles/Vol] 138 mmol/L Normal 135-144 [facility] Comment on above: Performed By: #### C BC, BMP #### [facility] [address] [place] [address] [employer] Machin[employer] Helper: Jose A Victor MD Staging: Normal [facility] Comment on above: Result Comment: Stag e 1: Some kidney damage normal GFR Stage 2: Mild kidney damage GFR 60-89 Stage 3: Moderate kidney damage GFR 30-59 Stage 4: Severe kidney damage GFR 15-29 Stage 5: Severe kidney damage GFR <15 ESRD - chronic treatment by dialysis or transplant Performed By: #### C BC, BMP #### [address] [place], [place] [id number] [employer] Mach[employer] Helper: Jose A Victor MD Urea nitrogen [Mass/Vol] 7 mg/dL Normal 6-20 [facility] Comment on above: Performed By: #### C BC, BMP #### [address] [place] [address] [employer] Machin[employer] Helper: Jose A Victor MD CBCon 03-31-2022 Erythrocyte distribution width (RBC) [Ratio] 11.8 % Normal 11.8-14.4 [facility] Comment on above: Performed By: #### C BC, BMP #### [address] [place], [place] [id number] [employer] Mach[employer] Helper: Jose A Victor MD Hematocrit (Bld) [Volume fraction] 44.9 % Normal 40.7-50.3 [facility] Comment on above: Performed By: #### C BC, BMP #### [address] [place], [place] [phone] [employer] Mach[employer] Helper: Jose A Victor MD Hemoglobin (Bld) [Mass/Vol] 15.7 g/dL Normal 13.0-17.0 [facility] Comment on above: Performed By: #### C BC, BMP #### [address] [place], [facility] [employer] Mach[employer] Helper: Jose A Victor MD MCH (RBC) [Entitic mass] 33.1 pg Normal 25.2-33.5 [facility] Comment on above: Performed By: #### C BC, BMP #### [address] [place] [address] [employer] Machin[employer] Helper: Jose A Victor MD MCHC (RBC) [Mass/Vol] 35.0 g/dL High 28.4-34.8 [facility] Comment on above: Performed By: #### C BC, BMP #### [address] [place], [place] [address] [employer] Mach[employer] Helper: Jose A Victor MD MCV (RBC) [Entitic vol] 94.5 fL Normal 82.6-102.9 [facility] Comment on above: Performed By: #### C BC, BMP #### [address] [place], [place] [address] [employer] Machin[employer] Helper: Jose A Victor MD NRBC Automated 0.0 per 100 WBC Normal 0.0 [facility] Comment on above: Performed By: #### C BC, BMP #### [address] [place], [place] [phone] [employer] Machin[employer] Helper: Jose A Victor MD Platelet mean volume (Bld) [Entitic vol] 10.6 fL Normal 8.1-13.5 [facility] Comment on above: Performed By: #### C MICHAEL, BMP #### [address] [place], [facility] [employer] Mach[employer] Helper: Jose A Victor MD Platelets (Bld) [#/Vol] 233 10*3/uL Normal 138-453 [facility] Comment on above: Performed By: #### C MICHAEL, BMP #### [address] [place], [place] [address] [employer] Machin[employer] Helper: Jose A Victor MD RBC (Bld) [#/Vol] 4.75 10*6/uL Normal 4.21-5.77 [facility] Comment on above: Performed By: #### C BC, BMP #### [address] [place], [place] [id number] [employer] Machin[employer] Helper: Jose A Victor MD WBC (Bld) [#/Vol] 15.3 10*3/uL High 3.5-11.3 [facility] Comment on above: Performed By: #### C BC, BMP #### [address] [place], [place] [address] [employer] Machin[employer] Helper: Jose A Victor MD Hematocrit (Bld) [Volume fraction] 44.9 % 40.7 - 50.3 % [facility] [employer] Hemoglobin (Bld) [Mass/Vol] 15.7 g/dL 13 - 17 g/dL [facility] gripNote Interpretation and review of laboratory results Abnormal [facility] [employer] [facility] gripNote MCH (RBC) [Entitic mass] 33.1 pg 25.2 - 33.5 pg [facility] MCHC (RBC) [Mass/Vol] 35.0 g/dL High 28.4 - 34.8 g/dL [facility] gripNote MCV (RBC) [Entitic vol] 94.5 fL 82.6 - 102.9 fL [facility] gripNote NRBC Automated 0.0 0.0 per 100 WBC [facility] [employer]Note Platelet distribution width (Bld) [Ratio] 11.8 % 11.8 - 14.4 % [facility] gripNote Platelet mean volume (Bld) [Entitic vol] 10.6 fL 8.1 - 13.5 fL [facility] gripNote Platelets (Bld) [#/Vol] 233 10*3/uL [facility] gripNote RBC (Bld) [#/Vol] 4.75 10*6/uL 4.21 - 5.7 7 m/uL [facility] WBC (Bld) [#/Vol] 15.3 10*3/uL High [facility] gripNote [facility] EKG 12 LeadOrdered By: Lex browning on 03-31-2022 Atrial Rate 74 BPM [facility] Work Phone: P Pengilly 66 degrees [facility] Work Phone: P-R Interval 144 ms [facility] [employer] Work Phone: Q-T Interval 376 ms [facility] [employer] Work Phone: QRS Duration 106 ms [facility] Work Phone: QTc Calculation (Bazett) 417 ms [facility] Work Phone: R Pengilly 76 degrees [facility] Work Phone: T Pengilly 43 degrees [facility] [employer] Work Phone: Ventricular Rate 74 BPM ELISSA MILLS [employer] Work Phone: [facility] [employer] Work Phone: EKG 12 Leadon 03-31-2022 Normal sinus rhythm with sinus arrhythmia Normal ECG No previous ECGs available Confirmed by Lex Kwan MD ([id number]) on 03/31/2022 10:09:31 PM [facility] RADIOLOG[facility] Lex Kwan MD - 03/31/2022 Normal sinus rhythm with sinus arrhythmia Normal ECG No previous ECGs available Confirmed by Lex Kwan MD ([id number]) on 03/31/2022 10:09:31 PM [facility] [employer] Work Phone: Laboratory - Chemistry and C hemistry - challengeon 03-31-2022 GFR/1.73 sq M.predicted MDRD (S/P/Bld) [Vol rate/Area] [facility] Comment on above: Average GFR for 20-2 9 years old: 116 mL/min/1.73sq m Chronic Kidney Disease: <60 mL/min/1.73sq m Kidney failure: <15 mL/min/1.73sq m eGFR calculated using average adult body mass. Additional eGFR calculator available at: http://www.[employer]/multiple_crcl_2012.htm Stage 1: Some kidney damage normal GFR [...] Carlos Odell MD 03/30/22 Final result Normal [facility] Acute comminuted, mildly impacted and dorsally angulated fracture of the distal left radius. Acute nondisplaced ulnar styloid avulsion fracture. [facility] EXAMINATION: TWO XRAY VIEWS OF THE LEFT FOREARM 03/30/2022 5:38 pm COMPARISON: None. HISTORY: ORDERING SYSTEM PROVIDED HISTORY: pain TECHNOLOGIST PROVIDED HISTORY: pain FINDINGS: There is an acute comminuted, mildly impacted and dorsally angulated fracture of the distal left radius there is an acute nondisplaced fracture of the ulnar styloid. There is artifact from a sheet or clothing. [facility] Jean Carlos Odell MD - 03/30/2022 [...] radius. Acute nondisplaced ulnar styloid avulsion fracture. [employer] Phone: Radiology Study observation (narrative) [employer] Phone: XR RADIUS ULNA LEFT (2 VIEWS )Ordered By: Jean Carlos Odell on 03-30-2022 [employer] Phone: Vital Signs Date Time Vital Sign Value Performing Clinician Ronal fairchild 10-01-2024 13:01-0500 Respiratory rate 18 /min Jaspal Love [employer] Work Phone: [employer] 10-01-2024 08:15-0500 Body temperature 98.1 [degF] Jaspal Love DO Work Phone: [employer] 10-01-2024 08:15-0500 Diastolic blood pressure 87 mm[Hg] Jaspal Love DO Work Phone: [employer] 10-01-2024 08:15-0500 Heart rate 69 /min Jaspal Love DO Work Phone: [employer] 10-01-2024 08:15-0500 SaO2% (BldA) [Mass fraction] 94 % Jaspal Love DO Work Phone: [employer] 10-01-2024 08:15-0500 Systolic blood pressure 136 mm[Hg] Jaspal Love DO Work Phone: [employer] 09-30-2024 06:00-0500 Body mass index (BMI) [Ratio] 32.32 kg/m2 Jaspal Love DO Work Phone: [employer] 09-30-2024 06:00-0500 Body weight 105.1 kg Jaspal Love DO Work Phone: [employer] 09-25-2024 22:49-0500 Body height 180.3 cm Jaspal Love DO Work Phone: [employer] 01-18-2024 07:45-0400 Body temperature 97.81 [degF] Xavier Marisaperez Work Phone: [employer] 01-18-2024 07:45-0400 Respiratory rate 16 /min Xavier Negron DO Work Phone: [employer] 01-18-2024 04:11-0400 Diastolic blood pressure 84 mm[Hg] Xavier Negron DO Work Phone: [employer] 01-18-2024 04:11-0400 Heart rate 54 /min Xavier Negron DO Work Phone: [employer] 01-18-2024 04:11-0400 SaO2% (BldA) [Mass fraction] 99 % Xavier Negron DO Work Phone: [employer] 01-18-2024 04:11-0400 Systolic blood pressure 139 mm[Hg] Xavier Negron DO Work Phone: [facility] [employer] 01-16-2024 10:53-0400 Body height 177.8 cm Xavier Negron DO Work Phone: [employer] 01-16-2024 10:53-0400 Body mass index (BMI) [Ratio] 32.83 kg/m2 Xavier Negron DO Work Phone: [facility] [employer] 01-16-2024 10:53-0400 Body weight 103.8 kg Xavier Negron DO Work Phone: [facility] [employer] 07-27-2022 15:00-0500 Diastolic blood pressure 90 mm[Hg] Candice Rider CNP Work Phone: [facility] Work Phone: 07-27-2022 15:00-0500 Systolic blood pressure 140 mm[Hg] Candice Rider [employer] Work Phone: [facility] Work Phone: 07-27-2022 14:34-0500 Body height 177.8 cm Candice Rider [employer] Work Phone: [facility] Work Phone: 07-27-2022 14:34-0500 Body mass index (BMI) [Ratio] 36.7 kg/m2 Candice Rider CNP Work Phone: [facility] Work Phone: 07-27-2022 14:34-0500 Body surface area Derived from formula 2.3 m2 Candice Rider CNP Work Phone: [facility] Work Phone: 07-27-2022 14:34-0500 Body temperature 96.8 [degF] Candice Rider [employer] Work Phone: [facility] Work Phone: 07-27-2022 14:34-0500 Body weight 116.12 kg Candice Rider [employer] Work Phone: [facility] Work Phone: 07-27-2022 14:34-0500 Diastolic blood pressure 94 mm[Hg] Candice Tereso [employer] Work Phone: [facility] Work Phone: 07-27-2022 14:34-0500 Heart rate 97 /min Candice Rider [employer] Work Phone: [facility] Work Phone: 07-27-2022 14:34-0500 Heart Rate Rhythm 1 1 Candice Rider [employer] Work Phone: [facility] Work Phone: 07-27-2022 14:34-0500 SaO2% (BldA) [Mass fraction] 99 % Candice Rider [employer] Work Phone: [facility] Work Phone: 07-27-2022 14:34-0500 Systolic blood pressure 152 mm[Hg] Candice Rider [employer] Work Phone: [facility] Work Phone: 04-03-2022 12:00-0400 Diastolic blood pressure 89 mm[Hg] Evan Frost MD Work Phone: [facility] [employer] 04-03-2022 12:00-0400 Heart rate 90 /min Evan Frost MD Work Phone: [facility] [employer] 04-03-2022 12:00-0400 Respiratory rate 16 /min Evan Frost MD Work Phone: [facility] [employer] 04-03-2022 12:00-0400 SaO2% (BldA) [Mass fraction] 96 % Evan Frost MD Work Phone: [employer] 04-03-2022 12:00-0400 Systolic blood pressure 143 mm[Hg] Evan Frost MD Work Phone: [employer] 04-03-2022 11:00-0400 Body temperature 97.2 [degF] Evan Frost MD Work Phone: [employer] 04-03-2022 08:43-0400 Body height 180.3 cm Evan Frost MD Work Phone: [employer] 04-03-2022 08:43-0400 Body mass index (BMI) [Ratio] 32.64 kg/m2 Evan Frost MD Work Phone: [facility] [employer] 04-03-2022 08:43-0400 Body weight 106.14 kg Evan Frost MD Work Phone: [employer] 03-30-2022 17:28-0400 Body height 180.3 cm Flor Busby MD Work Phone: [employer] 03-30-2022 17:28-0400 Body mass index (BMI) [Ratio] 30.68 kg/m2 Flor Busby MD Work Phone: [facility] [employer] 03-30-2022 17:28-0400 Body weight 99.79 kg Flor Busby MD Work Phone: [employer] 03-30-2022 17:13-0400 Body temperature 97.81 [degF] Flor Busby MD Work Phone: [employer] 03-30-2022 17:13-0400 Diastolic blood pressure 94 mm[Hg] Flor Busby MD Work Phone: [employer] 03-30-2022 17:13-0400 Heart rate 93 /min Flor Busby MD Work Phone: [facility] [employer] 03-30-2022 17:13-0400 Respiratory rate 18 /min Flor Busby MD Work Phone: [facility] 03-30-2022 17:13-0400 SaO2% (BldA) [Mass fraction] 99 % Flor Busby MD Work Phone: [facility] 03-30-2022 17:13-0400 Systolic blood pressure 141 mm[Hg] Flor Busby MD Work Phone: [facility] 03-10-2022 15:55-0400 Diastolic blood pressure 100 mm[Hg] Candice Rider [employer] Work Phone: [facility] Work Phone: 03-10-2022 15:55-0400 Systolic blood pressure 160 mm[Hg] Candice Rider [employer] Work Phone: [facility] Work Phone: 03-10-2022 15:06-0400 Body height 177.8 cm Candice Rider [employer] Work Phone: [facility] Work Phone: 03-10-2022 15:06-0400 Body mass index (BMI) [Ratio] 33.7 kg/m2 Candice Rider CNP Work Phone: [facility] Work Phone: 03-10-2022 15:06-0400 Body surface area Derived from formula 2.24 m2 Candice Rider CNP Work Phone: [facility] Work Phone: 03-10-2022 15:06-0400 Body surface area Derived from formula 2.2 m2 Candice Rider CNP Work Phone: [facility] Work Phone: 03-10-2022 15:06-0400 Body temperature 99.3 [degF] Candice Rider CNP Work Phone: [facility] Work Phone: 03-10-2022 15:06-0400 Body weight 106.6 kg Candice Rider CNP Work Phone: [facility] Work Phone: 03-10-2022 15:06-0400 Diastolic blood pressure 120 mm[Hg] Candice Rider [employer] Work Phone: [facility] Work Phone: 03-10-2022 15:06-0400 Heart rate 123 /min Candice Rider [employer] Work Phone: [facility] Work Phone: 03-10-2022 15:06-0400 SaO2% (BldA) [Mass fraction] 97 % Candice Rider [employer] Work Phone: [facility] Work Phone: 03-10-2022 15:06-0400 Systolic blood pressure 160 mm[Hg] Candice Rider [employer] Work Phone: [facility] Work Phone: 06-20-2021 19:23-0400 Diastolic blood pressure 82 mm[Hg] Candice Rider [employer] Work Phone: [facility] Work Phone: 06-20-2021 19:23-0400 Systolic blood pressure 122 mm[Hg] Candice Rider [employer] Work Phone: [facility] Work Phone: Encounters Encounter Date Encounter Type Care Provider Facility Start: 09-25-2024 End: 10-01-2024 Evaluation and management of inpatient Jaspal Love DO Work Phone: [facility] Comment on above: Intra-abdominal absc ess (HCC) (Primary Dx) Start: 01-16-2024 End: 01-18-2024 Evaluation and management of inpatient Xavier Negron DO Work Phone: [facility] Stepdown Start: 09-23-2022 End: 09-23-[address] DOCTOR [facility]CHUG[facility] Facility:[facility] Start: 07-27-2022 End: 07-27-2022 [facility]QHC visit, estab pt Denisha Alonso [facility] Work Phone: [facility] Work Phone: Start: 07-27-2022 End: 07-27-2022 FQHC visit, estab pt Patricia Derrick [employer] Work Phone: [facility] Work Phone: Start: 04-03-2022 End: 04-03-2022 ambulatory EVAN FROST [facility] Start: 04-03-2022 End: 04-03-2022 Subsequent hospital visit by physician Evan Frost MD Work Phone: [facility] Comment on above: Status post open red uction and internal fixation (ORIF) of fracture (Primary Dx) Start: 03-31-2022 End: 04-01-2022 ambulatory EVAN FROST [facility] Start: 03-31-2022 End: 03-31-2022 Subsequent hospital visit by physician [facility] Start: 03-30-2022 End: 03-30-2022 Emergency department patient visit [facility] Start: 03-30-2022 End: 03-30-2022 Emergency department patient visit Flor Busby MD Work Phone: [facility] ED Comment on above: Closed fracture of d istal end of left radius, unspecified fracture morphology, initial encounter (Primary Dx) Start: 03-10-2022 End: 03-10-2022 Adult health examination Candice Rider [employer] Work Phone: [facility] Work Phone: Start: 03-10-2022 End: 03-10-2022 FQ visit new patient Candice Rider [employer] Work Phone: [facility] Work Phone: Start: 03-09-2022 End: 03-09-2022 Emergency department patient visit [facility] Start: 02-07-2022 End: 02-07-2022 Simple extraction of tooth Mirella Allen DDS Work Phone: [facility] Work Phone: Start: 02-07-2022 limited oral evaluat ion - problem focused Mirella Allen DDS Work Phone: [facility] Start: 06-20-2021 End: 06-20-2021 Emergency department patient visit Mirella Allen DDS Work Phone: [facility] Work Phone: Start: 06-20-2021 limited oral evaluat ion - problem focused Mirella Allen DDS Work Phone: [facility] Work Phone: Procedures Date Procedure Procedure Detail Performing Clinician Start: 10-01-2024 Basic metabolic pane l calcium total Sarah B Andersen DO Work Phone: Start: 09-30-2024 Basic metabolic pane l calcium total Sarah B Andersen DO Work Phone: Start: 09-30-2024 C-reactive protein Nela les S Leif DO Work Phone: Start: 09-29-2024 Basic metabolic pane l calcium total Sarah B Andersen DO Work Phone: Start: 09-29-2024 C-reactive protein Nela les S Leif DO Work Phone: Start: 09-28-2024 Basic metabolic pane l calcium total Sarah B Andersen DO Work Phone: Start: 09-27-2024 Basic metabolic pane l calcium total Sarah B Andersen DO Work Phone: Start: 09-26-2024 Assay of lactate Kelvin s S Leif DO Work Phone: Start: 09-26-2024 Assay of lactate Kelvin s S Leif DO Work Phone: Start: 09-26-2024 Assay of lactate Cheli Boykin MD Work Phone: Start: 09-26-2024 Cul prsmptv pthgnc o rganism scrn w/colony estimj Teddy Yadav DO Work Phone: Start: 09-26-2024 Incision & drainage abscess simple/single Erin E Nassar DO Work Phone: Start: 09-26-2024 BLOOD BANK SPECIMEN She montserrat Boykin MD Work Phone: Start: 09-26-2024 Blood typing serologic abo Erin Nassar DO Work Phone: Start: 09-26-2024 Assay of lactate Cheli Boykin MD Work Phone: Start: 09-25-2024 Basic metabolic pane l calcium total Erin Sal Savagenn DO Work Phone: Start: 01-18-2024 Hepatic function panel Bobo Mas [employer] Work Phone: Start: 01-18-2024 Prothrombin time Bobo Mas [employer] Work Phone: Start: 01-18-2024 BASIC METABOLIC PANE L W/ REFLEX TO MG FOR LOW K Anahi Lujan MD Work Phone: Start: 01-18-2024 Blood count complete auto&auto difrntl wbc Anahi Lujan MD Work Phone: Start: 01-17-2024 Ct pelvis w/o contra st material Anahi Lujan MD Work Phone: Start: 01-17-2024 BASIC METABOLIC PANE L W/ REFLEX TO MG FOR LOW K Anahi Lujan MD Work Phone: Start: 01-17-2024 Prothrombin time Anahi Lujan MD Work Phone: Start: 07-27-2022 Current tobacco smoker Patricia Derrick [employer] Work Phone: Start: 07-27-2022 Decompression of med sunitha nerve Candice Rider [employer] Work Phone: Start: 07-27-2022 Most recent diastol blood pres >/equal 90 mm hg Patricia Meza [employer] Work Phone: Start: 07-27-2022 Most recent systolic blood pres>/equal 140 mm hg Patricia Meza [employer] Work Phone: Start: 07-27-2022 Psychotherapy w/estela ent 30 minutes Denisha Stevenserson [facility] Work Phone: Start: 07-27-2022 Surgical procedure Ligia Busby [employer] Work Phone: Start: 04-03-2022 Fluoroscopy during operation Evan Frost MD Work Phone: Start: 03-31-2022 Ecg routine ecg w/le ast 12 lds w/i&r Evan Frost MD Work Phone: Start: 03-31-2022 Basic metabolic pane l calcium total Evan Frost MD Work Phone: Start: 03-30-2022 Radex forearm 2 views M sam Busby MD Work Phone: Start: 03-10-2022 Antibody hiv-1&hiv-2 single result Candice Tereso [facility] Work Phone: Start: 03-10-2022 Appendectomy Candice machado [employer] Work Phone: Start: 03-10-2022 Hemoglobin glycosylated a1c Candice Tereso [employer] Work Phone: Start: 03-10-2022 Pt scrnd tobacco use rcvd tobacco cessation talk Candice Rider [employer] Work Phone: Start: 03-10-2022 Pt-focused hlth risk assmt score doc stnd instrm Candice Rider [facility] Work Phone: Start: 02-07-2022 intraoral - periapic al first radiographic image Mirella Allen DDS Work Phone: Start: 06-20-2021 bitewing - single radiographic image Mirella Allen DDS Work Phone: Start: 06-20-2021 intraoral - periapic al first radiographic image Mirella Allen DDS Work Phone: Plan of Treatment Date Care Activity Detail Author Start: 05-11-2024 COVID-19 Vaccine ( season) COVID-19 Vaccine ( season) [facility] Start: 04-10-2024 Influenza vaccination [facility] Start: 05-17-2022 Dental Comp Exam [facility] Work Phone: Start: 05-11-2022 Influenza vaccination Flu vaccine (# 1) [facility] Start: 04-03-2022 End: 04-03-2022 Admission to same day surgery center 04/03/2022 Surgery IP Unit Evan Frost MD [address] [place] [id number] RADIUS OPEN REDUCTION INTERNAL FIXATION-DISTAL, CTR [facility] Comment on above: RADIUS OPEN REDUCTIO N INTERNAL FIXATION-DISTAL, CTR Start: 04-03-2022 End: 04-03-2022 Optx dstl radl x-artic fx/epiphysl sep RADIUS OPEN REDUCTION INTERNAL FIXATION Type III open nondisplaced oblique fracture of shaft of radius, unspecified laterality, initial encounter 04/03/2022 11:20 AM [facility] Start: 04-03-2022 Subsequent hospital visit by physician 04/03/2022 Hospital Encounter IP Unit Evan Frost MD [address] [place] [id number] [facility] Start: 04-03-2022 End: 04-03-2022 Optx dstl radl x-artic fx/epiphysl sep RADIUS OPEN REDUCTION INTERNAL FIXATION Type III open nondisplaced oblique fracture of shaft of radius, unspecified laterality, initial encounter 04/03/2022 9:21 AM [facility] Start: 03-24-2022 [facility] Work Phone: Start: 2017 DTaP/Tdap/Td vaccine (1 - Tdap) DTaP/Tdap/Td vaccine (1 - Tdap) [facility] Start: 2017 Hepatitis B vaccine (1 of 3 - 19+ 3-dose series) Hepatitis B vaccine (1 of 3 - 19+ 3-dose series) [facility] Start: 2016 Hepatitis C screening Hepatitis C sc reen [facility] Start: 2013 HIV screening HIV screen [facility] Start: 2013 HPV vaccine (1 - Mal e 3-dose series) HPV vaccine (1 - Male 3-dose series) [facility] Start: 2011 Varicella vaccine (1 of 2 - 13+ 2-dose series) Varicella vaccine (1 of 2 - 13+ 2-dose series) [facility] Start: 2010 Depression Screen Depression Screen [facility] Start: 2009 HPV vaccine (1 - Mal e 2-dose series) HPV vaccine (1 - Male 2-dose series) [facility] Start: 2004 Pneumococcal 0-64 ye ars Vaccine (1 - PCV) Pneumococcal 0-64 years Vaccine (1 - PCV) [facility] Start: 2004 Pneumococcal 0-64 ye ars Vaccine (1 of 2 - PCV) Pneumococcal 0-64 years Vaccine (1 of 2 - PCV) [facility] Start: 1999 Varicella vaccine (1 of 2 - 2-dose childhood series) Varicella vaccine (1 of 2 - 2-dose childhood series) [facility] Start: 1998 COVID-19 Vaccine (#1) COVID-19 Vacci ne (#1) [facility] Start: 1998 Hepatitis B vaccine (1 of 3 - 3-dose series) Hepatitis B vaccine (1 of 3 - 3-dose series) [facility] End: 10-03-2024 Basic metabolic 2000 panel - Serum or Plasma Basic Metabolic Panel Lab Routine Tomorrow AM for 7 Occurrences starting 09/27/2024 until 10/03/2024, 5 completed [facility] Work Phone: Comment on above: Tomorrow AM for 7 Oc currences starting 09/27/2024 until 10/03/2024, 5 completed End: 01-19-2024 Basic Metabolic Panel w/ Reflex to MG Basic Metabolic Panel w/ Reflex to MG Lab Routine Daily for 3 Days starting 01/17/2024 until 01/19/2024, 2 completed [facility] Comment on above: Daily for 3 Days sta rting 01/17/2024 until 01/19/2024, 2 completed End: 01-17-2024 Calprotectin Stool Calprotectin Stool Lab STAT One Time for 1 Occurrences starting 01/17/2024 until 01/17/2024 [facility] Comment on above: One Time for 1 Occur rences starting 01/17/2024 until 01/17/2024 End: 01-19-2024 CBC W Auto Differential panel - Blood CBC with Auto Differential Lab Routine Daily for 3 Days starting 01/17/2024 until 01/19/2024, 2 completed [facility] Comment on above: Daily for 3 Days sta rting 01/17/2024 until 01/19/2024, 2 completed End: 10-03-2024 CBC W Auto Differential panel - Blood CBC with Auto Differential Lab Routine Tomorrow AM for 7 Occurrences starting 09/27/2024 until 10/03/2024, 5 completed [facility] Comment on above: Tomorrow AM for 7 Oc currences starting 09/27/2024 until 10/03/2024, 5 completed End: 01-16-2024 Culture, Anaerobic and Aerobic Culture, Anaerobic and Aerobic Microbiology Routine One Time for 1 Occurrences starting 01/16/2024 until 01/16/2024 [facility] Comment on above: One Time for 1 Occur rences starting 01/16/2024 until 01/16/2024 End: 01-17-2024 IBD Panel [facility] Work Phone: Comment on above: One Time for 1 Occur rences starting 01/17/2024 until 01/17/2024 End: 04-03-2022 INITIATE PACU OXYGEN THERAPY PROTOCOL Initiate PACU Oxygen Therapy Protocol Respiratory Care Routine Continuous until discontinued starting 04/03/2022 [facility] Comment on above: Continuous until dis continued starting 04/03/2022 Intermittent pulse oximetry Pulse Oximetry Spot Check Respiratory Care Routine As Needed until discontinued starting 09/25/2024 [facility] Comment on above: As Needed until disc ontinued starting 09/25/2024 Oxygen therapy [[facility] [place]] Initiate Oxygen Therapy Protocol Respiratory Care Routine As Needed until discontinued starting 01/16/2024 [facility] [employer] Comment on above: As Needed until disc ontinued starting 01/16/2024 Oxygen therapy [[facility] [place]] Initiate Oxygen Therapy Protocol Respiratory Care Routine As Needed until discontinued starting 09/25/2024 [facility] [employer] Comment on above: As Needed until disc ontinued starting 09/25/2024 End: 03-30-2022 Splint application Splint application Procedures Routine One Time for 1 Occurrences starting 03/30/2022 until 03/30/2022 [facility] [employer] Work Phone: Comment on above: One Time for 1 Occur rences starting 03/30/2022 until 03/30/2022 Payers Date Payer Category Payer Medicaid ACUTE [id number] 01-09-2024 Medicaid [id number] 1998 Unknown [id number] [id number] 1998 Unknown [id number] [id number] 1998 Unknown [id number] 2.16.8 [id number] 1998 Unknown [id number] 2.16.84 [id number] 1998 Unknown [id number] 2.16. [id number] 1998 Unknown [id number] 2.16. [id number] 09-10-1961 Medicaid [id number] 1. [id number] Self-pay [id number] Social History Date Type Detail Facility Assertion Social drinker (finding) [facility] Work Phone: Assertion Sexually active (finding) [facility] Work Phone: Assertion [facility] Work Phone: Assertion Cigarette smoker (finding) [facility] Work Phone: Assertion Smoker (finding) [facility] Work Phone: Assertion Gender identity finding (finding) [facility] Work Phone: Assertion Light cigarette smoker (1-9 cigs/day) (finding) [facility] Work Phone: Assertion Finding of sexua l orientation (finding) [facility] Work Phone: Tobacco smoking status Unknown if ever smoked [facility] Work Phone: Start: 03-09-2022 End: 01-16-2024 Tobacco smoking status NHIS Smokes tobacco daily [facility] Work Phone: Start: 03-09-2022 End: 09-25-2024 Cigarettes smoked current (pack per day) - Reported 0.3 [facility] Start: 03-09-2022 End: 01-16-2024 Tobacco use and exposure Smokeless tobacco non-user [employer] Phone: Start: 1998 Sex Assigned At Not on file [facility] Phone: Start: 03-20-2022 End: 04-03-2022 Exposure to SARS-CoV-2 (event) Not sure [facility] Start: 03-31-2022 End: 04-03-2022 Alcohol intake Current drinker of alcohol (finding) [facility] Work Phone: Start: 03-31-2022 History SDOH Alcohol Comment socially [facility] Work Phone: Assertion Exposure to poll ution (event) [facility] Work Phone: Start: 01-16-2024 End: 09-26-2024 Alcohol intake Ex-drinker (finding) [facility] Start: 01-16-2024 End: 09-25-2024 [facility] Utilities [facility] Has the electric, gas, oil, or water [employer] threatened to shut off services in your home in past 12Mo No [facility] How often to you hav e a drink containing alcohol? Monthly or less [facility] How many standard drinks containing alcohol do you have on a typical day? 3 or 4 [facility] How often do you hav e 6 or more drinks on 1 occasion? Less than monthly [facility] (I/We) worried whether (my/our) food would run out before (I/we) got money to buy more. Never true [facility] In the past 12 months, was there a time when you were not able to pay the mortgage or rent on time? Yes [facility] Start: 01-16-2024 Alcohol Comment stopped drinki ng 2 months ago- reports h/o ETOH abuse [facility] NEGATED: Highlighted row Assertion Exposure to pollution (event) [facility] Work Phone: NEGATED: Highlighted row Assertion Not using electronic cigarettes/vaping [facility] Work Phone: Medical Equipment Procedure Code Equipment Code Equipment Origin al Text Equipment Identifier Dates Plate Distl Rad Kenia Lt 2.4x54mm - [id number] Start: 04-03-2022 Screw Bne L18mm Dia2.7mm Neymar S Stl St T8 Stardrv Recess - [id number] Start: 04-03-2022 Screw Bne L14mm Dia2.4mm Dst Rad Volar S Stl St Kenia Ang Michelle - [id number] Start: 04-03-2022 Screw Bne L18mm Dia2.4mm Dst Rad Volar S [facility]l [facility] Ang Michelle - [id number] Start: 04-03-2022 Screw Bne L22mm Dia2.4mm Dst Rad Volar S Stl [facility] Ang Michelle - [id number] Start: 04-03-2022 Mental Status Date Assessment Result Facility Cognitive function Oriented to t anabelle, place, and person Oriented to person, time and place (finding) [facility] Work Phone: Clinical Notes 03-10-2022 to 10-01-2024 Shayna Espinoza RN - 10/01/2024 9:01 PM Ruba Oh RN - 10/01/2024 7:02 PM Brie Haro MD - 10/01/2024 8:21 AM Juliet Ji MD - 10/01/2024 7:54 AM ESTAttachments Note Date & Type Note Facility 10-01-2024 History of Present illness Narrative Patient states his ride is here. Patient denies need for wheelchair and would like to ambulate downstairs. Patient discharged home with all of his belongings. Discharge order received. IV removed. Web Solutions Architect went over d/c instructions with pt, including drain care, medications, and follow up appointments. Pt verbalized understanding. Pt called family member to transport home. Pt updated real estate underwriter that his ride won't be here for another hour. Report given to operator prefinish nurse Shayna FLETCHER. All questions answered. Images from the original note were not included. [facility] Office: [phone] Benigno Negron DO, Teddy Yadav DO, Regulo [...] MD, Hugo Castellon MD, Anali Dooley MD, Rojelio James DO, Nino Ramos MD, Mello Mehta MD, Brie Mehta MD, Mai Kate, ROUNDER HAND, Mitali Graham ROUNDER HAND, Rojelio Bowen, ROUNDER HAND, Cecilia Mcgrath, NAZARIO, Dorene Barnhart ROUNDER HAND, Juli Frederick ROUNDER HAND, Miryam Lord, ROUNDER HAND, Leslie Jurado, ROUNDER HAND, Amirah Delgado, PA-C, Sary Trejo, PA-C, Patricia Johnson, R[employer]ER HAND, Alber Blake, ROUNDER HAND, Anna Alex, ROUNDER HAND, Karmen Elizabeth, ROUNDER HAND, Samia Reyes, ROUNDER HAND, Willa Nieves, [employer] CHECKER, Lindy Parra ROUNDER HAND, Silvia Arguello, ROUNDER HAND, Deandra Calix, ROUNDER HAND IN-PATIENT SERVICE [facility] Progress Note 10/01/2024 8:21 AM Name: Esmer Corbin Acct: [id number] Room: 0344/0344-02 IP Day: 6 Admit Date: 09/25/2024 7:14 PM PCP: No primary care provider on file. Code Status: Full Code Subjective: C/C: Chief Complaint Patient presents with Abdominal Pain Interval History Status: Doing well this am. Postop day 5 drain placement by IR His pain is better controlled Tolerating clear liquids - with plans to advance diet. Has had several bowel movements Stool firming up Past Medical History: has a past medical history of Diverticulitis and Herpes. Social History: reports that he has been smoking cigarettes. He has never used smokeless tobacco. He reports that he does not currently use alcohol. He reports current drug use. Frequency: 12.00 times per week. Drug: Marijuana ([place]). Family History: Family History Problem Relation Age of Onset Alcohol Abuse Father Drug Abuse Brother drug overdose Review of Systems: Review of Systems Constitutional: Positive for appetite change (Decreased, but improving). Negative for chills, diaphoresis and fever. Respiratory: Negative for cough and shortness of breath. Cardiovascular: Negative for chest pain and palpitations. Gastrointestinal: Positive for abdominal pain (Lower abdominal pain improving). Negative for nausea and vomiting. Genitourinary: Negative for flank pain and hematuria. Physical Examination: Vitals BP 136/87 Pulse 69 Temp 98.1 F (36.7 C) Resp 16 Ht 1.803 m (5' 11 ) Wt 105.1 kg (231 lb 11.3 oz) SpO2 94% BMI 32.32 kg/m Temp (24hrs), Av.9 F (36.6 C), Min:97.6 F (36.4 C), Max:98.1 F (36.7 C) No results for input(s): POCGLU in the last 72 hours. Physical Exam Vitals reviewed. Constitutional: General: He is not in acute distress. Appearance: He is not diaphoretic. HENT: Head: Normocephalic. Nose: Nose normal. Eyes: General: No scleral icterus. Conjunctiva/sclera: Conjunctivae normal. Neck: Trachea: No tracheal deviation. Cardiovascular: Rate and Rhythm: Normal rate and regular rhythm. Pulmonary: Effort: Pulmonary effort is normal. No respiratory distress. Breath sounds: Normal breath sounds. No wheezing or rales. Chest: Chest wall: No tenderness. Abdominal: General: There is no distension. Palpations: Abdomen is soft. Tenderness: There is no abdominal tenderness. There is no guarding or rebound. Comments: Drain collecting purulent material Musculoskeletal: General: No tenderness. Cervical back: Neck supple. Skin: General: Skin is warm and dry. Neurological: Mental Status: He is alert and oriented to person, place, and time. Medications: Allergies: No Known Allergies Current Meds: Scheduled Meds: sodium chloride flush 5-10 mL IntraCATHeter BID acetaminophen 1,000 mg Oral 3 times per day piperacillin-tazobactam 3,375 mg IntraVENous Q8H sodium chloride flush 5-40 mL IntraVENous 2 times per day enoxaparin 30 mg SubCUTAneous BID Continuous Infusions: lactated ringers 100 mL/hr at 10/01/24 0649 sodium chloride 5 mL/hr at 09/26/24 0016 PRN Meds: oxyCODONE, HYDROmorphone, sodium chloride flush, sodium chloride, potassium chloride OR potassium alternative oral replacement OR potassium chloride, magnesium sulfate, ondansetron OR ondansetron, polyethylene glycol Data: I/O (24Hr): Intake/Output Summary (Last 24 hours) at 10/01/2024 0821 Last data filed at 10/01/2024 0418 Gross per 24 hour Intake 23885.44 ml Output 70 ml Net 79684.44 ml Labs: Hematology: Recent Labs 09/29/24 0320 09/30/24 0942 10/01/24 0343 WBC 10.7 8.1 7.4 RBC 4.72 4.63 4.70 HGB 15.3 15.0 15.1 HCT 47.4 44.9 45.7 MCV 100.4 97.0 97.2 MCH 32.4 32.4 32.1 MCHC 32.3 33.4 33.0 RDW 11.6* 11.4* 11.5* PLT 228 261 304 MPV 11.5 11.1 10.9 CRP 149.0* 73.5* -- Chemistry: Recent Labs 09/29/24 0320 09/30/24 0942 10/01/24 0343 NA 138 138 139 K 3.2* 3.3* 3.2* CL 103 104 104 CO2 20 23 24 GLUCOSE 75 104* 88 BUN 3* 2* 3* CREATININE 0.8 0.8 0.8 ANIONGAP 15 11 11 LABGLOM >90 >90 >90 CALCIUM 8.6 8.6 8.5* No results for input(s): LABALBU , LABA1C , D0STHWV , FT4 , TSH , AST , ALT , LDH , GGT , ALKPHOS , BILITOT , BILIDIR , AMMONIA , AMYLASE , LIPASE , LACTATE , CHOL , HDL , CHOLHDLRATIO , TRIG , VLDL , RXO81QS , PHENYTOIN , PHENYF , URICACID , POCGLU in the last 72 hours. Invalid input(s): PROT , P9HVDQF , LABGGT , LDLCHOLESTEROL ABG:No results found for: POCPH , PHART , PH , POCPCO2 , MYA5SUH , PCO2 , POCPO2 , PO2ART , PO2 , POCHCO3 , XXT2DRR , HCO3 , NBEA , PBEA , BEART , BE , THGBART , THB , QQY8KWX , SJWF0WYN , P0IUPDDT , O2SAT , FIO2 No results found for: SPECIAL Lab Results Component Value Date/Time CULTURE NORMAL SKIN AB 09/26/2024 12:45 PM CULTURE NEGATIVE FOR NEISSERIA GONORRHOEAE 09/26/2024 12:45 PM CULTURE No anaerobic organisms isolated at 5 days. 09/26/2024 12:45 PM Radiology: No results found. Assessment: Primary Problem Colonic diverticular abscess Active Hospital Problems Diagnosis Date Noted Intra-abdominal abscess (HCC) [K65.1] 09/26/2024 Tobacco use [Z72.0] 09/26/2024 Colonic diverticular abscess [K57.20] 09/25/2024 Leukocytosis [D72.829] 09/25/2024 Hypokalemia [E87.6] 09/25/2024 Plan: Pain control Antibiotics - Zosyn IV - ID following - plan Omnicef and flagyl at time of dc. Clear liquid diet, progress as tolerated Drain care Surgical consultation- May need sigmoid resection at some point the future - pt to follow up in office in 2-3 weeks Correct electrolyte abnormalities Smoking cessation Activity as tolerated DVT prophylaxis If improvement continues, plan on transitioning to oral therapy and discharge planning in the next 24 to 48 hours IP CONSULT TO HOSPITALIST IP CONSULT TO GENERAL SURGERY IP CONSULT TO VASCULAR ACCESS TEAM IP CONSULT TO INFECTIOUS DISEASES Brie Mehta MD 10/01/2024 8:21 AM Images from the original note were not included. [facility] Progress Note Esmer Corbin Date: 10/01/2024 LOS: 6 Reason for F/U : Diverticular abcess Impression : Diverticular abscess S/p IR guided drainage 09/26 Drain fluid growing many GPC in pairs and few GPR on Gram stain and culture with normal ab History of appendectomy Recommendations: The patient continues on antimicrobial therapy with piperacillin/tazobactam The patient has some leakage around the ROLANDO drain which I do not feel is abnormal The plan for discharge will be on oral antibiotic therapy with Omnicef 300 mg twice a day and metronidazole 500 mg 3 times a day to complete a 10 to 14-day course of therapy Infection Control Recommendations: [place] precautions Discharge Planning: Estimated Length of IV antimicrobials: while hospitalized Patient will need Midline Catheter Insertion/ PICC line Insertion: No Patient will need: Home IV , Infusion Center, SNF, LTAC: Undetermined Patient willneed outpatient wound care: No Medical Decision making / Summary of Stay: This patient has a diverticular abscess for which he was previously completing a course of Ciprofloxacin and metronidazole. Patient's condition worsened and had to be brought in to [facility] for IR guided drainage. Placed on iv Zosyn since 09/26 CLD started on 09/28 Current evaluation:10/01/2024 BP 137/82 Pulse 71 Temp 97.9 F (36.6 C) (Oral) Resp 16 Ht 1.803 m (5' 11 ) Wt 105.1 kg (231 lb 11.3 oz) SpO2 96% BMI 32.32 kg/m Temperature Range: Temp: 97.9 F (36.6 C) Temp Av.8 F (36.6 C) Min: 97.6 F (36.4 C) Max: 97.9 F (36.6 C) Patient states that his drain insertion site is sore He states he has had less episodes of diarrhea and they are more formed Vitals stable, afebrile Drain output 70 ml so far today, brownish pink Labs reviewed: K 3.2, WBC 7.4 Review of Systems Constitutional: Negative for activity change, chills and fever. Respiratory: Negative for cough and shortness of breath. Cardiovascular: Negative for leg swelling. Gastrointestinal: Positive for abdominal pain and diarrhea. Negative for nausea and vomiting. Musculoskeletal: Negative for back pain and myalgias. Skin: Negative for wound. Allergic/Immunologic: Negative for immunocompromised state. Neurological: Negative for dizziness and light-headedness. Hematological: Negative for adenopathy. Physical Examination : Physical Exam Constitutional: General: He is not in acute distress. Appearance: Normal appearance. He is obese. He is not ill-appearing. HENT: Head: Normocephalic and atraumatic. Mouth/Throat: Mouth: Mucous membranes are moist. Eyes: General: No scleral icterus. Right eye: No discharge. Left eye: No discharge. Extraocular Movements: Extraocular movements intact. Pupils: Pupils are equal, round, and reactive to light. Cardiovascular: Rate and Rhythm: Normal rate and regular rhythm. Pulses: Normal pulses. Heart sounds: Normal heart sounds. No murmur heard. No friction rub. No gallop. Pulmonary: Effort: Pulmonary effort is normal. Breath sounds: Normal breath sounds. No wheezing, rhonchi or rales. Abdominal: General: There is no distension. Palpations: Abdomen is soft. There is no mass. Tenderness: There is no abdominal tenderness. There is no guarding. Musculoskeletal: Right lower leg: No edema. Left lower leg: No edema. Skin: Coloration: Skin is not pale. Findings: No rash. Neurological: Mental Status: He is alert and oriented to person, place, and time. Laboratory data: I have independently reviewed the followinglabs: CBC with Differential: Recent Labs 09/30/24 0942 10/01/24 0343 WBC 8.1 7.4 HGB 15.0 15.1 HCT 44.9 45.7 PLT 261 304 LYMPHOPCT 25 30 MONOPCT 9 10 EOSPCT 3 3 BMP: Recent Labs 09/30/24 0942 10/01/24 0343 NA 138 139 K 3.3* 3.2* CL 104 104 CO2 23 24 BUN 2* 3* CREATININE 0.8 0.8 Hepatic Function Panel: No results for input(s): LABALBU , BILIDIR , IBILI , BILITOT , ALKPHOS , ALT , AST in the last 72 hours. Invalid input(s): PROT No results found for: PROCAL Lab Results Component Value Date/Time CRP 73.5 09/30/2024 09:42 AM CRP 149.0 09/29/2024 03:20 AM No results found for: SEDRATE No results found for: DDIMER No results found for: FERRITIN No results found for: LDH No results found for: FIBRINOGEN No results found for requested labs within last 30 days. No results found for: COVID19 No results for input(s): VANCOTROUGH in the last 72 hours. Imaging Studies: CT ABSCESS DRAINAGE Result Date: 09/26/2024 PROCEDURE: CT GUIDEDright transgluteal pelvicABSCESS DRAINAGE CATHETER PLACEMENT MODERATE CONSCIOUS SEDATION 09/26/2024 HISTORY: ORDERING SYSTEM PROVIDED HISTORY: diverticulitis with abscess TECHNOLOGIST PROVIDED HISTORY: diverticulitis with abscess SEDATION: Moderate sedation was ordered and supervised by the attending with physician [id number] monitoring. Medications were provided and recorded by Radiology nurses. TECHNIQUE: Informed consent was obtained after a detailed explanation of the procedure including risks, benefits, and alternatives. [place] protocol was followed. Sterile gowns, masks, hats, and gloves utilized for maximal sterile barrier. A suitable skin site was prepped and draped in sterile fashion following CT localization. An 18 gauge needle was advanced under CT guidance via right transgluteal fashion into the pelvic fluid collection. CT images confirmed satisfactory needle tip position. 0.035 guidewire was used to place a 10 Finnish abscess drainage catheter after the fashion tract was dilated. The catheter was sutured to the skin and the patient tolerated the procedure well. The catheter was attached to ROLANDO suction drainage. 100 cc of thick green purulent fluid was drained while the patient was in IR. A sample was sent. Dose modulation, iterative reconstruction, and/or weight based adjustment of the mA/kV was utilized to reduce the radiation dose to as low as reasonably achievable. FINDINGS: A total of 100 mL of thick green purulent fluid was removed and sent for diagnostic tests. Successful CT guided placement of right transgluteal 10 Finnish pelvic abscess drainage catheter. Cultures: Results Procedure Component Value Units Date/Time Culture, Body Fluid (with Gram Stain) [[id number]] Collected: 09/26/241244 Order Status: Canceled Specimen: Body Fluid from Aspirate Culture, Anaerobic and Aerobic [[id number]] (Abnormal) Collected: 09/26/24 124 Order Status: Completed Specimen: Aspirate Updated: 10/01/24 8675 Specimen Description .ASPIRATE PELVIC FLUID COLLECTION Direct Exam MANY NEUTROPHILS MANY GRAM POSITIVE COCCI IN PAIRS FEW GRAM POSITIVE RODS RARE YEAST Culture NORMAL SKIN BA NEGATIVE FOR NEISSERIA GONORRHOEAE No anaerobic organisms isolated at 5 days. Medications: sodium chloride flush 5-10 mL IntraCATHeter BID acetaminophen 1,000 mg Oral 3 times per day piperacillin-tazobactam 3,375 mg IntraVENous Q8H sodium chloride flush 5-40 mL IntraVENous 2 times per day enoxaparin 30 mg SubCUTAneous BID [facility] Patsy Tinoco MD [facility] [employer] OFFICE: Thank you for allowing us to participate in the care of this patient. Please call with questions. This note is created with the assistance of a speech recognition program. While intending to generate a document that actually reflects the content of the visit, the document can still have some errors including those of syntax and sound a like substitutions which may escape proof reading. In such instances, actual meaning can be extrapolated by contextual diversion. I have discussed the care of Esmer Corbin including pertinent history and exam findings, with the resident/BOND CLERK. I have edited the note to reflect my thoughts including the history, physical exam, and medical decisions. I have independently interviewed and examined the patient and I discussed the findings and therapeutic plan with the resident/BOND CLERK and we collaborated on medical decision making for this patient. [employer] Images from the original note were not included. [facility] Office: [phone] Benigno Negron DO, Teddy Yadav DO, Regulo [...] MD, Hugo Castellon MD, Anali Dooley MD, Rojelio James DO, Nino Ramos MD, Mello Mehta MD, Brie Mehta MD, Mai Kate, ROUNDER HAND, Mitali Graham, ROUNDER HAND, Rojelio Bowen, ROUNDER HAND, Cecilia Mcgrath, [facility], Dorene Barnhart, ROUNDER HAND, Juli Frederick, ROUNDER HAND, Miryam Lord, ROUNDER HAND, Leslie Jurado, ROUNDER HAND, Amirah Delgado, PA-C, Sary Trejo, PA-C, Patricia Johnson, ROUNDER HAND, Alber Blake, ROUNDER HAND, Anna Alex, ROUNDER HAND, Karmen Elizabeth, ROUNDER HAND, Samia Reyes, ROUNDER HAND, Willa Nieves, [facility], Lindy Parra, ROUNDER HAND, Silvia Arguello, ROUNDER HAND, Deandra Calix, ROUNDER HAND IN-PATIENT SERVICE [facility] Progress Note 09/30/2024 7:44 AM Name: Esmer Corbin Acct: [id number] Room: 0344/0344-02 Day: 5 Admit Date: 09/25/2024 7:14 PM PCP: No primary care provider on file. Code Status: Full Code Subjective: C/C: Chief Complaint Patient presents with Abdominal Pain Interval History Status: Doing well this am. Postop day 4 drain placement by IR - wants to go home to car for his cat when medically ready His pain is better controlled Tolerating clear liquids Has had several bowel movements Stool firming up Data Base Updates: Fevers resolving WBC10.7k/uL RBC4.72m/uL Wgtyvmdkic51.3 Jsqenm888wvsv/L Potassium3.2 Low mmol/L Txtapbdi595jwkb/L XG281dqik/L Anion Gyn90sbim/L Pqtjyxu72wa/dL BUN3 Low mg/dL Creatinine0.8 GBJ585.0 High Culture: Specimen Source: Aspirate Specimen Description.ASPIRATE PELVIC FLUID COLLECTION Direct ExamMANY NEUTROPHILS MANY GRAM POSITIVE COCCI IN PAIRS Abnormal FEW GRAM POSITIVE RODS Abnormal RARE YEAST Abnormal CultureNORMAL SKIN AB No anaerobic organisms isolated at 3 days. Past Medical History: has a past medical history of Diverticulitis and Herpes. Social History: reports that he has been smoking cigarettes. He has never used smokeless tobacco. He reports that he does not currently use alcohol. He reports current drug use. Frequency: 12.00 times per week. Drug: Marijuana ([place]). Family History: Family History Problem Relation Age of Onset Alcohol Abuse Father Drug Abuse Brother drug overdose Review of Systems: Review of Systems Constitutional: Positive for appetite change (Decreased, but improving). Negative for chills, diaphoresis and fever. Respiratory: Negative for cough and shortness of breath. Cardiovascular: Negative for chest pain and palpitations. Gastrointestinal: Positive for abdominal pain (Lower abdominal pain improving). Negative for nausea and vomiting. Genitourinary: Negative for flank pain and hematuria. Physical Examination: Vitals BP (!) 140/99 Pulse 87 Temp 99 F (37.2 C) Resp 18 Ht 1.803 m (5' 11 ) Wt 105.1 kg (231 lb 11.3 oz) SpO2 100% BMI 32.32 kg/m Temp (24hrs), Av.8 F (37.1 C), Min:98.6 F (37 C), Max:99 F (37.2 C) No results for input(s): POCGLU in the last 72 hours. Physical Exam Vitals reviewed. Constitutional: General: He is not in acute distress. Appearance: He is not diaphoretic. HENT: Head: Normocephalic. Nose: Nose normal. Eyes: General: No scleral icterus. Conjunctiva/sclera: Conjunctivae normal. Neck: Trachea: No tracheal deviation. Cardiovascular: Rate and Rhythm: Normal rate and regular rhythm. Pulmonary: Effort: Pulmonary effort is normal. No respiratory distress. Breath sounds: Normal breath sounds. No wheezing or rales. Chest: Chest wall: No tenderness. Abdominal: General: There is no distension. Palpations: Abdomen is soft. Tenderness: There is no abdominal tenderness. There is no guarding or rebound. Comments: Drain collecting purulent material Musculoskeletal: General: No tenderness. Cervical back: Neck supple. Skin: General: Skin is warm and dry. Neurological: Mental Status: He is alert and oriented to person, place, and time. Medications: Allergies: No Known Allergies Current Meds: Scheduled Meds: sodium chloride flush 5-10 mL IntraCATHeter BID acetaminophen 1,000 mg Oral 3 times per day piperacillin-tazobactam 3,375 mg IntraVENous Q8H sodium chloride flush 5-40 mL IntraVENous 2 times per day enoxaparin 30 mg SubCUTAneous BID Continuous Infusions: lactated ringers 100 mL/hr at 09/30/24 0521 sodium chloride 5 mL/hr at 09/26/24 0016 PRN Meds: oxyCODONE, HYDROmorphone, morphine OR morphine, sodium chloride flush, sodium chloride, potassium chloride OR potassium alternative oral replacement OR potassium chloride, magnesium sulfate, ondansetron OR ondansetron, polyethylene glycol Data: I/O (24Hr): Intake/Output Summary (Last 24 hours) at 09/30/2024 0744 Last data filed at 09/30/2024 0415 Gross per 24 hour Intake 480 ml Output 590 ml Net -110 ml Labs: Hematology: Recent Labs 09/28/24 0610 09/29/24 0320 WBC 14.6* 10.7 RBC 4.75 4.72 HGB 15.5 15.3 HCT 46.2 47.4 MCV 97.3 100.4 MCH 32.6 32.4 MCHC 33.5 32.3 RDW 11.8 11.6* PLT 257 228 MPV 10.8 11.5 CRP -- 149.0* Chemistry: Recent Labs 09/28/24 0610 09/29/24 0320 NA 139 138 K 3.6* 3.2* CL 102 103 CO2 26 20 GLUCOSE 82 75 BUN 4* 3* CREATININE 0.7 0.8 ANIONGAP 11 15 LABGLOM >90 >90 CALCIUM 8.7 8.6 No results for input(s): LABALBU , LABA1C , C5RNKUL , FT4 , TSH , AST , ALT , LDH , GGT , ALKPHOS , BILITOT , BILIDIR , AMMONIA , AMYLASE , LIPASE , LACTATE , CHOL , HDL , CHOLHDLRATIO , TRIG , VLDL , FHK74JD , PHENYTOIN , PHENYF , URICACID , POCGLU in the last 72 hours. Invalid input(s): PROT , C5FPKHV , LABGGT , LDLCHOLESTEROL ABG:No results found for: POCPH , PHART , PH , POCPCO2 , DJW3IVE , PCO2 , POCPO2 , PO2ART , PO2 , POCHCO3 , WXK5KJN , HCO3 , NBEA , PBEA , BEART , BE , THGBART , THB , YWZ8IIM , TPGY3HPH , J5GSOTIF , O2SAT , FIO2 No results found for: SPECIAL Lab Results Component Value Date/Time CULTURE NORMAL SKIN AB 09/26/2024 12:45 PM CULTURE No anaerobic organisms isolated at 3 days. 09/26/2024 12:45 PM Radiology: No results found. Assessment: Primary Problem Colonic diverticular abscess Active Hospital Problems Diagnosis Date Noted Intra-abdominal abscess (HCC) [K65.1] 09/26/2024 Tobacco use [Z72.0] 09/26/2024 Colonic diverticular abscess [K57.20] 09/25/2024 Leukocytosis [D72.829] 09/25/2024 Hypokalemia [E87.6] 09/25/2024 Plan: Pain control Antibiotics - Zosyn IV - ID consulted for snf antibiotic duration. Clear liquid diet, progress as tolerated Drain care Surgical consultation- May need sigmoid resection at some point the future Correct electrolyte abnormalities Smoking cessation Activity as tolerated DVT prophylaxis If improvement continues, plan on transitioning to oral therapy and discharge planning in the next 24 to 48 hours IP CONSULT TO HOSPITALIST IP CONSULT TO GENERAL SURGERY IP CONSULT TO VASCULAR ACCESS TEAM Brie Mehta MD 09/30/2024 7:44 AM Images from the original note were not included. [facility] Office: [phone] Benigno Negron DO, Teddy Yadav DO, Regulo [...] MD, Hugo Castellon MD, Anali Dooley MD, Rojelio James DO, Nino Ramos MD, Mello Mehta MD, Brie Mehta MD, Mai Kate, [employer], Mitali Graham, R[employer] HAND, Rojelio Bowen, ROUNDER HAND, Cecilia Mcgrath, [facility], Dorene Barnhart, R[employer] HAND, Juli Frederick, R[employer] HAND, Miryam Lord, ROUNDER HAND, Leslie Jurado, ROUNDER HAND, Amirah Delgado PALinwoodC, Sary Trejo PA-C, Patricia Johnson, R[employer] HAND, Alber Blake, R[employer]ER HAND, Anna Alex, ROUNDER HAND, Karmen Elizabeth, R[employer] HAND, Samia Reyes, R[employer] HAND, Willa Nieves, [employer] CAR CHECKER, Lindy Parra, R[employer], Silvia Arguello, R[employer] HAND, Deandra Calix, ROUNDER HAND IN-PATIENT SERVICE [facility] Progress Note 09/29/2024 1:04 PM Name: Esmer Corbin Acct: [id number] Room: [address] [place] [address] Day: 4 Admit Date: 09/25/2024 7:14 PM PCP: No primary care provider on file. Code Status: Full Code Subjective: C/C: Chief Complaint Patient presents with Abdominal Pain Interval History Status: The patient continues to run Postop day 3 drain placement by IR His pain is better controlled Tolerating clear liquids Has had several bowel movements Stool firming up Data Base Updates: Fevers resolving WBC10.7k/uL RBC4.72m/uL Qrjsojltcv33.3 Teemro147xwca/L Potassium3.2 Low mmol/L Brcvwqcs222imsg/L DV487pney/L Anion Rsx26ordf/L Xkmasmj64nn/dL BUN3 Low mg/dL Creatinine0.8 JGZ011.0 High Culture: Specimen Source: Aspirate Specimen Description.ASPIRATE PELVIC FLUID COLLECTION Direct ExamMANY NEUTROPHILS MANY GRAM POSITIVE COCCI IN PAIRS Abnormal FEW GRAM POSITIVE RODS Abnormal RARE YEAST Abnormal CultureNORMAL SKIN AB No anaerobic organisms isolated at 3 days. Brief History: As documented in the medical record: Esmer Corbin is a 24 y.o. Non- / non male who presents with Abdominal Pain and is admitted to the hospital for the management of Colonic diverticular abscess. CT scan was done which showed 2 fluid collections likely abscesses. Patient reports a prior history of diverticulitis with perforation which was treated conservatively. The intitial assessment and plan included: * (Principal) Colonic diverticular abscess 09/25/2024 Yes Leukocytosis 09/25/2024 Yes Hypokalemia 09/25/2024 Yes Plan: Patient status inpatient in the Progressive Unit/Step down Diverticular abscess: Placing on IV Zosyn. IV fluids. General surgery consultation. N.p.o. discontinue vancomycin and metronidazole. Follow-up with blood culture results. Dilaudid for pain relief. IR is consulted for percutaneous drainage. Hypokalemia: Repletion Leukocytosis: Secondary to above On 09/26 the patient underwent: Procedure: Abscess drain placement A total of 100 mL of thick green purulent fluid was removed Past Medical History: has a past medical history of Diverticulitis and Herpes. Social History: reports that he has been smoking cigarettes. He has never used smokeless tobacco. He reports that he does not currently use alcohol. He reports current drug use. Frequency: 12.00 times per week. Drug: Marijuana ([place]). Family History: Family History Problem Relation Age of Onset Alcohol Abuse Father Drug Abuse Brother drug overdose Review of Systems: Review of Systems Constitutional: Positive for appetite change (Decreased, but improving). Negative for chills, diaphoresis and fever. Respiratory: Negative for cough and shortness of breath. Cardiovascular: Negative for chest pain and palpitations. Gastrointestinal: Positive for abdominal pain (Lower abdominal pain improving). Negative for nausea and vomiting. Genitourinary: Negative for flank pain and hematuria. Physical Examination: Vitals BP 127/77 Pulse 80 Temp 98.8 F (37.1 C) (Oral) Resp 18 Ht 1.803 m (5' 11 ) Wt 105 kg (231 lb 7.7 oz) SpO2 99% BMI 32.29 kg/m Temp (24hrs), Av.7 F (37.1 C), Min:98.6 F (37 C), Max:98.8 F (37.1 C) No results for input(s): POCGLU in the last 72 hours. Physical Exam Vitals reviewed. Constitutional: General: He is not in acute distress. Appearance: He is not diaphoretic. HENT: Head: Normocephalic. Nose: Nose normal. Eyes: General: No scleral icterus. Conjunctiva/sclera: Conjunctivae normal. Neck: Trachea: No tracheal deviation. Cardiovascular: Rate and Rhythm: Normal rate and regular rhythm. Pulmonary: Effort: Pulmonary effort is normal. No respiratory distress. Breath sounds: Normal breath sounds. No wheezing or rales. Chest: Chest wall: No tenderness. Abdominal: General: There is no distension. Palpations: Abdomen is soft. Tenderness: There is no abdominal tenderness. There is no guarding or rebound. Comments: Drain collecting purulent material Musculoskeletal: General: No tenderness. Cervical back: Neck supple. Skin: General: Skin is warm and dry. Neurological: Mental Status: He is alert and oriented to person, place, and time. Medications: Allergies: No Known Allergies Current Meds: Scheduled Meds: sodium chloride flush 5-10 mL IntraCATHeter BID acetaminophen 1,000 mg Oral 3 times per day piperacillin-tazobactam 3,375 mg IntraVENous Q8H sodium chloride flush 5-40 mL IntraVENous 2 times per day enoxaparin 30 mg SubCUTAneous BID Continuous Infusions: lactated ringers 100 mL/hr at 09/28/24 2138 sodium chloride 5 mL/hr at 09/26/24 0016 PRN Meds: oxyCODONE, HYDROmorphone, morphine OR morphine, sodium chloride flush, sodium chloride, potassium chloride OR potassium alternative oral replacement OR potassium chloride, magnesium sulfate, ondansetron OR ondansetron, polyethylene glycol Data: I/O (24Hr): Intake/Output Summary (Last 24 hours) at 09/29/2024 1304 Last data filed at 09/29/2024 1148 Gross per 24 hour Intake 1500 ml Output 860 ml Net 640 ml Labs: Hematology: Recent Labs 09/27/24 0531 09/28/24 0610 09/29/24 0320 WBC 13.2* 14.6* 10.7 RBC 4.36 4.75 4.72 HGB 14.3 15.5 15.3 HCT 42.6 46.2 47.4 MCV 97.7 97.3 100.4 MCH 32.8 32.6 32.4 MCHC 33.6 33.5 32.3 RDW 11.9 11.8 11.6* PLT 242 257 228 MPV 11.0 10.8 11.5 CRP -- -- 149.0* Chemistry: Recent Labs 09/26/24 1453 09/26/24 1758 09/26/24 2358 09/27/24 0531 09/28/24 0610 09/29/24 0320 NA -- -- -- 140 139 138 K -- -- -- 3.4* 3.6* 3.2* CL -- -- -- 104 102 103 CO2 -- -- -- 24 26 20 GLUCOSE -- -- -- 82 82 75 BUN -- -- -- 5* 4* 3* CREATININE -- -- -- 0.7 0.7 0.8 ANIONGAP -- -- -- 12 11 15 LABGLOM -- -- -- >90 >90 >90 CALCIUM -- -- -- 8.5* 8.7 8.6 LACTACIDWB 3.0* 1.2 1.2 -- -- -- Recent Labs 09/27/24 0531 LIPASE 34 ABG:No results found for: POCPH , PHART , PH , POCPCO2 , VLC8TQB , PCO2 , POCPO2 , PO2ART , PO2 , POCHCO3 , TOT5RVT , HCO3 , NBEA , PBEA , BEART , BE , THGBART , THB , LXN2EWW , AIWF3WJN , Q0NCNEKZ , O2SAT , FIO2 No results found for: SPECIAL Lab Results Component Value Date/Time CULTURE NORMAL SKIN AB 09/26/2024 12:45 PM CULTURE No anaerobic organisms isolated at 3 days. 09/26/2024 12:45 PM Radiology: No results found. Assessment: Primary Problem Colonic diverticular abscess Active Hospital Problems Diagnosis Date Noted Intra-abdominal abscess (HCC) [K65.1] 09/26/2024 Tobacco use [Z72.0] 09/26/2024 Colonic diverticular abscess [K57.20] 09/25/2024 Leukocytosis [D72.829] 09/25/2024 Hypokalemia [E87.6] 09/25/2024 Plan: Pain control Antibiotics - Zosyn Clear liquid diet, progress as tolerated Drain care Surgical consultation May need sigmoid resection at some point the future Correct electrolyte abnormalities Smoking cessation Activity as tolerated DVT prophylaxis If improvement continues, plan on transitioning to oral therapy and discharge planning in the next 24 to 48 hours IP CONSULT TO HOSPITALIST IP CONSULT TO GENERAL SURGERY IP CONSULT TO VASCULAR ACCESS TEAM Teddy Yadav DO 09/29/2024 1:04 PM Comprehensive Nutrition Assessment Type and Reason for Visit: Reassess Nutrition Recommendations/Plan: Continue current diet order. Advance diet as medically appropriate. Will monitor po intake, weight, labs, and POC. Malnutrition Assessment: Malnutrition Status: At risk for malnutrition (09/26/24 1417) Context: Acute Illness Nutrition Assessment: Follow up. Patient admitted for severe abdominal pain and diverticulitis. Patient receiving clear liquid diet. Patient stated he has been tolerating clear liquids well - no reports of GI upset/N/V. Patient stated he had a BM yesterday (09/28). Medications reviewed. Labs reviewed. Nutrition Related Findings: Last BM 09/28. Wound Type: None Current Nutrition Intake & Therapies: Average Meal Intake: 51-75%, 76-100% Average Supplements Intake: None Ordered ADULT DIET; Clear Liquid Anthropometric Measures: Height: 180.3 cm (5' 11 ) [place] Body Weight (IBW): 172 lbs (78 kg) Current Body Weight: 100.8 kg (222 lb 3.6 oz), IBW. Weight Source: Bed scale Current BMI (kg/m2): 31 Weight Adjustment For: No Adjustment BMI Categories: Obese Class 1 (BMI 30.0-34.9) Estimated Daily Nutrient Needs: Energy Requirements Based On: Kcal/kg Weight Used for Energy Requirements: Current Energy (kcal/day): 1500-1800kcals Weight Used for Protein Requirements: Current Protein (g/day): 90-117g protein Method Used for Fluid Requirements: 1 ml/kcal Fluid (ml/day): or per MD Nutrition Diagnosis: Inadequate oral intake related to inadequate protein-energy intake as evidenced by NPO or clear liquid status due to medical condition Nutrition Interventions: Food and/or Nutrient Delivery: Continue NPO Nutrition Education/Counseling: No recommendation at this time Coordination of Nutrition Care: Continue to monitor while inpatient Plan of Care discussed with: Patient Goals: Goals: Meet at least 75% of estimated needs, prior to discharge Type of Goal: New goal Previous Goal Met: New Goal Nutrition Monitoring and Evaluation: Behavioral-Environmental Outcomes: None Identified Food/Nutrient Intake Outcomes: Food and Nutrient Intake Physical Signs/Symptoms Outcomes: Biochemical Data, Nausea or Vomiting, Fluid Status or Edema, Nutrition Focused Physical Findings, Skin, Weight Discharge Planning: Too soon to determine Xavier [address] RD Contact: [phone] Images from the original note were not included. [facility] Office: [phone] Benigno Negron DO, Teddy Yadav DO, Regulo [...] MD, Hugo Castellon MD, Anali Dooley MD, Rojelio James DO, Nino Ramos MD, Mello Mehta MD, Brie Mehta MD, Mai Kate CNP, Mitali Graham CNP, Rojelio Bowen CNP, Cecilia Mcgrath DNP, Dorene Barnhart, [employer], Juli Frederick, [employer], Miryam Lord, R[employer], Leslie Jurado, VERONICA, Amirah Delgado PA-C, Sary Trejo PA-C, Patricia Johnson, VERONICA, Alber Blake, [employer], Anna Alex, R[employer] HAND, Karmen Elizabeth, [employer] HAND, Samia Reyes, R[employer] HAND, Willa Nieves, MECH[employer] AND [employer] CAR CHECKER, Lindy Parra, VERONICA, Silvia Arguello, VERONICA, Deandra Calix, VERONICA IN-PATIENT SERVICE [facility] Progress Note 09/28/2024 10:39 AM Name: Esmer Corbin Acct: [id number] Room: [address] [place], [place] [address]- IP Day: 3 Admit Date: 09/25/2024 7:14 PM PCP: No primary care provider on file. Code Status: Full Code Subjective: C/C: Chief Complaint Patient presents with Abdominal Pain Interval History Status: Postop day 2 drain placement by IR Pain still not well-controlled, lower abdomen Pain rated 7/10 Appetite improving Has tolerated ice chips/popsicles Reports to loose stools /l ast 24 hours Data Base Updates: Temperature 99.3 WBC14.6 High k/uL RBC4.75m/uL Lgauxalsio18.5 Ulshzm062pyvs/L Potassium3.6 Low mmol/L Kixrfrqw980gsmf/L GV750aryv/L Anion Hwe16atmf/L Tyufvky96ib/dL BUN4 Low mg/dL Creatinine0.7 Brief History: As documented in the medical record: Esmer Corbin is a 24 y.o. Non- / non male who presents with Abdominal Pain and is admitted to the hospital for the management of Colonic diverticular abscess. CT scan was done which showed 2 fluid collections likely abscesses. Patient reports a prior history of diverticulitis with perforation which was treated conservatively. The intitial assessment and plan included: * (Principal) Colonic diverticular abscess 09/25/2024 Yes Leukocytosis 09/25/2024 Yes Hypokalemia 09/25/2024 Yes Plan: Patient status inpatient in the Progressive Unit/Step down Diverticular abscess: Placing on IV Zosyn. IV fluids. General surgery consultation. N.p.o. discontinue vancomycin and metronidazole. Follow-up with blood culture results. Dilaudid for pain relief. IR is consulted for percutaneous drainage. Hypokalemia: Repletion Leukocytosis: Secondary to above On 09/26 the patient underwent: Procedure: Abscess drain placement A total of 100 mL of thick green purulent fluid was removed Past Medical History: has a past medical history of Diverticulitis and Herpes. Social History: reports that he has been smoking cigarettes. He has never used smokeless tobacco. He reports that he does not currently use alcohol. He reports current drug use. Frequency: 12.00 times per week. Drug: Marijuana ([place]). Family History: Family History Problem Relation Age of Onset Alcohol Abuse Father Drug Abuse Brother drug overdose Review of Systems: Review of Systems Constitutional: Positive for appetite change (Decreased, but improving). Negative for chills, diaphoresis and fever. Respiratory: Negative for cough and shortness of breath. Cardiovascular: Negative for chest pain and palpitations. Gastrointestinal: Positive for abdominal pain (Lower abdominal pains rated 7/10). Negative for nausea and vomiting. Genitourinary: Negative for flank pain and hematuria. Physical Examination: Vitals BP 106/61 Pulse 77 Temp 99.3 F (37.4 C) (Oral) Resp 18 Ht 1.803 m (5' 11 ) Wt 100.6 kg (221 lb 12.5 oz) SpO2 95% BMI 30.93 kg/m Temp (24hrs), Av.4 F (37.4 C), Min:99.3 F (37.4 C), Max:99.5 F (37.5 C) No results for input(s): POCGLU in the last 72 hours. Physical Exam Vitals reviewed. Constitutional: General: He is not in acute distress. Appearance: He is not diaphoretic. HENT: Head: Normocephalic. Nose: Nose normal. Eyes: General: No scleral icterus. Conjunctiva/sclera: Conjunctivae normal. Neck: Trachea: No tracheal deviation. Cardiovascular: Rate and Rhythm: Normal rate and regular rhythm. Pulmonary: Effort: Pulmonary effort is normal. No respiratory distress. Breath sounds: Normal breath sounds. No wheezing or rales. Chest: Chest wall: No tenderness. Abdominal: General: There is no distension. Palpations: Abdomen is soft. Tenderness: There is no abdominal tenderness. There is no guarding or rebound. Comments: Drain collecting purulent material Musculoskeletal: General: No tenderness. Cervical back: Neck supple. Skin: General: Skin is warm and dry. Neurological: Mental Status: He is alert and oriented to person, place, and time. Medications: Allergies: No Known Allergies Current Meds: Scheduled Meds: sodium chloride flush 5-10 mL IntraCATHeter BID acetaminophen 1,000 mg Oral 3 times per day piperacillin-tazobactam 3,375 mg IntraVENous Q8H sodium chloride flush 5-40 mL IntraVENous 2 times per day enoxaparin 30 mg SubCUTAneous BID Continuous Infusions: lactated ringers 100 mL/hr at 09/28/24 0814 sodium chloride 5 mL/hr at 09/26/24 0016 PRN Meds: oxyCODONE, HYDROmorphone, morphine OR morphine, sodium chloride flush, sodium chloride, potassium chloride OR potassium alternative oral replacement OR potassium chloride, magnesium sulfate, ondansetron OR ondansetron, polyethylene glycol Data: I/O (24Hr): Intake/Output Summary (Last 24 hours) at 09/28/2024 1039 Last data filed at 09/28/2024 0614 Gross per 24 hour Intake -- Output 5 ml Net -2055 ml Labs: Hematology: Recent Labs 09/25/24195209/27/24 0531 09/28/24 0610 WBC 24.2* 13.2* 14.6* RBC 4.71 4.36 4.75 HGB 15.5 14.3 15.5 HCT 44.0 42.6 46.2 MCV 93.4 97.7 97.3 MCH 32.9 32.8 32.6 MCHC 35.2* 33.6 33.5 RDW 11.6* 11.9 11.8 PLT 309 242 257 MPV 11.0 11.0 10.8 INR 1.4 -- -- Chemistry: Recent Labs 09/25/24195209/26/24 0330 09/26/24 1453 09/26/24 1758 09/26/24 2358 09/27/24 0531 09/28/24 0610 NA 139 138 -- -- -- 140 139 K 3.2* 4.1 -- -- -- 3.4* 3.6* CL 101 105 -- -- -- 104 102 CO2 23 22 -- -- -- 24 26 GLUCOSE 103* 118* -- -- -- 82 82 BUN 7 7 -- -- -- 5* 4* CREATININE 0.8 0.7 -- -- -- 0.7 0.7 MG 2.3 2.2 -- -- -- -- -- ANIONGAP 15 11 -- -- -- 12 11 LABGLOM >90 >90 -- -- -- >90 >90 CALCIUM 8.5* 8.8 -- -- -- 8.5* 8.7 CAION 1.05* -- -- -- -- -- -- PHOS 3.6 2.6 -- -- -- -- -- LACTACIDWB 1.8 1.4 3.0* 1.2 1.2 -- -- Recent Labs 09/26/24 0330 09/27/24 0531 AST 13 -- ALT 5* -- ALKPHOS 61 -- BILITOT 0.4 -- LIPASE 221* 34 ABG:No results found for: POCPH , PHART , PH , POCPCO2 , NQK1GEL , PCO2 , POCPO2 , PO2ART , PO2 , POCHCO3 , VQR1BGI , HCO3 , NBEA , PBEA , BEART , BE , THGBART , THB , TUQ4NJM , TOQT3EAF , G5SQPDIH , O2SAT , FIO2 No results found for: SPECIAL Lab Results Component Value Date/Time CULTURE CULTURE IN PROGRESS 09/26/2024 12:45 PM Radiology: No results found. Assessment: Primary Problem Colonic diverticular abscess Active Hospital Problems Diagnosis Date Noted Intra-abdominal abscess (HCC) [K65.1] 09/26/2024 Tobacco use [Z72.0] 09/26/2024 Colonic diverticular abscess [K57.20] 09/25/2024 Leukocytosis [D72.829] 09/25/2024 Hypokalemia [E87.6] 09/25/2024 Plan: Pain control Oral oxycodone added Antibiotics - Zosyn Clear liquid diet initiated Drain care Surgical consultation Correct electrolyte abnormalities Smoking cessation Activity as tolerated DVT prophylaxis IP CONSULT TO HOSPITALIST IP CONSULT TO GENERAL SURGERY Teddy Yadav DO 09/28/2024 10:39 AM Images from the original note were not included. [facility] Office: [phone] Benigno Negron DO, Teddy Yadav DO, Regulo [...] MD, Hugo Castellon MD, Anali Dooley MD, Rojelio James DO, Nino Ramos MD, Mello Mehta MD, Brie Mehta MD, Mai Kate CNP, Mitali Graham CNP, Rojelio Bowen CNP, Cecilia Mcgrath DNP, Dorene Barnhart CNP, Juli Frederick CNP, Miryam Lord CNP, Leslie Jurado CNP, RORY GuthrieC, RORY GreyC, Patricia Johnson CNP, Alber Blake CNP, Anna Alex [employer], Karmen Elizabeth, R[employer] HAND, Samia Reyes, ROUND[employer] HAND, Willa Nieves, JAKE, Lindy Parra CNP, Silvia Arguello CNP, Deandra Calix CNP IN-PATIENT SERVICE [facility] Progress Note 09/27/2024 2:47 PM Name: Esmer Corbin Acct: [id number] Room: 0344/0344-02 Day: 2 Admit Date: 09/25/2024 7:14 PM PCP: No primary care provider on file. Code Status: Full Code Subjective: C/C: Chief Complaint Patient presents with Abdominal Pain Interval History Status: Postop day 1 drain placement by IR Pain better controlled Remains thirsty Poor appetite No BM Data Base Updates: Afebrile WBC13.2 High k/uL RBC4.36m/uL Iyvailtowv30.3 Lactic Acid, Whole Blood1.2 Svddzh574xbqz/L Potassium3.4 Low mmol/L [id number]/L [id number]/L Anion Pyv39ssld/L Sjftycr82dn/dL BUN5 Low mg/dL Creatinine0.7 Specimen Source: Aspirate Specimen Description.ASPIRATE PELVIC FLUID COLLECTION Direct ExamMANY NEUTROPHILS MANY GRAM POSITIVE COCCI IN PAIRS Abnormal FEW GRAM POSITIVE RODS Abnormal RARE YEAST Abnormal CultureCULTURE IN PROGRESS Brief History: As documented in the medical record: Esmer Corbin is a 24 y.o. Non- / non male who presents with Abdominal Pain and is admitted to the hospital for the management of Colonic diverticular abscess. CT scan was done which showed 2 fluid collections likely abscesses. Patient reports a prior history of diverticulitis with perforation which was treated conservatively. The intitial assessment and plan included: * (Principal) Colonic diverticular abscess 09/25/2024 Yes Leukocytosis 09/25/2024 Yes Hypokalemia 09/25/2024 Yes Plan: Patient status inpatient in the Progressive Unit/Step down Diverticular abscess: Placing on IV Zosyn. IV fluids. General surgery consultation. N.p.o. discontinue vancomycin and metronidazole. Follow-up with blood culture results. Dilaudid for pain relief. IR is consulted for percutaneous drainage. Hypokalemia: Repletion Leukocytosis: Secondary to above On 09/26 the patient underwent: Procedure: Abscess drain placement A total of 100 mL of thick green purulent fluid was removed Past Medical History: has a past medical history of Diverticulitis and Herpes. Social History: reports that he has been smoking cigarettes. He has never used smokeless tobacco. He reports that he does not currently use alcohol. He reports current drug use. Frequency: 12.00 times per week. Drug: Marijuana ([place]). Family History: Family History Problem Relation Age of Onset Alcohol Abuse Father Drug Abuse Brother drug overdose Review of Systems: Review of Systems Constitutional: Positive for appetite change (Decreased). Negative for chills, diaphoresis and fever. Respiratory: Negative for cough and shortness of breath. Cardiovascular: Negative for chest pain and palpitations. Gastrointestinal: Positive for abdominal pain (Lower abdominal pains better controlled). Negative for nausea and vomiting. Genitourinary: Negative for flank pain and hematuria. Physical Examination: Vitals BP 126/66 Pulse 90 Temp 98.8 F (37.1 C) (Oral) Resp 17 Ht 1.803 m (5' 11 ) Wt 100.6 kg (221 lb 12.5 oz) SpO2 94% BMI 30.93 kg/m Temp (24hrs), Av.7 F (37.1 C), Min:98.6 F (37 C), Max:98.8 F (37.1 C) No results for input(s): POCGLU in the last 72 hours. Physical Exam Vitals reviewed. Constitutional: General: He is not in acute distress. Appearance: He is not diaphoretic. HENT: Head: Normocephalic. Nose: Nose normal. Eyes: General: No scleral icterus. Conjunctiva/sclera: Conjunctivae normal. Neck: Trachea: No tracheal deviation. Cardiovascular: Rate and Rhythm: Normal rate and regular rhythm. Pulmonary: Effort: Pulmonary effort is normal. No respiratory distress. Breath sounds: Normal breath sounds. No wheezing or rales. Chest: Chest wall: No tenderness. Abdominal: General: There is no distension. Palpations: Abdomen is soft. Tenderness: There is no abdominal tenderness. There is no guarding or rebound. Comments: Drain site stable Drain collecting purulent material Musculoskeletal: General: No tenderness. Cervical back: Neck supple. Skin: General: Skin is warm and dry. Neurological: Mental Status: He is alert and oriented to person, place, and time. Medications: Allergies: No Known Allergies Current Meds: Scheduled Meds: sodium chloride flush 5-10 mL IntraCATHeter BID acetaminophen 1,000 mg Oral 3 times per day piperacillin-tazobactam 3,375 mg IntraVENous Q8H sodium chloride flush 5-40 mL IntraVENous 2 times per day enoxaparin 30 mg SubCUTAneous BID Continuous Infusions: lactated ringers 125 mL/hr at 09/27/24 0350 sodium chloride 5 mL/hr at 09/26/24 0016 PRN Meds: HYDROmorphone, morphine OR morphine, sodium chloride flush, sodium chloride, potassium chloride OR potassium alternative oral replacement OR potassium chloride, magnesium sulfate, ondansetron OR ondansetron, polyethylene glycol Data: I/O (24Hr): Intake/Output Summary (Last 24 hours) at 09/27/2024 1447 Last data filed at 09/27/2024 1135 Gross per 24 hour Intake 990 ml Output 1380 ml Net -390 ml Labs: Hematology: Recent Labs 09/25/24195209/27/24 0531 WBC 24.2* 13.2* RBC 4.71 4.36 HGB 15.5 14.3 HCT 44.0 42.6 MCV 93.4 97.7 MCH 32.9 32.8 MCHC 35.2* 33.6 RDW 11.6* 11.9 PLT 309 242 MPV 11.0 11.0 INR 1.4 -- Chemistry: Recent Labs 09/25/24195209/26/2432909/26/24 1453 09/26/24 1758 09/26/24 2358 09/27/24 0531 NA 139 138 -- -- -- 140 K 3.2* 4.1 -- -- -- 3.4* CL 101 105 -- -- -- 104 CO2 23 22 -- -- -- 24 GLUCOSE 103* 118* -- -- -- 82 BUN 7 7 -- -- -- 5* CREATININE 0.8 0.7 -- -- -- 0.7 MG 2.3 2.2 -- -- -- -- ANIONGAP 15 11 -- -- -- 12 LABGLOM >90 >90 -- -- -- >90 CALCIUM 8.5* 8.8 -- -- -- 8.5* CAION 1.05* -- -- -- -- -- PHOS 3.6 2.6 -- -- -- -- LACTACIDWB 1.8 1.4 3.0* 1.2 1.2 -- Recent Labs 09/26/2432909/27/24 0531 AST 13 -- ALT 5* -- ALKPHOS 61 -- BILITOT 0.4 -- LIPASE 221* 34 ABG:No results found for: POCPH , PHART , PH , POCPCO2 , [id number] , PCO2 , POCPO2 , PO2ART , PO2 , POCHCO3 , JOB8JDA , HCO3 , NBEA , PBEA , BEART , BE , THGBART , THB , FKL5IRU , ZDGE8PHB , [id number] , O2SAT , FIO2 No results found for: SPECIAL Lab Results Component Value Date/Time CULTURE CULTURE IN PROGRESS 09/26/2024 12:45 PM Radiology: No results found. Assessment: Primary Problem Colonic diverticular abscess Active Hospital Problems Diagnosis Date Noted Intra-abdominal abscess (HCC) [K65.1] 09/26/2024 Tobacco use [Z72.0] 09/26/2024 Colonic diverticular abscess [K57.20] 09/25/2024 Leukocytosis [D72.829] 09/25/2024 Hypokalemia [E87.6] 09/25/2024 Plan: Pain control Antibiotics - Zosyn NPO Drain care Surgical consultation Trend lipase Correct electrolyte abnormalities Smoking cessation DVT prophylaxis IP CONSULT TO HOSPITALIST IP CONSULT TO GENERAL SURGERY Teddy Yadav DO 09/27/2024 2:47 PM Colorectal surgery: Daily Progress Note PATIENT NAME: Esmer Corbin TODAY'S DATE: 09/27/2024, 11:38 AM CC: I'm in a lot of pain SUBJECTIVE: Patient seen and examined at the bedside. No acute events ported overnight. Vitals have remained within normal limits. Patient complaining of some abdominal pain in the left lower quadrant that is unchanged from yesterday. Denies nausea vomiting. Requesting something to eat and drink. OBJECTIVE: VITALS: BP 126/66 Pulse 90 Temp 98.8 F (37.1 C) (Oral) Resp 17 Ht 1.803 m (5' 11 ) Wt 100.6 kg (221 lb 12.5 oz) SpO2 94% BMI 30.93 kg/m INTAKE/OUTPUT: Intake/Output Summary (Last 24 hours) at 09/27/2024 1138 Last data filed at 09/27/2024 1135 Gross per 24 hour Intake 990 ml Output 1830 ml Net -840 ml PHYSICAL EXAM: Physical Exam Vitals reviewed. Constitutional: General: He is not in acute distress. Appearance: He is not ill-appearing or toxic-appearing. HENT: Head: Normocephalic and atraumatic. Right Ear: External ear normal. Left Ear: External ear normal. Nose: Nose normal. Mouth/Throat: Mouth: Mucous membranes are moist. Eyes: Extraocular Movements: Extraocular movements intact. Cardiovascular: Rate and Rhythm: Normal rate and regular rhythm. Pulmonary: Effort: Pulmonary effort is normal. No respiratory distress. Abdominal: General: There is no distension. Palpations: Abdomen is soft. Comments: Tenderness palpation over left lower quadrant. ROLANDO drain in place with brown purulent fluid noted. Skin: General: Skin is warm and dry. Neurological: General: No focal deficit present. Mental Status: He is alert and oriented to person, place, and time. Psychiatric: Mood and Affect: Mood normal. Behavior: Behavior normal. Data: Recent Results (from the past 24 hour(s)) Culture, Anaerobic and Aerobic Collection Time: 09/26/24 12:45 PM Specimen: Aspirate Result Value Ref Range Specimen Description .ASPIRATE PELVIC FLUID COLLECTION Direct Exam MANY NEUTROPHILS Direct Exam MANY GRAM POSITIVE COCCI IN PAIRS (A) Direct Exam FEW GRAM POSITIVE RODS (A) Direct Exam RARE YEAST (A) Culture PENDING Lactic Acid Collection Time: 09/26/24 2:53 PM Result Value Ref Range Lactic Acid, Whole Blood 3.0 (H) 0.7 - 2.1 mmol/L Lactic Acid Collection Time: 09/26/24 5:58 PM Result Value Ref Range Lactic Acid, Whole Blood 1.2 0.7 - 2.1 mmol/L Lactic Acid Collection Time: 09/26/24 11:58 PM Result Value Ref Range Lactic Acid, Whole Blood 1.2 0.7 - 2.1 mmol/L Lipase Collection Time: 09/27/24 5:31 AM Result Value Ref Range Lipase 34 13 - 60 U/L Basic Metabolic Panel Collection Time: 09/27/24 5:31 AM Result Value Ref Range Sodium 140 136 - 145 mmol/L Potassium 3.4 (L) 3.7 - 5.3 mmol/L Chloride 104 98 - 107 mmol/L CO2 24 20 - 31 mmol/L Anion Gap 12 9 - 16 mmol/L Glucose 82 74 - 99 mg/dL BUN 5 (L) 6 - 20 mg/dL Creatinine 0.7 0.7 - 1.2 mg/dL Est, Glom Filt Rate >90 >60 mL/min/1.73m2 Calcium 8.5 (L) 8.6 - 10.4 mg/dL CBC with Auto Differential Collection Time: 09/27/24 5:31 AM Result Value Ref Range WBC 13.2 (H) 3.5 - 11.3 k/uL RBC 4.36 4.21 - 5.77 m/uL Hemoglobin 14.3 13.0 - 17.0 g/dL Hematocrit 42.6 40.7 - 50.3 % MCV 97.7 82.6 - 102.9 fL MCH 32.8 25.2 - 33.5 pg MCHC 33.6 28.4 - 34.8 g/dL RDW 11.9 11.8 - 14.4 % Platelets 242 138 - 453 k/uL MPV 11.0 8.1 - 13.5 fL NRBC Automated 0.0 0.0 per 100 WBC Neutrophils % 75 (H) 36 - 65 % Lymphocytes % 15 (L) 24 - 43 % Monocytes % 9 3 - 12 % Eosinophils % 1 1 - 4 % Basophils % 0 0 - 2 % Immature Granulocytes % 1 (H) 0 % Neutrophils Absolute 9.87 (H) 1.50 - 8.10 k/uL Lymphocytes Absolute 1.92 1.10 - 3.70 k/uL Monocytes Absolute 1.16 0.10 - 1.20 k/uL Eosinophils Absolute 0.10 0.00 - 0.44 k/uL Basophils Absolute 0.05 0.00 - 0.20 k/uL Immature Granulocytes Absolute 0.07 0.00 - 0.30 k/uL Radiology Review: CT ABSCESS DRAINAGE Result Date: 09/26/[address] guided placement of right transgluteal 10 Finnish pelvic abscess drainage catheter. ASSESSMENT: Active Hospital Problems Diagnosis Date Noted Intra-abdominal abscess (HCC) [K65.1] 09/26/2024 Tobacco use [Z72.0] 09/26/2024 Colonic diverticular abscess [K57.20] 09/25/2024 Leukocytosis [D72.829] 09/25/2024 Hypokalemia [E87.6] 09/25/2024 24 y.o. male with recurrent diverticular abscess Plan: Continue medical management per primary team Continue IV antibiotics, Zosyn White count downtrending 13.2 from 24. N.p.o., okay for ice chips and popsicles Trend lactic acid. Lactate 3.0 (1.4) this afternoon Strict report intake output Patient underwent IR abscess drainage with 100 cc of brown purulent fluid drained with IR drain placement Improving clinically, white count downtrending. Plan to proceed with nonoperative management at this point. We will see him in the office for surgical planning as he will likely required at least sigmoid resection at some point the future. We discussed that if we were to intervene at this point he would likely require an ostomy and he is not amenable to this. Pina Collins DO 09/27/24 11:43 AM General Surgery PGY 1 Comprehensive Nutrition Assessment Type and Reason for Visit: Initial, NPO/clear liquid, Positive nutrition screen Nutrition Recommendations/Plan: Continue NPO. Advance diet as medically appropriate. Will monitor POC and follow up prn. 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 Patient admitted for severe abdominal pain and divertivulitis. Patient currently NPO. Patient stated his appetite/po inake has been poor for ~1 week. He stated he thinks he has greadually lost weight over the past year. Patient stated he has been trying to eat more fiber at home, quit alcohol use, and eat less red meat. Medications reviewed. Labs reviewed: glucose 118. Nutrition Related Findings: Wound Type: None Current Nutrition Intake & Therapies: Average Meal Intake: NPO Average Supplements Intake: NPO Diet NPO Anthropometric Measures: Height: 180.3 cm (5' 11 ) [place] Body Weight (IBW): 172 lbs (78 kg) Current Body Weight: 100.8 kg (222 lb 3.6 oz), IBW. Weight Source: Bed scale Current BMI (kg/m2): 31 Weight Adjustment For: No Adjustment BMI Categories: Obese Class 1 (BMI 30.0-34.9) Estimated Daily Nutrient Needs: Energy Requirements Based On: Kcal/kg Weight Used for Energy Requirements: Current Energy (kcal/day): 1500-1800kcals Weight Used for Protein Requirements: Current Protein (g/day): 90-117g protein Method Used for Fluid Requirements: 1 ml/kcal Fluid (ml/day): or per MD Nutrition Diagnosis: Inadequate oral intake related to inadequate protein-energy intake as evidenced by NPO or clear liquid status due to medical condition Nutrition Interventions: Food and/or Nutrient Delivery: Continue NPO Nutrition Education/Counseling: No recommendation at this time Coordination of Nutrition Care: Continue to monitor while inpatient Plan of Care discussed with: Patient Goals: Goals: Initiation of nutrition Type of Goal: New goal Previous Goal Met: New Goal Nutrition Monitoring and Evaluation: Behavioral-Environmental Outcomes: None Identified Food/Nutrient Intake Outcomes: Progression of Nutrition Physical Signs/Symptoms Outcomes: Biochemical Data, Nausea or Vomiting, Fluid Status or Edema, Nutrition Focused Physical Findings, Weight, Skin Discharge Planning: Too soon to determine Xavier Thompson RD Contact: [phone] Images from the original note were not included. [facility] Office: [phone] Benigno Negron DO, Teddy Yadav DO, Regulo [...] MD, Hugo Castellon MD, Anali Dooley MD, Rojelio James DO, Nino Ramos MD, Mello Mehta MD, Brie Mehta MD, Mai Kate, [employer], Mitali Graham CNP, Rojelio Bowen, [employer], Cecilia Mcgrath, [facility], Dorene Barnhart, [employer], Juli Frederick, [employer], Miryam Lord, [employer], Leslie Jurado, [employer], RORY GuthrieC, RORY GreyC, Patricia Johnson, [employer], Alber Blake, [employer], Anna Alex, [employer], Karmen Elizabeth, [employer], Samia Reyes, [employer], Willa Nieves, [facility], Lindy Parra CNP, Silvia Arguello CNP, Deandra Calix CNP IN-PATIENT SERVICE [facility] Progress Note 09/26/2024 1:37 PM Name: Esmer Corbin Acct: [id number] Room: [address] [place] [address] Day: 1 Admit Date: 09/25/2024 7:14 PM PCP: No primary care provider on file. 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 Non- / non male who presents with Abdominal Pain and is admitted to the hospital for the management of Colonic diverticular abscess. CT scan was done which showed 2 fluid collections likely abscesses. Patient reports a prior history of diverticulitis with perforation which was treated conservatively. The intitial assessment and plan included: * (Principal) Colonic diverticular abscess 09/25/2024 Yes Leukocytosis 09/25/2024 Yes Hypokalemia 09/25/2024 Yes Plan: Patient status inpatient in the Progressive Unit/Step down Diverticular abscess: Placing on IV Zosyn. IV fluids. General surgery consultation. N.p.o. discontinue vancomycin and metronidazole. Follow-up with blood culture results. Dilaudid for pain relief. IR is consulted for percutaneous drainage. Hypokalemia: Repletion Leukocytosis: Secondary to above On 09/26 the patient underwent: Procedure: Abscess drain placement Past Medical History: has a past medical history of Diverticulitis and Herpes. Social History: reports that he has been smoking cigarettes. He has never used smokeless tobacco. He reports that he does not currently use alcohol. He reports current drug use. Frequency: 12.00 times per week. Drug: Marijuana ([place]). Family History: Family History Problem Relation Age of Onset Alcohol Abuse Father Drug Abuse Brother drug overdose Review of Systems: Review of Systems Constitutional: Positive for appetite change (Decreased). Negative for chills, diaphoresis and fever. Respiratory: Negative for cough and shortness of breath. Cardiovascular: Negative for chest pain and palpitations. Gastrointestinal: Positive for abdominal pain (Patient continues to report pelvic pain ). Negative for nausea and vomiting. Genitourinary: Positive for urgency. Negative for flank pain and hematuria. Physical Examination: Vitals BP 134/86 Pulse 95 Temp 99.5 F (37.5 C) (Oral) Resp 14 Ht 1.803 m (5' 11 ) Wt 100.8 kg (222 lb 3.6 oz) SpO2 99% BMI 30.99 kg/m Temp (24hrs), Av.9 F (37.2 C), Min:98.4 F (36.9 C), Max:99.5 F (37.5 C) No results for input(s): POCGLU in the last 72 hours. Physical Exam Vitals reviewed. Constitutional: General: He is not in acute distress. Appearance: He is not diaphoretic. HENT: Head: Normocephalic. Nose: Nose normal. Eyes: General: No scleral icterus. Conjunctiva/sclera: Conjunctivae normal. Neck: Trachea: No tracheal deviation. Cardiovascular: Rate and Rhythm: Normal rate and regular rhythm. Pulmonary: Effort: Pulmonary effort is normal. No respiratory distress. Breath sounds: Normal breath sounds. No wheezing or rales. Chest: Chest wall: No tenderness. Abdominal: General: There is no distension. Palpations: Abdomen is soft. Tenderness: There is no abdominal tenderness. There is no guarding or rebound. Musculoskeletal: General: No tenderness. Cervical back: Neck supple. Skin: General: Skin is warm and dry. Neurological: Mental Status: He is alert and oriented to person, place, and time. Medications: Allergies: No Known Allergies Current Meds: Scheduled Meds: sodium chloride flush 5-10 mL IntraCATHeter BID piperacillin-tazobactam 3,375 mg IntraVENous Q8H sodium chloride flush 5-40 mL IntraVENous 2 times per day enoxaparin 30 mg SubCUTAneous BID Continuous Infusions: lactated ringers 125 mL/hr at 09/26/24 0326 sodium chloride 5 mL/hr at 09/26/24 0016 PRN Meds: HYDROmorphone, morphine OR morphine, sodium chloride flush, sodium chloride, potassium chloride OR potassium alternative oral replacement OR potassium chloride, magnesium sulfate, ondansetron OR ondansetron, acetaminophen OR acetaminophen, polyethylene glycol Data: I/O (24Hr): No intake or output data in the 24 hours ending 09/26/24 1337 Labs: Hematology: Recent Labs 09/25/241952 WBC 24.2* RBC 4.71 HGB 15.5 HCT 44.0 MCV 93.4 MCH 32.9 MCHC 35.2* RDW 11.6* PLT 309 MPV 11.0 INR 1.4 Chemistry: Recent Labs 09/25/24195209/26/24 0330 NA 139 138 K 3.2* 4.1 CL 101 105 CO2 23 22 GLUCOSE 103* 118* BUN 7 7 CREATININE 0.8 0.7 MG 2.3 2.2 ANIONGAP 15 11 LABGLOM >90 >90 CALCIUM 8.5* 8.8 CAION 1.05* -- PHOS 3.6 2.6 LACTACIDWB 1.8 1.4 Recent Labs 09/26/24 0330 AST 13 ALT 5* ALKPHOS 61 BILITOT 0.4 LIPASE 221* ABG:No results found for: POCPH , PHART , PH , POCPCO2 , XQI7UXI , PCO2 , POCPO2 , PO2ART , PO2 , POCHCO3 , OSR6VGI , HCO3 , NBEA , PBEA , BEART , BE , THGBART , THB , WBU2ERT , ONGN2VEI , R2LKOVHV , O2SAT , FIO2 No results found for: SPECIAL No results found for: CULTURE Radiology: No results found. Assessment: Primary Problem Colonic diverticular abscess Active Hospital Problems Diagnosis Date Noted Intra-abdominal abscess (HCC) [K65.1] 09/26/2024 Colonic diverticular abscess [K57.20] 09/25/2024 Leukocytosis [D72.829] 09/25/2024 Hypokalemia [E87.6] 09/25/2024 Plan: Pain control Antibiotics - Zosyn NPO IR for drainage Surgical consultation Trend lipase Correct electrolyte abnormalities Smoking cessation DVT prophylaxis IP CONSULT TO HOSPITALIST IP CONSULT TO GENERAL SURGERY Teddy Yadav DO 09/26/2024 1:37 PM General Surgery: Daily Progress Note HOD 1 PATIENT NAME: Esmer Corbin TODAY'S DATE: 09/26/2024, 10:06 AM CC: I'm in a lot of pain SUBJECTIVE: The patient is a 24 y.o. male who was admitted on 09/25/2024 with abdominal pain that has been going on for several weeks. He went to hospital last week with ct showing mild diverticulitis and he was given oral antibiotics. He had worsening abdominal pain. Patient went to [place] and ct scan was done showing worsened diverticulitis with abscess. He has wbc of 24. Vitals are stable, continues to be afebrile. Complains of moderate suprapubic and left lower quadrant tenderness. Denies chest pain, shortness of breath, nausea, vomiting. Patient went to IR today where 100 cc of brown purulent fluid were drained and a drain was placed. Will continue serial abdominal exams. OBJECTIVE: VITALS: BP 131/89 Pulse 94 Temp 99.5 F (37.5 C) Resp 17 Ht 1.803 m (5' 11 ) Wt 100.8 kg (222 lb 3.6 oz) SpO2 96% BMI 30.99 kg/m INTAKE/OUTPUT: No intake or output data in the 24 hours ending 09/26/24 1006 PHYSICAL EXAM: General Appearance: awake, alert, oriented, in no acute distress HEENT: Normocephalic, atraumatic, mucus membranes moist Heart: Heart regular rate and rhythm Lungs: Breathing unlabored Abdomen: Soft, tender to suprapubic area and left lower quadrant, non-distended Data: {LABS: Recent Results (from the past 24 hour(s)) Calcium, Ionized Collection Time: 09/25/24 7:53 PM Result Value Ref Range Calcium, Ionized 1.05 (L) 1.13 - 1.33 mmol/L Phosphorus Collection Time: 09/25/24 7:53 PM Result Value Ref Range Phosphorus 3.6 2.5 - 4.5 mg/dL Magnesium Collection Time: 09/25/24 7:53 PM Result Value Ref Range Magnesium 2.3 1.6 - 2.6 mg/dL Basic Metabolic Panel Collection Time: 09/25/24 7:53 PM Result Value Ref Range Sodium 139 136 - 145 mmol/L Potassium 3.2 (L) 3.7 - 5.3 mmol/L Chloride 101 98 - 107 mmol/L CO2 23 20 - 31 mmol/L Anion Gap 15 9 - 16 mmol/L Glucose 103 (H) 74 - 99 mg/dL BUN 7 6 - 20 mg/dL Creatinine 0.8 0.7 - 1.2 mg/dL Est, Glom Filt Rate >90 >60 mL/min/1.73m2 Calcium 8.5 (L) 8.6 - 10.4 mg/dL CBC with Auto Differential Collection Time: 09/25/24 7:53 PM Result Value Ref Range WBC 24.2 (H) 3.5 - 11.3 k/uL RBC 4.71 4.21 - 5.77 m/uL Hemoglobin 15.5 13.0 - 17.0 g/dL Hematocrit 44.0 40.7 - 50.3 % MCV 93.4 82.6 - 102.9 fL MCH 32.9 25.2 - 33.5 pg MCHC 35.2 (H) 28.4 - 34.8 g/dL RDW 11.6 (L) 11.8 - 14.4 % Platelets 309 138 - 453 k/uL MPV 11.0 8.1 - 13.5 fL NRBC Automated 0.0 0.0 per 100 WBC Immature Granulocytes % 0 0 % Neutrophils % 82 (H) 36 - 66 % Lymphocytes % 13 (L) 24 - 44 % Atypical Lymphocytes 1 % Monocytes % 4 1 - 7 % Eosinophils % 0 (L) 1 - 4 % Basophils % 0 0 - 2 % Immature Granulocytes Absolute 0.00 0.00 - 0.30 k/uL Neutrophils Absolute 19.84 (H) 1.8 - 7.7 k/uL Lymphocytes Absolute 3.15 1.0 - 4.8 k/uL Atypical Lymphocytes Absolute 0.24 k/uL Monocytes Absolute 0.97 (H) 0.1 - 0.8 k/uL Eosinophils Absolute 0.00 0.0 - 0.4 k/uL Basophils Absolute 0.00 0.0 - 0.2 k/uL Morphology Normal Lactic Acid Collection Time: 09/25/24 7:53 PM Result Value Ref Range Lactic Acid, Whole Blood 1.8 0.7 - 2.1 mmol/L Protime-INR Collection Time: 09/25/24 7:53 PM Result Value Ref Range Protime 17.2 (H) 11.7 - 14.9 sec INR 1.4 Comprehensive Metabolic Panel w/ Reflex to MG Collection Time: 09/26/24 3:30 AM Result Value Ref Range Sodium 138 136 - 145 mmol/L Potassium 4.1 3.7 - 5.3 mmol/L Chloride 105 98 - 107 mmol/L CO2 22 20 - 31 mmol/L Anion Gap 11 9 - 16 mmol/L Glucose 118 (H) 74 - 99 mg/dL BUN 7 6 - 20 mg/dL Creatinine 0.7 0.7 - 1.2 mg/dL Est, Glom Filt Rate >90 >60 mL/min/1.73m2 Calcium 8.8 8.6 - 10.4 mg/dL Total Protein 6.8 6.6 - 8.7 g/dL Albumin 3.3 (L) 3.5 - 5.2 g/dL Albumin/Globulin Ratio 0.9 (L) 1.0 - 2.5 Total Bilirubin 0.4 0.0 - 1.2 mg/dL Alkaline Phosphatase 61 40 - 129 U/L ALT 5 (L) 10 - 50 U/L AST 13 10 - 50 U/L Magnesium Collection Time: 09/26/24 3:30 AM Result Value Ref Range Magnesium 2.2 1.6 - 2.6 mg/dL Phosphorus Collection Time: 09/26/24 3:30 AM Result Value Ref Range Phosphorus 2.6 2.5 - 4.5 mg/dL Lipase Collection Time: 09/26/24 3:30 AM Result Value Ref Range Lipase 221 (H) 13 - 60 U/L Lactic Acid Collection Time: 09/26/24 3:30 AM Result Value Ref Range Lactic Acid, Whole Blood 1.4 0.7 - 2.1 mmol/L TYPE AND SCREEN Collection Time: 09/26/24 5:46 AM Result Value Ref Range Blood Bank Sample Expiration 09/29/2024,2359 Arm Band Number BE [id number] ABO/Rh B POSITIVE Antibody Screen NEGATIVE Lactic Acid Collection Time: 09/26/24 2:53 PM Result Value Ref Range Lactic Acid, Whole Blood 3.0 (H) 0.7 - 2.1 mmol/L Radiology Review: CT ABSCESS DRAINAGE Result Date: 09/26/[address] guided placement of right transgluteal 10 Finnish pelvic abscess drainage catheter. ASSESSMENT: Active Hospital Problems Diagnosis Date Noted Colonic diverticular abscess [K57.20] 09/25/2024 Leukocytosis [D72.829] 09/25/2024 Hypokalemia [E87.6] 09/25/2024 24 y.o. male with recurrent diverticular abscess Plan: Diet: Regular Continue medical mgmt and supportive care per primary IV antibiotics, Zosyn White count 24.2. Trend lactic acid. Lactate 3.0 (1.4) this afternoon Strict report intake output Patient underwent IR abscess drainage with 100 cc of brown purulent fluid drained with IR drain placement Discussed with patient he is still at risk for requiring surgical intervention if we are unable to drain his abscess percutaneously as well as given the duration of his symptoms and failure of oral antibiotics I Dr. Garcia saw and examined the patient. I have edited the above and agree with the above. Francecsa Garcia Colorectal Surgery [facility] Pharmacokinetic Monitoring Service - Vancomycin Esmer Corbin is a 24 y.o. male starting on vancomycin therapy for intra-abdominal infection. Pharmacy consulted by Leslie Jurado for monitoring and adjustment. Target Concentration: Goal AUC/NICO 400-600 mg*hr/L Additional Antimicrobials: metronidazole and Zosyn Pertinent Laboratory Values: Wt Readings from Last 1 Encounters: 09/25/24 100.8 kg (222 lb 3.6 oz) Temp Readings from Last 1 Encounters: 09/25/24 98.4 F (36.9 C) (Oral) Estimated Creatinine Clearance: 169 mL/min (based on SCr of 0.8 mg/dL). Recent Labs 09/25/241952 CREATININE 0.8 BUN 7 WBC 24.2* Procalcitonin: Pertinent Cultures: Culture Date Source Results pending MRSA Nasal Swab: N/A. Non-respiratory infection. Plan: Dosing recommendations based on Bayesian software Start vancomycin 1750 mg every 12 hours. Anticipated AUC of 452 and trough concentration of 10.1 at steady state Renal labs as indicated Pharmacy will continue to monitor patient and adjust therapy as indicated Thank you for the consult, Rojelio Pretty RPH 09/25/2024 10:59 PM documented in this encounter [facility] 10-01-2024 Hospital Discharge instructions Rojelio Rodriguez DO - 10/01/2024 5:11 PM EST Okay to shower, keep drain site clean and dry Okay to flush drain with 10mL saline syringe one time a day Change Bandage if it becomes wet Follow-up with Dr. Garcia in 1 week in clinic to assess drain documented in this encounter [facility] 10-01-2024 Hospital course Narrative Images from the original note were not included. [facility] Office: [phone] Benigno Negron DO, Teddy Yadav DO, Regulo Cisneros DO, Anam Olmstead DO, Radha Keita MD, Petrona Heath MD, Abhay Kwan MD, Corazon Boykin MD, Hernando Garcia MD, Ko Park MD, Ruy Negrete MD, Mello Phipps DO, Lore Mohr MD, Rd Johnson MD, Xavier Negron DO, Leatha Rae MD, Brent Antony DO, Sakina Bean MD, Flora Fish MD, Dayna Nielsen MD, Dona Chavez MD, oJhny Knight MD, Jhoana Talley MD, Gurwinder Thomas MD, Conrado Gill MD, Hugo Castellon MD, Anali Dooley MD, Rojelio James DO, Nino Ramos MD, Mello Mehta MD, Brie Mehta MD, Mai Kate, [employer]ER HAND, Mitali Graham, ROUNDER HAND, Rojelio Bowen, ROUNDER HAND, Cecilia Mcgrath, [facility], Dorene Barnhart, ROUNDER HAND, Juli Frederick, ROUNDER HAND, Miryam Lord, ROUNDER HAND, Leslie Jurado, ROUNDER HAND, Amirah Delgado, PA-C, Sary Trejo, PA-C, Patricia Johnson, ROUNDER HAND, Alber Blake, ROUNDER HAND, Anna Alex, ROUNDER HAND, Karmen Elizabeth, ROUNDER HAND, Samia Reyes, [facility], Willa Nieves, [facility], Lindy Parra, ROUNDER HAND, Silvia Arguello, ROUNDER HAND, Deandra Calix, ROUNDER HAND IN-PATIENT SERVICE [facility] Discharge Summary Patient: Esmer Corbni Date of : 2000 Acct: [id number] Primary Care Physician: No primary care provider on file. Admit date 09/25/2024 Discharge date: 10/01/2024 4:49 PM Chief Complaint on presentation :- abd pain Discharge Assessment and Plan:- 24-year-old male admitted to the hospital for abdominal pain, found to have an intra-abdominal abscess, evaluated by general surgery, underwent IR guided drain placement. Treated with IV antibiotics. General surgery discussed patient's treatment options including sigmoid resection which she did not want to get done at this time. ROLANDO drain in place. Close follow-up with surgery in 2 to 3 weeks. Discharged home on oral antibiotics for 10 days Omnicef and Flagyl. Patient given a 3-day supply of opioids for breakthrough pain. This benefits discussed. Close follow-up with general surgery. Patient needs to establish with a PCP. Diverticular abscess Tobacco use disorder Hypokalemia Intractable pain Initial H and P and Hospital course:- Esmer Corbin is a 24 y.o. Non- / non male who presents with Abdominal Pain and is admitted to the hospital for the management of Colonic diverticular abscess. 24-year-old female with past medical history of diverticulitis, history of abdominal abscess transferred from [facility] due to intra-abdominal abscesses. Patient mentioned that his abdominal pain started a week ago but it got worse today. Abdominal pain is mostly in the lower quadrant radiating to periumbilical area 9/10 in intensity. Patient is now mostly dry heaving. Had episodes of vomiting. Denies any blood in the stools, last bowel movement was yesterday. Patient at outside hospital was given Zosyn, Flagyl and vancomycin. Transferred to [facility] for general surgery evaluation. Vitals afebrile, respiration 14, pulse 84, blood pressure 125/72 saturating well on room air. Lab workup showed potassium 3.2 otherwise BMP unremarkable. Lactic acid 1.8. CBC showed leukocytosis WBC of 24.2. CT scan was done which showed 2 fluid collections likely abscesses. General surgery consulted Physical Exam:- Vitals: Patient Vitals for the past 24 hrs: BP Temp Temp src Pulse Resp SpO2 10/01/24 1301 -- -- -- -- 18 -- 10/01/24 0934 -- -- -- -- 18 -- 10/01/24 0904 -- -- -- -- 18 -- 10/01/24 0815 136/87 98.1 F (36.7 C) -- 69 -- 94 % 10/01/24 0540 -- -- -- -- 16 -- 10/01/24 0421 -- -- -- -- 16 -- 10/01/24 0405 137/82 -- -- 71 -- -- 10/01/24 0000 136/81 97.9 F (36.6 C) Oral 69 16 96 % 09/30/240 -- -- -- -- 16 -- 09/30/245 -- -- -- -- 16 -- 09/30/24 1949 138/87 97.6 F (36.4 C) Oral 71 16 99 % 09/30/24 1827 -- -- -- -- 16 -- Weight: Weight - Scale: 105.1 kg (231 lb 11.3 oz) 24 hour intake/output: Intake/Output Summary (Last 24 hours) at 10/01/2024 1649 Last data filed at 10/01/2024 1200 Gross per 24 hour Intake 74469.44 ml Output 85 ml Net 73554.44 ml General appearance: No apparent distress, appears stated age and cooperative. HEENT: Normal cephalic, atraumatic without obvious deformity. Pupils equal, round, and reactive to light. Extra ocular muscles intact. Conjunctivae/corneas clear. Neck: Supple, with full range of motion. No jugular venous distention. Trachea midline. Respiratory: Normal respiratory effort. Clear to auscultation, bilaterally without Rales/Wheezes/Rhonchi. Cardiovascular: Regular rate and rhythm with normal S1/S2 without murmurs, rubs or gallops. Abdomen: Soft, non-tender, non-distended with normal bowel sounds. Musculoskeletal: No clubbing, cyanosis or edema bilaterally. Skin: Skin color, texture, turgor normal. No rashes or lesions. Neurologic: Neurovascularly intact without any focal sensory/motor deficits. Cranial nerves: II-XII intact, grossly non-focal. Psychiatric: Alert and oriented, thought content appropriate, normal insight Capillary Refill: Brisk,< 3 seconds Peripheral Pulses: +2 palpable, equal bilaterally Discharge Medications:- Medication List START taking these medications cefdinir 300 MG capsule Commonly known as: OMNICEF Take 1 capsule by mouth 2 times daily for 10 days metroNIDAZOLE 500 MG tablet Commonly known as: FLAGYL Take 1 tablet by mouth 3 times daily for 10 days CONTINUE taking these medications HYDROcodone-acetaminophen 5-325 MG per tablet Commonly known as: NORCO Take 1 tablet by mouth every 6 hours as needed for Pain for up to 3 days. Max Daily Amount: 4 tablets Where to Get Your Medications These medications were sent to [place], [place] - [address] [place] [address] - P [phone] - F [phone] [place] [id number] cefdinir 300 MG capsule HYDROcodone-acetaminophen 5-325 MG per tablet metroNIDAZOLE 500 MG tablet Labs :- Recent Results (from the past 72 hour(s)) Basic Metabolic Panel Collection Time: 09/29/24 3:20 AM Result Value Ref Range Sodium 138 136 - 145 mmol/L Potassium 3.2 (L) 3.7 - 5.3 mmol/L Chloride 103 98 - 107 mmol/L CO2 20 20 - 31 mmol/L Anion Gap 15 9 - 16 mmol/L Glucose 75 74 - 99 mg/dL BUN 3 (L) 6 - 20 mg/dL Creatinine 0.8 0.7 - 1.2 mg/dL Est, Glom Filt Rate >90 >60 mL/min/1.73m2 Calcium 8.6 8.6 - 10.4 mg/dL CBC with Auto Differential Collection Time: 09/29/24 3:20 AM Result Value Ref Range WBC 10.7 3.5 - 11.3 k/uL RBC 4.72 4.21 - 5.77 m/uL Hemoglobin 15.3 13.0 - 17.0 g/dL Hematocrit 47.4 40.7 - 50.3 % MCV 100.4 82.6 - 102.9 fL MCH 32.4 25.2 - 33.5 pg MCHC 32.3 28.4 - 34.8 g/dL RDW 11.6 (L) 11.8 - 14.4 % Platelets 228 138 - 453 k/uL MPV 11.5 8.1 - 13.5 fL NRBC Automated 0.0 0.0 per 100 WBC Neutrophils % 69 (H) 36 - 65 % Lymphocytes % 18 (L) 24 - 43 % Monocytes % 10 3 - 12 % Eosinophils % 1 1 - 4 % Basophils % 1 0 - 2 % Immature Granulocytes % 1 (H) 0 % Neutrophils Absolute 7.43 1.50 - 8.10 k/uL Lymphocytes Absolute 1.95 1.10 - 3.70 k/uL Monocytes Absolute 1.04 0.10 - 1.20 k/uL Eosinophils Absolute 0.11 0.00 - 0.44 k/uL Basophils Absolute 0.07 0.00 - 0.20 k/uL Immature Granulocytes Absolute 0.07 0.00 - 0.30 k/uL C-Reactive Protein Collection Time: 09/29/24 3:20 AM Result Value Ref Range CRP 149.0 (H) 0.0 - 5.0 mg/L Basic Metabolic Panel Collection Time: 09/30/24 9:42 AM Result Value Ref Range Sodium 138 136 - 145 mmol/L Potassium 3.3 (L) 3.7 - 5.3 mmol/L Chloride 104 98 - 107 mmol/L CO2 23 20 - 31 mmol/L Anion Gap 11 9 - 16 mmol/L Glucose 104 (H) 74 - 99 mg/dL BUN 2 (L) 6 - 20 mg/dL Creatinine 0.8 0.7 - 1.2 mg/dL Est, Glom Filt Rate >90 >60 mL/min/1.73m2 Calcium 8.6 8.6 - 10.4 mg/dL CBC with Auto Differential Collection Time: 09/30/24 9:42 AM Result Value Ref Range WBC 8.1 3.5 - 11.3 k/uL RBC 4.63 4.21 - 5.77 m/uL Hemoglobin 15.0 13.0 - 17.0 g/dL Hematocrit 44.9 40.7 - 50.3 % MCV 97.0 82.6 - 102.9 fL MCH 32.4 25.2 - 33.5 pg MCHC 33.4 28.4 - 34.8 g/dL RDW 11.4 (L) 11.8 - 14.4 % Platelets 261 138 - 453 k/uL MPV 11.1 8.1 - 13.5 fL NRBC Automated 0.0 0.0 per 100 WBC Neutrophils % 61 36 - 65 % Lymphocytes % 25 24 - 43 % Monocytes % 9 3 - 12 % Eosinophils % 3 1 - 4 % Basophils % 1 0 - 2 % Immature Granulocytes % 1 (H) 0 % Neutrophils Absolute 5.00 1.50 - 8.10 k/uL Lymphocytes Absolute 1.98 1.10 - 3.70 k/uL Monocytes Absolute 0.74 0.10 - 1.20 k/uL Eosinophils Absolute 0.20 0.00 - 0.44 k/uL Basophils Absolute 0.07 0.00 - 0.20 k/uL Immature Granulocytes Absolute 0.07 0.00 - 0.30 k/uL C-Reactive Protein Collection Time: 09/30/24 9:42 AM Result Value Ref Range CRP 73.5 (H) 0.0 - 5.0 mg/L Basic Metabolic Panel Collection Time: 10/01/24 3:43 AM Result Value Ref Range Sodium 139 136 - 145 mmol/L Potassium 3.2 (L) 3.7 - 5.3 mmol/L Chloride 104 98 - 107 mmol/L CO2 24 20 - 31 mmol/L Anion Gap 11 9 - 16 mmol/L Glucose 88 74 - 99 mg/dL BUN 3 (L) 6 - 20 mg/dL Creatinine 0.8 0.7 - 1.2 mg/dL Est, Glom Filt Rate >90 >60 mL/min/1.73m2 Calcium 8.5 (L) 8.6 - 10.4 mg/dL CBC with Auto Differential Collection Time: 10/01/24 3:43 AM Result Value Ref Range WBC 7.4 3.5 - 11.3 k/uL RBC 4.70 4.21 - 5.77 m/uL Hemoglobin 15.1 13.0 - 17.0 g/dL Hematocrit 45.7 40.7 - 50.3 % MCV 97.2 82.6 - 102.9 fL MCH 32.1 25.2 - 33.5 pg MCHC 33.0 28.4 - 34.8 g/dL RDW 11.5 (L) 11.8 - 14.4 % Platelets 304 138 - 453 k/uL MPV 10.9 8.1 - 13.5 fL NRBC Automated 0.0 0.0 per 100 WBC Neutrophils % 55 36 - 65 % Lymphocytes % 30 24 - 43 % Monocytes % 10 3 - 12 % Eosinophils % 3 1 - 4 % Basophils % 1 0 - 2 % Immature Granulocytes % 1 (H) 0 % Neutrophils Absolute 4.06 1.50 - 8.10 k/uL Lymphocytes Absolute 2.25 1.10 - 3.70 k/uL Monocytes Absolute 0.74 0.10 - 1.20 k/uL Eosinophils Absolute 0.21 0.00 - 0.44 k/uL Basophils Absolute 0.07 0.00 - 0.20 k/uL Immature Granulocytes Absolute 0.08 0.00 - 0.30 k/uL Microbiology: Blood culture #1: No results found for: BC Blood culture #2:No results found for: BLOODCULT2 Organism: No results found for: LABGRAM MRSA culture only:No results found for: MRSAC Urine culture: No results found for: LABURIN No results found for: ORG Respiratory culture: No results found for: CULTRESP Aerobic and Anaerobic : No results found for: LABAERO No results found for: LABANAE Urinalysis: No results found for: NITRU , WBCUA , BACTERIA , RBCUA , BLOODU , SPECGRAV , GLUCOSEU Radiology:- CT ABSCESS DRAINAGE Result Date: 09/26/2024 PROCEDURE: CT GUIDEDright transgluteal pelvicABSCESS DRAINAGE CATHETER PLACEMENT MODERATE CONSCIOUS SEDATION 09/26/2024 HISTORY: ORDERING SYSTEM PROVIDED HISTORY: diverticulitis with abscess TECHNOLOGIST PROVIDED HISTORY: diverticulitis with abscess SEDATION: Moderate sedation was ordered and supervised by the attending with physician [id number] monitoring. Medications were provided and recorded by Radiology nurses. TECHNIQUE: Informed consent was obtained after a detailed explanation of the procedure including risks, benefits, and alternatives. [place] protocol was followed. Sterile gowns, masks, hats, and gloves utilized for maximal sterile barrier. A suitable skin site was prepped and draped in sterile fashion following CT localization. An 18 gauge needle was advanced under CT guidance via right transgluteal fashion into the pelvic fluid collection. CT images confirmed satisfactory needle tip position. 0.035 guidewire was used to place a 10 Finnish abscess drainage catheter after the fashion tract was dilated. The catheter was sutured to the skin and the patient tolerated the procedure well. The catheter was attached to ROLANDO suction drainage. 100 cc of thick green purulent fluid was drained while the patient was in IR. A sample was sent. Dose modulation, iterative reconstruction, and/or weight based adjustment of the mA/kV was utilized to reduce the radiation dose to as low as reasonably achievable. FINDINGS: A total of 100 mL of thick green purulent fluid was removed and sent for diagnostic tests. Successful CT guided placement of right transgluteal 10 Finnish pelvic abscess drainage catheter. Follow-up scheduled after discharge :- in the next few days with No primary care provider on file. in the next few days Gen surgery for drain follow up Consultations during this hospital stay:- [] NONE [] Cardiology [] Nephrology [] Hemo onco [] GI [x] ID [] Endocrine [] Pulm [] Neuro [] Psych [] Urology [] ENT [x] G SURGERY []Ortho []CV surg [] Palliative [] Hospice [] Pain management [] web services professional []TCU [] PT/OT OTHERS:- Disposition: home Condition at Discharge: Stable Time Spent:- 40 minutes Discharging Hospitalist documented in this encounter [facility] 09-26-2024 Note PROCEDURE: CT GUIDEDright transgluteal pelvicABSCESS DRAINAGE CATHETER PLACEMENT MODERATE CONSCIOUS SEDATION 09/26/2024 HISTORY: ORDERING SYSTEM PROVIDED HISTORY: diverticulitis with abscess TECHNOLOGIST PROVIDED HISTORY: diverticulitis with abscess SEDATION: Moderate sedation was ordered and supervised by the attending with physician [id number] monitoring. Medications were provided and recorded by Radiology nurses. TECHNIQUE: Informed consent was obtained after a detailed explanation of the procedure including risks, benefits, and alternatives. [place] protocol was followed. Sterile gowns, masks, hats, and gloves utilized for maximal sterile barrier. A suitable skin site was prepped and draped in sterile fashion following CT localization. An 18 gauge needle was advanced under CT guidance via right transgluteal fashion into the pelvic fluid collection. CT images confirmed satisfactory needle tip position. 0.035 guidewire was used to place a 10 Finnish abscess drainage catheter after the fashion tract was dilated. The catheter was sutured to the skin and the patient tolerated the procedure well. The catheter was attached to ROLANDO suction drainage. 100 cc of thick green purulent fluid was drained while the patient was in IR. A sample was sent. Dose modulation, iterative reconstruction, and/or weight based adjustment of the mA/kV was utilized to reduce the radiation dose to as low as reasonably achievable. FINDINGS: A total of 100 mL of thick green purulent fluid was removed and sent for diagnostic tests. [facility] 09-26-2024 Note PROCEDURE: CT GUIDEDright transgluteal pelvicABSCESS DRAINAGE CATHETER PLACEMENT MODERATE CONSCIOUS SEDATION 09/26/2024 HISTORY: ORDERING SYSTEM PROVIDED HISTORY: diverticulitis with abscess TECHNOLOGIST PROVIDED HISTORY: diverticulitis with abscess SEDATION: Moderate sedation was ordered and supervised by the attending with physician [id number] monitoring. Medications were provided and recorded by Radiology nurses. TECHNIQUE: Informed consent was obtained after a detailed explanation of the procedure including risks, benefits, and alternatives. [place] protocol was followed. Sterile gowns, masks, hats, and gloves utilized for maximal sterile barrier. A suitable skin site was prepped and draped in sterile fashion following CT localization. An 18 gauge needle was advanced under CT guidance via right transgluteal fashion into the pelvic fluid collection. CT images confirmed satisfactory needle tip position. 0.035 guidewire was used to place a 10 Finnish abscess drainage catheter after the fashion tract was dilated. The catheter was sutured to the skin and the patient tolerated the procedure well. The catheter was attached to ROLANDO suction drainage. 100 cc of thick green purulent fluid was drained while the patient was in IR. A sample was sent. Dose modulation, iterative reconstruction, and/or weight based adjustment of the mA/kV was utilized to reduce the radiation dose to as low as reasonably achievable. FINDINGS: A total of 100 mL of thick green purulent fluid was removed and sent for diagnostic tests. IMPRESSION: Successful CT guided placement of right transgluteal 10 Finnish pelvic abscess drainage catheter. Interpreted by: Nicole Hutchison MD Signed by: Nicole Hutchison MD 09/26/24 Final result [facility] 01-18-2024 Hospital course Narrative Images from the original note were not included. [facility] Office: [phone] Benigno Negron DO, Teddy Yadav DO, Regulo Cisneros DO, Anam Olmstead DO, Radha Keita MD, Petrona Heath MD, Abhay Kwan MD, Corazon Boykin MD, Hernando Garcia MD, Ko Park MD, Ruy Negrete MD, Mello Phipps DO, Lore Mohr MD, Rd Johnson MD, Xavier Negron DO, Leatha Rae MD, Brent Antony DO, Sakina Bean MD, Flora Fish MD, Dayna Nielsen MD, Dona Cahvez MD, Johny Knight MD, Jhoana Talley MD, Gurwinder Thomas MD, Conrado Gill MD, Hugo Castellon MD, Anali Dooley MD, Jack Rai DO, Bravo Nieto DO, Jerome Echeverria MD, Nino Ramos MD, Mai Kate CNP, Mitali Graham CNP, Rojelio Bowen CNP, Cecilia Mcgrath DNP, Dorene Barnhart CNP, Juli Frederick CNP, Miryam Lord CNP, Leslie Jurado CNP, Amirah Delgado PA-C, RORY GreyC, Patricia Johnson, [employer], Marifer Mireles, ROUNDER HAND, Alber Blake, ROUNDER HAND, Samia Reyes, ROUNDER HAND, Lindy Parra, ROUNDER HAND, Willa Nieves, JAKE, Paulina Koenig, VERONICA, Silvia Arguello, ROUNDER HAND, Iliana Hong, ROUNDER HAND [facility] IN-PATIENT SERVICE [facility] Discharge Summary Patient ID: Esmer Corbin : 2000 ACCOUNT: [id number] Patient's PCP: No primary care provider on [...] 5-day hospitalization for diverticulitis who presented to [place] ED yesterday with complaints of right-sided lower abdominal pain and decreased appetite. After recent hospitalization, patient discharged on Cipro and Flagyl which were completed approximately 6 days ago . ER work up /abdominal imaging concerning for sigmoid abscess with possible fistula/colitis. [place] ED provider spoke with Dr. Garcia --> suggested transfer to [place] for possible IR drainage of abscess. Patient started on Zosyn. 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 documented in this encounter [facility] 01-18-2024 Hospital Discharge instructions Conrado Gill MD - 01/18/2024 10:32 AM EDT Please continue to take your medication as prescribed and follow-up with your primary doctor and nay GARCIA within 1 to 2 weeks of discharge The following attachments cannot be sent through Care Everywhere.Diverticulitis (Ukrainian)documented in this encounter [facility] 01-17-2024 History of Present illness Narrative Images from the original note were not included. [facility] Office: [phone] Benigno Negron DO, Teddy Yadav DO, Regulo Cisneros DO, Anam Olmstead DO, Radha Keita MD, Petrona Heath MD, Abhay Kwan MD, Corazon Boykin MD, Hernando Garcia MD, Ko Park MD, Ruy Negrete MD, Mello Phipps DO, Lore Mohr MD, dR Johnson MD, Xavier Negron DO, Leatha Rae MD, Brent Antony DO, Sakina Bean MD, Flora Fish MD, Dayna Nielsen MD, Dona Chavez MD, Johny Knight MD, Jhoana Talley MD, Gurwinder Thomas MD, Conrado Gill MD, Hugo Castellon MD, Anali Dooley MD, Jack Rai DO, Bravo Nieto DO, Jerome Echeverria MD, Nino Ramos MD, Mai Kate, [employer], Mitali Graham ROUNDER HAND, Rojelio Bowen ROUNDER HAND, Cecilia Mcgrath, NAZARIO, Dorene Barnhart ROUNDER HAND, Juli Frederick ROUNDER HAND, Miryam Lord, ROUNDER HAND, Leslie Jurado, R[employer] HAND, Amirah Delgado, PA-C, Sary Trejo, PA-C, Patricia Johnson, R[employer] HAND, Marifer Mireles, R[employer]ER HAND, Alber Blake ROUNDER HAND, Samia Reyes, ROUNDER HAND, Lindy Parra, ROUNDER HAND, Willa Nieves, [employer] CHECKER, Paulina Koenig, ROUNDER HAND, Silvia Arguello, ROUNDER HAND, Iliana Hong, ROUNDER HAND [facility] IN-PATIENT SERVICE [facility] Progress Note 01/17/2024 11:46 AM Name: Esmer Corbin Acct: [id number] Room: 0544/0544-01 IP Day: 1 Admit Date: 01/16/2024 10:51 AM [...] Frequency: 12.00 times per week. Drug: Marijuana ([place]). Family History: Family History Problem Relation Age [...] input(s): PROT , LABALBU , LABA1C , V8VYQEY , F5SZDCD , FT4 , TSH , AST , ALT , LDH , GGT , ALKPHOS , BILITOT , BILIDIR , AMMONIA , AMYLASE , LIPASE , LACTATE , CHOL , HDL , CHOLHDLRATIO , TRIG , VLDL , [id number] , PHENYTOIN , PHENYF , URICACID , POCGLU in the last 72 hours. Invalid input(s): LABGGT , LDLCHOLESTEROL ABG:No results found for: POCPH , PHART , PH , POCPCO2 , MGL9OEF , PCO2 , POCPO2 , PO2ART , PO2 , POCHCO3 , XZU4YNQ , HCO3 , NBEA , PBEA , BEART , BE , THGBART , THB , HBB4NAY , NBRT3ZGA , W8GQGRCV , O2SAT , FIO2 No results found [...] bedside Conrado Gill MD 01/17/2024 11:46 AM [facility] Admission Medication Reconciliation The patient's list of current home medications has been reviewed. Source(s) of information: dispense report Based on information provided by the above source(s), no changes to the patient's home medication list were necessary. Please feel free to call me with any questions about this encounter. Thank you. documented in this encounter [facility] 07-27-2022 Evaluation note Includes: Assessments for all patient encounters Findings [Z68.36 - Body mass index [B DE] 36.0-36.9, adult] assessment of body mass index Medical Established Patient with Patricia Meza [facility] 07/27/2022 Intervention and counseling on cessation of tobacco use, 3-10 minutes Discussed medication and nicotine replacement for tobacco cessation Medical Established Patient with Patricia Meza [facility] 07/27/2022 Nicotine dependence Medical Established Patient with Patricia Meza [facility] 07/27/2022 Systemic hypertension Medical Establishe d Patient with Patricia Meza [facility] 07/27/2022 Diabetes Risk Test Score was three score 03/10/2022 Open Access New Patient with Candice Rider [facility] 03/10/2022 Infection of tooth Open Access New Estela ent with Candice Rider [facility] 03/10/2022 Intervention and counseling on cessation of tobacco use, 3-10 minutes Discussed medication and nicotine replacement for tobacco cessation Open Access New Patient with Candice Rider [facility] 03/10/2022 RNDx tobacco abuse Open Access New Estela ent with Candice Rider [facility] 03/10/2022 Screening for diabetes mellitus Open Acc ess New Patient with Candice Rider [facility] 03/10/2022 Systemic hypertension Open Access New Pa tient with Candice Rider [facility] 03/10/2022 Visit for: routine adult H&P with abnormal findings Open Access New Patient with Candice Rider [facility] 03/10/2022 Visit for: screening for hum an immunodeficiency virus Open Access New Patient with Candice Rider [facility] 03/10/2022 Z68.33 - Body mass index [BM I] 33.0-33.9, adult Open Access New Patient with Candice Rider [facility] 03/10/2022 [facility] Work Phone: 1(928) 723-993011-17-2022 Evaluation note Includes: Assessments for all patient encounters Findings Encounter Date Adjustment disorder BH Established Patie nt with Denisha Alonso [facility] 07/27/2022 [Z68.36 - Body mass index [B DE] 36.0-36.9, adult] assessment of body mass index Medical Established Patient with Patricia Meza [facility] 07/27/2022 Intervention and counseling on cessation of tobacco use, 3-10 minutes Discussed medication and nicotine replacement for tobacco cessation Medical Established Patient with Patricia Meza [facility] 07/27/2022 Nicotine dependence Medical Established Patient with Patricia Meza [facility] 07/27/2022 Systemic hypertension Medical Establishe d Patient with Patricia Meza [facility] 07/27/2022 Diabetes Risk Test Score was three score 03/10/2022 Open Access New Patient with Candice Rider [facility] 03/10/2022 Infection of tooth Open Access New Estela ent with Candice Rider [facility] 03/10/2022 Intervention and counseling on cessation of tobacco use, 3-10 minutes Discussed medication and nicotine replacement for tobacco cessation Open Access New Patient with Candice Rider [facility] 03/10/2022 RNDx tobacco abuse Open Access New Estela ent with Candice Rider [facility] 03/10/2022 Screening for diabetes mellitus Open Acc ess New Patient with Candice Rider [facility] 03/10/2022 Systemic hypertension Open Access New Pa tient with Candice Rider [facility] 03/10/2022 Visit for: routine adult H&P with abnormal findings Open Access New Patient with Candice Rider [facility] 03/10/2022 Visit for: screening for hum an immunodeficiency virus Open Access New Patient with Candice Rider [facility] 03/10/2022 Z68.33 - Body mass index [BM I] 33.0-33.9, adult Open Access New Patient with Candice Rider [facility] 03/10/2022 [facility] Work Phone: 1(457) 780-536711-17-2022 History general Narrative - Reported Includes: Medical History in patient's chart Description Last Updated No previous hospitalizations 07/27/2022 No medical history or no significant his tory 03/10/2022 [facility] Work Phone: 1(628) 742-354807-25-2022 History of Present illness Narrative* Danilo Hunter RN - 04/03/2022 12:09 PM EDT Discharge Criteria [...] questions at this time. documented [facility] Phone: [phone]) 849-275807-25-2022 Hospital Discharge instructions* Discharge Instructions* Danilo Hunter [...] above. Excessive pain. 9. Call your surgeon [phone] for any questions regarding your surgery. SPECIAL INSTRUCTIONS AND MEDICATIONS 1. Elevate arm/leg on pillow for comfort. 2. Move fingers/toes to improve circulation. 3. Use prescribed pain pill as directed by the doctor. You may use aspirin or Tylenol if you prefer. 4. Keep your dressing on and dry unless instructed differently by your doctor. 5. Use ice as instructed. documented in this encounterB[facility]ITALR[facility] Phone: 1(272) 611-396507-21-2022 Hospital Discharge instructions* Discharge Instructions* Flor Busby MD - 03/30/2022 7:04 PM EDT Follow-up with orthopedics tomorrow. Remain in sling. Tylenol for pain. [place] for pain not controlled with Tylenol. Seek medical attention immediately for worsening pain numbness or tingling of your fingers or any other acute concerns * Attachments The following attachments cannot be sent through Care Everywhere. * Arm Fracture (Ukrainian) documented in this encounterB[facility]ITAL[facility] [employer] Phone: [phone]) 632-231807-01-2022 Evaluation note Includes: Assessments for all patient encounters Findings Encounter Date Diabetes Risk Test Score was three score 03/10/2022 Open Access New Patient with Candice Rider [facility] 03/10/2022 Infection of tooth Open Access New [place] ent with Candice Rider [facility] 03/10/2022 Intervention and counseling on cessation of tobacco use, 3-10 minutes Discussed medication and nicotine replacement for tobacco cessation Open Access New Patient with Candice Tereso [facility] 03/10/2022 RNDx tobacco abuse Open Access New Estela ent with Candice Tereso [facility] 03/10/2022 Systemic hypertension Open Access New Pa tient with Candice Tereso [facility] 03/10/2022 Visit for: routine adult H&P with abnormal findings Open Access New Patient with Candice Rider [facility] 03/10/2022 Visit for: screening for hum an immunodeficiency virus Open Access New Patient with Candice Rider [facility] 03/10/2022 Z68.33 - Body mass index [BM I] 33.0-33.9, adult Open Access New Patient with Candice Rider [facility] 03/10/2022 [facility] Work Phone: 1(154) 579-312607-01-2022 Evaluation note Includes: Assessments for all patient encounters Findings Encounter Date Diabetes Risk Test Score was three score 03/10/2022 Open Access New Patient with Candice Rider [facility] 03/10/2022 Infection of tooth Open Access New [place]ela ent with Candice Rider [facility] 03/10/2022 Intervention and counseling on cessation of tobacco use, 3-10 minutes Discussed medication and nicotine replacement for tobacco cessation Open Access New Patient with Candice Tereso [facility] 03/10/2022 RNDx tobacco abuse Open Access New [place] ent with Candice Tereso [facility] 03/10/2022 Screening for diabetes mellitus Open Acc ess New Patient with Candice Tereso [facility] 03/10/2022 Systemic hypertension Open Access New Pa tient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
--- NOTE | 2024-10-12 21:54 | PC.NURSE ---
PT HAD RIGHT GLUTEAL ABSCESS REMOVAL AT ANOTHER HOSPITAL. PT HAS ROLANDO DRAIN TO RIGHT GLUTE THAT WAS SUPPOSE TO BE REMOVED ON 10/08 AND PT HAS NOT FOLLOWED UP YET. PT CONCERNED THAT MAY HAVE INFECTION TO ROLANDO SITE. NO NEWW DRAINAGE NOTED IN ROLANDO DRAIN.
--- NOTE | 2024-10-12 22:10 | CT_ITS ---
[address] [address] Patient Name: ESMER MUNOZ MRN: [id number] date: 2000 Sex: M Assigned Patient Location: ER Current Patient Location: ER Accession/Order Number: [id number] Exam Date: 10/12/2024 22:25 Report Date: 10/12/2024 23:33 At the request of: BRINDA ROJAS Procedure: CT pelvis wo con EXAM: CT pelvis wo con HISTORY: right buttock abscess, can wave labs COMPARISON: 09/25/2024 TECHNIQUE: CT of the pelvis without intravenous contrast. Dose reduction techniques were achieved by using automated exposure control and/or adjustment of mA and/or kV according to patient size and/or use of iterative reconstruction technique. FINDINGS: TUBES AND IMPLANTS: Right gluteal approach pelvic pigtail drain is in place. ABDOMEN and PELVIS ABDOMINAL WALL AND SOFT TISSUES: No focal fluid collections BONES: No suspicious lesions. ARTERIES: Incompletely evaluated. VEINS: Incompletely evaluated LYMPH NODES: Unremarkable. PERITONEUM/ RETROPERITONEUM: Decreased size of previously seen right perirectal collection which now measures approximate 1.6 by 2.2 centimeters. Persistent irregular fluid collection with foci of air seen adjacent to the sigmoid colon which now measures 1.5 by 1.7 centimeters as well as tissue connection between the distal proximal sigmoid colon which may represent a fistula. Perirectal and presacral fluid and fat stranding BOWEL: There are inflammatory changes of the sigmoid colon. APPENDIX: Not clearly identified REPRODUCTIVE ORGANS: Unremarkable URINARY BLADDER: Unremarkable. CT/CT pelvis wo con IMPRESSION: No gluteal abscess is identified. Right gluteal approach pigtail drain is in place. Decreased size of previously seen right perirectal collection which now measures approximate 1.6 by 2.2 centimeters. Persistent irregular fluid collection with foci of air seen adjacent to the sigmoid colon which now measures 1.5 by 1.7 centimeters as well as tissue connection between the distal proximal sigmoid colon which may represent a fistula. Redemonstrated are pulmonary changes of the sigmoid colon likely representing chronic diverticulitis Perirectal and presacral unorganized fluid and fat stranding. Electronically authenticated by: YOLANDA GORDON Date: 10/12/2024 23:33
[2024-10-12 22:21] LABS: Basophils Absolute Auto 0.1 10^3/uL (0.0-0.1); Basophils Percent Auto 0.5 % (0.2-2.0); Eosinophils Absolute Auto 0.1 10^3/uL (0.0-0.7); Eosinophils Percent Auto 0.4 % (0.9-7.0); Hematocrit 43.6 % (42.0-54.0); Hemoglobin 14.9 g/dL (14.0-18.0); Immature Granulocytes Abs Auto 0.05 10^3/uL (0.00-0.03); Immature Granulocytes Pct Auto 0.3 % (0.0-0.5); Lymphocytes Absolute Auto 1.6 10^3/uL (1.2-3.8); Lymphocytes Percent Auto 9.1 % (20.5-60.0); Mean Corpuscular HGB Conc 34.2 g/dL (29.9-35.2); Mean Corpuscular Hemoglobin 32.8 pg (25.9-34.0); Mean Platelet Volume 10.7 fL (9.5-13.5); Monocytes Absolute Auto 1.3 10^3/uL (0.3-0.8); Monocytes Percent Auto 7.4 % (1.7-12.0); Neutrophils Absolute Auto 14.8 10^3/uL (1.4-6.5); Neutrophils Percent Auto 82.3 % (43.0-75.0); Platelet Count 235 10^3/uL (150-450); Red Blood Count 4.54 10^6/uL (4.70-6.10); Red Cell Distribution Width 11.8 % (11.0-15.0)
--- NOTE | 2024-10-12 23:43 | ED_ITS ---
HPI HPI - General Adult General Chief complaint: Wound/Laceration Stated complaint: REDNESS AND SWELLING DRAINAGE TUBE Time Seen by Provider: 10/12/24 21:51 Source: patient Mode of arrival: walk-in Limitations: no limitations History of Present Illness HPI narrative: The patient is a 24-year-old male who has a history of an abdominal abscess secondary to ruptured diverticuli whom was discharged from [facility] after having a hospital stay. While there, he had a drain tube placed by interventional radiology. The patient was to irrigate the line and was given saline flushes to do so. However the patient estimates he only did it 4-5 times of the 8 syringes he was given. He states dropping them on the floor was his main because of not being compliant. Then he states that he is not able to flush things through at this point. Patient's only been changing his bandage every 2 to 3 days. He was told that he could not get the bandage wet. He did take 1 shower since September 25. Patient denies any fever or chills. He states he lives alone and is hard for him to take care of the site. He denies any fever or chills. He is no longer taking antibiotics as he finished those approximately 1 week ago. He was on cefdinir and Flagyl. Patient does have pain in the left buttock area. The pain is a 7-8 out of 10. Touching it makes it worse. Nothing makes it better. No radiation of the pain. No abdominal pain. No black, bloody, tarry stools. Patient is occasionally nauseated. Related Data Previous Rx's ?Medication ?Instructions ?Recorded cefdinir 300 mg capsule 300 mg PO BID 10 days #20 caps 10/12/24 metronidazole 500 mg tablet 500 mg PO Q8H 10 days #30 tabs 10/12/24 Allergies Allergy/AdvReac Type Severity Reaction Status Date / Time No Known Drug Allergies Allergy Verified 10/12/24 21:38 Opioid HPI Opioid Management Most Recent Opioid Data: Last Pain Scale 4 09/25/24 15:01 09/25/24 Last ORT Total Score 4 12/21/23 09:21 12/21/23 Last ORT Risk Category Moderate Risk 12/21/23 09:21 12/21/23 Review of Systems ROS Status of ROS 10 or more systems reviewed and unremark able except as noted in history and below PFSH PFS Medical History Perforation bowel ?K63.1 - Perforation of intestine (nontraumatic) (ICD-10) Obesity (BMI 30-39.9) ?E66.9 - Obesity, unspecified (ICD-10) Marijuana smoker ?F12.90 - Cannabis use, unspecified, uncomplicated (ICD-10) Smoker ?F17.200 - Nicotine dependence, unspecified, uncomplicated (ICD-10) Diverticulitis of colon with perforation ?K57.20 - Diverticulitis of large intestine with perforation and abscess without bleeding (ICD-10) Smokers' cough ?J41.0 - Simple chronic bronchitis (ICD-10) Obesity (BMI 35.0-39.9 without comorbidity) ?E66.9 - Obesity, unspecified (ICD-10) Pleurisy ?R09.1 - Pleurisy (ICD-10) Alcohol use disorder, mild, in early remission ?F10.11 - Alcohol abuse, in remission (ICD-10) HTN (hypertension) ?I10 - Essential (primary) hypertension (ICD-10) Herpes simplex ?B00.9 - Herpesviral infection, unspecified (ICD-10) Surgical History History of surgery on arm ?Z98.890 - Other specified postprocedural states (ICD-10) History of appendectomy ?Z90.49 - Acquired absence of other specified parts of digestive tract (ICD- 10) Family History Mother Family history of COPD (chronic obstructive pulmonary disease) Family history of cancer Family history of hypertension Father Family history of hypertension Social History Within the past year, how often did you have a drink containing alcohol: 2-3 times a week Within the past year, how many standard drinks containing alcohol did you have on a typical day: 1 or 2 Within the past year, how often did you have six or more drinks on one occasion: less than monthly Total score: 1 Score interpretation: A score of 4 or more indicates drinking is likely to affect patient's safety. Smoking status: Current every day smoker Non-prescribed substance use: cannabis (any form) Previous occupational history: unemployed Highest level of school completed/degree received: high school graduate Are you now , , , , never or living with a partner: never Little interest or pleasure in doing things: not at all Feeling down, depressed, or hopeless: not at all Feel stressed/tense/nervous/anxious/difficulty sleeping: not at all Exam Narrative Exam Narrative: Prior to examining the patient, I have washed with hospital approved and provided Antiseptic Hand Assistant Customer Service Manager and have also applied gloves.? Prior to touching the patient, I asked for consent to examine the patient.? General: Alert and oriented, well nourished, mild distress. Eye: PERRL, EOMI, normal conjunctiva. HENT: Normocephalic, normal hearing, moist oral mucosa, no scleral icterus, no sinus tenderness. Neck: Supple, non-tender, no carotid bruits, no JVD, no lymphadenopathy. Lungs: Clear to auscultation and percussion, non-labored respiration. Heart: Normal rate, regular rhythm, no murmur, gallop or edema. Abdomen: Soft, non-tender, non-distended, normal bowel sounds, no masses. Musculoskeletal: Normal range of motion and strength, no swelling. The patient does have tenderness to his right buttock area. There is a drain tube in place. It secured with a suture. There is some purulent drainage on the bandage. The patient does not have any erythema, induration, or fluctuance at the opening of the wound. Skin: Skin is warm, dry and pink, no rashes or lesions. Neurologic: Awake, alert, and oriented X3, CN II-XII intact. Psychiatric: Cooperative, appropriate mood and affect.? Following the conclusion of the examination, I have washed my hands thoroughly after removing examination gloves. Constitutional Vital Signs, click to edit/add: Last Vital Signs Temp 98.7 F 10/12/24 21:30 Pulse 112 H 10/12/24 21:30 Resp 16 10/12/24 21:30 BP 128/84 10/12/24 21:30 Pulse Ox 97 10/12/24 21:30 O2 Del Method Room Air 10/12/24 21:30 Course Vital Signs Vital signs: Vital Signs Temperature 98.7 F 10/12/24 21:30 Pulse Rate 112 H 10/12/24 21:30 Respiratory Rate 16 10/12/24 21:30 Blood Pressure 128/84 10/12/24 21:30 Pulse Oximetry 97 10/12/24 21:30 Oxygen Delivery Method Room Air 10/12/24 21:30 Temperature 98.7 F 10/12/24 21:30 Pulse Rate 112 H 10/12/24 21:30 Respiratory Rate 16 10/12/24 21:30 Blood Pressure 128/84 10/12/24 21:30 Pulse Oximetry 97 10/12/24 21:30 Oxygen Delivery Method Room Air 10/12/24 21:30 Medical Decision Making MDM Narrative Medical decision making narrative: Patient is a 24-year-old male who has a drain in place for a ruptured diverticular abscess intra-abdominal. The patient feels that the site is getting more infected. He is presenting for assessment. He denies any fever or chills. He has not been on antibiotics for approximately 1 week. He has not had any recent pain medications. Differential Diagnosis Differential Diagnosis: Worsening intra-abdominal abscess, sepsis, urinary tract infection, appendi Medical Records Medical records reviewed: Yes I reviewed the patient's medical records Lab Data Lab results reviewed: Yes I reviewed the patient's lab results Lab results narrative: Patient does have an elevated white blood cell count but this is improved from 7000 on September 25. Labs: Lab Results 10/12/24 Range/Units 22:15 WBC 18.0 H (4.0-11.0) 10^3/uL RBC 4.54 L (4.70-6.10) 10^6/uL Hgb 14.9 (14.0-18.0) g/dL Hct 43.6 (42.0-54.0) % MCV 96.0 H (80.0-94.0) fL MCH 32.8 (25.9-34.0) pg MCHC 34.2 (29.9-35.2) g/dL RDW 11.8 (11.0-15.0) % Plt Count 235 (150-450) 10^3/uL MPV 10.7 (9.5-13.5) fL Neut % (Auto) 82.3 H (43.0-75.0) % Lymph % (Auto) 9.1 L (20.5-60.0) % [place] % (Auto) 7.4 (1.7-12.0) % Eos % (Auto) 0.4 L (0.9-7.0) % Baso % (Auto) 0.5 (0.2-2.0) % Neut # (Auto) 14.8 H (1.4-6.5) 10^3/uL Lymph # (Auto) 1.6 (1.2-3.8) 10^3/uL [place] # (Auto) 1.3 H (0.3-0.8) 10^3/uL Eos # (Auto) 0.1 (0.0-0.7) 10^3/uL Baso # (Auto) 0.1 (0.0-0.1) 10^3/uL Abs Immat Gran (auto) 0.05 H (0.00-0.03) 10^3/uL Imm/Tot Granulo (auto) 0.3 (0.0-0.5) % Imaging Data CT scan - pelvis: Radiologist's impression: ITS Impressions Pelvis CT 10/12/24 22:10 IMPRESSION: No gluteal abscess is identified. Right gluteal approach pigtail drain is in place. Decreased size of previously seen right perirectal collection which now measures approximate 1.6 by 2.2 centimeters. Persistent irregular fluid collection with foci of air seen adjacent to the sigmoid colon which now measures 1.5 by 1.7 centimeters as well as tissue connection between the distal proximal sigmoid colon which may represent a fistula. Redemonstrated are pulmonary changes of the sigmoid colon likely representing chronic diverticulitis Perirectal and presacral unorganized fluid and fat stranding. Electronically authenticated by: YOLANDA GORDON Date: 10/12/2024 23:33 CT scan - abdomen: Attestation: I have reviewed the pertinent imaging results. Radiologist's impression: ITS Impressions Pelvis CT 10/12/24 22:10 IMPRESSION: No gluteal abscess is identified. Right gluteal approach pigtail drain is in place. Decreased size of previously seen right perirectal collection which now measures approximate 1.6 by 2.2 centimeters. Persistent irregular fluid collection with foci of air seen adjacent to the sigmoid colon which now measures 1.5 by 1.7 centimeters as well as tissue connection between the distal proximal sigmoid colon which may represent a fistula. Redemonstrated are pulmonary changes of the sigmoid colon likely representing chronic diverticulitis Perirectal and presacral unorganized fluid and fat stranding. Electronically authenticated by: YOLANDA GORDON Date: 10/12/2024 23:33 Discharge Plan Discharge Chief Complaint: Wound/Laceration Clinical Impression: Abdominal abscess Patient Disposition: Home, Self-Care Time of Disposition Decision: 23:47 Condition: Good Mode of Transportation: Private Vehicle Prescriptions / Home Meds: New cefdinir 300 mg capsule 300 mg PO BID 10 Days Qty: 20 0RF metronidazole 500 mg tablet 500 mg PO Q8H 10 Days Qty: 30 0RF Print Language: Icelandic Instructions: [facility] Drain Care (ED) Additional Instructions: Thank you for trusting me with your care today. It is imperative that you call your surgeon tomorrow immediately when you get up. You must tell them that you were seen in the emergency department. Your white blood cell count is improving. The size of the abscesses are improving. However, you have ran out of your antibiotics any been unable to flush the tubing. We will give you a couple days worth of flushes and restart you on your antibiotic therapy. If you develop a fever you must return preferably to the hospital where you had your original procedure done because that is where we will transfer you. The surgeons until he do not know exactly where that drain is and have exactly a plan tailored for you. We do not have that capability here. Please take your antibiotics as directed. Referrals: Physician,Non-Staff, MD [Primary Care Provider] - 1 week Discharge Date/Time: 10/13/24 00:02
== END 2024-10-13 00:02 | disposition home or self-care (01) ==
PROVIDERS: Emergency Provider Emergency Medicine
DX: K65.1 Peritoneal abscess (principal)
CPT/HCPCS: 36415; 72192; 80048; 85025; 99284

== ENCOUNTER 2024-10-13 18:45 | Emergency (ER) | payer SELFPAY ==
[2024-10-13] VITALS (24 sets, daily range): BP systolic 118–146; BP diastolic 76–95; PULSE 76–147; TEMP 37.1; O2SAT 95–100; BMI 32.1
--- OUTSIDE RECORDS SUMMARY | 2024-10-13 19:16 | XMS_ITS | CCD ---
Author Organization [facility] Care Team Providers Care Insecticide Mixer Name Role Phone Tereso VERONICACandice Primary Care [...] Consulting Unavailable BOBO MAS Consulting Unavailable AL-CONRADO AMRCUS Consulting Unavail able Medications Current Medications Medication [...] [Moles/Vol] 11 mmol/L 9 - 16 mmol/L [facility] [employer] Calcium [Mass/Vol] 8.5 mg/dL Low 8.6 - 10. 4 mg/dL [employer] [facility] Chloride [Moles/Vol] 104 mmol/L 98 - 10 7 mmol/L [facility] CO2 [Moles/Vol] 24 mmol/L 20 - 31 mmol/L [facility] [employer] Creatinine [Mass/Vol] 0.8 mg/dL 0.7 - 1.2 mg/dL [facility] Est, Glom Filt Rate - PINF [facility] [employer] Comment on above: These results are [...] [Mass/Vol] 88 mg/dL 74 - 99 mg/dL [facility] Interpretation and review of laboratory results Abnormal [facility] Potassium [Moles/Vol] 3.2 mmol/L Low 3.7 - 5.3 mmol/L [facility] Comment on above: Specimen hemolysis h as exceeded the interference as defined by Kaitlyn. Value may be falsely increased. Suggest recollection if clinically indicated. Sodium [Moles/Vol] 139 mmol/L 136 - 145 mmol/L [facility] Urea nitrogen [Mass/Vol] 3 mg/dL Low 6 - 20 mg/dL [facility] Basic Metabolic Profon 10-01 Anion gap [Moles/Vol] 11 mmol/L Normal 9-16 [facility] Comment on above: Performed By: #### P T, BMPX, CDP #### [facility] [address] [place] [address] [phone] Spinning Operator: Willian Dudley MD Calcium [Mass/Vol] 8.5 mg/dL Low 8.6-10.4 [facility] Comment on above: Performed By: #### P T, BMPX, CDP #### [employer] [address] [place] [address] [phone] Spinning Operator: Willian Dudley MD Chloride [Moles/Vol] 104 mmol/L Normal 98-107 [facility] Comment on above: Performed By: #### P T, BMPX, CDP #### [facility] [address] [place] [address] [phone] Spinning Operator: Willian Dudley MD CO2 [Moles/Vol] 24 mmol/L Normal 20-31 [facility] Comment on above: Performed By: #### P T, BMPX, CDP #### [employer] [address] [place] [address] [phone] Spinning Operator: Willian Dudley MD Creatinine [Mass/Vol] 0.8 mg/dL Normal 0.7-1.2 [facility] Comment on above: Performed By: #### P T, BMPX, CDP #### [employer] [address] [place] [address] [phone] Spinning Operator: Willian Dudley MD GFR/1.73 sq M.predicted among non-blacks MDRD (S/P/Bld) [Vol rate/Area] mL/min/{1.73_m2} Normal >60 [facility] Comment on above: Result Comment: These results [...] By: #### P T, BMPX, CDP #### [employer] [address] [place] [address] [phone] Spinning Operator: Willian Dudley MD Glucose [Mass/Vol] 88 mg/dL Normal 74-99 [facility] Comment on above: Performed By: #### P T, BMPX, CDP #### [employer] [address] [place] [address] [phone] Spinning Operator: Willian Dudley MD Potassium [Moles/Vol] 3.2 mmol/L Low 3.7-5.3 [facility] Comment on above: Result Comment: Spec imen hemolysis has exceeded the interference as defined by Kaitlyn. Value may be falsely increased. Suggest recollection if clinically indicated. Performed By: #### P T, BMPX, CDP #### [employer] [address] [place] [address] [phone] Spinning Operator: Willian Dudley MD Sodium [Moles/Vol] 139 mmol/L Normal 136-145 [facility] Comment on above: Performed By: #### P T, BMPX, CDP #### [employer] [address] [place] [address] 35529 Spinning Operator: Willian Dudley MD Urea nitrogen [Mass/Vol] 3 mg/dL Low 6-20 [facility] Comment on above: Performed By: #### P T, BMPX, CDP #### [facility] [employer] [address] [place] [address] Spinning Operator: Willian Dudley MD CBC with Auto Differentialon 10-01-2024 Basophils (Bld) [#/Vol] 0.07 10*3/uL [facility] Basophils/100 WBC (Bld) 1 % 0 - 2 % [facility] Eosinophils (Bld) [#/Vol] 0.21 10*3/uL [facility] Eosinophils/100 WBC (Bld) 3 % 1 - 4 % [facility] Erythrocyte distribution width (RBC) [Ratio] 11.5 % Low 11.8 - 14.4 % [facility] Hematocrit (Bld) [Volume fraction] 45.7 % 40.7 - 50.3 % [facility] Hemoglobin (Bld) [Mass/Vol] 15.1 g/dL 13.0 - 17.0 g/dL [facility] Immature granulocytes (Bld) [#/Vol] 0.08 10*3/uL [facility] Immature granulocytes/100 WBC (Bld) 1 % High 0 [facility] Interpretation and review of laboratory results Abnormal [facility] Lymphocytes/100 WBC (Bld) 30 % 24 - 43 % [facility] Lymphocytes/100 WBC (Bld) 2.25 % [facility] MCH (RBC) [Entitic mass] 32.1 pg 25.2 - 33.5 pg [facility] MCHC (RBC) [Mass/Vol] 33.0 g/dL 28.4 - 34.8 g/dL [facility] MCV (RBC) [Entitic vol] 97.2 fL 82.6 - 102.9 fL [facility] Monocytes/100 WBC (Bld) 10 % 3 - 12 % [facility] Monocytes/100 WBC (Bld) 0.74 % [facility] Neutrophils/100 WBC (Bld) 55 % 36 - 65 % [facility] Nucleated RBC/100 WBC (Bld) [Ratio] 0.0 % 0.0 per 100 WBC [facility] Platelet mean volume (Bld) [Entitic vol] 10.9 fL 8.1 - 13.5 fL [facility] Platelets (Bld) [#/Vol] 304 10*3/uL [facility] RBC (Bld) [#/Vol] 4.70 10*6/uL 4.21 - 5.7 7 m/uL [facility] Segmented neutrophils/100 WBC (Bld) 4.06 % [facility] WBC other (Bld) [#/Vol] 7.4 [facility] CBC with Diffon 10-01-2024 Abs. Basophil 0.07 k/uL Normal 0.00-0.20 [facility] Comment on above: Performed By: #### P T, BMPX, CDP #### [place] [address] Spinning Operator: Willian Dudley MD Abs.Imm.Granulocyte 0.08 k/uL Normal 0.00-0.30 [facility] Comment on above: Performed By: #### P T, BMPX, CDP #### [facility] [employer] [address] [place] [address] Spinning Operator: Willian Dudley MD Abs.Neutrophil (Seg) 4.06 k/uL Normal 1.50-8.10 [facility] Comment on above: Performed By: #### P T, BMPX, CDP #### [facility] [employer] [address] [place] [address] Spinning Operator: Willian Dudley MD Basophils/100 WBC (Bld) 1 % Normal 0-2 [facility] Comment on above: Performed By: #### P T, BMPX, CDP #### [facility] [employer] [address] [place] [address] Spinning Operator: Willian Dudley MD Eosinophils (Bld) [#/Vol] 0.21 10*3/uL Normal 0.00-0.44 [facility] Comment on above: Performed By: #### P T, BMPX, CDP #### [facility] [employer] [address] [place] [address] [phone] Spinning Operator: Willian Dudley MD Eosinophils/100 WBC (Bld) 3 % Normal 1-4 [facility] Comment on above: Performed By: #### P T, BMPX, CDP #### [facility] [employer] [address] [place] [address] Spinning Operator: Willian Dudley MD Erythrocyte distribution width (RBC) [Ratio] 11.5 % Low 11.8-14.4 [facility] Comment on above: Performed By: #### P T, BMPX, CDP #### [place] [address] Spinning Operator: Willian Dudley MD Hematocrit (Bld) [Volume fraction] 45.7 % Normal 40.7-50.3 [facility] Comment on above: Performed By: #### P T, BMPX, CDP #### [place] [address] Spinning Operator: Willian Dudley MD Hemoglobin (Bld) [Mass/Vol] 15.1 g/dL Normal 13.0-17.0 [facility] Comment on above: Performed By: #### P T, BMPX, CDP #### [facility] [employer] [address] [place] [address] Spinning Operator: Willian Dudley MD Immature granulocytes/100 WBC (Bld) 1 % High 0 [facility] Comment on above: Performed By: #### P T, BMPX, CDP #### [facility] [employer] [address] [place] [address] 23392 Spinning Operator: Willian Dudley MD Lymphocytes (Bld) [#/Vol] 2.25 10*3/uL Normal 1.10-3.70 [facility] Comment on above: Performed By: #### P T, BMPX, CDP #### [address] [address] Spinning Operator: Willian Dudley MD Lymphocytes/100 WBC (Bld) 30 % Normal 24-43 [facility] Comment on above: Performed By: #### P T, BMPX, CDP #### [address] [address] Spinning Operator: Willian Dudley MD MCH (RBC) [Entitic mass] 32.1 pg Normal 25.2-33.5 [facility] Comment on above: Performed By: #### P T, BMPX, CDP #### [address] [address] Spinning Operator: Willian Dudley MD MCHC (RBC) [Mass/Vol] 33.0 g/dL Normal 28.4-34.8 [facility] Comment on above: Performed By: #### P T, BMPX, CDP #### [address] [address] Spinning Operator: Willian Dudley MD MCV (RBC) [Entitic vol] 97.2 fL Normal 82.6-102.9 [facility] Comment on above: Performed By: #### P T, BMPX, CDP #### [place] [address] Spinning Operator: Willian Dudley MD Monocytes (Bld) [#/Vol] 0.74 10*3/uL Normal 0.10-1.20 [facility] Comment on above: Performed By: #### P T, BMPX, CDP #### [address] [address] Spinning Operator: Willian Dudley MD Monocytes/100 WBC (Bld) 10 % Normal 3-12 [facility] Comment on above: Performed By: #### P T, BMPX, CDP #### [address] [address] Spinning Operator: Willian Dudley MD Neutrophil (Seg) 55 % Normal 36-65 [facility] Comment on above: Performed By: #### P T, BMPX, CDP #### [address] [address] Spinning Operator: Willian Dudley MD NRBC Automated 0.0 per 100 WBC Normal 0.0 [facility] Comment on above: Performed By: #### P T, BMPX, CDP #### [address] [address] Spinning Operator: Willian Dudley MD Platelet mean volume (Bld) [Entitic vol] 10.9 fL Normal 8.1-13.5 [facility] Comment on above: Performed By: #### P T, BMPX, CDP #### [address] [address] Spinning Operator: Willian Dudley MD Platelets (Bld) [#/Vol] 304 10*3/uL Normal 138-453 [facility] Comment on above: Performed By: #### P T, BMPX, CDP #### [address] [address] Spinning Operator: Willian Dudley MD RBC (Bld) [#/Vol] 4.70 10*6/uL Normal 4.21-5.77 [facility] Comment on above: Performed By: #### P T, BMPX, CDP #### [address] [address] Spinning Operator: Willian Dudley MD WBC (Bld) [#/Vol] 7.4 10*3/uL Normal 3.5-11.3 [facility] Comment on above: Performed By: #### P T, BMPX, CDP #### [facility] [address], [place] [phone] Spinning Operator: Willian Dudley MD Cult,Aerobe/Anaerobeon 10-01 Cult,Aerobe/Anaerobe Specimen Descriptio n .ASPIRATE PELVIC FLUID COLLECTION Direct Exam MANY NEUTROPHILS MANY GRAM POSITIVE COCCI IN PAIRS FEW GRAM POSITIVE RODS RARE YEAST Culture NORMAL SKIN AB NEGATIVE FOR NEISSERIA GONORRHOEAE No anaerobic organisms isolated at 5 days. Report Status FINAL 10/01/2024 Abnormal [facility] Comment on above: Performed By: #### B MP, CRP, CDP #### [facility] [address] [place] [address] Spinning Operator: Willian Dudley MD Culture, Anaerobic and Aerob icon 10-01-2024 Interpretation and review of laboratory results Abnormal [facility] Microorganism identified Cx Nom (Unsp spec) NORMAL SKIN AB [facility] Microorganism identified Cx Nom (Unsp spec) Negative [facility] Microorganism identified Cx Nom (Unsp spec) No anaerobic organisms isolated at 5 days. [facility] Microorganism or agent identified Nom (Unsp spec) MANY NEUTROPHILS [facility] Microorganism or agent identified Nom (Unsp spec) RARE YEAST Abnormal [facility] Specimen Description .ASPIRATE PELVIC FLUID COLLECTION [facility] - Microbiology an d Antimicrobial susceptibilityon 10-01-2024 Microorganism or agent identified Nom (Unsp spec) Positive Abnormal [facility] Basic Metabolic Panelon 09-11 Anion gap [Moles/Vol] 11 mmol/L 9 - 16 mmol/L [facility] Calcium [Mass/Vol] 8.6 mg/dL 8.6 - 10. 4 mg/dL [facility] Chloride [Moles/Vol] 104 mmol/L 98 - 10 7 mmol/L [facility] CO2 [Moles/Vol] 23 mmol/L 20 - 31 mmol/L [facility] Creatinine [Mass/Vol] 0.8 mg/dL 0.7 - 1.2 mg/dL [facility] Comment on above: These results are not [...] 104 mg/dL High 74 - 99 mg/dL [facility] Potassium [Moles/Vol] 3.3 mmol/L Low 3.7 - 5.3 mmol/L [facility] Sodium [Moles/Vol] 138 mmol/L 136 - 145 mmol/L [facility] Urea nitrogen [Mass/Vol] 2 mg/dL Low 6 - 20 mg/dL [facility] Basic Metabolic Profon 09-30 Anion gap [Moles/Vol] 11 mmol/L Normal 9-16 [facility] Comment on above: Performed By: #### B THIEN YOUNG, CDP #### [facility] [employer] [address] [place] [address]39 Spinning Operator: Willian Dudley MD Calcium [Mass/Vol] 8.6 mg/dL Normal 8.6-10.4 [facility] Comment on above: Performed By: #### B THIEN YOUNG, CDP #### [facility] [employer] [address] [place] [address] 23287 Spinning Operator: Willian Dudley MD Chloride [Moles/Vol] 104 mmol/L Normal 98-107 [facility] Comment on above: Performed By: #### B THIEN YOUNG, CDP #### [facility] [employer] [address] [place] [address] 98837 Spinning Operator: Willian Dudley MD CO2 [Moles/Vol] 23 mmol/L Normal 20-31 [facility] Comment on above: Performed By: #### B HECTOR CRP, CDP #### [facility] [address] [place] [address] [phone] Spinning Operator: Willian Dudley MD Creatinine [Mass/Vol] 0.8 mg/dL Normal 0.7-1.2 [facility] Comment on above: Performed By: #### B THIEN YOUNG, CDP #### [employer] [address] [place] [address] 82877 Spinning Operator: Willian Dudley MD GFR/1.73 sq M.predicted among non-blacks MDRD (S/P/Bld) [Vol rate/Area] mL/min/{1.73_m2} Normal >60 [facility] Comment on above: Result Comment: These results [...] By: #### B THIEN YOUNG, CDP #### [employer] [address] [place] [address] 07413 Spinning Operator: Willian Dudley MD Glucose [Mass/Vol] 104 mg/dL High 74-99 [facility] Comment on above: Performed By: #### B THIEN YOUNG, CDP #### [facility] [address] [place] [address]56 Spinning Operator: Willian Dudley MD Potassium [Moles/Vol] 3.3 mmol/L Low 3.7-5.3 [facility] Comment on above: Performed By: #### B THIEN YOUNG, CDP #### [facility] [address] [place] [address] Spinning Operator: Willian Dudley MD Sodium [Moles/Vol] 138 mmol/L Normal 136-145 [facility] Comment on above: Performed By: #### B HECTOR CRP, CDP #### [employer] [address], [place] [phone] Spinning Operator: Willian Dudley MD Urea nitrogen [Mass/Vol] 2 mg/dL Low 6-20 [facility] Comment on above: Performed By: #### B MP, CRP, CDP #### [facility] [address], [place] [phone] Spinning Operator: Willian Dudley MD C-Reactive Proteinon 025 CRP High sensitivity method [Mass/Vol] 73.5 mg/L High 0.0 - 5.0 mg/L [facility] CRP [Mass/Vol] 73.5 mg/L High 0.0-5.0 [facility] Comment on above: Performed By: #### B MP, CRP, CDP #### [facility], [place] [phone] Spinning Operator: Willian Dudley MD CBC with Auto Differentialon 09-30-2024 Basophils (Bld) [#/Vol] 0.07 10*3/uL [facility] Basophils/100 WBC (Bld) 1 % 0 - 2 % [facility] Eosinophils (Bld) [#/Vol] 0.20 10*3/uL [facility] Eosinophils/100 WBC (Bld) 3 % 1 - 4 % [facility] Erythrocyte distribution width (RBC) [Ratio] 11.4 % Low 11.8 - 14.4 % [facility] Hematocrit (Bld) [Volume fraction] 44.9 % 40.7 - 50.3 % [facility] Hemoglobin (Bld) [Mass/Vol] 15.0 g/dL 13.0 - 17.0 g/dL [facility] Immature granulocytes (Bld) [#/Vol] 0.07 10*3/uL [facility] Immature granulocytes/100 WBC (Bld) 1 % High 0 [facility] Interpretation and review of laboratory results Abnormal [facility] Lymphocytes/100 WBC (Bld) 25 % 24 - 43 % [facility] Lymphocytes/100 WBC (Bld) 1.98 % [facility] MCH (RBC) [Entitic mass] 32.4 pg 25.2 - 33.5 pg [facility] MCHC (RBC) [Mass/Vol] 33.4 g/dL 28.4 - 34.8 g/dL [facility] MCV (RBC) [Entitic vol] 97.0 fL 82.6 - 102.9 fL [facility] Monocytes/100 WBC (Bld) 9 % 3 - 12 % [facility] Monocytes/100 WBC (Bld) 0.74 % [facility] Neutrophils/100 WBC (Bld) 61 % 36 - 65 % [facility] Nucleated RBC/100 WBC (Bld) [Ratio] 0.0 % 0.0 per 100 WBC [facility] Platelet mean volume (Bld) [Entitic vol] 11.1 fL 8.1 - 13.5 fL [facility] Platelets (Bld) [#/Vol] 261 10*3/uL [facility] RBC (Bld) [#/Vol] 4.63 10*6/uL 4.21 - 5.7 7 m/uL [facility] Segmented neutrophils/100 WBC (Bld) 5.00 % [facility] WBC other (Bld) [#/Vol] 8.1 [facility] CBC with Diffon 09-30-2024 Abs. Basophil 0.07 k/uL Normal 0.00-0.20 [facility] Comment on above: Performed By: #### B MP, CRP, CDP #### [employer] [address] [place] [address] [phone] Spinning Operator: Willian Dudley MD Abs.Imm.Granulocyte 0.07 k/uL Normal 0.00-0.30 [facility] Comment on above: Performed By: #### B MP, CRP, CDP #### [employer] [address] [place] [address] [phone] Spinning Operator: Willian Dudley MD Abs.Neutrophil (Seg) 5.00 k/uL Normal 1.50-8.10 [facility] Comment on above: Performed By: #### B MP, CRP, CDP #### [facility] [employer] [address] [place] [address] Spinning Operator: Willian Dudley MD Basophils/100 WBC (Bld) 1 % Normal 0-2 [facility] Comment on above: Performed By: #### B MP, CRP, CDP #### [facility] [employer] [address] [place] [address] Spinning Operator: Willian Dudley MD Eosinophils (Bld) [#/Vol] 0.20 10*3/uL Normal 0.00-0.44 [facility] Comment on above: Performed By: #### B MP, CRP, CDP #### [facility] [employer] [address] [place] [address] Spinning Operator: Willian Dudley MD Eosinophils/100 WBC (Bld) 3 % Normal 1-4 [facility] Comment on above: Performed By: #### B MP, CRP, CDP #### [facility] [employer] [address] [place] [phone] Spinning Operator: Willian Dudley MD Erythrocyte distribution width (RBC) [Ratio] 11.4 % Low 11.8-14.4 [facility] Comment on above: Performed By: #### B MP, CRP, CDP #### [facility] [employer] [address] [place] [phone] Spinning Operator: Willian Dudley MD Hematocrit (Bld) [Volume fraction] 44.9 % Normal 40.7-50.3 [facility] Comment on above: Performed By: #### B MP, CRP, CDP #### [facility] [employer] [address] [place] [phone] Spinning Operator: Willian Dudley MD Hemoglobin (Bld) [Mass/Vol] 15.0 g/dL Normal 13.0-17.0 [facility] Comment on above: Performed By: #### B MP, CRP, CDP #### [facility] [address] [place] [address] Spinning Operator: Willian Dudley MD Immature granulocytes/100 WBC (Bld) 1 % High 0 [facility] Comment on above: Performed By: #### B MP, CRP, CDP #### [facility] [employer] [address] [place] [phone] Spinning Operator: Willian Dudley MD Lymphocytes (Bld) [#/Vol] 1.98 10*3/uL Normal 1.10-3.70 [facility] Comment on above: Performed By: #### B MP, CRP, CDP #### [facility] [employer] [address] [place] [address] Spinning Operator: Willian Dudley MD Lymphocytes/100 WBC (Bld) 25 % Normal 24-43 [facility] Comment on above: Performed By: #### B MP, CRP, CDP #### [facility] [employer] [address] [place] [address] Spinning Operator: Willian Dudley MD MCH (RBC) [Entitic mass] 32.4 pg Normal 25.2-33.5 [facility] Comment on above: Performed By: #### B MP, CRP, CDP #### [facility] [employer] [address] [place] [phone] Spinning Operator: Willian Dudley MD MCHC (RBC) [Mass/Vol] 33.4 g/dL Normal 28.4-34.8 [facility] Comment on above: Performed By: #### B MP, CRP, CDP #### [facility] [employer] [address] [place] [address] Spinning Operator: Willian Dudley MD MCV (RBC) [Entitic vol] 97.0 fL Normal 82.6-102.9 [facility] Comment on above: Performed By: #### B MP, CRP, CDP #### [address] [address] Spinning Operator: Willian Dudley MD Monocytes (Bld) [#/Vol] 0.74 10*3/uL Normal 0.10-1.20 [facility] Comment on above: Performed By: #### B MP, CRP, CDP #### [address] [address] Spinning Operator: Willian Dudley MD Monocytes/100 WBC (Bld) 9 % Normal 3-12 [facility] Comment on above: Performed By: #### B MP, CRP, CDP #### [address] [address] Spinning Operator: Willian Dudley MD Neutrophil (Seg) 61 % Normal 36-65 [facility] Comment on above: Performed By: #### B MP, CRP, CDP #### [address] [address] Spinning Operator: Willian Dudley MD NRBC Automated 0.0 per 100 WBC Normal 0.0 [facility] Comment on above: Performed By: #### B MP, CRP, CDP #### [address] [address] Spinning Operator: Willian Dudley MD Platelet mean volume (Bld) [Entitic vol] 11.1 fL Normal 8.1-13.5 [facility] Comment on above: Performed By: #### B MP, CRP, CDP #### [address] [address] Spinning Operator: Willian Dudley MD Platelets (Bld) [#/Vol] 261 10*3/uL Normal 138-453 [facility] Comment on above: Performed By: #### B MP, CRP, CDP #### [address] [address] Spinning Operator: Willian Dudley MD RBC (Bld) [#/Vol] 4.63 10*6/uL Normal 4.21-5.77 [facility] Comment on above: Performed By: #### B THIEN YOUNG, CDP #### [facility] [address], [place] [phone] Spinning Operator: Willian Dudley MD WBC (Bld) [#/Vol] 8.1 10*3/uL Normal 3.5-11.3 [facility] Comment on above: Performed By: #### B THIEN YOUNG, CDP #### [facility] [address] [place], [place] [id number] Spinning Operator: Willian Dudley MD No Panel Informationon 09-30 Interpretation and review of laboratory results Abnormal [facility] Basic Metabolic Panelon 09-11 Anion gap [Moles/Vol] 15 mmol/L 9 - 16 mmol/L [facility] Calcium [Mass/Vol] 8.6 mg/dL 8.6 - 10. 4 mg/dL [facility] [employer] Chloride [Moles/Vol] 103 mmol/L 98 - 10 7 mmol/L [facility] [employer] CO2 [Moles/Vol] 20 mmol/L 20 - 31 mmol/L [facility] Creatinine [Mass/Vol] 0.8 mg/dL 0.7 - 1.2 mg/dL [facility] Hospital[facility] Est, Glom Filt Rate - PINF [facility] Comment on above: These results [...] [Mass/Vol] 75 mg/dL 74 - 99 mg/dL [facility] Potassium [Moles/Vol] 3.2 mmol/L Low 3.7 - 5.3 mmol/L [facility] Comment on above: Specimen hemolysis h as exceeded the interference as defined by Kaitlyn. Value may be falsely increased. Suggest recollection if clinically indicated. Sodium [Moles/Vol] 138 mmol/L 136 - 145 mmol/L [facility] Urea nitrogen [Mass/Vol] 3 mg/dL Low 6 - 20 mg/dL [facility] Basic Metabolic Profon 09-29 Anion gap [Moles/Vol] 15 mmol/L Normal 9-16 [facility] Comment on above: Performed By: #### B HECTOR CRP, CDP #### [facility] [address] [place] [phone] Spinning Operator: Willian Dudley MD Calcium [Mass/Vol] 8.6 mg/dL Normal 8.6-10.4 [facility] Comment on above: Performed By: #### B HECTOR CRP, CDP #### [facility] [address] [place] [address] Spinning Operator: Willian Dudley MD Chloride [Moles/Vol] 103 mmol/L Normal 98-107 [facility] Comment on above: Performed By: #### B THIEN YOUNG, CDP #### [facility] [address] [place] [phone] Spinning Operator: Willian Dudley MD CO2 [Moles/Vol] 20 mmol/L Normal 20-31 [facility] Comment on above: Performed By: #### B HECTOR CRP, CDP #### [facility] [address] [place] [address] Spinning Operator: Willian Dudley MD Creatinine [Mass/Vol] 0.8 mg/dL Normal 0.7-1.2 [facility] Comment on above: Performed By: #### B HECTOR CRP, CDP #### [facility] [address] [place] [address]254 Spinning Operator: Willian Dudley MD GFR/1.73 sq M.predicted among non-blacks MDRD (S/P/Bld) [Vol rate/Area] mL/min/{1.73_m2} Normal >60 [facility] Comment on above: Result Comment: These results [...] By: #### B MP, CRP, CDP #### [facility] [address] [place] [address] Spinning Operator: Willian Dudley MD Glucose [Mass/Vol] 75 mg/dL Normal 74-99 [facility] Comment on above: Performed By: #### B MP, CRP, CDP #### [facility] [address] [place] [address] Spinning Operator: Willian Dudley MD Potassium [Moles/Vol] 3.2 mmol/L Low 3.7-5.3 [facility] Comment on above: Result Comment: Spec imen hemolysis has exceeded the interference as defined by Kaitlyn. Value may be falsely increased. Suggest recollection if clinically indicated. Performed By: #### B MP, CRP, CDP #### [facility] [address] [place] [address] Spinning Operator: Willian Dudley MD Sodium [Moles/Vol] 138 mmol/L Normal 136-145 [facility] Comment on above: Performed By: #### B MP, CRP, CDP #### [employer] [address] [place] [address] Spinning Operator: Willian Dudley MD Urea nitrogen [Mass/Vol] 3 mg/dL Low 6-20 [facility] Comment on above: Performed By: #### B MP, CRP, CDP #### [facility] [address] [place] [address] [phone] Spinning Operator: Willian Dudley MD C-Reactive Proteinon 025 CRP High sensitivity method [Mass/Vol] 149.0 mg/L High 0.0 - 5.0 mg/L [facility] CRP [Mass/Vol] 149.0 mg/L High 0.0-5.0 [facility] Comment on above: Performed By: #### B MP, CRP, CDP #### [facility] [address], [place] [phone] Spinning Operator: Willian Dudley MD CBC with Auto Differentialon 09-29-2024 Basophils (Bld) [#/Vol] 0.07 10*3/uL [facility] Basophils/100 WBC (Bld) 1 % 0 - 2 % [facility] Eosinophils (Bld) [#/Vol] 0.11 10*3/uL [facility] Eosinophils/100 WBC (Bld) 1 % 1 - 4 % [facility] Erythrocyte distribution width (RBC) [Ratio] 11.6 % Low 11.8 - 14.4 % [facility] Hematocrit (Bld) [Volume fraction] 47.4 % 40.7 - 50.3 % [facility] Hemoglobin (Bld) [Mass/Vol] 15.3 g/dL 13.0 - 17.0 g/dL [facility] Immature granulocytes (Bld) [#/Vol] 0.07 10*3/uL [facility] Immature granulocytes/100 WBC (Bld) 1 % High 0 [facility] Interpretation and review of laboratory results Abnormal [facility] Lymphocytes/100 WBC (Bld) 18 % Low 24 - 43 % [facility] Lymphocytes/100 WBC (Bld) 1.95 % [facility] MCH (RBC) [Entitic mass] 32.4 pg 25.2 - 33.5 pg [facility] MCHC (RBC) [Mass/Vol] 32.3 g/dL 28.4 - 34.8 g/dL [facility] MCV (RBC) [Entitic vol] 100.4 fL 82.6 - 102.9 fL [facility] Monocytes/100 WBC (Bld) 10 % 3 - 12 % [facility] Monocytes/100 WBC (Bld) 1.04 % [facility] Neutrophils/100 WBC (Bld) 69 % High 36 - 65 % [facility] Nucleated RBC/100 WBC (Bld) [Ratio] 0.0 % 0.0 per 100 WBC [facility] Platelet mean volume (Bld) [Entitic vol] 11.5 fL 8.1 - 13.5 fL [facility] Platelets (Bld) [#/Vol] 228 10*3/uL [facility] RBC (Bld) [#/Vol] 4.72 10*6/uL 4.21 - 5.7 7 m/uL [facility] Segmented neutrophils/100 WBC (Bld) 7.43 % [facility] WBC other (Bld) [#/Vol] 10.7 [facility] CBC with Diffon 09-29-2024 Abs. Basophil 0.07 k/uL Normal 0.00-0.20 [facility] Comment on above: Performed By: #### B MP, CRP, CDP #### [facility] [employer] [address] [place] [address] Spinning Operator: Willian Dudley MD Abs.Imm.Granulocyte 0.07 k/uL Normal 0.00-0.30 [facility] Comment on above: Performed By: #### B MP, CRP, CDP #### [facility] [address] [place] [address] Spinning Operator: Willian Dudley MD Abs.Neutrophil (Seg) 7.43 k/uL Normal 1.50-8.10 [facility] Comment on above: Performed By: #### B MP, CRP, CDP #### [facility] [employer] [address] [place], [place] [phone] Spinning Operator: Willian Dudley MD Basophils/100 WBC (Bld) 1 % Normal 0-2 [facility] Comment on above: Performed By: #### B MP, CRP, CDP #### [facility] [address] [place] [address] Spinning Operator: Willian Dudley MD Eosinophils (Bld) [#/Vol] 0.11 10*3/uL Normal 0.00-0.44 [facility] Comment on above: Performed By: #### B MP, CRP, CDP #### [facility] [address] [place] [address] 477[address] Spinning Operator: Willian Dudley MD Eosinophils/100 WBC (Bld) 1 % Normal 1-4 [facility] Comment on above: Performed By: #### B MP, CRP, CDP #### [facility] [address] [place] [address] [phone] Spinning Operator: Willian Dudley MD Erythrocyte distribution width (RBC) [Ratio] 11.6 % Low 11.8-14.4 [facility] Comment on above: Performed By: #### B MP, CRP, CDP #### [facility] [address] [place] [address] 39627 Spinning Operator: Willian Dudley MD Hematocrit (Bld) [Volume fraction] 47.4 % Normal 40.7-50.3 [facility] Comment on above: Performed By: #### B MP, CRP, CDP #### [facility] [address] [place] [address] Spinning Operator: Willian Dudley MD Hemoglobin (Bld) [Mass/Vol] 15.3 g/dL Normal 13.0-17.0 [facility] Comment on above: Performed By: #### B MP, CRP, CDP #### [facility] [address] [place] [address]19 Spinning Operator: Willian Dudley MD Immature granulocytes/100 WBC (Bld) 1 % High 0 [facility] Comment on above: Performed By: #### B MP, CRP, CDP #### [employer] [facility] [place] [address] Spinning Operator: Willian Dudley MD Lymphocytes (Bld) [#/Vol] 1.95 10*3/uL Normal 1.10-3.70 [facility] Comment on above: Performed By: #### B MP, CRP, CDP #### [address] [address] Spinning Operator: Willian Dudley MD Lymphocytes/100 WBC (Bld) 18 % Low 24-43 [facility] Comment on above: Performed By: #### B MP, CRP, CDP #### [facility] [employer] [address] [place] [address] 48694 Spinning Operator: Willian Dudley MD MCH (RBC) [Entitic mass] 32.4 pg Normal 25.2-33.5 [facility] Comment on above: Performed By: #### B MP, CRP, CDP #### [facility] [employer] [address] [place] [phone] Spinning Operator: Willian Dudley MD MCHC (RBC) [Mass/Vol] 32.3 g/dL Normal 28.4-34.8 [facility] Comment on above: Performed By: #### B MP, CRP, CDP #### [facility] [employer] [address] [place] [address]673 Spinning Operator: Willian Dudley MD MCV (RBC) [Entitic vol] 100.4 fL Normal 82.6-102.9 [facility] Comment on above: Performed By: #### B MP, CRP, CDP #### [facility] [employer] [address] [place] [address]81 Spinning Operator: Willian Dudley MD Monocytes (Bld) [#/Vol] 1.04 10*3/uL Normal 0.10-1.20 [facility] Comment on above: Performed By: #### B MP, CRP, CDP #### [address] [address] Spinning Operator: Willian Dudley MD Monocytes/100 WBC (Bld) 10 % Normal 3-12 [facility] Comment on above: Performed By: #### B MP, CRP, CDP #### [address] [address] Spinning Operator: Willian Dudley MD Neutrophil (Seg) 69 % High 36-65 [facility] Comment on above: Performed By: #### B MP, CRP, CDP #### [address] [address] Spinning Operator: Willian Dudley MD NRBC Automated 0.0 per 100 WBC Normal 0.0 [facility] Comment on above: Performed By: #### B MP, CRP, CDP #### [address] [address] Spinning Operator: Willian Dudley MD Platelet mean volume (Bld) [Entitic vol] 11.5 fL Normal 8.1-13.5 [facility] Comment on above: Performed By: #### B MP, CRP, CDP #### [address] [address] Spinning Operator: Willian Dudley MD Platelets (Bld) [#/Vol] 228 10*3/uL Normal 138-453 [facility] Comment on above: Performed By: #### B MP, CRP, CDP #### [facility] [address] [place] [address]252 Spinning Operator: Willian Dudley MD RBC (Bld) [#/Vol] 4.72 10*6/uL Normal 4.21-5.77 [facility] Comment on above: Performed By: #### B MP, CRP, CDP #### [address] [address] Spinning Operator: Willian Dudley MD WBC (Bld) [#/Vol] 10.7 10*3/uL Normal 3.5-11.3 [facility] Comment on above: Performed By: #### B THIEN YOUNG CDP #### [facility] [employer] [address] [place] [address] [phone] Spinning Operator: Willian Dudley MD No Panel Informationon 09-29 Interpretation and review of laboratory results Abnormal [facility] Basic Metabolic Panelon 09-10 Est, Glom Filt Rate - PINF [facility] Comment on above: These results [...] Interpretation and review of laboratory results Abnormal [facility] Basic Metabolic Profon 09-28 Anion gap [Moles/Vol] 11 mmol/L Normal 9-16 [facility] Comment on above: Performed By: #### B THIEN YOUNG, CDP #### [facility] [employer] [address] [place] [address] [phone] Spinning Operator: Willian Dudley MD Calcium [Mass/Vol] 8.7 mg/dL Normal 8.6-10.4 [facility] Comment on above: Performed By: #### B THIEN YOUNG, CDP #### [facility] [place] [address] Spinning Operator: Willian Dudley MD Chloride [Moles/Vol] 102 mmol/L Normal 98-107 [facility] Comment on above: Performed By: #### B THIEN YOUNG, CDP #### [facility] [place], [place] [phone] Spinning Operator: Willian Dudley MD CO2 [Moles/Vol] 26 mmol/L Normal 20-31 [facility] Comment on above: Performed By: #### B THIEN YOUNG, CDP #### [facility] [employer] [address] [place] [address]27 Spinning Operator: Willian Dudley MD Creatinine [Mass/Vol] 0.7 mg/dL Normal 0.7-1.2 [facility] Comment on above: Performed By: #### B THIEN YOUNG, CDP #### [facility] [employer] [address] [place] [address] 18038 Spinning Operator: Willian Dudley MD GFR/1.73 sq M.predicted among non-blacks MDRD (S/P/Bld) [Vol rate/Area] mL/min/{1.73_m2} Normal >60 [facility] Comment on above: Result Comment: These results [...] By: #### B THIEN YOUNG, CDP #### [facility] [employer] [address] [place] [address] Spinning Operator: Willian Dudley MD Glucose [Mass/Vol] 82 mg/dL Normal 74-99 [facility] Comment on above: Performed By: #### B THIEN YOUNG, CDP #### [facility] [employer] [address] [place] [address] 03043 Spinning Operator: Willian Dudley MD Potassium [Moles/Vol] 3.6 mmol/L Low 3.7-5.3 [facility] Comment on above: Performed By: #### B THIEN YOUNG, CDP #### [facility] [employer] [address] [place] [address] 67474 Spinning Operator: Willian Dudley MD Sodium [Moles/Vol] 139 mmol/L Normal 136-145 [facility] Comment on above: Performed By: #### B MP, CRP, CDP #### [facility] [address], [place] [phone] Spinning Operator: Willian Dudley MD Urea nitrogen [Mass/Vol] 4 mg/dL Low 6-20 [facility] Comment on above: Performed By: #### B MP, CRP, CDP #### [facility] [address] [place], [place] [phone] Spinning Operator: Willian Dudley MD CBC with Auto Differentialon 09-28-2024 Basophils (Bld) [#/Vol] 0.05 10*3/uL [facility] Basophils/100 WBC (Bld) 0 % 0 - 2 % [facility] Eosinophils (Bld) [#/Vol] 0.06 10*3/uL [facility] Eosinophils/100 WBC (Bld) 0 % Low 1 - 4 % [facility] Erythrocyte distribution width (RBC) [Ratio] 11.8 % 11.8 - 14.4 % [facility] Hematocrit (Bld) [Volume fraction] 46.2 % 40.7 - 50.3 % [facility] Hemoglobin (Bld) [Mass/Vol] 15.5 g/dL 13.0 - 17.0 g/dL [facility] Immature granulocytes (Bld) [#/Vol] 0.09 10*3/uL [facility] Immature granulocytes/100 WBC (Bld) 1 % High 0 [facility] Interpretation and review of laboratory results Abnormal [facility] Lymphocytes/100 WBC (Bld) 13 % Low 24 - 43 % [facility] Lymphocytes/100 WBC (Bld) 1.83 % [facility] MCH (RBC) [Entitic mass] 32.6 pg 25.2 - 33.5 pg [facility] MCHC (RBC) [Mass/Vol] 33.5 g/dL 28.4 - 34.8 g/dL [facility] MCV (RBC) [Entitic vol] 97.3 fL 82.6 - 102.9 fL [facility] Monocytes/100 WBC (Bld) 7 % 3 - 12 % [facility] Monocytes/100 WBC (Bld) 1.06 % [facility] Neutrophils/100 WBC (Bld) 79 % High 36 - 65 % [facility] Nucleated RBC/100 WBC (Bld) [Ratio] 0.0 % 0.0 per 100 WBC [facility] Platelet mean volume (Bld) [Entitic vol] 10.8 fL 8.1 - 13.5 fL [facility] Platelets (Bld) [#/Vol] 257 10*3/uL [facility] RBC (Bld) [#/Vol] 4.75 10*6/uL 4.21 - 5.7 7 m/uL [facility] Segmented neutrophils/100 WBC (Bld) 11.48 % High [facility] WBC other (Bld) [#/Vol] 14.6 High [facility] CBC with Diffon 09-28-2024 Abs. Basophil 0.05 k/uL Normal 0.00-0.20 [facility] Comment on above: Performed By: #### B MP CRP, CDP #### [facility] [employer] [address] [place] [address] Spinning Operator: Willian Dudley MD Abs.Imm.Granulocyte 0.09 k/uL Normal 0.00-0.30 [facility] Comment on above: Performed By: #### B MP, CRP, CDP #### [employer] [address] [place] [address] Spinning Operator: Willian Dudley MD Abs.Neutrophil (Seg) 11.48 k/uL High 1.50-8.10 [facility] Comment on above: Performed By: #### B MP, CRP, CDP #### [facility] [address] [place], [place] [id number] Spinning Operator: Willian Dudley MD Basophils/100 WBC (Bld) 0 % Normal 0-2 [facility] Comment on above: Performed By: #### B MP, CRP, CDP #### [address] [address] Spinning Operator: Willian Dudley MD Eosinophils (Bld) [#/Vol] 0.06 10*3/uL Normal 0.00-0.44 [facility] Comment on above: Performed By: #### B MP, CRP, CDP #### [facility] [employer] [address] [place] [address] Spinning Operator: Willian Dudley MD Eosinophils/100 WBC (Bld) 0 % Low 1-4 [facility] Comment on above: Performed By: #### B MP, CRP, CDP #### [facility] [employer] [address] [place] [address] Spinning Operator: Willian Dudley MD Erythrocyte distribution width (RBC) [Ratio] 11.8 % Normal 11.8-14.4 [facility] Comment on above: Performed By: #### B MP, CRP, CDP #### [address] [address] Spinning Operator: Willian Dudley MD Hematocrit (Bld) [Volume fraction] 46.2 % Normal 40.7-50.3 [facility] Comment on above: Performed By: #### B MP, CRP, CDP #### [facility] [employer] [address] [place] [address] Spinning Operator: Willian Dudley MD Hemoglobin (Bld) [Mass/Vol] 15.5 g/dL Normal 13.0-17.0 [facility] Comment on above: Performed By: #### B MP, CRP, CDP #### [facility] [employer] [address] [place] [address]31 Spinning Operator: Willian Dudley MD Immature granulocytes/100 WBC (Bld) 1 % High 0 [facility] Comment on above: Performed By: #### B MP, CRP, CDP #### [address] [address] Spinning Operator: Willian Dudley MD Lymphocytes (Bld) [#/Vol] 1.83 10*3/uL Normal 1.10-3.70 [facility] Comment on above: Performed By: #### B MP, CRP, CDP #### [address] [address] Spinning Operator: Willian Dudley MD Lymphocytes/100 WBC (Bld) 13 % Low 24-43 [facility] Comment on above: Performed By: #### B MP, CRP, CDP #### [address] [address] Spinning Operator: Wililan Dudley MD MCH (RBC) [Entitic mass] 32.6 pg Normal 25.2-33.5 [facility] Comment on above: Performed By: #### B MP, CRP, CDP #### [address] [address] Spinning Operator: Willian Dudley MD MCHC (RBC) [Mass/Vol] 33.5 g/dL Normal 28.4-34.8 [facility] Comment on above: Performed By: #### B MP, CRP, CDP #### [address] [address] Spinning Operator: Willian Dudley MD MCV (RBC) [Entitic vol] 97.3 fL Normal 82.6-102.9 [facility] Comment on above: Performed By: #### B MP, CRP, CDP #### [facility] [employer] [address] [place] [address] Spinning Operator: Willian Dudley MD Monocytes (Bld) [#/Vol] 1.06 10*3/uL Normal 0.10-1.20 [facility] Comment on above: Performed By: #### B MP, CRP, CDP #### [address] [address] Spinning Operator: Willian Dudley MD Monocytes/100 WBC (Bld) 7 % Normal 3-12 [facility] Comment on above: Performed By: #### B MP, CRP, CDP #### [address] [address] Spinning Operator: Willian Dudley MD Neutrophil (Seg) 79 % High 36-65 [facility] Comment on above: Performed By: #### B MP, CRP, CDP #### [address] [address] Spinning Operator: Willian Dudley MD NRBC Automated 0.0 per 100 WBC Normal 0.0 [facility] Comment on above: Performed By: #### B MP, CRP, CDP #### [address] [address] Spinning Operator: Willian Dudley MD Platelet mean volume (Bld) [Entitic vol] 10.8 fL Normal 8.1-13.5 [facility] Comment on above: Performed By: #### B MP, CRP, CDP #### [address] [address] Spinning Operator: Willian Dudley MD Platelets (Bld) [#/Vol] 257 10*3/uL Normal 138-453 [facility] Comment on above: Performed By: #### B MP, CRP, CDP #### [facility] [address] [place] [address] Spinning Operator: Willian Dudley MD RBC (Bld) [#/Vol] 4.75 10*6/uL Normal 4.21-5.77 [facility] Comment on above: Performed By: #### B MP, CRP, CDP #### [address] [address] Spinning Operator: Willian Dudley MD WBC (Bld) [#/Vol] 14.6 10*3/uL High 3.5-11.3 [facility] Comment on above: Performed By: #### B THIEN YOUNG, GARCÍA #### [facility] [address] [place] [address] Spinning Operator: Willian Dudley MD Basic Metabolic Panelon 09-10 Anion gap [Moles/Vol] 12 mmol/L 9 - 16 mmol/L [facility] Calcium [Mass/Vol] 8.5 mg/dL Low 8.6 - 10. 4 mg/dL [facility] Chloride [Moles/Vol] 104 mmol/L 98 - 10 7 mmol/L [facility] CO2 [Moles/Vol] 24 mmol/L 20 - 31 mmol/L [facility] Creatinine [Mass/Vol] 0.7 mg/dL 0.7 - 1.2 mg/dL [facility] [employer] Est, Glom Filt Rate - PINF [facility] Comment on above: These results [...] [Mass/Vol] 82 mg/dL 74 - 99 mg/dL [facility] Interpretation and review of laboratory results Abnormal [facility] Potassium [Moles/Vol] 3.4 mmol/L Low 3.7 - 5.3 mmol/L [facility] Sodium [Moles/Vol] 140 mmol/L 136 - 145 mmol/L [facility] Urea nitrogen [Mass/Vol] 5 mg/dL Low 6 - 20 mg/dL [facility] Basic Metabolic Profon 09-27 Anion gap [Moles/Vol] 12 mmol/L Normal -16 [facility] Comment on above: Performed By: #### B MP, CRP, CDP #### [facility] [employer] [facility] [place] [address] Spinning Operator: Willian Dudley MD Calcium [Mass/Vol] 8.5 mg/dL Low 8.6-10.4 [facility] Comment on above: Performed By: #### B MP, CRP, CDP #### [facility] [employer] [address] [place] [phone] Spinning Operator: Willian Dudley MD Chloride [Moles/Vol] 104 mmol/L Normal 98-107 [facility] Comment on above: Performed By: #### B MP CRP, CDP #### [facility] [employer] [address] [place] [address] Spinning Operator: Willian Dudley MD CO2 [Moles/Vol] 24 mmol/L Normal 20-31 [facility] Comment on above: Performed By: #### B HECTOR CRP, CDP #### [facility] [employer] [address] [place] [address] Spinning Operator: Willian Dudley MD Creatinine [Mass/Vol] 0.7 mg/dL Normal 0.7-1.2 [facility] Comment on above: Performed By: #### B MP CRP, CDP #### [address] [address] Spinning Operator: Willian Dudley MD GFR/1.73 sq M.predicted among non-blacks MDRD (S/P/Bld) [Vol rate/Area] mL/min/{1.73_m2} Normal >60 [facility] Comment on above: Result Comment: These results [...] MP, CRP, CDP #### [facility] [address] [place] [address] Spinning Operator: Willian Dudley MD Glucose [Mass/Vol] 82 mg/dL Normal 74-99 [facility] Comment on above: Performed By: #### B MP, CRP, CDP #### [facility] [address] [place] [address] Spinning Operator: Willian Dudley MD Potassium [Moles/Vol] 3.4 mmol/L Low 3.7-5.3 [facility] Comment on above: Performed By: #### B HECTOR CRP, CDP #### [facility] [address] [place] [address] Spinning Operator: Willian Dudley MD Sodium [Moles/Vol] 140 mmol/L Normal 136-145 [facility] Comment on above: Performed By: #### B HECTOR CRP, CDP #### [facility] [address] [place] [address] Spinning Operator: Willian Dudley MD Urea nitrogen [Mass/Vol] 5 mg/dL Low 6-20 [facility] Comment on above: Performed By: #### B HECTOR CRP, CDP #### [facility] [address] [place] [address] Spinning Operator: Willian Dudley MD CBC with Auto Differentialon [...] [Mass/Vol] 14.3 g/dL 13.0 - 17.0 g/dL [facility] Immature granulocytes (Bld) [#/Vol] 0.07 10*3/uL [facility] Immature granulocytes/100 WBC (Bld) 1 % High 0 [facility] Interpretation and review of laboratory results Abnormal [facility] Lymphocytes/100 WBC (Bld) 15 % Low 24 - 43 % [facility] Lymphocytes/100 WBC (Bld) 1.92 % [facility] MCH (RBC) [Entitic mass] 32.8 pg 25.2 - 33.5 pg [facility] MCHC (RBC) [Mass/Vol] 33.6 g/dL 28.4 - 34.8 g/dL [facility] MCV (RBC) [Entitic vol] 97.7 fL 82.6 - 102.9 fL [facility] Monocytes/100 WBC (Bld) 9 % 3 - 12 % [facility] Monocytes/100 WBC (Bld) 1.16 % [facility] Neutrophils/100 WBC (Bld) 75 % High 36 - 65 % [facility] Nucleated RBC/100 WBC (Bld) [Ratio] 0.0 % 0.0 per 100 WBC [facility] Platelet mean volume (Bld) [Entitic vol] 11.0 fL 8.1 - 13.5 fL [facility] Platelets (Bld) [#/Vol] 242 10*3/uL [facility] RBC (Bld) [#/Vol] 4.36 10*6/uL 4.21 - 5.7 7 m/uL [facility] Segmented neutrophils/100 WBC (Bld) 9.87 % High [facility] WBC other (Bld) [#/Vol] 13.2 High [facility] CBC with Diffon 09-27-2024 Abs. Basophil 0.05 k/uL Normal 0.00-0.20 [facility] Comment on above: Performed By: #### B MP, CRP, CDP #### [address] [address] Spinning Operator: Willian Dudley MD Abs.Imm.Granulocyte 0.07 k/uL Normal 0.00-0.30 [facility] Comment on above: Performed By: #### B MP, CRP, CDP #### [address] [address] Spinning Operator: Willian Dudley MD Abs.Neutrophil (Seg) 9.87 k/uL High 1.50-8.10 [facility] Comment on above: Performed By: #### B MP, CRP, CDP #### [address] [address] Spinning Operator: Willian Dudley MD Basophils/100 WBC (Bld) 0 % Normal 0-2 [facility] Comment on above: Performed By: #### B MP, CRP, CDP #### [address] [address] Spinning Operator: Willian Dudley MD Eosinophils (Bld) [#/Vol] 0.10 10*3/uL Normal 0.00-0.44 [facility] Comment on above: Performed By: #### B MP, CRP, CDP #### [facility] [employer] [address] [place] [address] Spinning Operator: Willian Dudley MD Eosinophils/100 WBC (Bld) 1 % Normal 1-4 [facility] Comment on above: Performed By: #### B MP, CRP, CDP #### [facility] [employer] [address] [place] [address] Spinning Operator: Willian Dudley MD Erythrocyte distribution width (RBC) [Ratio] 11.9 % Normal 11.8-14.4 [facility] Comment on above: Performed By: #### B MP, CRP, CDP #### [facility] [employer] [address] [place] [address] Spinning Operator: Willian Dudley MD Hematocrit (Bld) [Volume fraction] 42.6 % Normal 40.7-50.3 [facility] Comment on above: Performed By: #### B MP, CRP, CDP #### [facility] [employer] [address] [place] [address] Spinning Operator: Willian Dudley MD Hemoglobin (Bld) [Mass/Vol] 14.3 g/dL Normal 13.0-17.0 [facility] Comment on above: Performed By: #### B MP, CRP, CDP #### [facility] [employer] [address] [place] [address] Spinning Operator: Willian Dudley MD Immature granulocytes/100 WBC (Bld) 1 % High 0 [facility] Comment on above: Performed By: #### B MP, CRP, CDP #### [facility] [employer] [address] [place] [address] Spinning Operator: Willian Dudley MD Lymphocytes (Bld) [#/Vol] 1.92 10*3/uL Normal 1.10-3.70 [facility] Comment on above: Performed By: #### B MP, CRP, CDP #### [facility] [employer] [address] [place] [address] Spinning Operator: Willian Dudley MD Lymphocytes/100 WBC (Bld) 15 % Low 24-43 [facility] Comment on above: Performed By: #### B MP, CRP, CDP #### [facility] [employer] [address] [place] [address] Spinning Operator: Willian Dudley MD MCH (RBC) [Entitic mass] 32.8 pg Normal 25.2-33.5 [facility] Comment on above: Performed By: #### B MP, CRP, CDP #### [facility] [employer] [address] [place] [address] Spinning Operator: Willian Dudley MD MCHC (RBC) [Mass/Vol] 33.6 g/dL Normal 28.4-34.8 [facility] Comment on above: Performed By: #### B MP, CRP, CDP #### [address] [address] Spinning Operator: Willian Dudley MD MCV (RBC) [Entitic vol] 97.7 fL Normal 82.6-102.9 [facility] Comment on above: Performed By: #### B MP, CRP, CDP #### [address] [address] Spinning Operator: Willian Dudley MD Monocytes (Bld) [#/Vol] 1.16 10*3/uL Normal 0.10-1.20 [facility] Comment on above: Performed By: #### B MP, CRP, CDP #### [address] [address] Spinning Operator: Willian Dudley MD Monocytes/100 WBC (Bld) 9 % Normal 3-12 [facility] Comment on above: Performed By: #### B MP, CRP, CDP #### [address] [address] Spinning Operator: Willian Dudley MD Neutrophil (Seg) 75 % High 36-65 [facility] Comment on above: Performed By: #### B MP, CRP, CDP #### [address] [address] Spinning Operator: Willian Dudley MD NRBC Automated 0.0 per 100 WBC Normal 0.0 [facility] Comment on above: Performed By: #### B MP, CRP, CDP #### [address] [address] Spinning Operator: Willian Dudley MD Platelet mean volume (Bld) [Entitic vol] 11.0 fL Normal 8.1-13.5 [facility] Comment on above: Performed By: #### B MP, CRP, CDP #### [facility] [address] [place] [address] Spinning Operator: Willian Dudley MD Platelets (Bld) [#/Vol] 242 10*3/uL Normal 138-453 [facility] Comment on above: Performed By: #### B MP, CRP, CDP #### [facility] [address] [place] [address] Spinning Operator: Willian Dudley MD RBC (Bld) [#/Vol] 4.36 10*6/uL Normal 4.21-5.77 [facility] Comment on above: Performed By: #### B HECTOR CRP, CDP #### [facility] [employer] [address] [place] [address] Spinning Operator: Willian Dudley MD WBC (Bld) [#/Vol] 13.2 10*3/uL High 3.5-11.3 [facility] Comment on above: Performed By: #### B HECTOR CRP, CDP #### [facility] [employer] [address] [place] [address] Spinning Operator: Willian Dudley MD Lactic Acidon 09-27-2024 Lactic Acid, Whole Blood 1.2 mmol/L 0.7 - 2.1 mmol/L [facility] Lactic Acid,Whole Bl 1.2 mmol/L Normal 0.7-2.1 [facility] Comment on above: Performed By: #### L ACTIC #### [facility] [address] [place] [address] Spinning Operator: Willian Dudley MD Lipaseon 09-27-2024 Lipase [Catalytic activity/Vol] 34 U/L 13 - 60 U/L [facility] Lipase [Catalytic activity/Vol] 34 U/L Normal 13-60 [facility] Comment on above: Performed By: #### B MP, CRP, CDP #### [facility] [address] [place] [address] Spinning Operator: Willian Dudley MD No Panel Informationon 09-27 [facility] BLOOD BANK SPECIMENon [address] [facility] [address] Guidance for drainage of abscess and placement of drainage catheter of Unspecified body regionon 09-26-[address] guided placement of right transgluteal 10 Mauritian pelvic abscess drainage catheter. [facility] Nicole Benjamin MD - 09/26/2024 PROCEDURE: CT GUIDEDright transgluteal pelvicABSCESS DRAINAGE CATHETER PLACEMENT MODERATE CONSCIOUS SEDATION 09/26/2024 HISTORY: ORDERING SYSTEM PROVIDED HISTORY: diverticulitis with abscess TECHNOLOGIST PROVIDED HISTORY: diverticulitis with abscess SEDATION: Moderate sedation was ordered and supervised by the attending with physician [id number] monitoring. Medications were provided and recorded by Radiology nurses. TECHNIQUE: Informed consent was obtained after a detailed explanation of the procedure including risks, benefits, and alternatives. Sterling protocol was followed. Sterile gowns, masks, hats, and gloves utilized for maximal sterile barrier. A suitable skin site was prepped and draped in sterile fashion following CT localization. An 18 gauge needle was advanced under CT guidance via right transgluteal fashion into the pelvic fluid collection. CT images confirmed satisfactory needle tip position. 0.035 guidewire was used to place a 10 Mauritian abscess drainage catheter after the fashion tract [...] CT guided placement of right transgluteal 10 Mauritian pelvic abscess drainage catheter. [facility] Radiology Study observation (narrative) [facility] CT Guidance for drainage of abscess and placement of drainage catheter of Unspecified body regionOrdered By: Nicole Hutchison on 09-26-2024 Elissa Zelaya [facility] Work Phone: Comp Metabolic Pr/rfx MGon 0 09-26-2024 Albumin [Mass/Vol] 3.3 g/dL Low 3.5-5.2 [facility] Comment on above: Performed By: #### B MP CRP, CDP #### [facility] [employer] [address] [place] [address] Spinning Operator: Willian Dudley MD Albumin/Glob Ratio 0.9 Low 1.0-2.5 [facility] Comment on above: Performed By: #### B MP, CRP, CDP #### [facility] [employer] [address] [place] [address] Spinning Operator: Willian Dudley MD Alkaline Phos 61 U/L Normal 40-129 [facility] Comment on above: Performed By: #### B HECTOR CRP, CDP #### [facility] [employer] [address] [place] [address] Spinning Operator: Willian Dudley MD ALT [Catalytic activity/Vol] 5 U/L Low 10-50 [facility] Comment on above: Performed By: #### B HECTOR CRP, CDP #### [facility] [employer] [address] [place] [address] Spinning Operator: Willian Dudley MD Anion gap [Moles/Vol] 11 mmol/L Normal 9-16 [facility] Comment on above: Performed By: #### B MP, CRP, CDP #### [facility] [address] [place] [address] Spinning Operator: Willian Dudley MD AST [Catalytic activity/Vol] 13 U/L Normal 10-50 [facility] Comment on above: Performed By: #### B MP CRP, CDP #### [facility] [employer] [address] [place] [address] Spinning Operator: Willian Dudley MD Bilirubin [Mass/Vol] 0.4 mg/dL Normal 0.0-1.2 [facility] Comment on above: Performed By: #### B HECTOR CRP, CDP #### [facility] [employer] [address] [place] [address] Spinning Operator: Willian Dudley MD Calcium [Mass/Vol] 8.8 mg/dL Normal 8.6-10.4 [facility] Comment on above: Performed By: #### B HECTOR CRP, CDP #### [facility] [address] [place] [address] Spinning Operator: Willian Dudley MD Chloride [Moles/Vol] 105 mmol/L Normal 98-107 [facility] Comment on above: Performed By: #### B HECTOR CRP, CDP #### [facility] [employer] [address] [place] [address] Spinning Operator: Willian Dudley MD CO2 [Moles/Vol] 22 mmol/L Normal 20-31 [facility] Comment on above: Performed By: #### B HECTOR CRP, CDP #### [facility] [employer] [address] [place] [address] Spinning Operator: Willian Dudley MD Creatinine [Mass/Vol] 0.7 mg/dL Normal 0.7-1.2 [facility] Comment on above: Performed By: #### B HECTOR CRP, CDP #### [address] [address] Spinning Operator: Willian Dudley MD GFR/1.73 sq M.predicted among non-blacks MDRD (S/P/Bld) [Vol rate/Area] mL/min/{1.73_m2} Normal >60 [facility] Comment on above: Result Comment: These results [...] By: #### B THIEN YOUNG, CDP #### [facility] [employer] [address] [place] [address] Spinning Operator: Willian Dudley MD Glucose [Mass/Vol] 118 mg/dL High 74-99 [facility] Comment on above: Performed By: #### B HECTOR CRP, CDP #### [facility] [address] [place] [address] Spinning Operator: Willian Dudley MD Potassium [Moles/Vol] 4.1 mmol/L Normal 3.7-5.3 [facility] Comment on above: Performed By: #### B THIEN YOUNG, CDP #### [facility] [employer] [address] [place] [address] Spinning Operator: Willian Dudley MD Protein [Mass/Vol] 6.8 g/dL Normal 6.6-8.7 [facility] Comment on above: Performed By: #### B THIEN YOUNG, CDP #### [facility] [address] [place] [address] Spinning Operator: Willian Dudley MD Sodium [Moles/Vol] 138 mmol/L Normal 136-145 [facility] Comment on above: Performed By: #### B HECTOR CRP, CDP #### [facility] [address] [place] [address] Spinning Operator: Willian Dudley MD Urea nitrogen [Mass/Vol] 7 mg/dL Normal 6-20 [facility] Comment on above: Performed By: #### B HECTOR CRP, CDP #### [facility] [address] [place] [address] Spinning Operator: Willian Dudley MD Comprehensive Metabolic Pane l w/ Reflex to MGon 09-26-2024 Albumin [Mass/Vol] 3.3 g/dL Low 3.5 - 5.2 g/dL [facility] Albumin/Globulin [Mass ratio] 0.9 {ratio} Low 1.0 - 2.5 [facility] ALP [Catalytic activity/Vol] 61 U/L 40 - 129 U/L [facility] ALT [Catalytic activity/Vol] 5 U/L Low 10 - 50 U/L [facility] Anion gap [Moles/Vol] 11 mmol/L 9 - 16 mmol/L [facility] AST [Catalytic activity/Vol] 13 U/L 10 - 50 U/L [facility] Bilirubin [Mass/Vol] 0.4 mg/dL 0.0 - 1 .2 mg/dL [facility] Calcium [Mass/Vol] 8.8 mg/dL 8.6 - 10. 4 mg/dL [facility] Chloride [Moles/Vol] 105 mmol/L 98 - 10 7 mmol/L [facility] CO2 [Moles/Vol] 22 mmol/L 20 - 31 mmol/L [facility] Creatinine [Mass/Vol] 0.7 mg/dL 0.7 - 1.2 mg/dL [facility] Est, Glom Filt Rate - PINF [facility] Comment on above: These results [...] 118 mg/dL High 74 - 99 mg/dL [facility] Potassium [Moles/Vol] 4.1 mmol/L 3.7 - 5.3 mmol/L [facility] Protein [Mass/Vol] 6.8 g/dL 6.6 - 8.7 g/dL [facility] Sodium [Moles/Vol] 138 mmol/L 136 - 145 mmol/L [facility] Urea nitrogen [Mass/Vol] 7 mg/dL 6 - 20 mg/dL [facility] Lactic Acidon 09-26-2024 Lactic Acid, Whole Blood 1.2 mmol/L 0.7 - 2.1 mmol/L [facility] Lactic Acid,Whole Bl 1.2 mmol/L Normal 0.7-2.1 [facility] Comment on above: Performed By: #### L ACTIC #### [facility] [address] [place] [address] [phone] Spinning Operator: Willian Dudley MD Interpretation and review of laboratory results Abnormal [facility] Lactic Acid, Whole Blood 3.0 mmol/L High 0.7 - 2.1 mmol/L [facility] Lactic Acid,Whole Bl 3.0 mmol/L High 0.7-2.1 [facility] Comment on above: Performed By: #### B THIEN YOUNG, CDP #### [facility] [address] [place] [address] [phone] Spinning Operator: Willian Dudley MD Lactic Acid, Whole Blood 1.4 mmol/L 0.7 - 2.1 mmol/L [facility] Lactic Acid,Whole Bl 1.4 mmol/L Normal 0.7-2.1 [facility] Comment on above: Performed By: #### B THIEN YOUNG, CDP #### [facility] [address] [place] [address] [phone] Spinning Operator: Willian Dudley MD Lipaseon 09-26-2024 Lipase [Catalytic activity/Vol] 221 U/L High 13 - 60 U/L [facility] Lipase [Catalytic activity/Vol] 221 U/L High 13-60 [facility] Comment on above: Performed By: #### B HECTOR CRP, CDP #### [facility] [address] [place] [address] [phone] Spinning Operator: Willian Dudley MD Magnesiumon 09-26-2024 Magnesium [Mass/Vol] 2.2 mg/dL 1.6 - 2 .6 mg/dL [facility] Magnesium [Mass/Vol] 2.2 mg/dL Normal 1.6-2.6 [facility] Comment on above: Performed By: #### B THIEN YOUNG, GARCÍA #### [facility] [address] [place], [place] [phone] Spinning Operator: Willian Dudley MD No Panel Informationon 09-26 Interpretation and review of laboratory results Abnormal [facility] Phosphoruson 09-26-2024 Phosphate [Mass/Vol] 2.6 mg/dL 2.5 - 4 .5 mg/dL [facility] Phosphorus, Inorg.on Phosphorus, Inorg. 2.6 mg/dL Normal 2.5-4.5 [facility] Comment on above: Performed By: #### B THIEN YOUNG, GARCÍA #### [employer] [place], [place] [phone] Spinning Operator: Willian Dudley MD TYPE AND SCREENon 09-26-2024 ABO and Rh group Nom (Bld) Blood group B Rh(D) positive [facility] Arm Band Number BE [id number] [facility] Blood Bank Sample Expiration 09/29/2024,2359 [facility] Blood group antibodies identified Nom Negative [facility] Type + Screenon 09-26-2024 Type + Screen Sample Expiration 09/29/2024,2359 Arm Band Number BE [id number] ABO/Rh(D) B POSITIVE Antibody Screen NEGATIVE Normal [facility] Comment on above: Performed By: #### T YS #### [employer] [address] [place], [place] [phone] Spinning Operator: Willian Dudley MD Basic Metabolic Panelon 09-10 Anion gap [Moles/Vol] 15 mmol/L 9 - 16 mmol/L [facility] Calcium [Mass/Vol] 8.5 mg/dL Low 8.6 - 10. 4 mg/dL [facility] Chloride [Moles/Vol] 101 mmol/L 98 - 10 7 mmol/L [facility] CO2 [Moles/Vol] 23 mmol/L 20 - 31 mmol/L [facility] Creatinine [Mass/Vol] 0.8 mg/dL 0.7 - 1.2 mg/dL [facility] Aiden Mueller Rate - PINF [facility] Comment on above: These results [...] 103 mg/dL High 74 - 99 mg/dL [facility] Interpretation and review of laboratory results Abnormal [facility] Potassium [Moles/Vol] 3.2 mmol/L Low 3.7 - 5.3 mmol/L [facility] Sodium [Moles/Vol] 139 mmol/L 136 - 145 mmol/L [facility] Urea nitrogen [Mass/Vol] 7 mg/dL 6 - 20 mg/dL [facility] Basic Metabolic Profon 09-25 Anion gap [Moles/Vol] 15 mmol/L Normal 9-16 [facility] Comment on above: Performed By: #### P T BMPX, CDP #### [employer] [address] [place], [place] [phone] Spinning Operator: Willian Dudley MD Calcium [Mass/Vol] 8.5 mg/dL Low 8.6-10.4 [facility] Comment on above: Performed By: #### P T BMPX, CDP #### [employer] [address] [place], [place] [phone] Spinning Operator: Willian Dudley MD Chloride [Moles/Vol] 101 mmol/L Normal 98-107 [facility] Comment on above: Performed By: #### P T, BMPX, CDP #### [facility] [place] [address] Spinning Operator: Willian Dudley MD CO2 [Moles/Vol] 23 mmol/L Normal 20-31 [facility] Comment on above: Performed By: #### P TALVARO, CDP #### [facility] [employer] [address] [place] [address] Spinning Operator: Willian Dudley MD Creatinine [Mass/Vol] 0.8 mg/dL Normal 0.7-1.2 [facility] Comment on above: Performed By: #### P TALVARO CDP #### [facility] [employer] [address] [place] [address] Spinning Operator: Willian Dudley MD GFR/1.73 sq M.predicted among non-blacks MDRD (S/P/Bld) [Vol rate/Area] mL/min/{1.73_m2} Normal >60 [facility] Comment on above: Result Comment: These results [...] Performed By: #### P TALVARO CDP #### [facility] [address] [place] [address] Spinning Operator: Willian Dudley MD Glucose [Mass/Vol] 103 mg/dL High 74-99 [facility] Comment on above: Performed By: #### P TALVARO CDP #### [facility] [address] [place] [address] Spinning Operator: Willian Dudley MD Potassium [Moles/Vol] 3.2 mmol/L Low 3.7-5.3 [facility] Comment on above: Performed By: #### P T, BMPX, CDP #### [facility] [address] [place], [place] [phone] Spinning Operator: Willian Dudley MD Sodium [Moles/Vol] 139 mmol/L Normal 136-145 [facility] Comment on above: Performed By: #### P T, BMPX, CDP #### [facility] [address] [place], [place] [phone] Spinning Operator: Willian Dudley MD Urea nitrogen [Mass/Vol] 7 mg/dL Normal 6-20 [facility] Comment on above: Performed By: #### P T, BMPX, CDP #### [facility] [address] [place], [place] [phone] Spinning Operator: Willian Dudley MD CBC with Auto Differentialon 09-25-2024 Atypical Lymphocytes 1 % [facility] Atypical Lymphocytes Absolute 0.24 k/uL [facility] Basophils (Bld) [#/Vol] 0.00 10*3/uL [facility] Basophils/100 WBC (Bld) 0 % 0 - 2 % [facility] Eosinophils (Bld) [#/Vol] 0.00 10*3/uL [facility] Eosinophils/100 WBC (Bld) 0 % Low 1 - 4 % [facility] Erythrocyte distribution width (RBC) [Ratio] 11.6 % Low 11.8 - 14.4 % [facility] Hematocrit (Bld) [Volume fraction] 44.0 % 40.7 - 50.3 % [facility] Hemoglobin (Bld) [Mass/Vol] 15.5 g/dL 13.0 - 17.0 g/dL [facility] Immature granulocytes (Bld) [#/Vol] 0.00 10*3/uL [facility] Immature granulocytes/100 WBC (Bld) 0 % 0 [facility] Interpretation and review of laboratory results Abnormal [facility] Lymphocytes/100 WBC (Bld) 13 % Low 24 - 44 % [facility] Health Lymphocytes/100 WBC (Bld) 3.15 % [facility] MCH (RBC) [Entitic mass] 32.9 pg 25.2 - 33.5 pg [facility] MCHC (RBC) [Mass/Vol] 35.2 g/dL High 28.4 - 34.8 g/dL [facility] MCV (RBC) [Entitic vol] 93.4 fL 82.6 - 102.9 fL [facility] Monocytes/100 WBC (Bld) 4 % 1 - 7 % [facility] Monocytes/100 WBC (Bld) 0.97 % High [facility] Morphology Dez (Bld) [Interp] Normal [facility] Neutrophils/100 WBC (Bld) 82 % High 36 - 66 % [facility] Nucleated RBC/100 WBC (Bld) [Ratio] 0.0 % 0.0 per 100 WBC [facility] Platelet mean volume (Bld) [Entitic vol] 11.0 fL 8.1 - 13.5 fL [facility] Platelets (Bld) [#/Vol] 309 10*3/uL [facility] RBC (Bld) [#/Vol] 4.71 10*6/uL 4.21 - 5.7 7 m/uL [facility] Segmented neutrophils/100 WBC (Bld) 19.84 % High [facility] WBC other (Bld) [#/Vol] 24.2 High [facility] CBC with Diffon 09-25-2024 Abs. Atypical Lymphs 0.24 k/uL Normal [facility] Comment on above: Performed By: #### P T, BMPX, CDP #### [employer] [address] [place], [place] [phone] Spinning Operator: Willian Dudley MD Abs. Basophil 0.00 k/uL Normal 0.0-0.2 [facility] Comment on above: Performed By: #### P T, BMPX, CDP #### [employer] [address] [place], [place] [phone] Spinning Operator: Willian Dudley MD Abs.Imm.Granulocyte 0.00 k/uL Normal 0.00-0.30 [facility] Comment on above: Performed By: #### P T, BMPX, CDP #### [address] [address] Spinning Operator: Willian Dudley MD Abs.Neutrophil (Seg) 19.84 k/uL High 1.8-7.7 [facility] Comment on above: Performed By: #### P T, BMPX, CDP #### [facility] [employer] [address] [place] [address] Spinning Operator: Willian Dudley MD Atypical Lymphs 1 % Normal [facility] Comment on above: Performed By: #### P T, BMPX, CDP #### [facility] [employer] [address] [place] [address] Spinning Operator: Willian Dudley MD Basophils/100 WBC (Bld) 0 % Normal 0-2 [facility] Comment on above: Performed By: #### P T, BMPX, CDP #### [place] [address] Spinning Operator: Willian Dudley MD Eosinophils (Bld) [#/Vol] 0.00 10*3/uL Normal 0.0-0.4 [facility] Comment on above: Performed By: #### P T, BMPX, CDP #### [facility] [employer] [address] [place] [address] Spinning Operator: Willian Dudley MD Eosinophils/100 WBC (Bld) 0 % Low 1-4 [facility] Comment on above: Performed By: #### P T, BMPX, CDP #### [facility] [employer] [address] [place] [address] Spinning Operator: Willian Dudley MD Immature granulocytes/100 WBC (Bld) 0 % Normal 0 [facility] Comment on above: Performed By: #### P T, BMPX, CDP #### [facility] [address] [place] [address] Spinning Operator: Willian Dudley MD Lymphocytes (Bld) [#/Vol] 3.15 10*3/uL Normal 1.0-4.8 [facility] Comment on above: Performed By: #### P T, BMPX, CDP #### [facility] [address] [place] [address] Spinning Operator: Willian Dudley MD Lymphocytes/100 WBC (Bld) 13 % Low 24-44 [facility] Comment on above: Performed By: #### P T, BMPX, CDP #### [address] [address] Spinning Operator: Willian Dudley MD Monocytes (Bld) [#/Vol] 0.97 10*3/uL High 0.1-0.8 [facility] Comment on above: Performed By: #### P T, BMPX, CDP #### [address] [address] Spinning Operator: Willian Dudley MD Monocytes/100 WBC (Bld) 4 % Normal 1-7 [facility] Comment on above: Performed By: #### P T, BMPX, CDP #### [address] [address] Spinning Operator: Willian Dudley MD Morphology Dez (Bld) [Interp] Normal Normal [facility] Comment on above: Performed By: #### P T, BMPX, CDP #### [address] [address] Spinning Operator: Willian Dudley MD Neutrophil (Seg) 82 % High 36-66 [facility] Comment on above: Performed By: #### P T, BMPX, CDP #### [facility] [employer] [address] [place] [address] Spinning Operator: Willian Dudley MD Erythrocyte distribution width (RBC) [Ratio] 11.6 % Low 11.8-14.4 [facility] Comment on above: Performed By: #### P T, BMPX, CDP #### [facility] [employer] [address] [place] [address] Spinning Operator: Willian Dudley MD Hematocrit (Bld) [Volume fraction] 44.0 % Normal 40.7-50.3 [facility] Comment on above: Performed By: #### P T, BMPX, CDP #### [facility] [employer] [address] [place] [address] Spinning Operator: Willian Dudley MD Hemoglobin (Bld) [Mass/Vol] 15.5 g/dL Normal 13.0-17.0 [facility] Comment on above: Performed By: #### P T, BMPX, CDP #### [facility] [employer] [address] [place] [address] Spinning Operator: Wililan Dudley MD MCH (RBC) [Entitic mass] 32.9 pg Normal 25.2-33.5 [facility] Comment on above: Performed By: #### P T, BMPX, CDP #### [facility] [employer] [address] [place] [address] Spinning Operator: Willian Dudley MD MCHC (RBC) [Mass/Vol] 35.2 g/dL High 28.4-34.8 [facility] Comment on above: Performed By: #### P T, BMPX, CDP #### [facility] [employer] [address] [place] [address] Spinning Operator: Willian Dudley MD MCV (RBC) [Entitic vol] 93.4 fL Normal 82.6-102.9 [facility] Comment on above: Performed By: #### P T, BMPX, CDP #### [facility] [employer] [address] [place] [address] Spinning Operator: Willian Dudley MD NRBC Automated 0.0 per 100 WBC Normal 0.0 [facility] Comment on above: Performed By: #### P T, BMPX, CDP #### [facility] [employer] [address] [place] [address] Spinning Operator: Willian Dudley MD Platelet mean volume (Bld) [Entitic vol] 11.0 fL Normal 8.1-13.5 [facility] Comment on above: Performed By: #### P T, BMPX, CDP #### [facility] [employer] [address] [place] [address] Spinning Operator: Willian Dudley MD Platelets (Bld) [#/Vol] 309 10*3/uL Normal 138-453 [facility] Comment on above: Performed By: #### P T, BMPX, CDP #### [facility] [employer] [address] [place] [phone] Spinning Operator: Willian Dudley MD RBC (Bld) [#/Vol] 4.71 10*6/uL Normal 4.21-5.77 [facility] Comment on above: Performed By: #### P T, BMPX, CDP #### [facility] [employer] [address] [place] [address] Spinning Operator: Willian Dudley MD WBC (Bld) [#/Vol] 24.2 10*3/uL High 3.5-11.3 [facility] Comment on above: Performed By: #### P T, BMPX, CDP #### [facility] [employer] [address] [place] [address] Spinning Operator: Willian Dudley MD Calcium, Ionicon 09-25-2024 Calcium [Moles/Vol] 1.05 mmol/L Low 1.13-1.33 [facility] Comment on above: Performed By: #### B MP, CRP, CDP #### [employer] [address] [place] [address] [phone] Spinning Operator: Willian Dudley MD Calcium, Ionizedon Calcium.ionized (Bld) [Moles/Vol] 1.05 mmol/L Low 1.13 - 1.33 mmol/L [facility] Interpretation and review of laboratory results Abnormal [facility] Lactic Acidon 09-25-2024 Lactic Acid, Whole Blood 1.8 mmol/L 0.7 - 2.1 mmol/L [facility] Lactic Acid,Whole Bl 1.8 mmol/L Normal 0.7-2.1 [facility] Comment on above: Performed By: #### ALVARO Vega, CDP #### [facility] [address] [place] [address] [phone] Spinning Operator: Willian Dudley MD Magnesiumon 09-25-2024 Magnesium [Mass/Vol] 2.3 mg/dL 1.6 - 2 .6 mg/dL [facility] Magnesium [Mass/Vol] 2.3 mg/dL Normal 1.6-2.6 [facility] Comment on above: Performed By: #### ALVARO Vega, CDP #### [facility] [address] [place] [address] [phone] Spinning Operator: Willian Dudley MD No Panel Informationon 09-25 [facility] PTon 09-25-2024 INR Coag (PPP) [Relative time] 1.4 {INR} Normal [facility] Comment on above: Result Comment: Therapeutic Range: Moderate Anticoagulant Intensity: INR = 2.0-3.0 High Anticoagulant Intensity: INR = 2.5-3.5 Performed By: #### Magda TALVARO, CDP #### [facility] [address] [place] [address] [phone] Spinning Operator: Willian Dudley MD PT Coag (PPP) [Time] 17.2 s High 11.7-14.9 [facility] Comment on above: Performed By: #### P T, BMPX, CDP #### [employer] [address] [place], [place] [phone] Spinning Operator: Willian Dudley MD Phosphoruson 09-25-2024 Phosphate [Mass/Vol] 3.6 mg/dL 2.5 - 4 .5 mg/dL [facility] [employer] Phosphorus, Inorg.on 025 Phosphorus, Inorg. 3.6 mg/dL Normal 2.5-4.5 [facility] Comment on above: Performed By: #### P T, BMPX, CDP #### [employer] [facility] [place], [place] [phone] Spinning Operator: Willian Dudley MD Protime-INRon 09-25-2024 INR Coag (PPP) [Relative time] 1.4 {INR} [facility] Comment on above: Therapeutic Range: Moderate Anticoagulant Intensity: INR = 2.0-3.0 High Anticoagulant Intensity: INR = 2.5-3.5 Interpretation and review of laboratory results Abnormal [facility] PT Coag (PPP) [Time] 17.2 s High [facility] IBD sgi Diagnosticon 024 IBD sgi Diagnostic SEE SEPARATE REPORT Normal [facility] Comment on above: Result Comment: (NOT E) Pattern not consistent with IBD Performed By: #### B MP, CRP, CDP #### [employer] [address] [place], [place] [phone] Spinning Operator: Willian Dudley MD Basic Metab w/rfx MGon 01-17 Anion gap [Moles/Vol] 18 mmol/L High 05-26 [facility] Comment on above: Performed By: #### B MPX, CDP #### [facility] [address] [place] [address] Spinning Operator: Willian Dudley MD Calcium [Mass/Vol] 9.5 mg/dL Normal 8.6-10.4 [facility] Comment on above: Performed By: #### B MPX, CDP #### [facility] [address] [place] [address] Spinning Operator: Willian Dudley MD Chloride [Moles/Vol] 102 mmol/L Normal 98-107 [facility] Comment on above: Performed By: #### B MPX, CDP #### [facility] [address] [place] [address] Spinning Operator: Willian Dudley MD CO2 [Moles/Vol] 19 mmol/L Low 20-31 [facility] Comment on above: Performed By: #### B MPX, CDP #### [facility] [address] [place] [address] Spinning Operator: Willian Dudley MD Creatinine [Mass/Vol] 0.7 mg/dL Normal 0.70-1.20 [facility] Comment on above: Performed By: #### B MPX, CDP #### [address] [address] Spinning Operator: Willian Dudley MD GFR/1.73 sq M.predicted among non-blacks MDRD (S/P/Bld) [Vol rate/Area] mL/min/{1.73_m2} Normal >60 [facility] Comment on above: Result Comment: These results [...] Performed By: #### B MPX, CDP #### [address] [address] Spinning Operator: Willian Dudley MD Glucose [Mass/Vol] 66 mg/dL Low 74-99 [facility] Comment on above: Performed By: #### B MPX, CDP #### [facility] [address] [place] [address] Spinning Operator: Willian Dudley MD Potassium [Moles/Vol] 3.9 mmol/L Normal 3.7-5.3 [facility] Comment on above: Performed By: #### B MPX, CDP #### [facility] [address] [place] [address] Spinning Operator: Willian Dudley MD Sodium [Moles/Vol] 139 mmol/L Normal 136-145 [facility] Comment on above: Performed By: #### B MPX, CDP #### [facility] [address] [place] [address] Spinning Operator: Willian Dudley MD Urea nitrogen [Mass/Vol] 5 mg/dL Low 6-20 [facility] Comment on above: Performed By: #### B MPX, CDP #### [facility] [address] [place] [address] Spinning Operator: Willian Dudley MD Basic Metabolic Panel w/ Ref fausto to MGon 01-18-2024 Anion gap [Moles/Vol] 18 mmol/L High 9 - 16 mmol/L [facility] [employer] Calcium [Mass/Vol] 9.5 mg/dL 8.6 - 10. 4 mg/dL [facility] [employer] Chloride [Moles/Vol] 102 mmol/L 98 - 10 7 mmol/L [facility] [employer] CO2 [Moles/Vol] 19 mmol/L Low 20 - 31 mmol/L [facility] Creatinine [Mass/Vol] 0.7 mg/dL 0.70 - 1.20 mg/dL [facility] Est, Glom Filt Rate - [facility] Comment on above: These results are not [...] 66 mg/dL Low 74 - 99 mg/dL [facility] Interpretation and review of laboratory results Abnormal [facility] Potassium [Moles/Vol] 3.9 mmol/L 3.7 - 5.3 mmol/L [facility] Sodium [Moles/Vol] 139 mmol/L 136 - 145 mmol/L [facility] Urea nitrogen [Mass/Vol] 5 mg/dL Low 6 - 20 mg/dL [facility] CBC with Auto Differentialon 01-18-2024 Basophils (Bld) [#/Vol] 0.07 10*3/uL [facility] Basophils/100 WBC (Bld) 1 % 0 - 2 % [facility] Eosinophils (Bld) [#/Vol] 0.19 10*3/uL [facility] Eosinophils/100 WBC (Bld) 2 % 1 - 4 % [facility] Erythrocyte distribution width (RBC) [Ratio] 11.9 % 11.8 - 14.4 % [facility] Hematocrit (Bld) [Volume fraction] 51.2 % High 40.7 - 50.3 % [facility] Hemoglobin (Bld) [Mass/Vol] 17.2 g/dL High 13.0 - 17.0 g/dL [facility] Immature granulocytes (Bld) [#/Vol] [facility] Immature granulocytes/100 WBC (Bld) 0 % 0 [facility] Interpretation and review of laboratory results Abnormal [facility] Lymphocytes/100 WBC (Bld) 32 % 24 - 43 % [facility] Lymphocytes/100 WBC (Bld) 2.52 % [facility] MCH (RBC) [Entitic mass] 31.5 pg 25.2 - 33.5 pg [facility] MCHC (RBC) [Mass/Vol] 33.6 g/dL 28.4 - 34.8 g/dL [facility] MCV (RBC) [Entitic vol] 93.8 fL 82.6 - 102.9 fL [facility] Monocytes/100 WBC (Bld) 9 % 3 - 12 % [facility] Monocytes/100 WBC (Bld) 0.75 % [facility] Neutrophils/100 WBC (Bld) 55 % 36 - 65 % [facility] Nucleated RBC/100 WBC (Bld) [Ratio] 0.0 % 0.0 per 100 WBC [facility] Platelet mean volume (Bld) [Entitic vol] 11.2 fL 8.1 - 13.5 fL [facility] Platelets (Bld) [#/Vol] 181 10*3/uL [facility] RBC (Bld) [#/Vol] 5.46 10*6/uL 4.21 - 5.7 7 m/uL [facility] Segmented neutrophils/100 WBC (Bld) 4.40 % [facility] WBC other (Bld) [#/Vol] 8.0 [facility] CBC with Diffon 01-18-2024 Abs. Basophil 0.07 k/uL Normal 0.00-0.20 [facility] Comment on above: Performed By: #### B MP, CRP, CDP #### [facility] [employer] [address] [place] [address] Spinning Operator: Willian Dudley MD Abs.Imm.Granulocyte <0.03 Normal 0.00-0.30 [facility] Comment on above: Performed By: #### B MP, CRP, CDP #### [facility] [address] [place] [address] Spinning Operator: Willian Dudley MD Abs.Neutrophil (Seg) 4.40 k/uL Normal 1.50-8.10 [facility] Comment on above: Performed By: #### B MP, CRP, CDP #### [facility] [address] [place] [address] Spinning Operator: Willian Dudley MD Basophils/100 WBC (Bld) 1 % Normal 0-2 [facility] Comment on above: Performed By: #### B MP, CRP, CDP #### [address] [address] Spinning Operator: Willian Dudley MD Eosinophils (Bld) [#/Vol] 0.19 10*3/uL Normal 0.00-0.44 [facility] Comment on above: Performed By: #### B MP, CRP, CDP #### [address] [address] Spinning Operator: Willian Dudley MD Eosinophils/100 WBC (Bld) 2 % Normal 1-4 [facility] Comment on above: Performed By: #### B MP, CRP, CDP #### [address] [address] Spinning Operator: Willian Dudley MD Erythrocyte distribution width (RBC) [Ratio] 11.9 % Normal 11.8-14.4 [facility] Comment on above: Performed By: #### B MP, CRP, CDP #### [address] [address] Spinning Operator: Willian Dudley MD Hematocrit (Bld) [Volume fraction] 51.2 % High 40.7-50.3 [facility] Comment on above: Performed By: #### B MP, CRP, CDP #### [address] [address] Spinning Operator: Willian Dudley MD Hemoglobin (Bld) [Mass/Vol] 17.2 g/dL High 13.0-17.0 [facility] Comment on above: Performed By: #### B MP, CRP, CDP #### [address] [address] Spinning Operator: Willian Dudley MD Immature granulocytes/100 WBC (Bld) 0 % Normal 0 [facility] Comment on above: Performed By: #### B MP, CRP, CDP #### [facility] [employer] [address] [place] [address] [place] [address] Spinning Operator: Willian Dudley MD Lymphocytes (Bld) [#/Vol] 2.52 10*3/uL Normal 1.10-3.70 [facility] Comment on above: Performed By: #### B MP, CRP, CDP #### [address] [address] Spinning Operator: Willian Dudley MD Lymphocytes/100 WBC (Bld) 32 % Normal 24-43 [facility] Comment on above: Performed By: #### B MP, CRP, CDP #### [address] [address] Spinning Operator: Willian Dudley MD MCH (RBC) [Entitic mass] 31.5 pg Normal 25.2-33.5 [facility] Comment on above: Performed By: #### B MP, CRP, CDP #### [address] [address] Spinning Operator: Willian Dudley MD MCHC (RBC) [Mass/Vol] 33.6 g/dL Normal 28.4-34.8 [facility] Comment on above: Performed By: #### B MP, CRP, CDP #### [address] [address] Spinning Operator: Willian Dudley MD MCV (RBC) [Entitic vol] 93.8 fL Normal 82.6-102.9 [facility] Comment on above: Performed By: #### B MP, CRP, CDP #### [address] [address] Spinning Operator: Willian Dudley MD Monocytes (Bld) [#/Vol] 0.75 10*3/uL Normal 0.10-1.20 [facility] Comment on above: Performed By: #### B MP, CRP, CDP #### [address] [address] Spinning Operator: Willian Dudley MD Monocytes/100 WBC (Bld) 9 % Normal 3-12 [facility] Comment on above: Performed By: #### B MP, CRP, CDP #### [facility] [address] [place] [address] Spinning Operator: Willian Dudley MD Neutrophil (Seg) 55 % Normal 36-65 [facility] Comment on above: Performed By: #### B MP, CRP, CDP #### [facility] [employer] [address] [place] [phone] Spinning Operator: Willian Dudley MD NRBC Automated 0.0 per 100 WBC Normal 0.0 [facility] Comment on above: Performed By: #### B MP, CRP, CDP #### [address] [address] Spinning Operator: Willian Dudley MD Platelet mean volume (Bld) [Entitic vol] 11.2 fL Normal 8.1-13.5 [facility] Comment on above: Performed By: #### B MP, CRP, CDP #### [address] [address] Spinning Operator: Willian Dudley MD Platelets (Bld) [#/Vol] 181 10*3/uL Normal 138-453 [facility] Comment on above: Performed By: #### B MP, CRP, CDP #### [facility] [employer] [address] [place] [phone] Spinning Operator: Willian Dudley MD RBC (Bld) [#/Vol] 5.46 10*6/uL Normal 4.21-5.77 [facility] Comment on above: Performed By: #### B MP, CRP, CDP #### [facility] [employer] [address] [place] [address] Spinning Operator: Willian Dudley MD WBC (Bld) [#/Vol] 8.0 10*3/uL Normal 3.5-11.3 [facility] Comment on above: Performed By: #### B MP, CRP, CDP #### [employer] [facility] [place] [address] Spinning Operator: Willian Dudley MD Hepatic Function Panel Albumin [Mass/Vol] 4.1 g/dL 3.5 - 5.2 g/dL [facility] Albumin/Globulin [Mass ratio] 2.0 {ratio} 1.0 - 2.5 [facility] ALP [Catalytic activity/Vol] 64 U/L 40 - 129 U/L [facility] ALT [Catalytic activity/Vol] 5 U/L Low 10 - 50 U/L [facility] AST [Catalytic activity/Vol] 17 U/L 10 - 50 U/L [facility] Bilirubin [Mass/Vol] 0.8 mg/dL 0.00 - 1.20 mg/dL [facility] Bilirubin.direct [Mass/Vol] 0.2 mg/dL 0.00 - 0.30 mg/dL [facility] Bilirubin.indirect [Mass/Vol] 0.6 mg/dL 0.0 - 1.0 mg/dL [facility] Globulin (S) [Mass/Vol] 2.7 g/dL [facility] Interpretation and review of laboratory results Abnormal [facility] Protein [Mass/Vol] 6.8 g/dL 6.6 - 8.7 g/dL [facility] Hepatitis Acute [facility] 01-17 Hep A Ab,IgM Non-Reactive Normal NR [facility] Comment on above: Performed By: #### P T, BMPX, CDP #### [employer] [address] [place], [place] [phone] Spinning Operator: Willian Dudley MD Hep B Core Ab,IgM Non-Reactive Normal NR [facility] Comment on above: Performed By: #### P T, BMPX, CDP #### [employer] [address] [place] [address] Spinning Operator: Willian Dudlye MD Hep B Surf Ag Non-Reactive Normal NR [facility] Comment on above: Performed By: #### P TALVARO, CDP #### [facility] [address] [place] [phone] Spinning Operator: Willian Dudley MD Hep C Ab Non-Reactive Normal NR [facility] Comment on above: Result Comment: The hepatitis [...] Performed By: #### P TALVARO, CDP #### [address] [phone] Spinning Operator: Willian Dudley MD Hepatitis Panel, Acuteon HAV IgM IA Ql Non-Reactive NONREACTIVE [facility] HBV core IgM IA Ql Non-Reactive NONREACTIVE [facility] HBV surface Ag IA Ql Non-Reactive NONREACTIVE B [facility] HCV Ab IA Ql Non-Reactive NONREACTIVE [facility] Comment on above: The hepatitis C [...] recommended by ordering HCV RNA by PCR. [facility] Liver Profileon 01-18-2024 Albumin [Mass/Vol] 4.1 g/dL Normal 3.5-5.2 [facility] Comment on above: Performed By: #### P T BMPEnrique, CDP #### [facility] [employer] [address] [place] [address] [phone] Spinning Operator: Willian Dudley MD Albumin/Glob Ratio 2.0 Normal 1.0-2.5 [facility] Comment on above: Performed By: #### P T, BMPX, CDP #### [facility] [employer] [address] [place] [phone] Spinning Operator: Willian Dudley MD Alkaline Phos 64 U/L Normal 40-129 [facility] Comment on above: Performed By: #### P T, BMPX, CDP #### [facility] [employer] [address] [place] [address] 32349 Spinning Operator: Willian Dudley MD ALT [Catalytic activity/Vol] 5 U/L Low 10-50 [facility] Comment on above: Performed By: #### P T, BMPX, CDP #### [facility] [employer] [address] [place] [address] 68286 Spinning Operator: Willian Dudley MD AST [Catalytic activity/Vol] 17 U/L Normal 10-50 [facility] Comment on above: Performed By: #### P T, BMPX, CDP #### [facility] [employer] [address] [place] [address] 38561 Spinning Operator: Willian Dudley MD Bilirubin [Mass/Vol] 0.8 mg/dL Normal 0.00-1.20 [facility] Comment on above: Performed By: #### P T, BMPX, CDP #### [facility] [employer] [address] [place] [address] 66107 Spinning Operator: Willian Dudley MD Bilirubin, Indirect 0.6 mg/dL Normal 0.0-1.0 [facility] Comment on above: Performed By: #### P T, BMPX, CDP #### [facility] [employer] [address] [place] [address] 08948 Spinning Operator: Willian Dudley MD Bilirubin.indirect [Mass/Vol] 0.2 mg/dL Normal 0.00-0.30 [facility] Comment on above: Performed By: #### P T, BMPX, CDP #### [employer] [address] [place] [address] 55648 Spinning Operator: Willian Dudley MD Globulin (S) [Mass/Vol] 2.7 g/dL Normal [facility] Comment on above: Performed By: #### P T, BMPX, CDP #### [employer] [address] [place] [address] 50439 Spinning Operator: Willian Dudley MD Protein [Mass/Vol] 6.8 g/dL Normal 6.6-8.7 [facility] Comment on above: Performed By: #### P T, BMPX, CDP #### [employer] [address] [place] [address] 18314 Spinning Operator: Willian Dudley MD PTon 01-18-2024 INR Coag (PPP) [Relative time] 1.2 {INR} Normal [facility] Comment on above: Result Comment: Therapeutic Range: Moderate Anticoagulant Intensity: INR = 2.0-3.0 High Anticoagulant Intensity: INR = 2.5-3.5 Performed By: #### P T, BMPX, CDP #### [employer] [address] [place] [address] 05670 Spinning Operator: Willian Dudley MD PT Coag (PPP) [Time] 15.2 s High 11.7-14.9 [facility] Comment on above: Performed By: #### P T, BMPX, CDP #### [employer] [address] [place] [address] 80108 Spinning Operator: Willian Dudley MD Protime-INRon 01-18-2024 INR Coag (PPP) [Relative time] 1.2 {INR} [facility] Comment on above: Therapeutic Range: Moderate Anticoagulant Intensity: INR = 2.0-3.0 High Anticoagulant Intensity: INR = 2.5-3.5 Interpretation and review of laboratory results Abnormal [facility] PT Coag (PPP) [Time] 15.2 s High [facility] Basic Metab w/rfx MGon 01-16 Anion gap [Moles/Vol] 14 mmol/L Normal 9-16 [facility] Comment on above: Performed By: #### P T, BMPX, CDP #### [facility] [employer] [address] [place] [address] 90493 Spinning Operator: Willian Dudley MD Calcium [Mass/Vol] 8.9 mg/dL Normal 8.6-10.4 [facility] Comment on above: Performed By: #### P T, BMPX, CDP #### [facility] [employer] [address] [place] [address] 38199 Spinning Operator: Willian Dudley MD Chloride [Moles/Vol] 105 mmol/L Normal 98-107 [facility] Comment on above: Performed By: #### P T, BMPX, CDP #### [facility] [employer] [address] [place] [address] 29002 Spinning Operator: Willian Dudley MD CO2 [Moles/Vol] 20 mmol/L Normal 20-31 [facility] Comment on above: Performed By: #### P T, BMPX, CDP #### [facility] [address] [place] [address] 32175 Spinning Operator: Willian Dudley MD Creatinine [Mass/Vol] 0.7 mg/dL Normal 0.70-1.20 [facility] Comment on above: Performed By: #### P T, BMPX, CDP #### [facility] [address] [place] [address] 15137 Spinning Operator: Willian Dudley MD GFR/1.73 sq M.predicted among non-blacks MDRD (S/P/Bld) [Vol rate/Area] mL/min/{1.73_m2} Normal >60 [facility] Comment on above: Result Comment: These results [...] By: #### P ALVARO Womack, CDP #### [facility] [address] [place] [address] 58145 Spinning Operator: Willian Dudley MD Glucose [Mass/Vol] 80 mg/dL Normal 74-99 [facility] Comment on above: Performed By: #### P TYODITX, CDP #### [facility] [employer] [address] [place] [address] 09640 Spinning Operator: Willian Dudley MD Potassium [Moles/Vol] 3.7 mmol/L Normal 3.7-5.3 [facility] Comment on above: Performed By: #### P T BMPX, CDP #### [facility] [address] [place] [address] 71305 Spinning Operator: Willian Dudley MD Sodium [Moles/Vol] 139 mmol/L Normal 136-145 [facility] Comment on above: Performed By: #### P T BMPX, CDP #### [facility] [address] [place] [address] 35458 Spinning Operator: Willian Dudley MD Urea nitrogen [Mass/Vol] 5 mg/dL Low 6-20 [facility] Comment on above: Performed By: #### P T BMPX, CDP #### [facility] [address] [place] [address] 81071 Spinning Operator: Willian Dudley MD Basic Metabolic Panel w/ Ref fausto to MGon 01-17-2024 Anion gap [Moles/Vol] 14 mmol/L 9 - 16 mmol/L [facility] Calcium [Mass/Vol] 8.9 mg/dL 8.6 - 10. 4 mg/dL [facility] Chloride [Moles/Vol] 105 mmol/L 98 - 10 7 mmol/L [facility] CO2 [Moles/Vol] 20 mmol/L 20 - 31 mmol/L [facility] Creatinine [Mass/Vol] 0.7 mg/dL 0.70 - 1.20 mg/dL [facility] Aiden Mueller Rate - [facility] Comment on above: These results are not [...] [Mass/Vol] 80 mg/dL 74 - 99 mg/dL [facility] Interpretation and review of laboratory results Abnormal [facility] Potassium [Moles/Vol] 3.7 mmol/L 3.7 - 5.3 mmol/L [facility] Sodium [Moles/Vol] 139 mmol/L 136 - 145 mmol/L [facility] Urea nitrogen [Mass/Vol] 5 mg/dL Low 6 - 20 mg/dL [facility] CBC with Auto Differentialon 01-17-2024 Basophils (Bld) [#/Vol] 0.06 10*3/uL [facility] Basophils/100 WBC (Bld) 1 % 0 - 2 % [facility] Eosinophils (Bld) [#/Vol] 0.21 10*3/uL [facility] Eosinophils/100 WBC (Bld) 3 % 1 - 4 % [facility] Erythrocyte distribution width (RBC) [Ratio] 11.9 % 11.8 - 14.4 % [facility] Hematocrit (Bld) [Volume fraction] 43.1 % 40.7 - 50.3 % [facility] Hemoglobin (Bld) [Mass/Vol] 14.8 g/dL 13.0 - 17.0 g/dL [facility] Immature granulocytes (Bld) [#/Vol] [facility] Immature granulocytes/100 WBC (Bld) 0 % 0 [facility] Lymphocytes/100 WBC (Bld) 33 % 24 - 43 % [facility] Lymphocytes/100 WBC (Bld) 2.42 % [facility] MCH (RBC) [Entitic mass] 31.7 pg 25.2 - 33.5 pg [facility] MCHC (RBC) [Mass/Vol] 34.3 g/dL 28.4 - 34.8 g/dL [facility] MCV (RBC) [Entitic vol] 92.3 fL 82.6 - 102.9 fL [facility] Monocytes/100 WBC (Bld) 10 % 3 - 12 % [facility] Monocytes/100 WBC (Bld) 0.74 % [facility] Neutrophils/100 WBC (Bld) 53 % 36 - 65 % [facility] Nucleated RBC/100 WBC (Bld) [Ratio] 0.0 % 0.0 per 100 WBC [facility] Platelet mean volume (Bld) [Entitic vol] 11.3 fL 8.1 - 13.5 fL [facility] Platelets (Bld) [#/Vol] 173 10*3/uL [facility] RBC (Bld) [#/Vol] 4.67 10*6/uL 4.21 - 5.7 7 m/uL [facility] Segmented neutrophils/100 WBC (Bld) 3.89 % [facility] WBC other (Bld) [#/Vol] 7.3 [facility] CBC with Diffon 01-17-2024 Abs. Basophil 0.06 k/uL Normal 0.00-0.20 [facility] Comment on above: Performed By: #### P T, BMPX, CDP #### [employer] [address] [place] [address] 43608 Spinning Operator: Willian Dudley MD Abs.Imm.Granulocyte <0.03 Normal 0.00-0.30 [facility] Comment on above: Performed By: #### P T, BMPX, CDP #### [employer] [address] [place] [address] 71055 Spinning Operator: Willian Dudley MD Abs.Neutrophil (Seg) 3.89 k/uL Normal 1.50-8.10 [facility] Comment on above: Performed By: #### P T, BMPX, CDP #### [facility] [employer] [address] [place] [address] 30749 Spinning Operator: Willian Dudley MD Basophils/100 WBC (Bld) 1 % Normal 0-2 [facility] Comment on above: Performed By: #### P T, BMPX, CDP #### [address] [address] Spinning Operator: Willian Dudley MD Eosinophils (Bld) [#/Vol] 0.21 10*3/uL Normal 0.00-0.44 [facility] Comment on above: Performed By: #### P T, BMPX, CDP #### [facility] [employer] [address] [place] [address] 58809 Spinning Operator: Willian Dudley MD Eosinophils/100 WBC (Bld) 3 % Normal 1-4 [facility] Comment on above: Performed By: #### P T, BMPX, CDP #### [facility] [employer] [address] [place] [address] 68729 Spinning Operator: Willian Dudley MD Erythrocyte distribution width (RBC) [Ratio] 11.9 % Normal 11.8-14.4 [facility] Comment on above: Performed By: #### P T, BMPX, CDP #### [facility] [employer] [address] [place] [address] 26044 Spinning Operator: Willian Dudley MD Hematocrit (Bld) [Volume fraction] 43.1 % Normal 40.7-50.3 [facility] Comment on above: Performed By: #### P T, BMPX, CDP #### [facility] [employer] [address] [place] [address] 16981 Spinning Operator: Willian Dudley MD Hemoglobin (Bld) [Mass/Vol] 14.8 g/dL Normal 13.0-17.0 [facility] Comment on above: Performed By: #### P T, BMPX, CDP #### [facility] [employer] [address] [place] [address] 09044 Spinning Operator: Willian Dudley MD Immature granulocytes/100 WBC (Bld) 0 % Normal 0 [facility] Comment on above: Performed By: #### P T, BMPX, CDP #### [facility] [employer] [address] [place] [address] 78618 Spinning Operator: Willian Dudley MD Lymphocytes (Bld) [#/Vol] 2.42 10*3/uL Normal 1.10-3.70 [facility] Comment on above: Performed By: #### P T, BMPX, CDP #### [address] [address] Spinning Operator: Willian Dudley MD Lymphocytes/100 WBC (Bld) 33 % Normal 24-43 [facility] Comment on above: Performed By: #### P T, BMPX, CDP #### [facility] [employer] [address] [place] [address] 62465 Spinning Operator: Willian Dudley MD MCH (RBC) [Entitic mass] 31.7 pg Normal 25.2-33.5 [facility] Comment on above: Performed By: #### P T, BMPX, CDP #### [facility] [employer] [address] [place] [address] 92089 Spinning Operator: Willian Dudley MD MCHC (RBC) [Mass/Vol] 34.3 g/dL Normal 28.4-34.8 [facility] Comment on above: Performed By: #### P T, BMPX, CDP #### [facility] [employer] [address] [place] [address] 60948 Spinning Operator: Willian Dudley MD MCV (RBC) [Entitic vol] 92.3 fL Normal 82.6-102.9 [facility] Comment on above: Performed By: #### P T, BMPX, CDP #### [address] [address] Spinning Operator: Willian Dudley MD Monocytes (Bld) [#/Vol] 0.74 10*3/uL Normal 0.10-1.20 [facility] Comment on above: Performed By: #### P T, BMPX, CDP #### [place] [address] Spinning Operator: Willian Dudley MD Monocytes/100 WBC (Bld) 10 % Normal 3-12 [facility] Comment on above: Performed By: #### P T, BMPX, CDP #### [place] [address] Spinning Operator: Willian Dudley MD Neutrophil (Seg) 53 % Normal 36-65 [facility] Comment on above: Performed By: #### P T, BMPX, CDP #### [place] [address] Spinning Operator: Willian Dudley MD NRBC Automated 0.0 per 100 WBC Normal 0.0 [facility] Comment on above: Performed By: #### P T, BMPX, CDP #### [place] [address] Spinning Operator: Willian Dudley MD Platelet mean volume (Bld) [Entitic vol] 11.3 fL Normal 8.1-13.5 [facility] Comment on above: Performed By: #### P T, BMPX, CDP #### [address] [address] Spinning Operator: Willian Dudley MD Platelets (Bld) [#/Vol] 173 10*3/uL Normal 138-453 [facility] Comment on above: Performed By: #### P T, BMPX, CDP #### [facility] [address] [place] [address] Spinning Operator: Willian Dudley MD RBC (Bld) [#/Vol] 4.67 10*6/uL Normal 4.21-5.77 [facility] Comment on above: Performed By: #### P T, BMPX, CDP #### [facility] [address] [place] [address] Spinning Operator: Willian Dudley MD WBC (Bld) [#/Vol] 7.3 10*3/uL Normal 3.5-11.3 [facility] Comment on above: Performed By: #### P T, BMPX, CDP #### [facility] [employer] [address] [place] [address] 62042 Spinning Operator: Willian Dudley MD CT PELVIS WO CONTRASTon [...] Brannon Whittaker MD 01/17/24 Final result Normal [facility] CT Pelvis WO contraston 05-0 No safe window to access known mid-lower central pelvic abscess, as above. No drainage catheter placement attempted. [facility] EXAMINATION: CT OF THE PELVIS WITHOUT [...] oblique positions. No drainage catheter placement attempted. [facility] Brannon Whittaker MD - 01/17/2024 EXAMINATION: [...] as above. No drainage catheter placement attempted. [facility] Radiology Study observation (narrative) [facility] CT Pelvis WO contrastOrdered By: Brannon Whittaker on 01-17-2024 [facility] Work Phone: PTon 01-17-2024 INR Coag (PPP) [Relative time] 1.2 {INR} Normal [facility] Comment on above: Result Comment: Therapeutic Range: Moderate Anticoagulant Intensity: INR = 2.0-3.0 High Anticoagulant Intensity: INR = 2.5-3.5 Performed By: #### P TALVARO, CDP #### [employer] [facility] [place] [address] Spinning Operator: Willian Dudley MD PT Coag (PPP) [Time] 15.3 s High 11.7-14.9 [facility] Comment on above: Performed By: #### P TALVARO, CDP #### [employer] [address] [place] [address] [phone] Spinning Operator: Willian Dudley MD Protime-INRon 01-17-2024 INR Coag (PPP) [Relative time] 1.2 {INR} [facility] Comment on above: Therapeutic Range: Moderate Anticoagulant Intensity: INR = 2.0-3.0 High Anticoagulant Intensity: INR = 2.5-3.5 Interpretation and review of laboratory results Abnormal [facility] PT Coag (PPP) [Time] 15.3 s High [facility] ACETAMINOPHENon 09-23-2022 Acetaminophen [Mass/Vol] ug/mL Critically low 10.0-30.0 [facility] Comment on above: Result Comment: Prev iously reported as: <2.8 On 09/23/2022 15:54 By [email or web address] Performed By: #### C MPLETICIA, ACET #### [facility] [address] [place] [address] Dr. Isabel Hudson CBC AUTO DIFFon 09-23-2022 BASO # 0.1 103/ul Normal 0.0-0.1 [facility] Comment on above: Performed By: #### C BC #### [facility] [address] [address] [address] Isabel Hudson Basophils/100 WBC (Bld) 1.0 % Normal 0.2-2.0 [facility] Comment on above: Performed By: #### C BC #### [facility] [address] [address] [address] Isabel Hudson EO # 0.2 103/ul Normal 0.0-0.7 [facility] Comment on above: Performed By: #### C BC #### [facility] [address] [address] [address] Isabel Hudson Eosinophils/100 WBC (Bld) 2.9 % Normal 0.9-7.0 [facility] Comment on above: Performed By: #### C BC #### [facility] [address] [place] [address] Dr. Isabel Hudson Erythrocyte distribution width (RBC) [Ratio] 12.1 % Normal 11.0-15.0 [facility] Comment on above: Performed By: #### C BC #### [facility] [address] [address] [address] Isabel Hudson Hematocrit (Bld) [Volume fraction] 50.1 % Normal 42.0-54.0 [facility] Comment on above: Performed By: #### C BC #### [facility] [address] [address] [address] Isabel Hudson Hemoglobin (Bld) [Mass/Vol] 17.6 g/dL Normal 14.0-18.0 [facility] Comment on above: Performed By: #### C BC #### [facility] [address] [address] [address] Isabel Hudson IG # 0.04 10e3/ul Critically high 0.00-0.03 [facility] Comment on above: Performed By: #### C BC #### [facility] [address] [address] [address] Isabel Hudson IG % 0.5 % Normal 0.0-0.5 [facility] Comment on above: Performed By: #### C BC #### [facility] [address] [place] [address] Dr. Isabel Hudson LYMPH # 2.8 103/ul Normal 1.2-3.8 [facility] Comment on above: Performed By: #### C BC #### [facility] [address] [place] [address] Dr. Isabel Hudson Lymphocytes/100 WBC (Bld) 32.7 % Normal 20.5-60.0 [facility] Comment on above: Performed By: #### C BC #### [facility] [address] [place] [address] Dr. Isabel Hudson MANUAL DIFF REQ NO Normal [facility] Comment on above: Performed By: #### C BC #### [facility] [address] [place] [address] Dr. Isabel Hudson MCH (RBC) [Entitic mass] 32.3 pg Normal 25.9-34.0 [facility] Comment on above: Performed By: #### C BC #### [facility] [address] [place] [address] Dr. Isabel Hudson MCHC (RBC) [Mass/Vol] 35.1 g/dL Normal 29.9-35.2 [facility] Comment on above: Performed By: #### C BC #### [facility] [address] [place] [address] Dr. Isabel Hudson MCV (RBC) [Entitic vol] 91.9 fL Normal 80.0-94.0 [facility] Comment on above: Performed By: #### C BC #### [facility] [address] [place] [address] Dr. Isabel Hudson MONO # 0.8 103/ul Normal 0.3-0.8 [facility] Comment on above: Performed By: #### C BC #### [facility] [address] [place] [address] Dr. Isabel Hudson Monocytes/100 WBC (Bld) 9.5 % Normal 1.7-12.0 [facility] Comment on above: Performed By: #### C BC #### [facility] [address] [place] [address] Dr. Isabel Hudson NEUT # 4.5 103/ul Normal 1.4-6.[address] [facility] Comment on above: Performed By: #### C BC #### [facility] [address] [place] [address] Dr. Isabel Hudson Neutrophils/100 WBC (Bld) 53.4 % Normal 43.0-75.[address] [facility] Comment on above: Performed By: #### C BC #### [facility] [address] [place] [address] Dr. Isabel Hudson Platelet mean volume (Bld) [Entitic vol] 10.5 fL Normal 9.5-13.[address] [facility] Comment on above: Performed By: #### C BC #### [facility] [address] [place] [address] Dr. Isabel Hudson PLT 202 103/ul Normal 150-[address] [facility] Comment on above: Performed By: #### C BC #### [facility] [address] [place] [address] Dr. Isabel Hudson RBC 5.45 106/ul Normal 4.70-6.[address] [facility] Comment on above: Performed By: #### C BC #### [facility] [address] [place] [address] Dr. Isabel Hudson WBC 8.4 103/ul Normal 4.0-11.[address] [facility] Comment on above: Performed By: #### C BC #### [facility] [address] [place] [address] Dr. Isabel Hudson DRUG SCREEN RAPID (URINE)on 09-23-2022 AMP Negative Normal NEGATIVE [facility] Comment on above: Performed By: #### D RUGRPD #### [facility] [address] [place] [address] Dr. Isabel Hudson BAR Negative Normal NEGATIVE [facility] Comment on above: Performed By: #### D RUGRPD #### [facility] [address] [place] [address] Dr. Isabel Hudson BUP Negative Normal NEGATIVE [facility] Comment on above: Performed By: #### D RUGRPD #### [facility] [address] [place] [address] Dr. Isabel Hudson BZO Negative Normal NEGATIVE [facility] Comment on above: Performed By: #### D RUGRPD #### [facility] [address] [place] [address] Dr. Isabel Hudson RICK Negative Normal NEGATIVE [facility] Comment on above: Performed By: #### D RUGRPD #### [facility] [address] [place] [address] Dr. Isabel Hudson CUT-OFFS SEE BELOW Normal [facility] Comment on above: Result Comment: AMP (Amphetamine): 500ng/mL, BAR (Barbituates): 200 ng/mL, BZO (Benzodiazepines): 150 ng/mL, BUP (Buprenorphine): 10 ng/mL, RICK (Cocaine): 150 ng/mL, mAMP (Methamphetamine): 500 ng/mL, MTD (Methadone): 200 ng/mL, OPI (Opiates): 100 ng/mL, OXY (Oxycodone): 100 ng/mL, PCP (Phencyclidine): 25 ng/mL, PPX (Propoxyphene): 300 ng/mL, THC (Cannabinoids): 50 ng/mL, TCA (Trycyclic Antidepressants): 300 ng/mL Performed By: #### D RUGRPD #### [facility] [address] [place] [address] Dr. Isabel Hudson DRUG CUT HEADER DRUG CLASS TEST SYSTEM CUT-OFF CONCENTRATIONS ARE FOLLOWS: Normal [facility] Comment on above: Performed By: #### D RUGRPD #### [facility] [address] [place] [address] Dr. Isabel Hudson mAMP Negative Normal NEGATIVE [facility] Comment on above: Performed By: #### D RUGRPD #### [facility] [address] [place] [address] Dr. Isabel Hudson MTD Negative Normal NEGATIVE [facility] Comment on above: Performed By: #### D RUGRPD #### [facility] [address] [place] [address] Dr. Isabel Hudson OPI Negative Normal NEGATIVE [facility] Comment on above: Performed By: #### D RUGRPD #### [facility] [address] [place] [address] Dr. Isabel Hudson OXY Negative Normal NEGATIVE [facility] Comment on above: Performed By: #### D RUGRPD #### [facility] [address] [place] [address] Dr. Isabel Hudson PCP Negative Normal NEGATIVE [facility] Comment on above: Performed By: #### D RUGRPD #### [facility] [address] [place] [address] Dr. Isabel Hudson PPX Negative Normal NEGATIVE [facility] Comment on above: Performed By: #### D RUGRPD #### [facility] [address] [place] [address] Dr. Isabel Hudson TCA Negative Normal NEGATIVE [facility] Comment on above: Performed By: #### D RUGRPD #### [facility] [address] [place] [address] Dr. Isabel Hudson THC Positive Abnormal NEGATIVE [facility] Comment on above: Performed By: #### D RUGRPD #### [facility] [address] [place] [address] Dr. Isabel Hudson ETHANOL (BLD ALC)on 09-23-19 23 ALC NOTE NOTE: 80 mg/dl is the legal limit for a blood alcohol level Normal [facility] Comment on above: Performed By: #### E TH #### [facility] [address] [place] [address] Dr. Isabel Hudson Ethanol [Mass/Vol] mg/dL Normal [facility] Comment on above: Performed By: #### E TH #### [facility] [address] [place] [address] Dr. Isabel Hudson PROF 14(COMP METB)on 023 Albumin [Mass/Vol] 4.0 g/dL Normal 3.4-5.0 [facility] Comment on above: Performed By: #### C MP, SALYC, ACET #### [facility] [address] [place] [address] Dr. Isabel Hudson Albumin/Globulin [Mass ratio] 1.1 {ratio} Normal [facility] Comment on above: Performed By: #### C LETICIA YOUNG, ACET #### [facility] [address] [address] [address] Isabel Hudson ALP [Catalytic activity/Vol] 114 U/L Normal 46-116 [facility] Comment on above: Performed By: #### C LETICIA YOUNG, ACET #### [facility] [address] [address] [address] Isabel Hudson ALT [Catalytic activity/Vol] 34 U/L Normal 16-63 [facility] Comment on above: Performed By: #### C LETICIA YOUNG, ACET #### [facility] [address] [place] [address] Dr. Isabel Hudson Anion gap [Moles/Vol] 12.1 mmol/L Normal [facility] Comment on above: Performed By: #### C LETICIA YOUNG, ACET #### [facility] [address] [address] [address] Isabel Hudson AST [Catalytic activity/Vol] 22 U/L Normal 15-37 [facility] Comment on above: Performed By: #### C LETICIA YOUNG, ACET #### [facility] [address] [place] [address] Dr. Isabel Hudson Bilirubin [Mass/Vol] 0.3 mg/dL Normal 0.2-1.0 [facility] Comment on above: Performed By: #### C LETICIA YOUNG, ACET #### [facility] [address] [place] [address] Dr. Isabel Hudson Calcium [Mass/Vol] 9.3 mg/dL Normal 8.5-10.1 [facility] Comment on above: Performed By: #### C LETICIA YOUNG, ACET #### [facility] [address] [address] [address] Isabel Hudson Chloride [Moles/Vol] 103 mmol/L Normal 98-107 [facility] Comment on above: Performed By: #### C MP, SALYC, ACET #### [facility] [address] [address] [address] Isabel Hudson CO2 [Moles/Vol] 28.0 mmol/L Normal 21.0-32.0 [facility] Comment on above: Performed By: #### C MP, SALYC, ACET #### [facility] [address] [address] [address] Isabel Hudson Creatinine [Mass/Vol] 0.90 mg/dL Normal 0.70-1.[address] [facility] Comment on above: Performed By: #### C MP, SALYC, ACET #### [facility] [address] [address] [address] Isabel Hudson EGFR-AF CENTRAL AFRICAN >60 Normal >=60 [facility] Comment on above: Performed By: #### C MP, SALYC, ACET #### [facility] [address] [place] [address] Dr. Isabel Hudson EGFR-NON AF CENTRAL AFRICAN >60 Normal >=[address] [facility] Comment on above: Performed By: #### C MP, SALYC, ACET #### [facility] [address] [address] [address] Isabel Hudson Globulin (S) [Mass/Vol] 3.5 g/dL Normal [facility] Comment on above: Performed By: #### C MP, SALYC, ACET #### [facility] [address] [address] [address] Isabel Hudson Glucose [Mass/Vol] 89 mg/dL Normal 74-106 [facility] Comment on above: Performed By: #### C MP, SALYC, ACET #### [facility] [address] [address] [address] Isabel Hudson Potassium [Moles/Vol] 4.1 mmol/L Normal 3.5-5.[address] [facility] Comment on above: Performed By: #### C MP, SALYC, ACET #### [facility] [address] [address] [address] Isabel Hudson Protein [Mass/Vol] 7.5 g/dL Normal 6.4-8.2 [facility] Comment on above: Performed By: #### C MP, SALYC, ACET #### [facility] [address] [address] [address] Isabel Hudson Sodium [Moles/Vol] 139 mmol/L Normal 136-145 [facility] Comment on above: Performed By: #### C MP, SALYC, ACET #### [facility] [address] [address] [address] Isabel Hudson Urea nitrogen [Mass/Vol] 15.0 mg/dL Normal 7.0-18.0 [facility] Comment on above: Performed By: #### C MP, SALYC, ACET #### [facility] [address] [address] [address] Isabel Hudson Urea nitrogen/Creatinine [Mass ratio] 16.7 mg/mg Normal [facility] Comment on above: Performed By: #### C MP, SALYC, ACET #### [facility] [address] [address] [address] Isabel Hudson SALICYLATEon 09-23-2022 SALICYLATE <2.8 Normal <=19.9 [facility] Comment on above: Performed By: #### C MP, SALYC, ACET #### [facility] [address] [place] [address] Dr. Isabel Hudson FLUORO FOR SURGICAL PROCEDUR ESon 04-03-2022 FLUORO FOR SURGICAL PROCEDURES Radiology exam is complete. No Radiologist dictation. Please follow up with ordering provider. Final result Normal [facility] Radiology exam is complete. No Radiologist dictation. Please follow up with ordering provider. [facility] CONSOLIDATED OPERATIVE REPORTon 2 OPERATIVE REPORT [address] [id number] OPERATIVE REPORT PATIENT NAME: ESMER CORBIN : 2000 MED REC NO: [id number] ROOM: ACCOUNT NO: [id number] ADMIT DATE: 04/03/2022 PROVIDER: Evan Frost DATE [...] minimal. Will be discharged home. Prescription for [place]. To be seen in the office in two weeks. EVAN HuangKingston FROST [id number] Doc#: [id number] CC: [facility] Basic Metabolic Panelon 03-11 Anion gap [Moles/Vol] 15 mmol/L 9 - 17 mmol/L [facility] Calcium [Mass/Vol] 9.4 mg/dL 8.6 - 10. 4 mg/dL [facility] Chloride [Moles/Vol] 100 mmol/L 98 - 10 7 mmol/L [facility] CO2 [Moles/Vol] 23 mmol/L 20 - 31 mmol/L [facility] Creatinine [Mass/Vol] 0.83 mg/dL 0.7 - 1.2 mg/dL [facility] GFR >60 60 - PI NF mL/min [facility] GFR Non- >60 60 - PINF mL/min [facility] Glucose [Mass/Vol] 124 mg/dL High 70 - 99 mg/dL [facility] Interpretation and review of laboratory results Abnormal [facility] Potassium [Moles/Vol] 3.7 mmol/L 3.7 - 5.3 mmol/L [facility] Sodium [Moles/Vol] 138 mmol/L 135 - 144 mmol/L [facility] Urea nitrogen (BldV) [Mass/Vol] 7 mg/dL 6 - 20 mg/dL [facility] Urea nitrogen/Creatinine (Bld) [Mass ratio] 8 Low 9 - 20 [facility] Basic Metabolic Profon 03-31 (cont.) [facility] Comment on above: Result Comment: Aver age GFR for 20-29 years old: 116 mL/min/1.73sq m Chronic Kidney Disease: <60 mL/min/1.73sq m Kidney failure: <15 mL/min/1.73sq m eGFR calculated using average adult body mass. Additional eGFR calculator available at: http://www.hdl therapeutics.Peeky/multiple_crcl_2012.htm Performed By: #### C BC, BMP #### [facility] [address] [place], [place] [id number] Spinning Operator: Jose A Victor MD Anion gap [Moles/Vol] 15 mmol/L Normal 9-17 [facility] Comment on above: Performed By: #### C BC, BMP #### [facility] [address] [place], [place] [id number] Spinning Operator: Jose A Victor MD BUN/CRE Ratio 8 Low 9-20 [facility] Comment on above: Performed By: #### C BC, BMP #### [facility] [address] [place], [place] [id number] Spinning Operator: Jose A Victor MD Calcium [Mass/Vol] 9.4 mg/dL Normal 8.6-10.4 [facility] Comment on above: Performed By: #### C BC, BMP #### [facility] [address] [place] [address] Spinning Operator: Jose A Victor MD Chloride [Moles/Vol] 100 mmol/L Normal 98-107 [facility] Comment on above: Performed By: #### C BC, BMP #### [facility] [address] [place], [place] [id number] Spinning Operator: Jose A Victor MD CO2 [Moles/Vol] 23 mmol/L Normal 20-31 [facility] Comment on above: Performed By: #### C BC, BMP #### [facility] [address] [place], [place] [phone] Spinning Operator: Jose A Victor MD Creatinine [Mass/Vol] 0.83 mg/dL Normal 0.70-1.20 [facility] Comment on above: Performed By: #### C BC, BMP #### [facility] [address] [place], [place] [address] Spinning Operator: Jose A Victor MD GFR, Amer >60 Normal >60 [facility] Comment on above: Performed By: #### C BC, BMP #### [facility] [address] [place], [place] [phone] Spinning Operator: Jose A Victor MD GFR,non Amer >60 Normal >60 [facility] Comment on above: Performed By: #### C BC, BMP #### [facility] [address] [place], [place] [phone] Spinning Operator: Jose A Victor MD Glucose [Mass/Vol] 124 mg/dL High 70-99 [facility] Comment on above: Performed By: #### C BC, BMP #### [facility] [address] [place], [place] [id number] Spinning Operator: Jose A Victor MD Potassium [Moles/Vol] 3.7 mmol/L Normal 3.7-5.3 [facility] Comment on above: Performed By: #### C BC, BMP #### [facility] [address] [place], [place] [id number] Spinning Operator: Jose A Victor MD Sodium [Moles/Vol] 138 mmol/L Normal 135-144 [facility] Comment on above: Performed By: #### C BC, BMP #### [facility] [address] [place] [address] Spinning Operator: Jose A Victor MD Staging: Normal [facility] Comment on above: Result Comment: Stag e 1: Some kidney damage normal GFR Stage 2: Mild kidney damage GFR 60-89 Stage 3: Moderate kidney damage GFR 30-59 Stage 4: Severe kidney damage GFR 15-29 Stage 5: Severe kidney damage GFR <15 ESRD - chronic treatment by dialysis or transplant Performed By: #### C BC, BMP #### [address] [place], [place] [phone] Spinning Operator: Jose A Victor MD Urea nitrogen [Mass/Vol] 7 mg/dL Normal 6-20 [facility] Comment on above: Performed By: #### C BC, BMP #### [address] [place] [address] Spinning Operator: Jose A Victor MD CBCon 03-31-2022 Erythrocyte distribution width (RBC) [Ratio] 11.8 % Normal 11.8-14.4 [facility] Comment on above: Performed By: #### C BC, BMP #### [address] [place], [place] [phone] Spinning Operator: Jose A Victor MD Hematocrit (Bld) [Volume fraction] 44.9 % Normal 40.7-50.3 [facility] Comment on above: Performed By: #### C BC, BMP #### [address] [place], [place] [phone] Spinning Operator: Jose A Victor MD Hemoglobin (Bld) [Mass/Vol] 15.7 g/dL Normal 13.0-17.0 [facility] Comment on above: Performed By: #### C BC, BMP #### [address] [place], [facility] Spinning Operator: Jose A Victor MD MCH (RBC) [Entitic mass] 33.1 pg Normal 25.2-33.5 [facility] Comment on above: Performed By: #### C BC, BMP #### [address] [place] [address] Spinning Operator: Jose A Victor MD MCHC (RBC) [Mass/Vol] 35.0 g/dL High 28.4-34.8 [facility] Comment on above: Performed By: #### C BC, BMP #### [address] [place], [place] [phone] Spinning Operator: Jose A Victor MD MCV (RBC) [Entitic vol] 94.5 fL Normal 82.6-102.9 [facility] Comment on above: Performed By: #### C BC, BMP #### [address] [place], [place] [phone] Spinning Operator: Jose A Victor MD NRBC Automated 0.0 per 100 WBC Normal 0.0 [facility] Comment on above: Performed By: #### C BC, BMP #### [address] [place], [place] [phone] Spinning Operator: Jose A Victor MD Platelet mean volume (Bld) [Entitic vol] 10.6 fL Normal 8.1-13.5 [facility] Comment on above: Performed By: #### C MICHAEL, BMP #### [address] [place], [facility] Spinning Operator: Jose A Victor MD Platelets (Bld) [#/Vol] 233 10*3/uL Normal 138-453 [facility] Comment on above: Performed By: #### C MICHAEL, BMP #### [address] [place], [place] [phone] Spinning Operator: Jose A Victor MD RBC (Bld) [#/Vol] 4.75 10*6/uL Normal 4.21-5.77 [facility] Comment on above: Performed By: #### C BC, BMP #### [address] [place], [place] [phone] Spinning Operator: Jose A Victor MD WBC (Bld) [#/Vol] 15.3 10*3/uL High 3.5-11.3 [facility] Comment on above: Performed By: #### C BC, BMP #### [address] [place], [place] [phone] Spinning Operator: Jose A Victor MD Hematocrit (Bld) [Volume fraction] 44.9 % 40.7 - 50.3 % [facility] [employer] Hemoglobin (Bld) [Mass/Vol] 15.7 g/dL 13 - 17 g/dL [facility] [employer] Interpretation and review of laboratory results Abnormal [facility] [employer] MCH (RBC) [Entitic mass] 33.1 pg 25.2 - 33.5 pg [facility] MCHC (RBC) [Mass/Vol] 35.0 g/dL High 28.4 - 34.8 g/dL [facility] [employer] MCV (RBC) [Entitic vol] 94.5 fL 82.6 - 102.9 fL [facility] [employer] NRBC Automated 0.0 0.0 per 100 WBC [facility] [employer] Platelet distribution width (Bld) [Ratio] 11.8 % 11.8 - 14.4 % [facility] [employer] Platelet mean volume (Bld) [Entitic vol] 10.6 fL 8.1 - 13.5 fL [facility] [employer] Platelets (Bld) [#/Vol] 233 10*3/uL [facility] [employer] RBC (Bld) [#/Vol] 4.75 10*6/uL 4.21 - 5.7 7 m/uL [facility] WBC (Bld) [#/Vol] 15.3 10*3/uL High [facility] [employer] [facility] EKG 12 LeadOrdered By: Lex browning on 03-31-2022 Atrial Rate 74 BPM [facility] Work Phone: P [place] 66 degrees [facility] Work Phone: P-R Interval 144 ms [facility] [employer] Work Phone: Q-T Interval 376 ms [facility] [employer] [facility] [employer] [employer] Work Phone: QRS Duration 106 ms [facility] Work Phone: QTc Calculation (Bazett) 417 ms [facility] Work Phone: R [place] 76 degrees [facility] Work Phone: T [place] 43 degrees [employer] Work Phone: Ventricular Rate 74 BPM [facility]S [employer] Work Phone: [facility] [employer] Work Phone: EKG 12 Leadon 03-31-2022 Normal sinus rhythm with sinus arrhythmia Normal ECG No previous ECGs available Confirmed by Lex Kwan MD ([id number]) on 03/31/2022 10:09:31 PM [facility] RADI[facility] Lex Kwan MD - 03/31/2022 Normal sinus rhythm with sinus arrhythmia Normal ECG No previous ECGs available Confirmed by Lex Kwan MD ([id number]) on 03/31/2022 10:09:31 PM [facility] [employer] Work Phone: Laboratory - Chemistry and C hemistry - challengeon 03-31-2022 GFR/1.73 sq M.predicted MDRD (S/P/Bld) [Vol rate/Area] [facility] Comment on above: Average GFR for 20-2 9 years old: 116 mL/min/1.73sq m Chronic Kidney Disease: <60 mL/min/1.73sq m Kidney failure: <15 mL/min/1.73sq m eGFR calculated using average adult body mass. Additional eGFR calculator available at: http://www.hdl therapeutics.Peeky/multiple_crcl_2012.htm Stage 1: Some kidney damage normal GFR [...] Carlos Odell MD 03/30/22 Final result Normal [facility] Acute comminuted, mildly impacted and dorsally angulated fracture of the distal left radius. Acute nondisplaced ulnar styloid avulsion fracture. [facility] CONSOLIDATED EXAMINATION: TWO XRAY VIEWS OF THE LEFT FOREARM 03/30/2022 5:38 pm COMPARISON: None. HISTORY: ORDERING SYSTEM PROVIDED HISTORY: pain TECHNOLOGIST PROVIDED HISTORY: pain FINDINGS: There is an acute comminuted, mildly impacted and dorsally angulated fracture of the distal left radius there is an acute nondisplaced fracture of the ulnar styloid. There is artifact from a sheet or clothing. [facility] Jean Carlos Odell MD - [...] radius. Acute nondisplaced ulnar styloid avulsion fracture. [employer] Phone: Radiology Study observation (narrative) [employer] Phone: XR RADIUS ULNA LEFT (2 VIEWS )Ordered By: Jean Carlos Odell on 03-30-2022 [employer] Phone: Vital Signs Date Time Vital Sign Value Performing Clinician Ronal fairchild 10-01-2024 13:01-0500 Respiratory rate 18 /min Jaspal Love [employer] Work Phone: [employer] 10-01-2024 08:15-0500 Body temperature 98.1 [degF] Jaspal Love DO Work Phone: [employer] 10-01-2024 08:15-0500 Diastolic blood pressure 87 mm[Hg] Jaspal Love DO Work Phone: [employer] 10-01-2024 08:15-0500 Heart rate 69 /min Jaspal Love DO Work Phone: [employer] 10-01-2024 08:15-0500 SaO2% (BldA) [Mass fraction] 94 % Jaspal Love DO Work Phone: [employer] 10-01-2024 08:15-0500 Systolic blood pressure 136 mm[Hg] Jaspal Love DO Work Phone: [employer] 09-30-2024 06:00-0500 Body mass index (BMI) [Ratio] 32.32 kg/m2 Jaspal Love DO Work Phone: [employer] 09-30-2024 06:00-0500 Body weight 105.1 kg Jaspal Love DO Work Phone: [employer] 09-25-2024 22:49-0500 Body height 180.3 cm Jaspal Love DO Work Phone: [employer] 01-18-2024 07:45-0400 Body temperature 97.81 [degF] Xavier Marisaperez Work Phone: [email or web address] 01-18-2024 07:45-0400 Respiratory rate 16 /min Xavier Negron DO Work Phone: [email or web address] 01-18-2024 04:11-0400 Diastolic blood pressure 84 mm[Hg] Xavier Negron DO Work Phone: [email or web address] 01-18-2024 04:11-0400 Heart rate 54 /min Xavier Negron DO Work Phone: [email or web address] 01-18-2024 04:11-0400 SaO2% (BldA) [Mass fraction] 99 % Xavier Negron DO Work Phone: [email or web address] 01-18-2024 04:11-0400 Systolic blood pressure 139 mm[Hg] Xavier Negron DO Work Phone: [employer] [facility] [employer] [employer] 01-16-2024 10:53-0400 Body height 177.8 cm Xavier Negron DO Work Phone: [email or web address] 01-16-2024 10:53-0400 Body mass index (BMI) [Ratio] 32.83 kg/m2 Xavier Negron DO Work Phone: [facility] [employer] [facility] [employer] [employer] 01-16-2024 10:53-0400 Body weight 103.8 kg Xavier Negron DO Work Phone: [employer] [facility] [employer] [facility] [employer] 07-27-2022 15:00-0500 Diastolic blood pressure 90 mm[Hg] Candice Rider CNP Work Phone: [facility] Work Phone: 07-27-2022 15:00-0500 Systolic blood pressure 140 mm[Hg] Candice Rider BASEBALL HAND SEWER Work Phone: [facility] Work Phone: 07-27-2022 14:34-0500 Body height 177.8 cm Candice Rider BASEBALL HAND SEWER Work Phone: [facility] Work Phone: 07-27-2022 14:34-0500 Body mass index (BMI) [Ratio] 36.7 kg/m2 Candice Rider CNP Work Phone: [facility] Work Phone: 07-27-2022 14:34-0500 Body surface area Derived from formula 2.3 m2 Candice Rider CNP Work Phone: [facility] Work Phone: 07-27-2022 14:34-0500 Body temperature 96.8 [degF] Candice Rider BASEBALL HAND SEWER Work Phone: [facility] Work Phone: 07-27-2022 14:34-0500 Body weight 116.12 kg Candice Rider BASEBALL HAND SEWER Work Phone: [facility] Work Phone: 07-27-2022 14:34-0500 Diastolic blood pressure 94 mm[Hg] Candice Tereso BASEBALL HAND SEWER Work Phone: [facility] Work Phone: 07-27-2022 14:34-0500 Heart rate 97 /min Candice Rider BASEBALL HAND SEWER Work Phone: [facility] Work Phone: 07-27-2022 14:34-0500 Heart Rate Rhythm 1 1 Candice Rider BASEBALL HAND SEWER Work Phone: [facility] Work Phone: 07-27-2022 14:34-0500 SaO2% (BldA) [Mass fraction] 99 % Candice Rider BASEBALL HAND SEWER Work Phone: [facility] Work Phone: 07-27-2022 14:34-0500 Systolic blood pressure 152 mm[Hg] Candice Rider BASEBALL HAND SEWER Work Phone: [facility] Work Phone: 04-03-2022 12:00-0400 Diastolic blood pressure 89 mm[Hg] Evan Frost MD Work Phone: [employer] [facility] [employer] [employer] 04-03-2022 12:00-0400 Heart rate 90 /min Evan Frost MD Work Phone: [employer] [facility] [employer] [facility] [employer] 04-03-2022 12:00-0400 Respiratory rate 16 /min Evan Frost MD Work Phone: [facility] [employer] [employer] 04-03-2022 12:00-0400 SaO2% (BldA) [Mass fraction] 96 % Evan Frost MD Work Phone: [email or web address] 04-03-2022 12:00-0400 Systolic blood pressure 143 mm[Hg] Evan Frost MD Work Phone: [email or web address] 04-03-2022 11:00-0400 Body temperature 97.2 [degF] Evan Frost MD Work Phone: [email or web address] 04-03-2022 08:43-0400 Body height 180.3 cm Evan Frost MD Work Phone: [email or web address] 04-03-2022 08:43-0400 Body mass index (BMI) [Ratio] 32.64 kg/m2 Evan Frost MD Work Phone: [facility] [employer] [employer] 04-03-2022 08:43-0400 Body weight 106.14 kg Evan Frost MD Work Phone: [email or web address] 03-30-2022 17:28-0400 Body height 180.3 cm Flor Busby MD Work Phone: [email or web address] 03-30-2022 17:28-0400 Body mass index (BMI) [Ratio] 30.68 kg/m2 Flor Busby MD Work Phone: [facility] [employer] 03-30-2022 17:28-0400 Body weight 99.79 kg Flor Busby MD Work Phone: [email or web address] 03-30-2022 17:13-0400 Body temperature 97.81 [degF] Flor Busby MD Work Phone: [email or web address] 03-30-2022 17:13-0400 Diastolic blood pressure 94 mm[Hg] Flor Busby MD Work Phone: [email or web address] 03-30-2022 17:13-0400 Heart rate 93 /min Flor Busby MD Work Phone: [facility] [employer] [employer] 03-30-2022 17:13-0400 Respiratory rate 18 /min lFor Busby MD Work Phone: [facility] 03-30-2022 17:13-0400 SaO2% (BldA) [Mass fraction] 99 % Flor Busby MD Work Phone: [facility] 03-30-2022 17:13-0400 Systolic blood pressure 141 mm[Hg] Folr Busby MD Work Phone: [facility] 03-10-2022 15:55-0400 Diastolic blood pressure 100 mm[Hg] Candice Rider BASEBALL HAND SEWER Work Phone: [facility] Work Phone: 03-10-2022 15:55-0400 Systolic blood pressure 160 mm[Hg] Candice Rider BASEBALL HAND SEWER Work Phone: [facility] Work Phone: 03-10-2022 15:06-0400 Body height 177.8 cm Candice Rider BASEBALL HAND SEWER Work Phone: [facility] Work Phone: 03-10-2022 15:06-0400 Body mass index (BMI) [Ratio] 33.7 kg/m2 Candice Rider CNP Work Phone: [facility] Work Phone: 03-10-2022 15:06-0400 Body surface area Derived from formula 2.24 m2 Candice Rider CNP Work Phone: [facility] Work Phone: 03-10-2022 15:06-0400 Body surface area Derived from formula 2.2 m2 Candice Rider CNP Work Phone: [facility] [facility] Work Phone: 03-10-2022 15:06-0400 Body temperature 99.3 [degF] Candice Rider CNP Work Phone: [facility] Work Phone: 03-10-2022 15:06-0400 Body weight 106.6 kg Candice Rider CNP Work Phone: [facility] Work Phone: 03-10-2022 15:06-0400 Diastolic blood pressure 120 mm[Hg] Candice Rider BASEBALL HAND SEWER Work Phone: [facility] Work Phone: 03-10-2022 15:06-0400 Heart rate 123 /min Candice Rider BASEBALL HAND SEWER Work Phone: [facility] Work Phone: 03-10-2022 15:06-0400 SaO2% (BldA) [Mass fraction] 97 % Candice Rider BASEBALL HAND SEWER Work Phone: [facility] Work Phone: 03-10-2022 15:06-0400 Systolic blood pressure 160 mm[Hg] Candice Rider BASEBALL HAND SEWER Work Phone: [facility] Work Phone: 06-20-2021 19:23-0400 Diastolic blood pressure 82 mm[Hg] Candice Rider BASEBALL HAND SEWER Work Phone: [facility] Work Phone: 06-20-2021 19:23-0400 Systolic blood pressure 122 mm[Hg] Candice Rider BASEBALL HAND SEWER Work Phone: [facility] Work Phone: Encounters Encounter Date Encounter [...] 07-27-2022 [facility] visit, estab pt Denisha Alonso [facility] Work Phone: [facility] Work Phone: Start: 07-27-2022 End: 07-27-2022 FQHC visit, estab pt Patricia Derrick B[employer]BALL HAND SEWER Work Phone: [facility] Work Phone: Start: 04-03-2022 End: 04-03-2022 ambulatory [facility] Start: 04-03-2022 End: 04-03-2022 Subsequent hospital visit by physician Evan Frost MD Work Phone: [facility] Comment on above: Status post open red uction and internal fixation (ORIF) of fracture (Primary Dx) Start: 03-31-2022 End: 04-01-2022 ambulatory [facility] Start: 03-31-2022 End: 03-31-2022 Subsequent hospital visit by physician [facility] Start: 03-30-2022 End: 03-30-2022 Emergency department patient visit [facility] Start: 03-30-2022 End: 03-30-2022 Emergency department patient visit Flor Busby MD Work Phone: [facility] ED Comment on above: Closed fracture of d istal end of left radius, unspecified fracture morphology, initial encounter (Primary Dx) Start: 03-10-2022 End: 03-10-2022 Adult health examination Candice Rider BASEBALL HAND SEWER Work Phone: [facility] Work Phone: Start: 03-10-2022 End: 03-10-2022 FQ visit new patient Candice Rider BASEBALL HAND SEWER Work Phone: [facility] Work Phone: Start: 03-09-2022 End: 03-09-2022 Emergency department patient visit [facility] Start: 02-07-2022 End: 02-07-2022 Simple extraction of tooth Mirella Allen DDS Work Phone: [facility] Work Phone: Start: 02-07-2022 limited oral evaluat ion - problem focused Mirella Allen DDS Work Phone: [facility] Start: 06-20-2021 End: 06-20-2021 Emergency department patient visit Mirella Allen DDS Work Phone: [facility] Work Phone: Start: 06-20-2021 limited oral evaluat ion - problem focused Mirella Allen DDS Work Phone: [facility] Work Phone: Procedures Date Procedure Procedure [...] Start: 01-18-2024 Hepatic function panel Bobo Mas [employer] - B[employer]BALL HAND SEWER Work Phone: Start: 01-18-2024 Prothrombin time Bobo Mas [employer] - B[employer]BALL HAND SEWER Work Phone: Start: 01-18-2024 BASIC METABOLIC PANE [...] Start: 07-27-2022 Current tobacco smoker Patricia Derrick B[employer] Work Phone: Start: 07-27-2022 Decompression of med sunitha nerve Candice Rider B[employer]BALL HAND SEWER Work Phone: Start: 07-27-2022 Most recent diastol blood pres >/equal 90 mm hg Patricia Meza B[employer]BALL HAND SEWER Work Phone: Start: 07-27-2022 Most recent systolic blood pres>/equal 140 mm hg Patricia Meza B[employer] HAND SEWER Work Phone: Start: 07-27-2022 Psychotherapy w/estela ent 30 minutes Denisha Stevenserson [facility] Work Phone: Start: 07-27-2022 Surgical procedure Ligia Busby [employer] Work Phone: Start: 04-03-2022 Fluoroscopy during operation Evan Frost MD Work Phone: Start: 03-31-2022 Ecg routine ecg w/le ast 12 lds w/i&r Evan Frost MD Work Phone: Start: 03-31-2022 Basic metabolic pane l calcium total Evan Frost MD Work Phone: Start: 03-30-2022 Radex forearm 2 views M sam Busby MD Work Phone: Start: 03-10-2022 Antibody hiv-1&hiv-2 single result Candice Tereso [employer] Work Phone: Start: 03-10-2022 Appendectomy Candice machado [employer] Work Phone: Start: 03-10-2022 Hemoglobin glycosylated a1c Candice Tereso [employer] SEW[employer] Work Phone: Start: 03-10-2022 Pt scrnd tobacco use rcvd tobacco cessation talk Candice Rider B[employer] SEWER Work Phone: Start: 03-10-2022 Pt-focused hlth risk assmt score doc stnd instrm Candice Rider [employer] Work Phone: Start: 02-07-2022 intraoral - periapic al first radiographic image Mirella Allen DDS Work Phone: Start: 06-20-2021 bitewing - single radiographic image Mirella Allen DDS Work Phone: Start: 06-20-2021 intraoral - periapic al first radiographic image Mirella Allen DDS Work Phone: Plan of Treatment Date Care Activity Detail Author Start: 05-11-2024 COVID-19 Vaccine ( season) COVID-19 Vaccine ( season) [facility] Start: 04-10-2024 Influenza vaccination [facility] Start: 05-17-2022 Dental Comp Exam [facility] Work Phone: Start: 05-11-2022 Influenza vaccination Flu vaccine (# 1) [facility] Start: 04-03-2022 End: 04-03-2022 Admission to same day surgery center 04/03/2022 Surgery IP Unit Evan Frost MD [address] [place] [id number] RADIUS OPEN REDUCTION INTERNAL FIXATION-DISTAL, CTR [facility] Comment on above: RADIUS OPEN REDUCTIO N INTERNAL FIXATION-DISTAL, CTR Start: 04-03-2022 End: 04-03-2022 Optx dstl radl x-artic fx/epiphysl sep RADIUS OPEN REDUCTION INTERNAL FIXATION Type III open nondisplaced oblique fracture of shaft of radius, unspecified laterality, initial encounter 04/03/2022 11:20 AM [facility] Start: 04-03-2022 Subsequent hospital visit by physician 04/03/2022 Hospital Encounter IP Unit Evan Frost MD [address] [place] [id number] [facility] Start: 04-03-2022 End: 04-03-2022 Optx dstl radl x-artic fx/epiphysl sep RADIUS OPEN REDUCTION INTERNAL FIXATION Type III open nondisplaced oblique fracture of shaft of radius, unspecified laterality, initial encounter 04/03/2022 9:21 AM [facility] Start: 03-24-2022 [facility] Work Phone: Start: 2017 DTaP/Tdap/Td vaccine (1 - Tdap) DTaP/Tdap/Td vaccine (1 - Tdap) [facility] Start: 2017 Hepatitis B vaccine (1 of 3 - 19+ 3-dose series) Hepatitis B vaccine (1 of 3 - 19+ 3-dose series) [facility] Start: 2016 Hepatitis C screening Hepatitis C sc reen [facility] Start: 2013 HIV screening HIV screen [facility] Start: 2013 HPV vaccine (1 - Mal e 3-dose series) HPV vaccine (1 - Male 3-dose series) [facility] Start: 2011 Varicella vaccine (1 of 2 - 13+ 2-dose series) Varicella vaccine (1 of 2 - 13+ 2-dose series) [facility] Start: 2010 Depression Screen Depression Screen [facility] Start: 2009 HPV vaccine (1 - Mal e 2-dose series) HPV vaccine (1 - Male 2-dose series) [facility] Start: 2004 Pneumococcal 0-64 ye ars Vaccine (1 - PCV) Pneumococcal 0-64 years Vaccine (1 - PCV) [facility] Start: 2004 Pneumococcal 0-64 ye ars Vaccine (1 of 2 - PCV) Pneumococcal 0-64 years Vaccine (1 of 2 - PCV) [facility] Start: 1999 Varicella vaccine (1 of 2 - 2-dose childhood series) Varicella vaccine (1 of 2 - 2-dose childhood series) [facility] Start: 1998 COVID-19 Vaccine (#1) COVID-19 Vacci ne (#1) [facility] Start: 1998 Hepatitis B vaccine (1 of 3 - 3-dose series) Hepatitis B vaccine (1 of 3 - 3-dose series) [facility] End: 10-03-2024 Basic metabolic 2000 panel - Serum or Plasma Basic Metabolic Panel Lab Routine Tomorrow AM for 7 Occurrences starting 09/27/2024 until 10/03/2024, 5 completed [facility] Work Phone: Comment on above: Tomorrow AM for 7 Oc currences starting 09/27/2024 until 10/03/2024, 5 completed End: 01-19-2024 Basic Metabolic Panel w/ Reflex to MG Basic Metabolic Panel w/ Reflex to MG Lab Routine Daily for 3 Days starting 01/17/2024 until 01/19/2024, 2 completed [email or web address] Comment on above: Daily for 3 Days sta rting 01/17/2024 until 01/19/2024, 2 completed End: 01-17-2024 Calprotectin Stool Calprotectin Stool Lab STAT One Time for 1 Occurrences starting 01/17/2024 until 01/17/2024 [email or web address] Comment on above: One Time for 1 Occur rences starting 01/17/2024 until 01/17/2024 End: 01-19-2024 CBC W Auto Differential panel - Blood CBC with Auto Differential Lab Routine Daily for 3 Days starting 01/17/2024 until 01/19/2024, 2 completed [email or web address] Comment on above: Daily for 3 Days sta rting 01/17/2024 until 01/19/2024, 2 completed End: 10-03-2024 CBC W Auto Differential panel - Blood CBC with Auto Differential Lab Routine Tomorrow AM for 7 Occurrences starting 09/27/2024 until 10/03/2024, 5 completed [employer] Comment on above: Tomorrow AM for 7 Oc currences starting 09/27/2024 until 10/03/2024, 5 completed End: 01-16-2024 Culture, Anaerobic and Aerobic Culture, Anaerobic and Aerobic Microbiology Routine One Time for 1 Occurrences starting 01/16/2024 until 01/16/2024 [email or web address] Comment on above: One Time for 1 Occur rences starting 01/16/2024 until 01/16/2024 End: 01-17-2024 IBD Panel [email or web address] Work Phone: Comment on above: One Time for 1 Occur rences starting 01/17/2024 until 01/17/2024 End: 04-03-2022 INITIATE PACU OXYGEN THERAPY PROTOCOL Initiate PACU Oxygen Therapy Protocol Respiratory Care Routine Continuous until discontinued starting 04/03/2022 [email or web address] Comment on above: Continuous until dis continued starting 04/03/2022 Intermittent pulse oximetry Pulse Oximetry Spot Check Respiratory Care Routine As Needed until discontinued starting 09/25/2024 [facility] [employer] Comment on above: As Needed until disc ontinued starting 09/25/2024 Oxygen therapy [[facility] Data Set] Initiate Oxygen Therapy Protocol Respiratory Care Routine As Needed until discontinued starting 01/16/2024 [facility] Comment on above: As Needed until disc ontinued starting 01/16/2024 Oxygen therapy [[facility] Data Set] Initiate Oxygen Therapy Protocol Respiratory Care Routine As Needed until discontinued starting 09/25/2024 [facility] [employer] Comment on above: As Needed until disc ontinued starting 09/25/2024 End: 03-30-2022 Splint application Splint application Procedures Routine One Time for 1 Occurrences starting 03/30/2022 until 03/30/2022 [facility] Work Phone: Comment on above: One Time for 1 Occur rences starting 03/30/2022 until 03/30/2022 Payers Date Payer Category Payer Medicaid ACUTE [id number] 01-09-2024 Medicaid [id number] 1998 Unknown [id number] 1998 Unknown [id number] [id number] 1998 Unknown [id number] 2.16.8 [id number] 1998 Unknown [id number] [id number] 1998 Unknown [id number] 2.16. [id number] 1998 Unknown [id number] 2.16. [id number] 09-10-1961 Medicaid [id number]. [id number] Self-pay [id number] Social History Date Type Detail Facility Assertion Social drinker (finding) [facility] Work Phone: Assertion Sexually active (finding) [facility] Work Phone: Assertion Health [facility] Work Phone: Assertion Cigarette smoker (finding) [facility] Work Phone: Assertion Smoker (finding) [facility] Work Phone: Assertion Gender identity finding (finding) [facility] Work Phone: Assertion Light cigarette smoker (1-9 cigs/day) (finding) [facility] Work Phone: Assertion Finding of sexua l orientation (finding) [facility] Work Phone: Tobacco smoking status Unknown if ever smoked [facility] Work Phone: Start: 03-09-2022 End: 01-16-2024 Tobacco smoking status NHIS Smokes tobacco daily [email or web address] Work Phone: Start: 03-09-2022 End: 09-25-2024 Cigarettes smoked current (pack per day) - Reported 0.3 [employer] Start: 03-09-2022 End: 01-16-2024 Tobacco use and exposure Smokeless tobacco non-user [employer] Phone: Start: 2000 Sex Assigned At Not on file B ON [employer] Phone: Start: 03-20-2022 End: 04-03-2022 Exposure to SARS-CoV-2 (event) Not sure [email or web address] Start: 03-31-2022 End: 04-03-2022 Alcohol intake Current drinker of alcohol (finding) [email or web address] Work Phone: Start: 03-31-2022 History SDOH Alcohol Comment socially [employer] Work Phone: Assertion Exposure to poll ution (event) [facility] Work Phone: Start: 01-16-2024 End: 09-26-2024 Alcohol intake Ex-drinker (finding) [email or web address] Start: 01-16-2024 End: 09-25-2024 [facility] Utilities [employer] Has the electric, gas, oil, or water [employer] threatened to shut off services in your home in past 12Mo No [employer] How often to you hav e a drink containing alcohol? Monthly or less [employer] How many standard drinks containing alcohol do you have on a typical day? 3 or 4 [employer] How often do you hav e 6 or more drinks on 1 occasion? Less than monthly [employer] (I/We) worried whether (my/our) food would run out before (I/we) got money to buy more. Never true [employer] In the past 12 months, was there a time when you were not able to pay the mortgage or rent on time? Yes [employer] Start: 01-16-2024 Alcohol Comment stopped drinki ng 2 months ago- reports h/o ETOH abuse [employer] NEGATED: Highlighted row Assertion Exposure to pollution (event) [facility] Work Phone: NEGATED: Highlighted row Assertion Not using electronic cigarettes/vaping [facility] Work Phone: Medical Equipment Procedure Code Equipment Code Equipment Origin al Text Equipment Identifier Dates Plate Distl Rad Kenia Lt 2.4x54mm - [id number] Start: 04-03-2022 Screw Bne L18mm Dia2.7mm Neymar S Stl St T8 Stardrv Recess - [id number] Start: 04-03-2022 Screw Bne L14mm Dia2.4mm Dst Rad Volar S Stl St Kenia Ang Michelle - [id number] Start: 04-03-2022 Screw Bne L18mm Dia2.4mm Dst Rad Volar S Stl St Kenia Ang Michelle - [id number] Start: 04-03-2022 Screw Bne L22mm Dia2.4mm Dst Rad Volar S Stl St Kenia Ang Michelle - [id number] Start: 04-03-2022 Mental Status Date Assessment Result Facility Cognitive function Oriented to t anabelle, place, and person Oriented to person, time and place (finding) [facility] Work Phone: Clinical Notes 03-10-2022 to 10-01-2024 [...] his belongings. Discharge order received. IV removed. Snap Attacher went over d/c instructions with pt, including drain care, medications, and follow up appointments. Pt verbalized understanding. Pt called family member to transport home. Pt updated technical writer that his ride won't be here for another hour. Report given to clergy member nurse Shayna FLETCHER. All questions answered. Images from the original note were not included. [facility] Office: [phone] Benigno Negron DO, Teddy Yadav DO, Regulo [...] Mehta MD, Brie Mehta MD, Mai Kate, BASEBALL HAND SEWER, Mitali Graham BASEBALL HAND SEWER, Rojelio Bowen, BASEBALL HAND SEWER, Cecilia Mcgrath, NAZARIO, Dorene Barnhart BASEBALL HAND SEWER, Juli Frederick BASEBALL HAND SEWER, Miryam Lord, BASEBALL HAND SEWER, Leslie Jurado, BASEBALL HAND SEWER, Amirah Delgado, PA-C, Sary Trejo, PA-C, Patricia Johnson, BASEBALL HAND SEWER, Alber Blake, BASEBALL HAND SEWER, Anna Alex, BASEBALL HAND SEWER, Karmen Elizabeth, BASEBALL HAND SEWER, Samia Reyes, BASEBALL HAND SEWER, Willa Nieves, SCHEDULING SPECIALIST, Lindy Parra BASEBALL HAND SEWER, Silvia Arguello, BASEBALL HAND SEWER, Deandra Calix, BASEBALL HAND SEWER IN-PATIENT SERVICE [facility] Progress Note 10/01/2024 8:21 AM Name: Esmer Corbin Acct: [id number] Room: 0344/0344-02 IP Day: 6 Admit Date: [...] Frequency: 12.00 times per week. Drug: Marijuana ([place]). Family History: Family History Problem Relation Age [...] 10/01/2024 0418 Gross per 24 hour Intake 75664.44 ml Output 70 ml Net 23738.44 ml Labs: Hematology: Recent Labs 09/29/24 0320 [...] results for input(s): LABALBU , LABA1C , G2CLUHU , FT4 , TSH , AST , ALT , LDH , GGT , ALKPHOS , BILITOT , BILIDIR , AMMONIA , AMYLASE , LIPASE , LACTATE , CHOL , HDL , CHOLHDLRATIO , TRIG , VLDL , CFF51YU , PHENYTOIN , PHENYF , URICACID , POCGLU in the last 72 hours. Invalid input(s): PROT , X4XNCIW , LABGGT , LDLCHOLESTEROL ABG:No results found for: POCPH , PHART , PH , POCPCO2 , QKH3FZE , PCO2 , POCPO2 , PO2ART , PO2 , POCHCO3 , TLM5WME , HCO3 , NBEA , PBEA , BEART , BE , THGBART , THB , AWN1KMW , KJBI1NVV , P5WHOWKA , O2SAT , FIO2 No results found [...] 14-day course of therapy Infection Control Recommendations: Sterling precautions Discharge Planning: Estimated Length of IV [...] and had to be brought in to [facility] for IR guided drainage. Placed on iv [...] and supervised by the attending with physician [id number] monitoring. Medications were provided and recorded by Radiology nurses. TECHNIQUE: Informed consent was obtained after a detailed explanation of the procedure including risks, benefits, and alternatives. [place] protocol was followed. Sterile gowns, masks, hats, and gloves utilized for maximal sterile barrier. A suitable skin site was prepped and draped in sterile fashion following CT localization. An 18 gauge needle was advanced under CT guidance via right transgluteal fashion into the pelvic fluid collection. CT images confirmed satisfactory needle tip position. 0.035 guidewire was used to place a 10 Mauritian abscess drainage catheter after the fashion tract [...] CT guided placement of right transgluteal 10 Mauritian pelvic abscess drainage catheter. Cultures: Results Procedure Component Value Units Date/Time Culture, Body Fluid (with Gram Stain) [[id number]] Collected: 09/26/241244 Order Status: Canceled Specimen: Body Fluid from Aspirate Culture, Anaerobic and Aerobic [[id number]] (Abnormal) Collected: 09/26/24 124 Order Status: Completed Specimen: Aspirate Updated: 10/01/24 9414 Specimen Description .ASPIRATE PELVIC FLUID COLLECTION Direct [...] [facility] Patsy Tinoco MD [employer] OFFICE: Thank you for allowing us to [...] pertinent history and exam findings, with the resident/BAGGER MEAT. I have edited the note to reflect my thoughts including the history, physical exam, and medical decisions. I have independently interviewed and examined the patient and I discussed the findings and therapeutic plan with the resident/BAGGER MEAT and we collaborated on medical decision making for this patient. [employer] Images from the original note were not included. [facility] Office: [phone] Benigno Negron DO, Teddy Yadav DO, Regulo [...] Mehta MD, Brie Mehta MD, Mai Kate, BASEBALL HAND SEWER, Mitali Graham, BASEBALL HAND SEWER, Rojelio Bowen, BASEBALL HAND SEWER, Cecilia Mcgrath, [facility], Dorene Barnhart, BASEBALL HAND SEWER, Juli Frederick, BASEBALL HAND SEWER, Miryam Lord, BASEBALL HAND SEWER, Leslie Jurado, BASEBALL HAND SEWER, Amirah Delgado, PA-C, Sary Trejo, PA-C, Patricia Johnson, BASEBALL HAND SEWER, Alber Blake, BASEBALL HAND SEWER, Anna Alex, BASEBALL HAND SEWER, Karmen Elizabeth, BASEBALL HAND SEWER, Samia Reyes, BASEBALL HAND SEWER, Willa Nieves, [facility], Lindy Parra, BASEBALL HAND SEWER, Silvia Arguello, BASEBALL HAND SEWER, Deandra Calix, BASEBALL HAND SEWER IN-PATIENT SERVICE [facility] Progress Note 09/30/2024 7:44 AM Name: Esmer Corbin Acct: [id number] Room: 0344/0344-02 Day: 5 Admit Date: 09/25/2024 [...] Data Base Updates: Fevers resolving WBC10.7k/uL RBC4.72m/uL Zjzyubjdhw83.3 Nieqca442pkkv/L Potassium3.2 Low mmol/L Pfnynpfx397vdfp/L HK065ztrk/L Anion Ncd03pwet/L Hobrxjc46ig/dL BUN3 Low mg/dL Creatinine0.8 LHR281.0 High Culture: Specimen Source: Aspirate Specimen Description.ASPIRATE [...] Frequency: 12.00 times per week. Drug: Marijuana ([place]). Family History: Family History Problem Relation Age [...] results for input(s): LABALBU , LABA1C , J3PMUXT , FT4 , TSH , AST , ALT , LDH , GGT , ALKPHOS , BILITOT , BILIDIR , AMMONIA , AMYLASE , LIPASE , LACTATE , CHOL , HDL , CHOLHDLRATIO , TRIG , VLDL , KUV44UN , PHENYTOIN , PHENYF , URICACID , POCGLU in the last 72 hours. Invalid input(s): PROT , B6OJPKJ , LABGGT , LDLCHOLESTEROL ABG:No results found for: POCPH , PHART , PH , POCPCO2 , IYQ9OCB , PCO2 , POCPO2 , PO2ART , PO2 , POCHCO3 , MGD0XAF , HCO3 , NBEA , PBEA , BEART , BE , THGBART , THB , JXE2LFQ , BNSL7FTV , V8HPDDLN , O2SAT , FIO2 No results found [...] - Zosyn IV - ID consulted for fci antibiotic duration. Clear liquid diet, progress as [...] from the original note were not included. [facility] Office: [phone] Benigno Negron DO, Teddy Yadav DO, Regulo Cisneros DO, Anam Olmstead DO, Radha Keita MD, Petrona Heath MD, Abhay Kwan MD, Corazon Boykin MD, Hernando Garcia MD, Ko Park MD, Ruy Negrete MD, Mello Phipps DO, Lore Mohr MD, Rd Johnson MD, Xavier Negron DO, Leatha Rae MD, Brent Antony DO, Saknia Bean MD, Flora Fish MD, Dayna Nielsen MD, Dona Chavez MD, Johny Knight MD, Jhoana Talley MD, Gurwinder Thomas MD, Conrado Gill MD, Hugo Castellon MD, Anali Dooley MD, Rojelio James DO, Nino Ramos MD, Mello Mehta MD, Brie Mehta MD, Mai Kate, BASEBALL HAND SEWER, Mitali Graham, BASEBALL HAND SEWER, Rojelio Bowen, BASEBALL HAND SEWER, Cecilia Mcgrath, [facility], Dorene Barnhart, BASEBALL HAND SEWER, Juli Frederick, BASEBALL HAND SEWER, Miryam Lord, BASEBALL HAND SEWER, Leslie Jurado, BASEBALL HAND SEWER, Amirah Delgado PALinwoodC, Sary Trejo PA-C, Patricia Johnson, BASEBALL HAND SEWER, Alber Blake, BASEBALL HAND SEWER, Anna Alex, BASEBALL HAND SEWER, Karmen Elizabeth, BASEBALL HAND SEWER, Samia Reyes, BASEBALL HAND SEWER, Willa Nieves, SCHEDULING SPECIALIST, Lindy Parra, BASEBALL HAND SEWER, Silvia Arguello, BASEBALL HAND SEWER, Deandra Calix, BASEBALL HAND SEWER IN-PATIENT SERVICE [facility] Progress Note 09/29/2024 1:04 PM Name: Esmer Corbin Acct: [id number] Room: [address] [place] [address] Day: 4 Admit Date: 09/25/2024 7:14 PM [...] Data Base Updates: Fevers resolving WBC10.7k/uL RBC4.72m/uL Twitesrzki01.3 Vbrlmz076byqh/L Potassium3.2 Low mmol/L Wsbrqbyj770eozq/L IS292xdfk/L Anion Oyt43pjaz/L Suofrnd06bv/dL BUN3 Low mg/dL Creatinine0.8 TYL656.0 High Culture: Specimen Source: Aspirate Specimen Description.ASPIRATE [...] Frequency: 12.00 times per week. Drug: Marijuana ([place]). Family History: Family History Problem Relation Age [...] , PHART , PH , POCPCO2 , NOL0CZH , PCO2 , POCPO2 , PO2ART , PO2 , POCHCO3 , MRY7WGD , HCO3 , NBEA , PBEA , BEART , BE , THGBART , THB , ICD4MIG , VGTU8SIY , J6QJPRRV , O2SAT , FIO2 No results found [...] Measures: Height: 180.3 cm (5' 11 ) [place] Body Weight (IBW): 172 lbs (78 kg) [...] soon to determine [address] Contact: [phone] Images from the original note were not included. [facility] Office: [phone] Benigno Negron DO, Teddy Yadav DO, Regulo [...] Bowen CNP, Cecilia Mcgrath DNP, Dorene Barnhart, BASEBALL HAND SEWER, Juli Frederick, BASEBALL HAND SEWER, Miryam Lord, BASEBALL HAND SEWER, Leslie Jurado, VERONICA, Amirah Delgado PA-C, Sary Trejo PA-C, Patricia Johnson, VERONICA, Alber Blake, BASEBALL HAND SEWER, Anna Alex, BASEBALL HAND SEWER, Karmen Elizabeth, BASEBALL HAND SEWER, Samia Reyes, BASEBALL HAND SEWER, Willa Nieves, SCHEDULING SPECIALIST, Lindy Parra, VERONICA, Silvia Arguello, VERONICA, Deandra Calix, VERONICA IN-PATIENT SERVICE [facility] Progress Note 09/28/2024 10:39 AM Name: Esmer Corbin Acct: [id number] Room: [address] [place], [place] [address]- IP Day: 3 Admit Date: 09/25/2024 7:14 [...] Updates: Temperature 99.3 WBC14.6 High k/uL RBC4.75m/uL Lyujnmrpmh31.5 Uyfpet226sviv/L Potassium3.6 Low mmol/L Ctmcablv686uibn/L MQ929rfso/L Anion Rdn40chus/L Bbivhhx98wa/dL BUN4 Low mg/dL Creatinine0.7 Brief History: As [...] Frequency: 12.00 times per week. Drug: Marijuana ([place]). Family History: Family History Problem Relation Age [...] , PHART , PH , POCPCO2 , OML2ZXM , PCO2 , POCPO2 , PO2ART , PO2 , POCHCO3 , NGB5NMY , HCO3 , NBEA , PBEA , BEART , BE , THGBART , THB , WFZ6VDP , EFYS4GUT , N5CBAXQX , O2SAT , FIO2 No results found [...] from the original note were not included. [facility] Office: [phone] Benigno Negron DO, Teddy Yadav DO, Regulo Cisneros DO, Anam Olmstead DO, Radha Keita MD, Petrona Heath MD, Abhay Kwan MD, Corazon Boykin MD, eHrnando Garcia MD, Ko Park MD, Ruy Negrete [...] Johnson CNP, Alber Blake CNP, Anna Alex BASEBALL HAND SEWER, Karmen Elizabeth, BASEBALL HAND SEWER, Samia Reyes, BASEBALL HAND SEWER, Willa Nieves, JAKE, Lindy Parra CNP, Silvia Arguello CNP, Deandra Calix CNP IN-PATIENT SERVICE [facility] Progress Note 09/27/2024 2:47 PM Name: Esmer Corbin Acct: [id number] Room: 0344/0344-02 Day: 2 Admit Date: 09/25/2024 7:14 PM PCP: No primary care provider on file. Code Status: Full Code Subjective: C/C: Chief Complaint Patient presents with Abdominal Pain Interval History Status: Postop day 1 drain placement by IR Pain better controlled Remains thirsty Poor appetite No BM Data Base Updates: Afebrile WBC13.2 High k/uL RBC4.36m/uL Fomfglspdt35.3 Lactic Acid, Whole Blood1.2 Ckynzv845zsnn/L Potassium3.4 Low mmol/L Bwaxqczr068rwrb/L BL582ladm/L Anion Str32jkly/L Ocqtdxq86wp/dL BUN5 Low mg/dL Creatinine0.7 Specimen Source: Aspirate [...] Frequency: 12.00 times per week. Drug: Marijuana ([place]). Family History: Family History Problem Relation Age [...] , PHART , PH , POCPCO2 , KZM2XSJ , PCO2 , POCPO2 , PO2ART , PO2 , POCHCO3 , WYR0CIE , HCO3 , NBEA , PBEA , BEART , BE , THGBART , THB , GRE8XUN , NHXG9AWO , V0OJUUJH , O2SAT , FIO2 No results found [...] CT guided placement of right transgluteal 10 Mauritian pelvic abscess drainage catheter. ASSESSMENT: Active Hospital [...] mass loss Fluid Accumulation: No fluid accumulation Hydraulic Lift Operator Strength: Not Performed Nutrition Assessment: Patient seen [...] Measures: Height: 180.3 cm (5' 11 ) [place] Body Weight (IBW): 172 lbs (78 kg) [...] soon to determine [address] Contact: [phone] Images from the original note were not included. [facility] Office: [phone] Benigno Negron DO, Teddy Yadav DO, Regulo [...] Mehta MD, Brie Mehta MD, Mai Kate, BASEBALL HAND SEWER, Mitali Graham CNP, Rojelio Bowen, BASEBALL HAND SEWER, eCcilia Mcgrath, [facility], Dorene Barnhart, BASEBALL HAND SEWER, Juli Frederick, BASEBALL HAND SEWER, Miryam Lord, BASEBALL HAND SEWER, Leslie Jurado, BASEBALL HAND SEWER, RORY GuthrieC, RORY GreyC, Patricia Johnson, BASEBALL HAND SEWER, Alber Blake, BASEBALL HAND SEWER, Anna Alex, BASEBALL HAND SEWER, Karmen Elizabeth, BASEBALL HAND SEWER, Samia Reyes, BASEBALL HAND SEWER, Willa Nieves, [facility], Lindy Parra CNP, Silvia Arguello CNP, Deandra Calix CNP IN-PATIENT SERVICE [facility] Progress Note 09/26/2024 1:37 PM Name: Esmer Corbin Acct: [id number] Room: [address] [place] [address] Day: 1 Admit Date: 09/25/2024 7:14 PM PCP: No primary care provider on file. Code Status: Full Code Subjective: C/C: Chief Complaint Patient presents with Abdominal Pain Interval History Status: Patient continues to have nonlocalized pain across lower quadrants Pain rated 7/10 No nausea or vomiting He is thirsty No BM Has been bone cooking operator for drain by IR Data Base Updates: Afebrile Lactic Acid, Whole Blood1.4 Juuxvsl226 High mg/dL BUN7mg/dL Creatinine0.7 Bfojay130 High Brief History: As documented in the [...] Frequency: 12.00 times per week. Drug: Marijuana ([place]). Family History: Family History Problem Relation Age [...] , PHART , PH , POCPCO2 , ATK9YRU , PCO2 , POCPO2 , PO2ART , PO2 , POCHCO3 , DRA1OCD , HCO3 , NBEA , PBEA , BEART , BE , THGBART , THB , NSL3UTT , LMGW4VEN , D3BAAZRL , O2SAT , FIO2 No results found [...] had worsening abdominal pain. Patient went to [place] and ct scan was done showing worsened [...] Sample Expiration 09/29/2024,2359 Arm Band Number BE [id number] ABO/Rh B POSITIVE Antibody Screen NEGATIVE Lactic Acid Collection Time: 09/26/24 2:53 PM Result Value Ref Range Lactic Acid, Whole Blood 3.0 (H) 0.7 - 2.1 mmol/L Radiology Review: CT ABSCESS DRAINAGE Result Date: 09/26/[address] guided placement of right transgluteal 10 Mauritian pelvic abscess drainage catheter. ASSESSMENT: Active Hospital [...] and failure of oral antibiotics I Dr. Gacria saw and examined the patient. I have edited the above and agree with the above. Francesca Garcia Colorectal Surgery [facility] Pharmacokinetic Monitoring Service - Vancomycin Esmer [...] 09/25/2024 10:59 PM documented in this encounter [facility] 10-01-2024 Hospital Discharge instructions Rojelio Rodriguez DO - 10/01/2024 5:11 PM EST Okay to shower, keep drain site clean and dry Okay to flush drain with 10mL saline syringe one time a day Change Bandage if it becomes wet Follow-up with Dr. Garcia in 1 week in clinic to assess drain documented in this encounter [facility] 10-01-2024 Hospital course Narrative Images from the original note were not included. [facility] Office: [phone] Benigno Negron DO, Teddy Yadav DO, Regulo [...] Mehta MD, Brie Mehta MD, Mai Kate, BASEBALL HAND SEWER, Mitali Graham, BASEBALL HAND SEWER, Rojelio Bowen, BASEBALL HAND SEWER, Cecilia Mcgrath, [facility], Dorene Barnhart, BASEBALL HAND SEWER, Juli Frederick, BASEBALL HAND SEWER, Miryam Lord, BASEBALL HAND SEWER, Leslie Jurado, BASEBALL HAND SEWER, Amirah Delgado, PA-C, Sary Trejo, PA-C, Patricia Johnson, BASEBALL HAND SEWER, Alber Blake, BASEBALL HAND SEWER, Anna Alex, BASEBALL HAND SEWER, Karmen Elizabeth, BASEBALL HAND SEWER, Samia Reyes, [employer], Willa Nieves, [facility], Lindy Parra, BASEBALL HAND SEWER, Silvia Arguello, BASEBALL HAND SEWER, Deandra Calix, BASEBALL HAND SEWER IN-PATIENT SERVICE [facility] Discharge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
--- NOTE | 2024-10-13 19:30 | ED.GENADUL1 ---
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 He states that twice tonight he had a large amount of pus come out from the opening where he has a ROLANDO drain in his right buttock. He was here last night and had a CT scan done that showed no gluteal abscess with a right gluteal approach pigtail drain in place with decreased size of previously seen right perirectal collection which no measured 1.6 x 2.2 cm with a persistent irregular fluid collection with a foci of air seen adjacent to the sigmoid colon which now measures 1.5 x 1.7 cm as well as tissue connection between the distal proximal sigmoid colon which may represent a fistula. The patient states that he was unable to get his antibiotics filled because his bank card is in [place] where his sister lives. He states he cannot get access to the bank card or his antibiotics for this reason. He was seen here yesterday and the ROLANDO drain was questionable as far as it is draining going because the patient had not been irrigating it. The patient states that tonight he was getting ready to go to his sisters to get his bank card when he felt a sudden gush of material from his buttock area where the ROLANDO drain is and a large amount of purulent drainage was released from this area twice. He has not had a fever. He was tachycardic upon arrival. He denies any abdominal pain at this time. He denies any nausea or vomiting. Related Data Previous Rx's ?Medication ?Instructions ?Recorded cefdinir 300 mg capsule 300 mg PO BID 10 days #20 caps 10/12/24 metronidazole 500 mg tablet 500 mg PO Q8H 10 days #30 tabs 10/12/24 Allergies Allergy/AdvReac Type Severity Reaction Status Date / Time No Known Drug Allergies Allergy Verified 10/12/24 21:38 Opioid HPI Opioid Management Most Recent Opioid Data: Last Pain Scale 4 09/25/24 15:01 09/25/24 Last ORT Total Score 4 12/21/23 09:21 12/21/23 Last ORT Risk Category Moderate Risk 12/21/23 09:21 12/21/23 Review of Systems ROS Status of ROS 10 or more systems reviewed and unremarkable except as noted in history and [facility] History Perforation bowel ?K63.1 - Perforation of intestine (nontraumatic) (ICD-10) Obesity (BMI 30-39.9) ?E66.9 - Obesity, unspecified (ICD-10) Marijuana smoker ?F12.90 - Cannabis use, unspecified, uncomplicated (ICD-10) Smoker ?F17.200 - Nicotine dependence, unspecified, uncomplicated (ICD-10) Diverticulitis of colon with perforation ?K57.20 - Diverticulitis of large intestine with perforation and abscess without bleeding (ICD-10) Smokers' cough ?J41.0 - Simple chronic bronchitis (ICD-10) Obesity (BMI 35.0-39.9 without comorbidity) ?E66.9 - Obesity, unspecified (ICD-10) Pleurisy ?R09.1 - Pleurisy (ICD-10) Alcohol use disorder, mild, in early remission ?F10.11 - Alcohol abuse, in remission (ICD-10) HTN (hypertension) ?I10 - Essential (primary) hypertension (ICD-10) Herpes simplex ?B00.9 - Herpesviral infection, unspecified (ICD-10) Surgical History History of surgery on arm ?Z98.890 - Other specified postprocedural states (ICD-10) History of appendectomy ?Z90.49 - Acquired absence of other specified parts of digestive tract (ICD-10) Family History Mother Family history of COPD (chronic obstructive pulmonary disease) Family history of cancer Family history of hypertension Father Family history of hypertension Social History Within the past year, how often did you have a drink containing alcohol: 2-3 times a week Within the past year, how many standard drinks containing alcohol did you have on a typical day: 1 or 2 Within the past year, how often did you have six or more drinks on one occasion: less than monthly Total score: 1 Score interpretation: A score of 4 or more indicates drinking is likely to affect patient's safety. Smoking status: Current every day smoker Non-prescribed substance use: cannabis (any form) Previous occupational history: unemployed Highest level of school completed/degree received: high school graduate Are you now , , , , never or living with a partner: never Little interest or pleasure in doing things: not at all Feeling down, depressed, or hopeless: not at all Feel stressed/tense/nervous/anxious/difficulty sleeping: not at all Exam Narrative Exam Narrative: Vital signs and Nursing Notes reviewed: Patient is afebrile, tachycardic with a pulse of 147, blood pressure is elevated at 146/81, he is not hypoxic with pulse ox of 98% on room air General: Awake, alert, oriented, notable and uncomfortable but nontoxic appearing overweight male, no respiratory distress HEENT: Normocephalic atraumatic, mucous membranes are moist and pink, eyes are clear, normal conjunctiva, vision is grossly intact Neck: Supple, no meningeal signs, no anterior or posterior cervical lymphadenopathy Chest: Lungs are clear to auscultation with good air entry, there is no wheezing rhonchi or rales appreciated no accessory muscle use, patient is speaking in complete sentences-no chest wall tenderness to palpation CVS: Regular rate and rhythm S1-S2, no murmurs rubs or gallops, pulses are brisk and equal bilaterally ABD: Soft, nondistended, nontender, no rebound guarding or rigidity, bowel sounds are normal, no pulsatile masses appreciated Musc: There is a pigtail ROLANDO drain in place in the patient's mid buttock region. The gauze overlying this is soaked with purulent drainage. The gauze was removed and the area is no longer draining. There is an indurated area in the buttock but there is no appreciable drainage. There is no skin redness. There is no drainage in the ROLANDO drain Extremities: Moving all extremities, no lower extremity tenderness or swelling noted, negative Homans' sign, pulses are brisk and equal bilaterally Skin: Normal in appearance without rash,pallor, petechiae or purpura Neuro: No focal deficits Constitutional Vital Signs, click to edit/add: Last Vital Signs Temp 98.8 F 10/13/24 19:00 Pulse 147 H 10/13/24 19:00 Resp 16 10/13/24 19:00 BP 146/81 H 10/13/24 19:00 Pulse Ox 98 10/13/24 19:00 O2 Del Method Room Air 10/13/24 19:00 Course Vital Signs Vital signs: Vital Signs Temperature 98.8 F 10/13/24 19:00 Pulse Rate 147 H 10/13/24 19:00 Respiratory Rate 16 10/13/24 19:00 Blood Pressure 146/81 H 10/13/24 19:00 Pulse Oximetry 98 10/13/24 19:00 Oxygen Delivery Method Room Air 10/13/24 19:00 Temperature 98.8 F 10/13/24 19:00 Pulse Rate 147 H 10/13/24 19:00 Respiratory Rate 16 10/13/24 19:00 Blood Pressure 146/81 H 10/13/24 19:00 Pulse Oximetry 98 10/13/24 19:00 Oxygen Delivery Method Room Air 10/13/24 19:00 Medical Decision Making MDM Narrative Medical decision making narrative: This 24-year-old male who has a pigtail catheter in his right buttock that is draining an abscess in his abdomen that was placed at [facility] recently after being transferred from this facility and was seen yesterday due to the fact that he could not get into see his surgeons to have the drain removed presents for evaluation of purulent drainage from around the pigtail catheter in the right buttock area. He had a CT scan done yesterday that showed decrease size of a previously seen right perirectal collection with a persistent irregular fluid collection with foci of air adjacent to the sigmoid colon as well as a tissue connection between the distal proximal sigmoid colon which may represent a fistula and perirectal and presacral unorganized fluid and fat stranding. His white count yesterday was 18. Today he states that he was getting ready to go to his sister's house in [place] where his bank card is to get his bank card so that he can get his antibiotic prescriptions filled when he had an explosive drainage from the area around the ROLANDO drain. This occurred twice. His dressing was soaked with purulent drainage. Is unclear if the ROLANDO drain is working but there is some drainage in it that he states is from yesterday. He was noted to be tachycardic but was extremely upset upon arrival. His pulse was in the 140s. An IV was placed and he was medicated with IV fluids and IV Flagyl. The oral cephalosporin that he is on is currently unavailable at this facility. Labs are reviewed. His white count is 13.6 and hemoglobin is stable at 15.7. Lactic acid is normal at 1.0. Electrolytes are normal with a mildly elevated glucose at 125. He is not having any abdominal pain. On reevaluation I discussed with him the likelihood that the drainage that came out around the ROLANDO drain was likely supposed to come out the ROLANDO drain but it does appear to be clogged. We did irrigate the drain in the emergency department and it was able to be irrigated from the point of the stop cock. He has prescriptions that have been given to him previously. He was medicated with a dose of Percocet for ongoing pain in the buttock area where he has an indurated area around the ROLANDO drain. He was given a copy of his CT scan results from last night and a copy of his labs. He is otherwise stable for discharge. I confirmed that he does have antibiotics at [facility] that he has access to once he is able to get his bank card tomorrow. He declines the need for pain medication Rx He does have follow-up on October 17, this Sunday with the surgeons at [facility] in [place]. At this time I do not see any indication to transfer him urgently for treatment at this time. Medical Records Medical records reviewed: Yes I reviewed the patient's medical records Lab Data Labs: Lab Results 10/13/24 Range/Units 19:55 WBC 13.6 H (4.0-11.0) 10^3/uL RBC 4.72 (4.70-6.10) 10^6/uL Hgb 15.7 (14.0-18.0) g/dL Hct 44.9 (42.0-54.0) % MCV 95.1 H (80.0-94.0) fL MCH 33.3 (25.9-34.0) pg MCHC 35.0 (29.9-35.2) g/dL RDW 11.7 (11.0-15.0) % Plt Count 218 (150-450) 10^3/uL MPV 11.1 (9.5-13.5) fL Neut % (Auto) 78.7 H (43.0-75.0) % Lymph % (Auto) 10.8 L (20.5-60.0) % Wise % (Auto) 9.0 (1.7-12.0) % Eos % (Auto) 0.6 L (0.9-7.0) % Baso % (Auto) 0.5 (0.2-2.0) % Neut # (Auto) 10.7 H (1.4-6.5) 10^3/uL Lymph # (Auto) 1.5 (1.2-3.8) 10^3/uL Wise # (Auto) 1.2 H (0.3-0.8) 10^3/uL Eos # (Auto) 0.1 (0.0-0.7) 10^3/uL Baso # (Auto) 0.1 (0.0-0.1) 10^3/uL Abs Immat Gran (auto) 0.06 H (0.00-0.03) 10^3/uL Imm/Tot Granulo (auto) 0.4 (0.0-0.5) % Sodium 137 (136-145) mmol/L Potassium 3.6 (3.5-5.1) mmol/L Chloride 101 (98-107) mmol/L Carbon Dioxide 26.1 (21.0-32.0) mmol/L Anion Gap 13.5 BUN 5.0 L (7.0-18.0) mg/dL Creatinine 0.86 (0.70-1.30) mg/dL Est GFR ( Amer) >60 (>=60 mL/min/1.73m^2) Est GFR (Non-Af Amer) >60 (>=60 mL/min/1.73m^2) BUN/Creatinine Ratio 5.8 Glucose 125 H (74-106) mg/dL Lactate 1.0 (0.4-2.0) mmol/L Calcium 8.9 (8.5-10.1) mg/dL Discharge Plan Discharge Chief Complaint: Recheck/Abnormal Lab/Rx Clinical Impression: Encounter for drainage of abscess Patient Disposition: Home, Self-Care Time of Disposition Decision: 21:57 Condition: Good Prescriptions / Home Meds: No Action cefdinir 300 mg capsule 300 mg PO BID 10 Days Qty: 20 0RF metronidazole 500 mg tablet 500 mg PO Q8H 10 Days Qty: 30 0RF Print Language: Greenlandic Instructions: Abscess Follow-up (ED) Referrals: Physician,Non-Staff, MD [Primary Care Provider] - 1 week
--- NOTE | 2024-10-13 19:39 | PC.NURSE ---
this patient awake and alert sitting upright on the bed and looking at his cell phone. this patient was informed to get in a gown that i gave to him, this patient was informed of the plan of care at this time
[2024-10-13 20:11] LABS: Basophils Absolute Auto 0.1 10^3/uL (0.0-0.1); Basophils Percent Auto 0.5 % (0.2-2.0); Eosinophils Absolute Auto 0.1 10^3/uL (0.0-0.7); Eosinophils Percent Auto 0.6 % (0.9-7.0); Hematocrit 44.9 % (42.0-54.0); Hemoglobin 15.7 g/dL (14.0-18.0); Immature Granulocytes Abs Auto 0.06 10^3/uL (0.00-0.03); Immature Granulocytes Pct Auto 0.4 % (0.0-0.5); Lymphocytes Absolute Auto 1.5 10^3/uL (1.2-3.8); Lymphocytes Percent Auto 10.8 % (20.5-60.0); Mean Corpuscular Hemoglobin 33.3 pg (25.9-34.0); Mean Corpuscular Volume 95.1 fL (80.0-94.0); Mean Platelet Volume 11.1 fL (9.5-13.5); Monocytes Absolute Auto 1.2 10^3/uL (0.3-0.8); Neutrophils Absolute Auto 10.7 10^3/uL (1.4-6.5); Neutrophils Percent Auto 78.7 % (43.0-75.0); Platelet Count 218 10^3/uL (150-450); Red Blood Count 4.72 10^6/uL (4.70-6.10); Red Cell Distribution Width 11.7 % (11.0-15.0); White Blood Count 13.6 10^3/uL (4.0-11.0)
[2024-10-13] MEDS: ONDANSETRON PF 4 MG/2 ML VIAL IV (20:13)
[2024-10-13] MEDS: 0.9 % SODIUM CHLORIDE 1,000 ML 1000 ML IV (20:13)
[2024-10-13] MEDS: MORPHINE SULFATE 4 MG/ML VIAL IV (20:13)
[2024-10-13] MEDS: METRONIDAZOLE/SODIUM CHLORIDE 500 MG/100 ML PREMIX 100 MG IV (20:13)
[2024-10-13 20:22] LABS: Anion Gap 13.5; BUN Creatinine Ratio 5.8; Calcium 8.9 mg/dL (8.5-10.1); Carbon Dioxide 26.1 mmol/L (21.0-32.0); Chloride 101 mmol/L (98-107); Estimated GFR (African America >60 (>=60 mL/min/1.73m^2); Estimated GFR (Non-African Ame >60 (>=60 mL/min/1.73m^2); Glucose 125 mg/dL (74-106); Potassium 3.6 mmol/L (3.5-5.1); Sodium 137 mmol/L (136-145)
--- NOTE | 2024-10-13 20:35 | PC.NURSE ---
this patient awake and alert sitting upright on bed looking at his cell phone, this patient voices no concerns and shows no signs of distress
--- NOTE | 2024-10-13 23:19 | PC.NURSE ---
Wound on rt coccyx dressed after cleansed with soap and water. Discharge instructions given and pt told that he needs to vegetable picker scripts that were sent to the pharmacy. Pt told to follow up with his Dr. Pt states that he does have an appt.
== END 2024-10-13 23:20 | disposition home or self-care (01) ==
PROVIDERS: Emergency Provider Emergency Medicine
DX: Z48.03 Encounter for change or removal of drains (principal)
CPT/HCPCS: 36415; 80048; 83605; 85025; 96365; 96375; 99285; J1836; J2270; J2405

== ENCOUNTER 2025-03-03 19:31 | Emergency (ER) | payer SELFPAY ==
--- OUTSIDE RECORDS SUMMARY | 2016-07-19 09:15 | XMS_ITS | Continuity of Care Document ---
Author Organization [facility] Address [address] [place] [address] Phone Care Team Providers Care Irrigator Sprinkling System Name Role Phone Angel Arango Unavailable Unavailable Procedures Procedure Date IMMUNIZATION ADMIN Meningococcal Conjugate Vaccine 016 IMMUNIZATION ADMIN MENINGOCOCCAL VACCINE, IM OFFICE/OUTPATIENT VISIT, EST TDAP VACCINE >7 IM CHICKEN POX VACCINE, SC OFFICE/OUTPATIENT VISIT, EST Advance Directives Directive Yes / No Effective Date File Name No Information Encounters Encounter Description Practice Location Reason(s) For Visit Diagnoses Date Provider Providers Copied on Encounter [facility], [address], [place], [id number], [place] tel:[phone] [facility] No Information Anshul Hagan. [address], [place], [id number], [place]. tel:[phone] OFFICE/OUTPAT IENT VISIT, EST [facility], [address], [place], [id number], [place] tel:[phone] [facility] Need for prophylactic vaccination and inoculation against varicellaNeed for prophylactic vaccination with combined diphtheria-teta nus-pertussis (DTP) (DTaP) vaccine Anshul Hagan. [address], [place], [id number], [place]. tel:[phone] Family History Family Member Type Diagnosis Age At Onset No Information Immunizations Vaccine Date Status Comments Havrix refused Source: New Imm unization Record HPV (9-valent) refused Source: New I mmunization Record meningococcal B, OMV, 2 dose schedule refused Source: New Immuniza tion Record Influenza virus vaccine, injectable, quadrivalent, split virus, preservative free, 3 years or older Fluarix, Flulaval or Fluzone Quad 1581-3723 refused Source: New Immuniza tion Record meningococcal MCV4P administered Source: New Immunization Record Tdap administered Source: New Imm unization Record Varicella administered Source: New Imm unization Record Payers Payer name Insurance type Covered alliance party ID Authoriza tion(s) [employer] Medicaid MC [id number] Medicaid Wrap - [facility] [place] [id number] [place] [employer] Medicaid MC [id number] Medicaid Wrap - [facility] MC [id number] Social History Type Description Quantity Date Captured Comments Sex Male Smoking Status No Information Chief Complaint And Reason For Visit No Information Reason For Referral Reason For Referral No Information History Of Present Illness Encounter Date Complaint History Of Prese nt Illness No Information Functional Status Date Functional Assessmen t No Information Instructions Date Instruction Additional Infor mation No Information Assessments Type Assessment Date No Information Patient Care Teams Name Effective Dates (start - stop) Status Members No Information
--- OUTSIDE RECORDS SUMMARY | 2024-09-26 08:00 | XMS_ITS ---
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 STV/IP/Consult/abd abscess. * Medical History: Objective: * Vitals: Assessment: Plan: * Treatment: * * Electronic signature of Francesca Guzman MD, [id number] on 03/03/2025 at 07:39 PM EDT Sign off status: Pending Visit Status: P EN (Pending) * Provider: Oj Guzman MD Date: 0 09/26/2024 Generated for Printi ng/Faxing/eTransmitting on: 0 03/03/2025 07:39 PM EDT
[2025-03-03 19:36] VITALS: BP 142/90; PULSE 101; TEMP 36.9; O2SAT 100; BMI 30.1
--- OUTSIDE RECORDS SUMMARY | 2025-03-03 19:39 | XMS_ITS | Patient Health Record ---
Author Organization [facility] [place] Address [address] [place] [address] Care Team Providers Care House Visitor Name Role Phone None, Unknown or Primary Care Provider Unavailab shanice Francesca Guzman Unavailable [phone] Reason For Referral No Information Problems Problem Type SNOMED Code ICD Code Onset Dates Problem Status W/U Status Risk Notes Problem [id number] Diverticulitis o f intestine, part unspecified, without perforation or abscess without bleeding (K57.92) Active confirmed Encounters Encounter Location Date Provider Diagnosis Colon and Rectal Surgery [facility] [address] [place] [address] 10/17/2024 Abed Thomas Diverticulitis of intestine, part unspecified, without perforation or abscess without bleeding K57.[address] [address] 09/26/2024 Abed Thomas Assessments Encounter Date Diagnosis (ICD Code) Assessment Notes Treatment Notes Treatment Clinical Notes Section Notes 10/17/2024 Diverticulitis of intestine, part unspecified, without perforation or abscess without bleeding (ICD-10 - K57.92) Diverticulitis home care material was printed 10/17/2024 Other I explained the findings to him. He does have diverticulitis which is cleared. He is not having any drainage at all for the last 10 days or more. I explained to him that he will need to have colonoscopy but we have to wait few months because he had diverticulitis recently. He wanted to have the drain removed because nothing is coming out of it and he is bothered with it. I told him he can go to the hospital or the emergency room he wanted to be drained. I told him I could remove the drain for him. I explained to him that skin to be slightly tender. He understands and agrees. The stitches on the drain were. The drain was removed without any complications. He had some pain when it was removed but after a minute or so there was no pain. I put a dressing on the area where the drain was. No bleeding and no discharge. I told him to change the gauze once a day. I told him he can come back after 3 months to discuss the possibility of surgery. If he gets any pains or any diverticulitis again he will come back to the emergency room immediately. All the questions were answered. He understands and agrees. Plan Of Treatment No Information
--- OUTSIDE RECORDS SUMMARY | 2025-03-03 19:39 | XMS_ITS | Clinical Summary ---
Author Organization [facility] Address [address] [place] [address] Care Team Providers Care Brick Catcher Name Role Phone Unavailable Primary Care Provider Unavailabl e Allergies No known active allergies Medications No known medications Active Problems Problem Noted Date Diagnosed Date Intra-abdominal abscess 09/26/2024 Tobacco use 09/26/2024 Colonic diverticular abscess 09/25/2024 Leukocytosis 09/25/2024 Hypokalemia 09/25/2024 Colitis 01/17/2024 H/O abdominal abscess 01/17/2024 Infection as cause of abscess of colon Abscess of sigmoid colon due to diverticulitis 0 01/15/2024 Family History Medical History Relation Name Comments Drug Abuse Brother drug overdose Alcohol Abuse Father Relation Name Status Comments Brother Father Alive Mother Alive Social History Tobacco Use Types Packs/Day Years Used Date Smoking Tobacco: Every Day Cigarettes Smokeless Tobacco: Never Tobacco Cessation:Ready to Q uit: Not Asked; Counseling Given: Not Answered Alcohol Use Standard Drinks/Week Comments Not Currently 0 (1 standard drink = 0.6 oz pure alcohol) stopped drinking 2 months ago- reports h/o ETOH abuse [employer] Answer Date Recorded In the past 12 months has [employer], oil, or water [employer] threatened to shut off services in your home? No 01/16/2024 AUDIT-C Answer Date Recorded Q1: How often do you have a drink containing alc ohol? Monthly or less 01/16/2024 Q2: How many drinks containi ng alcohol do you have on a typical day when you are drinking? 3 or 4 01/16/2024 Q3: How often do you have si x or more drinks on one occasion? Less than monthly 01/16/2024 Hunger Vital Sign Answer Date Recorded Within the past 12 months, y ou worried that your food would run out before you got the money to buy more. Never true 01/16/20 24 Within the past 12 months, t he food you bought just didn't last and you didn't have money to get more. Never true 01/16/2024 PRAPARE - Transportation Answer Date Re corded In the past 12 months, has l ack of transportation kept you from medical appointments or from getting medications? Yes 04/2024 In the past 12 months, has l ack of transportation kept you from meetings, work, or from getting things needed for daily living? Yes 01/16/2024 Housing Stability Vital Sign Answer Mike e Recorded In the last 12 months, was t here a time when you were not able to pay the mortgage or rent on time? Yes 01/16/2024 In the last 12 months, how many places have you lived? 1 01/16/2024 In the last 12 months, was t here a time when you did not have a steady place to sleep or slept in a halfway (including now)? No 01/16/2024 Food Insecurity Answer Date Recorded Within the past 12 months, y ou worried that your food would run out before you got the money to buy more. 1 01/16/2024 Within the past 12 months, t he food you bought just didn't last and you didn't have money to get more. 1 01/16/2024 Interpersonal Safety Domain Source: IP Abuse Scr eening Answer Date Recorded Physical abuse Denies 09/25/2024 Verbal abuse Denies 09/25/2024 Emotional abuse Denies 09/25/2024 Financial abuse Denies 09/25/2024 Sexual abuse Denies 09/25/2024 Sex and Gender Information Value Date Recorded Sex Assigned at Not on file Legal Sex Male 5:24 AM EST Gender Identity Not on file Sexual Orientation Not on file Occupation Industry Job Start Date Job End Date [employer] Not on file Not on file Not on file Last Filed Vital Signs Vital Sign Reading Time Taken Comments Blood Pressure 136/87 10/01/2024 8:15 AM EST Pulse 69 10/01/2024 8:15 AM EST Temperature 36.7 C (98.1 F) 10/01/2024 8:15 AM EST Respiratory Rate 18 10/01/2024 1:01 PM EST Oxygen Saturation 94% 10/01/2024 8:15 AM EST Inhaled Oxygen Concentration - - Weight 105.1 kg (231 lb 11.3 oz) 09/30/2024 6:00 AM EST Height 180.3 cm (5' 11 ) 09/25/2024 10: 49 PM EST Body Mass Index 32.32 09/25/2024 10:49 PM EST Plan of Treatment Health Maintenance Due Date Last Done Comments Depression Screen 2010 Varicella vaccine (1 of 2 - 13+ 2-dose series) 2011 HIV screen 2013 HPV vaccine (1 - Male 3-dose series) 2013 DTaP/Tdap/Td vaccine (1 - Tdap) 2017 Hepatitis B vaccine (1 of 3 - 19+ 3-dose series) 2017 Pneumococcal 0-49 years Vacc ine (1 of 2 - PCV) 2017 COVID-19 Vaccine ( - 2023-2 5 season) 2024 Flu vaccine (Season Ended) 2025 Hepatitis C screen Completed 01/18/2024 Hepatitis A vaccine Aged Out No longe r eligible based on patient's age to complete this topic Hib vaccine Aged Out No longer eligi ble based on patient's age to complete this topic Meningococcal (ACWY) vaccine Aged Out No longer eligible based on patient's age to complete this topic Meningococcal B vaccine Aged Out No l onger eligible based on patient's age to complete this topic Polio vaccine Aged Out No longer elig ible based on patient's age to complete this topic Medical Devices Implanted Type Area Furniture Installer Device Identifier Shelf Expiration Date Model / Serial / Lot Plate Distl Rad Kenia Lt 2.4x54mm - [id number] Implanted:Qty : 1 on 04/03/2022 by Evan Frost MD at [facility] Screw/Pl ate/Nail /Miguel Left: Wrist SYNTHES-PMM [id number] / / Screw Bne L14mm Dia2.4mm Dst Rad Volar S Stl St Kenia Ang Michelle - [id number] Implanted:Qty : 1 on 04/03/2022 by Evan Frost MD at [facility] Left: Wrist DEPUY SYNTHES [facility] [place] [id number] / / Screw Bne L18mm Dia2.4mm Dst Rad Volar S Stl St Kenia Ang Michelle - [id number] Implanted:Qty : 1 on 04/03/2022 by Evan Frost MD at [facility] Left: Wrist DEPUY SYNTHES [employer] [place] [id number] / / Screw Bne L22mm Dia2.4mm Dst Rad Volar S Stl St Kenia Ang Michelle - [id number] Implanted:Qty : 2 on 04/03/2022 by Evan Frost MD at [facility] Left: Wrist DEPUY SYNTHES [employer] [place] [id number] / / Screw Bne L18mm Dia2.7mm Neymar S Stl St T8 Stardrv Recess - [id number] Implanted:Qty : 1 on 04/03/2022 by Evan Frost MD at [facility] Left: Wrist DEPUY SYNTHES MYR [id number] / / Explanted Type Area Furniture Installer Device Identifier Shelf Expiration Date Model / Serial / Lot K Wire Fix L150mm Dia1.25mm S Stl Trcr Pnt - [id number] Explanted:Qty: 2 on 04/03/2022 at [facility] Left: Wrist DEPUY SYNTHES [employer] [place] [id number] / / Procedures Procedure Name Priority Date/Time Associated Diagnosis Comments HEPATITIS PANEL, ACUTE STAT 01/18/2024 9:21 AM EDT from Last 3 Months or Most Recently Relevant to Health Maintenance Results * Hepatitis Panel, Acute (01/18/2024 9:21 AM EDT) Pathologist [facility] Hepatitis B Surface Ag NONREACTIVE NONREACTIVE 01/18/2024 9:21 AM EDT [employer] Hepatitis C Ab NONREACTIVE NONREACTIVE 01/18/20 9:21 AM EDT [employer] Comment: The hepatitis C procedure used in [...] recommended by ordering HCV RNA by PCR. Hep B Core Ab, IgM NONREACTIVE NONREACTIVE 01/08 9:21 AM EDT [employer] [employer] [facility] Hep A IgM NONREACTIVE NONREACTIVE 01/18/2024 9:21 AM EDT [employer] BLOOD SPECIMEN / Unknown 01/18/2024 9:21 AM EDT 01/18/2024 9:23 AM EDT us Marjoriejavid Mcwilliams Tg [employer] - COMMUNITY SERVICE AIDE IMMUNOLOGY ORDERABLES Final Result [employer] [facility] [address] [place] [address], [facility] [phone] from Last 3 Months or Most Recently Relevant to Health Maintenance Insurance [facility] Advance Directives * Full Code (Latest Code Status on File) Date Activated Date Inactivated Comments 09/25/2024 10:49 PM 10/01/2024 11:15 PM * Full Code Date Activated Date Inactivated Comments 01/16/2024 11:04 AM 01/18/2024 2:40 PM
--- OUTSIDE RECORDS SUMMARY | 2025-03-03 19:39 | XMS_ITS | Clinical Summary ---
Author Organization [facility] tem Address [id number] [address] [place] [address] Care Team Providers Care Lpn Rn Hospice Name Role Phone Unavailable Primary Care Provider Unavailabl e Medications No known medications Active Problems No known active problems Social History Tobacco Use Types Packs/Day Years Used Date Smoking Tobacco: Never Assessed Sex and Gender Information Value Date Recorded Sex Assigned at Not on file Legal Sex Male 10:26 AM EDT Gender Identity Not on file Sexual Orientation Not on file Plan of Treatment Health Maintenance Due Date Last Done Comments Depression Screening 2010 Tobacco Screening 2010 Adult BMI Screening 2016 DTaP,Tdap and Td Vaccines (1 - Tdap) 2017 Influenza Vaccine 05/11/2025 Medical Devices Not on file
--- OUTSIDE RECORDS SUMMARY | 2025-03-03 19:40 | XMS_ITS | Patient Health Record ---
Author Organization [facility] Address [address] [place] [address] Care Team Providers Care Licensed Psychiatric Technician Name Role Phone Evan Frost Unavailable [phone] Reason For Referral No Information Social History Tobacco Use: Social History Observation Description Date Details (start date - stop date) Current Smoker NA - NA Smoking History Question Answer Notes Smoking Status Current Everyday Smoker Problems Problem Type SNOMED Code ICD Code Onset Dates Problem Status W/U Status Risk Notes Problem Carpal tunnel syndrome of left wrist (816089714879832) Carpal tunnel syndrome of left wrist (G56.02) Active confirmed Problem Surgical follow-up (619714752) Aftercare following surgery of the nervous system (Z48.811) Active confirmed Problem 03288268 Unspecified fracture of the lower end of left radius, initial encounter for closed fracture (S52.502A) Active confirmed Problem [id number] Carpal tunnel syndrome, left upper limb (G56.02) Active confirmed Problem 01173743 Unspecified fracture of the lower end of left radius, subsequent encounter for closed fracture with routine healing (S52.502D) Active confirmed Problem 15609107 Unspecified fracture of lower end of left ulna, initial encounter for closed fracture (S52.602A) Active confirmed Problem 62749791 Unspecified fracture of lower end of left ulna, subsequent encounter for closed fracture with routine healing (S52.602D) Active confirmed Problem Closed extra-articular fracture of distal end of left radius with routine healing (S52.552D) Active confirmed Problem Closed extra-articular fracture of distal end of left radius, initial encounter (S52.552A) Active confirmed Plan Of Treatment No Information Insurance Providers Payer Name Payer Address Payer Phone Subscriber Number Group Number Insured Name Patient Relationship to Insured Coverage Start Date Coverage End Date [place] Dept of Medicaid [address] [place] [address] [id number] ESMER MUNOZ Self - patient is the insured 2 Medical (General) History Medical History History ICD Code High Blood Pressure: Yes Depression: Yes Surgical History Surgery Date(Month/Year) ORIF of a left distal radius fracture with a left carpal tunnel release 04/03/2022
[2025-03-03 19:58] VITALS: BP 122/99; PULSE 82; TEMP 36.9; O2SAT 99; BMI 33.0
--- NOTE | 2025-03-03 20:33 | ED_ITS ---
HPI HPI - General Adult General Chief complaint: Wound/Laceration Stated complaint: possible abscess Time Seen by Provider: 03/03/25 20:26 Source: patient Mode of arrival: walk-in Limitations: no limitations History of Present Illness HPI narrative: This 24-year-old male presents chief complaint painful lump over the right gluteal region. He bumped it against a sink 4 days ago and has become more painful. He underwent incision and drainage of an abscess at the same site in October of this year. He is not diabetic. Related Data Previous Rx's ?Medication ?Instructions ?Recorded cephalexin 500 mg capsule 500 mg PO TID 10 days #30 ca ps 03/03/25 Allergies Allergy/AdvReac Type Severity Reaction Status Date / Time No Known Drug Allergies Allergy Verified 03/03/25 19:58 Opioid HPI Opioid Management Most Recent Opioid Data: Last Pain Scale 4 09/25/24, 15:01 Last ORT Total Score 4 12/21/23, 09:21 Last ORT Risk Category Moderate Risk 12/21/23, 09:21 Review of Systems ROS Status of ROS 10 or more systems reviewed and unremark able except as noted in history and below PFSH PFS Medical History Perforation bowel ?K63.1 - Perforation of intestine (nontraumatic) (ICD-10) Obesity (BMI 30-39.9) ?E66.9 - Obesity, unspecified (ICD-10) Marijuana smoker ?F12.90 - Cannabis use, unspecified, uncomplicated (ICD-10) Smoker ?F17.200 - Nicotine dependence, unspecified, uncomplicated (ICD-10) Diverticulitis of colon with perforation ?K57.20 - Diverticulitis of large intestine with perforation and abscess wit hout bleeding (ICD-10) Smokers' cough ?J41.0 - Simple chronic bronchitis (ICD-10) Obesity (BMI 35.0-39.9 without comorbidity) ?E66.9 - Obesity, unspecified (ICD-10) Pleurisy ?R09.1 - Pleurisy (ICD-10) Alcohol use disorder, mild, in early remission ?F10.11 - Alcohol abuse, in remission (ICD-10) HTN (hypertension) ?I10 - Essential (primary) hypertension (ICD-10) Herpes simplex ?B00.9 - Herpesviral infection, unspecified (ICD-10) Surgical History History of surgery on arm ?Z98.890 - Other specified postprocedural states (ICD-10) History of appendectomy ?Z90.49 - Acquired absence of other specified parts of digestive tract (ICD- 10) Family History Mother Family history of COPD (chronic obstructive pulmonary disease) Family history of cancer Family history of hypertension Father Family history of hypertension Social History Within the past year, how often did you have a drink containing alcohol: 2-3 times a week Within the past year, how many standard drinks containing alcohol did you have on a typical day: 1 or 2 Within the past year, how often did you have six or more drinks on one occasion: less than monthly Total score: 1 Score interpretation: A score of 4 or more indicates drinking is likely to affect patient's safety. Smoking status: Current every day smoker Non-prescribed substance use: cannabis (any form) Previous occupational history: unemployed Highest level of school completed/degree received: high school graduate Are you now , , , , never or living with a partner: never Little interest or pleasure in doing things: not at all Feeling down, depressed, or hopeless: not at all Feel stressed/tense/nervous/anxious/difficulty sleeping: not at all Exam Narrative Exam Narrative: Focused physical exam was carried out. Patient has an area of induration that is about 4 cm in diameter over the right buttock. There is overlying central redness and a superficial scab. No vesicles are seen and there is no underlying fluctuance. Skin is warm and dry. Constitutional Vital Signs, click to edit/add: Last Vital Signs Temp 98.4 F 03/03/25 19:58 Pulse 82 03/03/25 19:58 Resp 19 03/03/25 19:58 BP 122/99 H 03/03/25 19:58 Pulse Ox 99 03/03/25 19:58 O2 Del Method Room Air 03/03/25 19:58 Course Vital Signs Vital signs: Vital Signs Temperature 98.5 F 03/03/25 19:36 Pulse Rate 101 H 03/03/25 19:36 Respiratory Rate 18 03/03/25 19:36 Blood Pressure 142/90 H 03/03/25 19:36 Pulse Oximetry 100 03/03/25 19:36 Oxygen Delivery Method Room Air 03/03/25 19:36 Temperature 98.4 F 03/03/25 19:58 Pulse Rate 82 03/03/25 19:58 Respiratory Rate 19 03/03/25 19:58 Blood Pressure 122/99 H 03/03/25 19:58 Pulse Oximetry 99 03/03/25 19:58 Oxygen Delivery Method Room Air 03/03/25 19:58 Medical Decision Making MDM Narrative Medical decision making narrative: Patient presents with an evolving gluteal abscess. He is placed on Keflex and is advised to use local heat. He may return anytime symptoms worsen or the abscess starts to become fluctuant. He is also referred to outpatient surgeon of choice for further management. Discharge Plan Discharge Chief Complaint: Wound/Laceration Clinical Impression: Abscess, gluteal, right Patient Disposition: Home, Self-Care Time of Disposition Decision: 20:33 Condition: Good Mode of Transportation: Private Vehicle Prescriptions / Home Meds: New cephalexin 500 mg capsule 500 mg PO TID 10 Days Qty: 30 0RF Print Language: Andorran Instructions: Abscess (ED) Additional Instructions: Apply warm moist compresses to affected area for 10 minutes 3-4 times a day. Follow-up with surgeon for definitive care. Call [facility] for surgery referral. Return for worsening symptoms Referrals: Physician,Non-Staff, MD [Primary Care Provider] - 1 week Discharge Date/Time: 03/03/25 20:49
--- NOTE | 2025-03-03 20:56 | PC.NURSE ---
i gave this patient verbal and written discharge orders along with 1 e-script, an d this patient voices yes to understanding these. at time of discharge this patient voices no concerns, needs and shows no signs of distress
== END 2025-03-03 20:49 | disposition home or self-care (01) ==
PROVIDERS: Emergency Provider Emergency Medicine
DX: L02.31 Cutaneous abscess of buttock (principal); Z90.49 Acquired absence of other specified parts of digestive tract; F17.200 Nicotine dependence, unspecified, uncomplicated
CPT/HCPCS: 99283